=== PATIENT | male | born 1955 | race African-American/Black ===

== ENCOUNTER 2016-11-27 13:37 | Inpatient (IN) ==
[2016-11-27] MEDS ORDERED: KETOROLAC 30 MG/1 ML VIAL IV STA (14:07)
[2016-11-27] MEDS ORDERED: CLINDAMYCIN INJ 900 MG in PREMIX 1 EACH IV STA (14:07)
[2016-11-27] MEDS ORDERED: ONDANSETRON 4 MG/2 ML VIAL IV STA (14:07)
[2016-11-27] MEDS ORDERED: methylPREDNISolone SOD SUC 125 MG/2 ML VIAL IV STA (14:07)
--- NOTE | 2016-11-27 14:16 | EKG Report ---
Stationary ECG Study 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
--- NOTE | 2016-11-27 14:19 | Emergency Department Note ---
Arrival - Arrival Chief Complaint: Non-Specific Stated Complaint: SOB/CP ED Nursing Triage Note: Pt c/o SOB, mouth pain, difficulty swallowing, and weakness. Last Dialysis on Monday. Mode of Arrival: Wheelchair Time Seen by Provider: 11/27/16 14:07 - History of Present Illness HPI Narrative: This 61-year-old black male presents for the third time in 1 week for similar complaints. The patient reports a sore throat so severe he cannot talk and it hurts terribly to swallow. The patient initially a week ago was worked up in this regard as well as for associated chest pain. At that time it was thought his sore throat was somehow related to a recent dental extraction as well as aberration of his blood count with white blood cell count of only 2700. Both patient's white count and complaints of sore throat improved while on Levaquin and his chest pain workup revealed no significant pathology. He was seen soon after discharge in the ER again this time complaining of chest pain with subsequentl negative workup and was discharged. Today he presents primarily with complaints of sore throat. He denies chills, fever, sinus complaints, new dental pain, Heartburn, belching, or indigestion. He does however have problems with a white film on his tongue. It was not noted on the previous 2 visits if the patient did have any thrush on exam. Currently he appears anxious but in no acute medical distress. Onset (ago): week(s) (Patient presents 3 weeks post onset of symptoms) Allergies/Adverse Reactions: Allergies Allergy/AdvReac Type Severity Reaction Status Date / Time povidone-iodine Allergy Intermediate RASH Verified 11/08/16 08:59 [From Betadine] soap [From Betadine] Allergy Intermediate RASH Verified 11/08/16 08:59 Home Medications: Home Medications Medication Instructions Recorded Confirmed Type Insulin Glargine [Lantus] 35 unit SUBCUT BEDTIME 01/24/15 11/12/16 History Levothyroxine Tab [Synthroid Tab] 100 mcg PO DAILY 01/24/15 11/12/16 History Carvedilol 25 mg PO BID 11/12/16 11/12/16 History Digoxin 125 mcg PO DAILY 11/12/16 11/12/16 History NIFEdipine [Nifedipine ER] 30 mg PO DAILY 11/12/16 11/12/16 History Vitamin B Complex 1 each PO DAILY 11/12/16 11/12/16 History glipiZIDE [Glipizide] 5 mg PO DAILY 11/12/16 11/12/16 History Ondansetron Odt Tab [Zofran Odt] 4 mg PO Q6H #15 tablet 11/25/16 Rx Pantoprazole Tab [Protonix Tab] 40 mg PO DAILY #14 tablet 11/25/16 Rx Review of System - Review of System 12 point system: reviewed and no additional remarkable complaints except as stated - Review of System Constitutional: Present: as per HPI Head/Ears/Nose/Throat: Present: see HPI Respiratory: Present: as per HPI Cardiovascular: Present: as per HPI Gastrointestinal: Present: as per HPI Medical,Surgical,& Family Hx - Medical History Cardio: History of: Hypertension Neurology: History of: Peripheral Neuropathy (diabetic) No history of: Seizures Endocrine: History of: Diabetes Mellitus (IDDM), Thyroid Disorder Renal: History of: Dialysis (MWF), Renal Failure Musculoskeletal: History of: Back/Neck Problems No history of: Amputation - Surgical History Thoracic Surgeries: Patient denies;: Organ Transplant Neurologic Surgeries: Patient denies: Neurologic Surgery - Family History Family History: Reports;: Family Diabetes, Family Hypertension - Social History Smoking Status: Never smoker Exam Physical Examination: GENERAL: Well developed, well nourished black male in no acute distress. HEENT: Normocephalic. No trauma. Moist mucous membranes. EOMI. PERRLA. ENT evidence of poor dentition with oral thrush NECK: Supple. Submental adenopathy. CARDIAC: Regular. No murmurs. Heart rate 98 CHEST: Clear to auscultation. No respiratory distress. O2 sat 99% ABDOMEN: Soft. Nontender. Active bowel sounds. EXTREMITIES: No trauma. Normal ROM. No pedal edema. SKIN: No diaphoresis. No rash. NEURO: Alert. Neuro intact no focal deficits. Vital Signs: Vital Signs Temperature 99.2 F 11/27/16 13:57 Pulse Rate 98 H 11/27/16 13:57 Respiratory Rate 20 11/27/16 13:57 Blood Pressure 171/103 11/27/16 13:57 O2 Sat by Pulse Oximetry 99 11/27/16 13:57 Course - Reevaluation(s) Reevaluation #1: Discussed with patient and family the necessity for admission for further evaluation of his neck pain but most importantly his abnormalities of cardiac diagnostics. - Consultations Consultation #1: Discussed with hospitalist service who will admit for further evaluation and treatment. Results - Labs CBC & BMP: 11/27/16 14:52 11/27/16 14:52 Labs: I have reviewed the laboratory noted the expected abnormalities of renal function, elevated white blood cell count, and evidence of positive cardiac enzymes - Impressions EKG: Sinus rhythm with first-degree AV block with evidence of old septal infarct versus poor R-wave progression anteriorly. Diffuse nonspecific ST changes with no acute injury pattern noted. There was noted a change in lead III as compared to previous EKG although this may be related to lead placement - Diagnostic Findings Procedure: CT: image reviewed by me, report reviewed by me (CT of the soft tissues the neck: No significant pathology noted) Disposition Clinical Impression: Presumed NSTEMI NC, Chronic pharyngitis, Mild thrush Case discussed with: patient, patient's family Disposition: Still a Patient Condition: Stable Time of Disposition: 15:53
[2016-11-27] MEDS ORDERED: FLUCONAZOLE 100 MG TABLET PO STA (14:22)
[2016-11-27 15:03] LABS: Basophils # 0.1 10*3/uL (0.0-0.2); Basophils % 0.4 % (0.0-0.8); Eosinophils # 0.1 10*3/uL (0.0-0.87); Eosinophils % 0.9 % (0.00-10.9); Hematocrit 30.5 VOL% (42.0-52.0); Immature Granulocytes % 7.4 %; Lymphocytes # 1.7 10*3/uL (1.4-4.0); Lymphocytes % 13.9 % (21.2-54.2); Mean Corpuscular HGB Conc 32.8 GM/DL (32-36); Mean Corpuscular Hemoglobin 29 PG (27-34); Mean Corpuscular Volume 89.4 FL (87-102); Mean Platelet Volume 9.8 FL (9.6-12.0); Monocytes # 2.9 10*3/uL (0.11-0.8); Monocytes % 23.8 % (1.7-12.7); Neutrophils # 6.5 10*3/uL (1.4-7.4); Neutrophils % 53.6 % (38.7-73.9); Platelet Count 354 T/CUMM (130-400); Red Blood Count 3.41 MC/CUMM (3.8-5.5); Red Cell Distribution Width 16.3 % (9.3-17.3); White Blood Count 12.1 T/CUMM (4-12)
[2016-11-27 15:14] LABS: INR 1.1; PT Patient Result 11.4 SECS; Partial Thromboplastin Time 30.8 SECS (0-40)
--- NOTE | 2016-11-27 15:22 | CT Report ---
History: Neck pain. Difficulty swallowing Date: 11/27/2016 Study: CT soft tissue neck without IV contrast Comparison exam: November 12, [address] sections were obtained through the soft tissue neck without IV contrast. Multiplanar reconstruction images are also evaluated. This CT exam was performed using one or more the following dose reduction techniques: Automated exposure control, adjustment of the MA and/or KV according to patient size, or use of iterative reconstruction technique. There is no obvious soft tissue mass at the cervical level. There is no lymphadenopathy by short axis diameter criteria. There is no gross thyroid mass. There is no focal laryngeal abnormality. There is prominent anterior spondylosis and moderate to mild degenerative disc narrowing at C4-C5 through C6-C7 as before. There is moderate to severe spinal stenosis at C3-C4 through C6-C7 related to posterior diffuse bulging disc and osteophyte, unchanged from previous study. Impression: No significant interval change from the CT neck performed 15 days prior to this study. No obvious soft tissue mass or abscess at the cervical level. Prominent degenerative disease of the cervical spine as before. Moderate to severe multilevel spinal stenosis related to diffuse bulging disc and vertebral body osteophyte as before PROCEDURE INTERPRETED AT [facility] DEPARTMENT OF RADIOLOGY Final Report Signed by: Dr. Raven Kim
[2016-11-27 15:31] LABS: Anisocytosis 1+; Band Neutrophils 10 % (0-10); Eosinophils 2 % (0-10); Hypochromasia Slight; Lymphocytes 16 % (20-55); Metamyelocytes 2 %; Segmented Neutrophils 48 % (50-85); Total Cells Counted 100
[2016-11-27 15:32] LABS: Platelet Estimate Adequate
[2016-11-27 15:34] LABS: Troponin I Only 0.382 NG/ML (0.00-0.045)
[2016-11-27] MEDS ORDERED: ASPIRIN 325 MG TABLET PO STA (15:38)
[2016-11-27] MEDS ORDERED: NITROGLYCERIN 2% OINT 1 INCH/GM PACK TOP STA (15:38)
[2016-11-27] MEDS ORDERED: METOPROLOL TARTRATE 25 MG TABLET PO STA (15:38)
[2016-11-27 15:40] LABS: Albumin 2.8 G/DL (3.4-5.0); Bilirubin,Total 0.5 MG/DL (0.2-1.0); Calcium 9.2 MG/DL (8.5-10.1); Osmolality,Calculated 275.1 MOS/KG (273-304)
[2016-11-27] MEDS ORDERED: CLINDAMYCIN INJ 50 ML IV ONE (15:49)
[2016-11-27] MEDS ORDERED: ASPIRIN 325 MG TABLET ONE (15:50)
[2016-11-27] MEDS ORDERED: methylPREDNISolone SOD SUC 125 MG/2 ML VIAL ONE (15:50)
[2016-11-27] MEDS ORDERED: NITROGLYCERIN 2% OINT 1 INCH/GM PACK TOP ONE (15:50)
[2016-11-27] MEDS ORDERED: KETOROLAC 30 MG/1 ML VIAL ONE (15:50)
[2016-11-27] MEDS ORDERED: FLUCONAZOLE 100 MG TABLET ONE (15:50)
[2016-11-27] MEDS ORDERED: METOPROLOL TARTRATE 25 MG TABLET ONE (15:50)
[2016-11-27] MEDS ORDERED: ONDANSETRON 4 MG/2 ML VIAL ONE (15:50)
[2016-11-27] MEDS ORDERED: FLUCONAZOLE 200 MG TABLET PO STA (16:11)
--- NOTE | 2016-11-27 16:17 | Hospitalist History & Physical ---
Assessment and Plan (1) Atypical chest pain Status: Acute Current Visit: No (2) Chronic renal insufficiency Status: Acute Current Visit: No (3) Elevated troponin Status: Acute Current Visit: No (4) Anemia Status: Chronic Assessment and plan: Our plan for this patient will be admission to the hospital on a telemetry bed. Patient had this chest pain going on for a couple weeks now that, comes and goes and seems like it has increased over the past couple days. It sounds very atypical but he does have a mild bump in troponin. I do feel that prior to investigating from a GI standpoint a cardiology evaluation would be most appropriate this end-stage renal disease patient. We will draw serial cardiac enzymes and consult cardiology. Blood pressure seems like it has been a problem will have some as needed medicines available. CT scan of his neck was reviewed. EKGs were reviewed. Current Visit: No Qualifiers: Other causes of anemia: chronic disease, kidney History of Present Illness Chief complaint: Chest pain and throat pain History of present illness: Mr. Rosales is a 61 year old male with past medical history significant for end- stage renal disease diabetes hypertension and rheumatoid arthritis who has been having a 2 week history of some vague chest pain and throat pain. Prior to this he did have a dental extraction. Patient ultimately was hospitalized for a few days earlier this month. He had some hoarseness of his voice that resolved. He comes back today were increasing chest pain and throat pain this occurred over the past couple of days. He is able to swallow without any issue. His sister reports he has been hoarse. History is obtained from sister patient reluctant to talk. He does motion that he has a chest pain in the center of his chest. He does make him feel short of breath he denies diaphoresis and it radiates to the left side of his jaw. Patient had a mild bump in his troponin and I was consulted to admit him through the ER Home Medications Medication Instructions Recorded Confirmed Type Insulin Glargine [Lantus] 50 unit SUBCUT BEDTIME 01/24/15 11/27/16 History Levothyroxine Tab [Synthroid Tab] 100 mcg PO QAM 01/24/15 11/27/16 History Carvedilol 25 mg PO BID 11/12/16 11/27/16 History Digoxin 125 mcg PO QAM 11/12/16 11/27/16 History NIFEdipine [Nifedipine ER] 30 mg PO QAM 11/12/16 11/27/16 History Vitamin B Complex 1 each PO QAM 11/12/16 11/27/16 History glipiZIDE [Glipizide] 5 mg PO AC BREAKFAST 11/12/16 11/27/16 History Ondansetron Odt Tab [Zofran Odt] 4 mg PO Q6H #15 tablet 11/25/16 11/27/16 Rx Amoxicillin Cap/Tab 500 mg PO TID 11/27/16 11/27/16 History Azithromycin [Azithromycin] 250 mg PO QAM 11/27/16 11/27/16 History Gabapentin [Gabapentin] 300 mg PO TID 11/27/16 11/27/16 History Liothyronine Sodium 25 mcg PO QAM 11/27/16 11/27/16 History Naproxen Sodium [Aleve Cap] 220 mg PO Q12H PRN 11/27/16 11/27/16 History Pantoprazole Tab [Protonix Tab] 40 mg PO QAM 11/27/16 11/27/16 History predniSONE TAB [PredniSONE] 5 - 10 mg PO DAILY PRN 11/27/16 11/27/16 History Allergies Allergy/AdvReac Type Severity Reaction Status Date / Time povidone-iodine Allergy Intermediate RASH Verified 11/08/16 08:59 [From Betadine] soap [From Betadine] Allergy Intermediate RASH Verified 11/08/16 08:59 Medical,Surgical,& Family Hx - Medical History Cardio: History of: Hypertension Neurology: History of: Peripheral Neuropathy (diabetic) No history of: Seizures Endocrine: History of: Diabetes Mellitus (IDDM), Thyroid Disorder Renal: History of: Dialysis (MWF), Renal Failure Musculoskeletal: History of: Back/Neck Problems No history of: Amputation - Surgical History Thoracic Surgeries: Patient denies;: Organ Transplant Neurologic Surgeries: Patient denies: Neurologic Surgery - Family History Family History: Reports;: Family Diabetes, Family Hypertension - Social History Smoking Status: Never smoker Frequency of Alcohol Use: None Type of Drug Use: None ROS unobtainable: other (Secondary to his reluctance to talk) Exam - Constitutional Vitals: Period Temp Pulse Resp BP Sys/Diehl Pulse Ox Last 24 Hr 99.2 F 98 20 171/103 99 General appearance: over weight - Head Head exam: Present: normal inspection - Eye Eye exam: Present: EOMI Pupils: Present: [place]E - ENT ENT exam: Present: normal exam - Neck Neck exam: Present: normal inspection - Respiratory Respiratory exam: Present: clear to auscultation bilaterally - Cardiovascular Cardiovascular exam: Present: regular rate and rhythm - GI/Abdominal GI/Abdominal exam: Present: normal bowel sounds - Extremities Exam Extremities exam: Present: edema - Back Exam Back exam: Present: normal inspection - Neurological Exam Neurological exam: Present: alert - Psychiatric Psychiatric exam: Present: flat affect - Skin Skin exam: Present: normal color Results - Labs CBC & BMP: 11/27/16 14:52 11/27/16 14:52
[2016-11-27] MEDS ORDERED: ONDANSETRON 4 MG/2 ML VIAL IV PRN (16:20)
[2016-11-27] MEDS ORDERED: INSULIN REGULAR 100 UNIT/ML SUBCUT ONE (16:20)
[2016-11-27] MEDS ORDERED: METOPROLOL TARTRATE 5 MG/5 ML VIAL IV PRN (16:27)
[2016-11-27] MEDS ORDERED: PHENOL 1.4% THROAT SPRAY 177 ML BOTTLE PO PRN (16:32)
[2016-11-27 17:16] LABS: Risk Ratio 5.29; VLDL CHOLESTEROL 65.2 MG/DL
--- NOTE | 2016-11-27 17:24 | XRay Report ---
History: Pain Date: 11/27/2016 Study: Chest x-ray AP portable Comparison exam: November 25, 2016 chest x-ray There is cardiomegaly without change. The mediastinal contour is stable. The pulmonary vasculature is not engorged. The lungs and pleural spaces are clear. There is mild to moderate thoracic spondylosis. Impression: No acute cardiopulmonary process compared to the previous study. Stable cardiomegaly PROCEDURE INTERPRETED AT [facility] DEPARTMENT OF RADIOLOGY Final Report Signed by: Dr. Raven Kim
[2016-11-27] MEDS: NITROGLYCERIN 2% OINT 1 INCH/GM PACK TOP SCH (17:54)
[2016-11-27] MEDS: ENOXAPARIN 30 MG/0.3 ML SYRINGE SUBCUT SCH (17:54)
[2016-11-27] MEDS: AMOXICILLIN 500 MG CAPSULE PO SCH (21:31)
[2016-11-27] MEDS: GABAPENTIN 300 MG CAPSULE PO SCH (21:31)
[2016-11-27] MEDS: CARVEDILOL 25 MG TABLET PO SCH (21:31)
[2016-11-27 23:21] LABS: Troponin I Only 0.368 NG/ML (0.00-0.045)
--- NOTE | 2016-11-27 23:38 | EKG Report ---
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
[2016-11-28] MEDS: NITROGLYCERIN 2% OINT 1 INCH/GM PACK TOP SCH ×3 (00:06→12:11)
[2016-11-28 05:50] LABS: Troponin I Only 0.311 NG/ML (0.00-0.045)
--- NOTE | 2016-11-28 06:24 | EKG Report ---
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
[2016-11-28] MEDS: GABAPENTIN 300 MG CAPSULE PO SCH ×2 (08:51→08:57)
[2016-11-28] MEDS: DIGOXIN 0.125 MG TABLET PO SCH (08:51)
[2016-11-28] MEDS: AMOXICILLIN 500 MG CAPSULE PO SCH ×3 (08:51→21:18)
[2016-11-28] MEDS: LEVOTHYROXINE 100 MCG TABLET PO SCH (08:51)
[2016-11-28] MEDS: LIOTHYRONINE 25 MCG TABLET PO SCH (08:51)
[2016-11-28 08:52] LABS: Calcium 8.7 MG/DL (8.5-10.1); Magnesium 2.3 MG/DL (1.8-2.4); Osmolality,Calculated 286.1 MOS/KG (273-304); Potassium 4.7 MMOL/L (3.5-5.1)
[2016-11-28] MEDS: ASPIRIN 325 MG TABLET PO SCH (08:52)
[2016-11-28] MEDS: CARVEDILOL 25 MG TABLET PO SCH ×2 (08:52→21:19)
[2016-11-28] MEDS: AZITHROMYCIN 250 MG TABLET PO SCH (08:52)
[2016-11-28] MEDS: PANTOPRAZOLE 40 MG TABLET PO SCH (08:55)
[2016-11-28 09:17] LABS: Basophils % 0.2 % (0.0-0.8); Eosinophils % 0.1 % (0.00-10.9); Hematocrit 29.6 VOL% (42.0-52.0); Hemoglobin 9.8 GM/DL (14.0-18.0); Immature Granulocytes % 6.7 %; Immature Granulocytes Absolute 1.14 #; Lymphocytes # 1.7 10*3/uL (1.4-4.0); Lymphocytes % 9.8 % (21.2-54.2); Mean Corpuscular HGB Conc 33.1 GM/DL (32-36); Mean Corpuscular Hemoglobin 29 PG (27-34); Mean Corpuscular Volume 87.6 FL (87-102); Mean Platelet Volume 10.1 FL (9.6-12.0); Monocytes % 11.9 % (1.7-12.7); NRBC # 0.03 10*3/uL; Neutrophils # 12.1 10*3/uL (1.4-7.4); Neutrophils % 71.3 % (38.7-73.9); Platelet Count 366 T/CUMM (130-400); Red Blood Count 3.38 MC/CUMM (3.8-5.5); Red Cell Distribution Width 16.2 % (9.3-17.3)
--- NOTE | 2016-11-28 09:41 | Cardiology Consult Note ---
<Erma Ortiz - Last Filed: 11/28/16 13:16> Assessment and Plan - Time spent with patient Time spent with patient: Greater than 30 minutes (1) Atypical chest pain Status: Acute Assessment and plan: Patient's chest pain is very atypical. Troponin has been slightly elevated at 0.382, 0.368 and 0.311. However, this is in the setting of a creatinine of 11. EKG reveals poor R-wave progression without any acute ST changes. Patient is currently chest pain-free. Echocardiogram has been ordered. We will continue to cycle cardiac biomarkers. I will keep patient n.p.o. and plan for cardiac stress test this afternoon. Further plan and addendum to follow per Dr. Moran. Current Visit: No (2) Elevated troponin Status: Acute Current Visit: No (3) Hypothyroidism Status: Acute Assessment and plan: TSH has been ordered. Continue current plan of care with Synthroid. Current Visit: Yes (4) Anemia Status: Chronic Assessment and plan: Defer management to hospital medicine. Current Visit: No (5) Diabetes mellitus Status: Chronic Assessment and plan: Accu-Cheks before meals and at bedtime with sliding scale insulin. Current Visit: No Qualifiers: Diabetes mellitus type: type 2 Diabetes mellitus complication status: with kidney complications Diabetes mellitus complication detail: with chronic kidney disease Chronic kidney disease stage: on chronic dialysis (6) End stage renal disease Status: Chronic Assessment and plan: Management per nephrology. Current Visit: No (7) Hypertension Status: Chronic Assessment and plan: Patient's blood pressure has been suboptimally controlled. Procardia dose has been increased. We will further adjust medications as needed this hospitalization. Current Visit: No Qualifiers: Hypertension type: essential hypertension Qualified Code(s): I10 - Essential (primary) hypertension (8) Cardiomyopathy Status: Chronic Assessment and plan: Patient's most recent echo was obtained in and 15. This report an ejection fraction of 40%. I have ordered a repeat echocardiogram at this time to reevaluate patient's cardiomyopathy. Current Visit: Yes History of Present Illness - Data of Consult Patient: new to practice Consult date: 11/28/16 Requesting Physician: Coy Pavon Primary care physician: Rosales Bolton - Consult Narrative Reason for consult: Chest pain, elevated troponin History of present illness: Medical Collections Representative: None PCP: Dr. Rosales Bolton Jowl Trimmer: Dr. Ayers Cardiology consult note: Chest pain Mr. Rosales is a 61 year old male without known history of coronary artery disease, not routinely followed by cardiology. Patient presented to the ER yesterday evening with complaints of sore throat and trouble swallowing. Patient has cardiac risk factors significant for hypertension, diabetes, obesity and sedentary lifestyle. Patient has a past medical history of chronic renal failure (has been on hemodialysis for approximately 9-10 years, HD schedule Monday), hypothyroidism, rheumatoid arthritis and dental extraction approximately 2 weeks ago. Patient reports that he is a lifetime non-smoker and denies any significant family history of heart disease. In 2014 he had a normal cardiac stress test. His last echocardiogram was also 2014 which revealed an ejection fraction of approximately 40%. Cardiology has been consulted to further evaluate patient's 2 week history of intermittent chest pain. Patient was just discharged from [facility] November 21, 2016 after presenting with similar complaints. During the hospitalization, he was noted to have pancytopenia. Hematology was consulted at that time and it was felt that this was secondary to medication side effects. Gabapentin and Levaquin were discontinued. Patient underwent CT of head and neck, this was unremarkable. Cardiology was not consulted during that hospitalization. Patient was admitted to [facility] yesterday afternoon after presenting to the ER with complaints of sore throat and trouble swallowing. This has been going on for approximately 2 weeks ever since he had a dental extraction. He tells me that he did not present to the ER for chest discomfort. However, he does confirm that he experiences intermittent episodes. He describes this as a dull pain located to the left side of his chest. Nonradiating. Usually occurs while at rest. He believes that this is secondary to gas. His chest pain usually lasts approximately 3-4 seconds and is relieved with walking or after he belches or passes gas. He rates this pain a 3-4. He denies any chest discomfort with activity or exertion. He also denies easy fatigability and worsening dyspnea on exertion. Monday, while on dialysis patient confirms that he experienced severe neck and shoulder pain. He tells me that it felt like his muscles were tensing up. He has been experiencing neck and shoulder pain as well as weakness, nausea, sore throat, hoarseness and dysphagia for the last 2 weeks. He confirms that he first began to notice the symptoms after having his dental extraction. Patient was seen and examined on the telemetry unit. He was sitting up in bed in no acute distress. Currently requiring oxygen at 2 L via nasal cannula. He is currently chest pain-free. He tells me that he has not experienced any chest discomfort while being in the hospital. His troponin is mildly elevated ( 0.382, 0.368 and 0.311). EKG reveals poor R-wave progression without any acute ST changes. However, this is in the setting of an elevated creatinine of 11. White blood cell count is elevated at 17.0. Patient has had low-grade fevers. Currently receiving antibiotics. He is also mildly anemic at 9.8 and 29.6. Chest x-ray does not reveal any acute cardiopulmonary processes. CT neck does not reveal any obvious soft tissue mass or abscess. Upon exam, patient's left chest is tender to palpation. However, he confirms that this pain is slightly different than the chest pain he has been experiencing. I have ordered an echocardiogram to reevaluate patient's cardiomyopathy. I will keep patient n.p.o. and further discuss this case with Dr. Moran. Further plan an addendum to follow. CC: Kevin Clark MD - Home Medications and Allergies Home Medications: Home Medications Medication Instructions Recorded Confirmed Type Insulin Glargine [Lantus] 50 unit SUBCUT BEDTIME 01/24/15 11/27/16 History Levothyroxine Tab [Synthroid Tab] 100 mcg PO QAM 01/24/15 11/27/16 History Carvedilol 25 mg PO BID 11/12/16 11/27/16 History Digoxin 125 mcg PO QAM 11/12/16 11/27/16 History NIFEdipine [Nifedipine ER] 30 mg PO QAM 11/12/16 11/27/16 History Vitamin B Complex 1 each PO QAM 11/12/16 11/27/16 History glipiZIDE [Glipizide] 5 mg PO AC BREAKFAST 11/12/16 11/27/16 History Ondansetron Odt Tab [Zofran Odt] 4 mg PO Q6H #15 tablet 11/25/16 11/27/16 Rx Amoxicillin Cap/Tab 500 mg PO TID 11/27/16 11/27/16 History Azithromycin [Azithromycin] 250 mg PO QAM 11/27/16 11/27/16 History Gabapentin [Gabapentin] 300 mg PO TID 11/27/16 11/27/16 History Liothyronine Sodium 25 mcg PO QAM 11/27/16 11/27/16 History Naproxen Sodium [Aleve Cap] 220 mg PO Q12H PRN 11/27/16 11/27/16 History Pantoprazole Tab [Protonix Tab] 40 mg PO QAM 11/27/16 11/27/16 History predniSONE TAB [PredniSONE] 5 - 10 mg PO DAILY PRN 11/27/16 11/27/16 History Allergies/Adverse Reactions: Allergies Allergy/AdvReac Type Severity Reaction Status Date / Time povidone-iodine Allergy Intermediate RASH Verified 11/08/16 08:59 [From Betadine] soap [From Betadine] Allergy Intermediate RASH Verified 11/08/16 08:59 - Constitutional Constitutional: Present: fatigue, fever(s), lethargy, malaise, weakness, other ( Decreased appetite) - EENT Ears: Present: ear pain Nose, mouth and throat: Present: dysphagia, hoarseness, neck pain, sore throat, throat swelling - Cardiovascular Cardiovascular: Present: chest pain at rest. Absent: chest pain with activity, claudication, diaphoresis, dyspnea on exertion, edema, orthopnea, palpitations, PND - Respiratory Respiratory: Absent: cough, dyspnea, hemoptysis, dyspnea on exertion, wheezing, snoring, pain on inspiration, change in phlegm color - Gastrointestinal Gastrointestinal: Present: dysphagia, early satiety, heartburn, nausea, other ( Decreased appetite). Absent: abdominal pain, change in bowel habits, coffee ground emesis, constipation, cramping, diarrhea, vomiting - Musculoskeletal Musculoskeletal: Present: muscle cramps, muscle weakness, myalgias - Neurological Neurological: Absent: abnormal gait, abnormal speech, behavioral changes, headache(s), syncope - Hematologic/Lymphatic Hematologic/Lymphatic: Absent: easy bleeding, easy bruising Medical,Surgical,& Family Hx - Medical History Cardio: History of: Hypertension Neurology: History of: Peripheral Neuropathy (diabetic) No history of: Seizures Endocrine: History of: Diabetes Mellitus (NIDDM), Thyroid Disorder Rheumatology: History of;: Rheumatological Problems Renal: History of: Dialysis (MWF), Renal Failure Musculoskeletal: History of: Back/Neck Problems Hematology: History of: Anemia - Surgical History Cardiac Surgeries: Patient Denies: Cardiac Catheterization Neurologic Surgeries: Patient denies: Neurologic Surgery - Family History Family History: Reports;: Family Diabetes, Family Hypertension - Social History Smoking Status: Never smoker Frequency of Alcohol Use: None Type of Drug Use: None Physical Examination Vital Signs Temp Pulse Resp BP Pulse Ox 99.2 F 98 H 20 171/103 99 11/27/16 13:57 11/27/16 13:57 11/27/16 13:57 11/27/16 13:57 11/27/16 13:57 General: Present: Appears Well, No Apparent Distress Neck: Present: Supple Neck, Midline Trachea Cardiac: Present: Reg Rate and Rhythm, Regular Rate, Regular Rhythm, S1/S2, No Murmur Lungs: Present: Normal Exam, Clear Ascult./Percussion, Normal Breath Sounds, No Wheeze, Rales, Rhonchi Abdomen: Present: Soft, Active Bowel Sounds, No Masses, Non-Tender Gait: Present: Normal Gait Extremities: Present: Normal Gait, No Clubbing, No Cyanosis, No Edema, Normal Upper Extr. Pulses, Normal Lower Extr. Pulses Result/EKG - Labs CBC & BMP: 11/28/16 08:48 11/28/16 04:43 Lab Results: I have reviewed the past 24 hour labs Labs: Laboratory Results - last 24 hr 11/27/16 11/27/16 11/28/16 19:46 22:41 04:43 WBC RBC Hgb Hct MCV MCH MCHC RDW Plt Count MPV Neut % (Auto) Lymph % (Auto) [place] % (Auto) Eos % (Auto) Baso % (Auto) Neut # (Auto) Lymph # (Auto) [place] # (Auto) Eos # (Auto) Baso # (Auto) Immature Gran % Nucleated RBC % Immature Gran # Nucleated RBCs # Sodium Potassium Chloride Carbon Dioxide Anion Gap BUN Creatinine GFR Calculation BUN/Creatinine Ratio Glucose POC Glucose 206 H Calculated Osmolality Calcium Magnesium Total Creatine Kinase 810 H 741 H CK-MB (CK-2) 1.2 1.6 Troponin I 0.368 H 0.311 H 11/28/16 11/28/16 11/28/16 04:43 08:16 08:48 WBC 17.0 H D RBC 3.38 L Hgb 9.8 L Hct 29.6 L MCV 87.6 MCH 29 MCHC 33.1 RDW 16.2 Plt Count 366 MPV 10.1 Neut % (Auto) 71.3 Lymph % (Auto) 9.8 L [place] % (Auto) 11.9 Eos % (Auto) 0.1 Baso % (Auto) 0.2 Neut # (Auto) 12.1 H Lymph # (Auto) 1.7 [place] # (Auto) 2.0 H Eos # (Auto) 0.0 Baso # (Auto) 0.0 Immature Gran % 6.7 Nucleated RBC % 0.2 Immature Gran # 1.14 Nucleated RBCs # 0.03 Sodium 135 L Potassium 4.7 Chloride 93 L Carbon Dioxide 28 Anion Gap 18.7 H BUN 35 H D Creatinine 11.00 H GFR Calculation 7 BUN/Creatinine Ratio 3.00 L Glucose 268 H POC Glucose 263 H Calculated Osmolality 286.1 Calcium 8.7 Magnesium 2.3 Total Creatine Kinase CK-MB (CK-2) Troponin I <Arlene Moran - Last Filed: 11/28/16 15:13> History of Present Illness - Consult Narrative History of present illness: I personally interviewed and examined the patient, reviewed the chart and discussed medical decision-making with practitioner Angel. I have read this note and agree with the findings herein. In general, this is a high-risk patient with underlying end-stage renal disease with very atypical cardiac symptoms. His chief complaint appears to be related to his surgery and affects his voice and speech as well as his swallowing abilities which appears to be more of a mechanical issue than a referred discomfort. He has a chest discomfort on occasion that appears to be related to gas. Because of his high risk background we will proceed with further risk stratification with stress testing. CC: Kevin Clark MD Physical Examination Vital Signs Temp Pulse Resp BP Pulse Ox 99.2 F 98 H 20 171/103 99 11/27/16 13:57 11/27/16 13:57 11/27/16 13:57 11/27/16 13:57 11/27/16 13:57 Result/EKG - Labs CBC & BMP: 11/28/16 08:48 11/28/16 04:43 Labs: Laboratory Results - last 24 hr 11/27/16 11/27/16 11/28/16 19:46 22:41 04:43 WBC RBC Hgb Hct MCV MCH MCHC RDW Plt Count MPV Neut % (Auto) Lymph % (Auto) [place] % (Auto) Eos % (Auto) Baso % (Auto) Neut # (Auto) Lymph # (Auto) [place] # (Auto) Eos # (Auto) Baso # (Auto) Total Counted Immature Gran % Nucleated RBC % Immature Gran # Segmented Neutrophils Band Neutrophils Lymphocytes Monocytes Myelocytes Nucleated RBCs # Platelet Estimate Giant Platelets Hypochromasia Microcytosis Sodium Potassium Chloride Carbon Dioxide Anion Gap BUN Creatinine GFR Calculation BUN/Creatinine Ratio Glucose POC Glucose 206 H Calculated Osmolality Calcium Magnesium Total Creatine Kinase 810 H 741 H CK-MB (CK-2) 1.2 1.6 Troponin I 0.368 H 0.311 H TSH 3rd Generation 11/28/16 11/28/16 11/28/16 04:43 08:16 08:48 WBC 17.0 H D RBC 3.38 L Hgb 9.8 L Hct 29.6 L MCV 87.6 MCH 29 MCHC 33.1 RDW 16.2 Plt Count 366 MPV 10.1 Neut % (Auto) 71.3 Lymph % (Auto) 9.8 L [place] % (Auto) 11.9 Eos % (Auto) 0.1 Baso % (Auto) 0.2 Neut # (Auto) 12.1 H Lymph # (Auto) 1.7 [place] # (Auto) 2.0 H Eos # (Auto) 0.0 Baso # (Auto) 0.0 Total Counted 100 Immature Gran % 6.7 Nucleated RBC % 0.2 Immature Gran # 1.14 Segmented Neutrophils 81 Band Neutrophils 5 Lymphocytes 4 L Monocytes 9 Myelocytes 1 Nucleated RBCs # 0.03 Platelet Estimate Adequate Giant Platelets Few Hypochromasia 1+ Microcytosis Slight Sodium 135 L Potassium 4.7 Chloride 93 L Carbon Dioxide 28 Anion Gap 18.7 H BUN 35 H D Creatinine 11.00 H GFR Calculation 7 BUN/Creatinine Ratio 3.00 L Glucose 268 H POC Glucose 263 H Calculated Osmolality 286.1 Calcium 8.7 Magnesium 2.3 Total Creatine Kinase CK-MB (CK-2) Troponin I TSH 3rd Generation 11/28/16 11/28/16 11/28/16 10:49 12:00 Unknown WBC RBC Hgb Hct MCV MCH MCHC RDW Plt Count MPV Neut % (Auto) Lymph % (Auto) P[place] % (Auto) Eos % (Auto) Baso % (Auto) Neut # (Auto) Lymph # (Auto) P[place] # (Auto) Eos # (Auto) Baso # (Auto) Total Counted Immature Gran % Nucleated RBC % Immature Gran # Segmented Neutrophils Band Neutrophils Lymphocytes Monocytes Myelocytes Nucleated RBCs # Platelet Estimate Giant Platelets Hypochromasia Microcytosis Sodium Potassium Chloride Carbon Dioxide Anion Gap BUN Creatinine GFR Calculation BUN/Creatinine Ratio Glucose POC Glucose 264 H Calculated Osmolality Calcium Magnesium Total Creatine Kinase 636 H CK-MB (CK-2) Troponin I 0.252 H TSH 3rd Generation 0.796
[2016-11-28 10:10] LABS: Band Neutrophils 5 % (0-10); Giant Platelets Few; Hypochromasia 1+; Lymphocytes 4 % (20-55); Microcytosis Slight; Myelocytes 1 %; Platelet Estimate Adequate; Segmented Neutrophils 81 % (50-85); Total Cells Counted 100
--- NOTE | 2016-11-28 10:10 | Hospitalist Progress Note ---
Assessment and Plan - Time spent with patient Time spent with patient: Greater than 30 minutes (1) Dyslipidemia Status: Acute Assessment and plan: Continue home medications. His HDL cholesterol is rather low but in the long- term that may be consideration of niacin to rev up for his HDL cholesterol. He also will need triglyceride treatment. Preferably put him on atorvastatin is not already on. Current Visit: Yes (2) Chest pain Status: Acute Assessment and plan: Patient will have an echocardiogram. This in association with elevated troponin is water some despite the patient having end-stage renal disease. Patient will need to be seen by cardiology on this admission. Current Visit: No (3) Elevated troponin Status: Acute Assessment and plan: Continue serial troponins for 3 draws. Repeat EKG prior to be seen by cardiology. Current Visit: No (4) Diabetes mellitus Status: Chronic Assessment and plan: Continue home medications maintain blood sugars below 120 mg percent Accu-Cheks q. before meals and at bedtime. Put the patient on 1800 ADA diet cardiac diet Current Visit: No Qualifiers: Diabetes mellitus type: type 2 Diabetes mellitus complication status: with kidney complications Diabetes mellitus complication detail: with chronic kidney disease Chronic kidney disease stage: on chronic dialysis (5) End stage renal disease Status: Chronic Assessment and plan: Consult nephrology for management of dialysis while he is here. It appears the patient needs dialysis today. Current Visit: No (6) Hypertension Status: Chronic Current Visit: No Qualifiers: Hypertension type: essential hypertension Qualified Code(s): I10 - Essential (primary) hypertension Hospitalist: Subjective Interval history: Patient has been seen interviewed and examined and chart has been reviewed. Patient was admitted overnight with a chest pains that come and go. He did have a bump in his troponins thus sent to the telemetry. He states that this pain not provoked with this sometimes happen at rest. And he claims that the pain started after they had extracted his lower molar tooth about 3 weeks ago. He also gives a dramatic story of having developed pustular skin lesions soon after that tooth extraction. I am concerned about possibility of transient bacteremia at that time. There is no heart murmur no signs of heart failure at this point. His admission BNP will be low 500. His EKGs however do suggest possibility of anteroseptal infarct with lateral ischemia. I looked at the EKGs that goes back as 12 November of this year but also show at one point lateral ischemia. Gentleman has end-stage renal disease advancing age gentleman at age of 61 a diabetic with known history of hypertension.Therefore with a significant cardiac risk profile. I will coordinate cardiology see this gentleman. I am ordering an echocardiogram and a repeat EKG prior to him being seen. Exam - Constitutional Vitals: Period Temp Pulse Resp BP Sys/Diehl Pulse Ox Last 24 Hr 98.8 F-99.4 F 76-92 18-91 160-190/81-93 90-99 General appearance: over weight - Head Head exam: Present: normocephalic, atraumatic - Eye Eye exam: Present: EOMI, other (No conjunctival petechiae I could not do a full funduscopic evaluation due to lack of equipment) Pupils: Present: [place] - ENT ENT exam: Present: normal oropharynx, other (Extracted left lower molar no signs of cellulitis) - Neck Neck exam: Present: other (Supple midline trachea no adenopathy) - Respiratory Respiratory exam: Present: clear to auscultation bilaterally, other (No wheezing no rales) - Cardiovascular Cardiovascular exam: Present: regular rate and rhythm, other (No murmur no gallops no pericardial rub) - GI/Abdominal GI/Abdominal exam: Present: normal bowel sounds, soft - Extremities Exam Extremities exam: Present: full ROM, other (Diminished muscle bulk at the thenar compartments) - Back Exam Back exam: Present: normal inspection - Neurological Exam Neurological exam: Present: alert, oriented X3, CN II-XII intact - Psychiatric Psychiatric exam: Present: normal affect, normal mood - Skin Skin exam: Present: normal color, warm, dry Results - Labs CBC & BMP: 11/28/16 08:48 11/28/16 04:43 Lab Results: I have reviewed the past 24 hour labs (Noted leukocytosis of 17,000 ;71% neutrophils 10% lymphocyte. Troponin initially 0.368 and subsequently 0.311. Triglyceride 326 total cholesterol 180 HDL 34 LDL 98 says BUN and creatinine and other electrolytes within normal limits (patient has end-stage renal disease on dialysis))
--- NOTE | 2016-11-28 10:45 | EKG Report ---
Stationary ECG Study [facility] Test Date: 11/28/2016 10:46:11 AM Pat Name: NORA DONAHUE Department: Room: 284 Gender: M Hide Grader: KAREN : 1955 Requested by: Erma Ortiz Order Number: [id number] Reading MD: JOSI BOYLE Intervals [place] Rate: 75 P: 68 NC: 256 QRS: 99 QRSD: 93 T: 26 QT: 335 QTc: 365 Interpretive Statements SINUS RHYTHM WITH FIRST DEGREE AV BLOCK BORDERLINE RIGHT AXIS DEVIATION Electronically Signed On 12-01-16 10:14:25 CDT by JOSI BOYLE [email or web address]
[2016-11-28 11:50] LABS: Troponin I Only 0.252 NG/ML (0.00-0.045)
[2016-11-28] MEDS: INSULIN REGULAR 100 UNIT/ML SUBCUT SCH ×3 (12:11→21:21)
--- NOTE | 2016-11-28 12:34 | Nephrology Consult Note ---
History of Present Illness Chief complaint: Sore throat, mildly elevated TnI History of present illness: Mr. Rosales is a 61 year old male with ESRD 2' DM2 on chronic hemodialysis for 10 yrs. Recent complications s/p tooth extractions including pancytopenia due to suspect drug side effects. Presented yesterday with continue sore throat preventing po intake. Vague atypical pain c/o. Dynamic EKG changes. Mildly elevated cardiac enzyme panels. He routinely dialyzes on MWF, nocturnally with EDW 118kg via LFAF. Last HD Monday. He denies SOB/pain currently. He has no LBE edema, lungs clear and he is one kg below his EDW at 117kg. He states his sore throat is improved some since admission, on multiple antibiotics and diflucan for oral thrush. HIV neg. Home Medications Medication Instructions Recorded Confirmed Type Insulin Glargine [Lantus] 50 unit SUBCUT BEDTIME 01/24/15 11/27/16 History Levothyroxine Tab [Synthroid Tab] 100 mcg PO QAM 01/24/15 11/27/16 History Carvedilol 25 mg PO BID 11/12/16 11/27/16 History Digoxin 125 mcg PO QAM 11/12/16 11/27/16 History NIFEdipine [Nifedipine ER] 30 mg PO QAM 11/12/16 11/27/16 History Vitamin B Complex 1 each PO QAM 11/12/16 11/27/16 History glipiZIDE [Glipizide] 5 mg PO AC BREAKFAST 11/12/16 11/27/16 History Ondansetron Odt Tab [Zofran Odt] 4 mg PO Q6H #15 tablet 11/25/16 11/27/16 Rx Amoxicillin Cap/Tab 500 mg PO TID 11/27/16 11/27/16 History Azithromycin [Azithromycin] 250 mg PO QAM 11/27/16 11/27/16 History Gabapentin [Gabapentin] 300 mg PO TID 11/27/16 11/27/16 History Liothyronine Sodium 25 mcg PO QAM 11/27/16 11/27/16 History Naproxen Sodium [Aleve Cap] 220 mg PO Q12H PRN 11/27/16 11/27/16 History Pantoprazole Tab [Protonix Tab] 40 mg PO QAM 11/27/16 11/27/16 History predniSONE TAB [PredniSONE] 5 - 10 mg PO DAILY PRN 11/27/16 11/27/16 History Allergies Allergy/AdvReac Type Severity Reaction Status Date / Time povidone-iodine Allergy Intermediate RASH Verified 11/08/16 08:59 [From Betadine] soap [From Betadine] Allergy Intermediate RASH Verified 11/08/16 08:59 Medical,Surgical,& Family Hx - Medical History Cardio: History of: Hypertension Neurology: History of: Peripheral Neuropathy (diabetic) No history of: Seizures Endocrine: History of: Diabetes Mellitus (IDDM), Diabetes Mellitus (NIDDM), Thyroid Disorder Rheumatology: History of;: Rheumatological Problems Renal: History of: Dialysis (MWF), Renal Failure Musculoskeletal: History of: Back/Neck Problems No history of: Amputation Hematology: History of: Anemia - Surgical History Cardiac Surgeries: Patient Denies: Cardiac Catheterization Thoracic Surgeries: Patient denies;: Organ Transplant Neurologic Surgeries: Patient denies: Neurologic Surgery - Family History Family History: Reports;: Family Diabetes, Family Hypertension - Social History Smoking Status: Never smoker Frequency of Alcohol Use: None Type of Drug Use: None Exam - Vital Signs Vital signs: Period Temp Pulse Resp BP Sys/Diehl Pulse Ox Last 24 Hr 98.8 F-99.4 F 76-92 18-91 160-190/81-93 90-99 - General Appearance General appearance: well-developed, chronically ill EENT: ATNC, PERRL, mucous membranes dry, hearing intact, vision intact Neck: no JVD, no thyromegaly Respiratory: no kyphosis, clear Cardiology: no murmurs, no rub, no edema Gastrointestinal: normoactive bowel sounds, no tenderness Integumentary: no rash, warm and dry Neurologic: no focal deficit, no asterixis, alert and oriented x3 Musculoskeletal: no deformities, no erythema Psychiatric: depressed, cooperative Results - Labs CBC & BMP: 11/28/16 08:48 11/28/16 04:43 Assessment and Plan (1) ESRD on dialysis Problem details: NO acute indication for HD today. Status: Acute Assessment and plan: Plan for HD tomorrow. Current Visit: Yes (2) Chest pain Problem details: on dialysis for 10yrs, has the cardiac risk equivalent of known coronary disease. 75% of dialsyis patients of cardiovascular disease. Status: Acute Assessment and plan: In my opinion, he should go for coronary angiography today. Current Visit: No
[2016-11-28] MEDS ORDERED: REGADENOSON 0.4 MG/5 ML SYRINGE IV ONE (13:49)
--- NOTE | 2016-11-28 15:17 | Event Note ---
Underwent Lexiscan stress test without complaints of chest pain, heaviness or tightness. Blood pressure was stable. No EKG changes, no arrhythmia. Now, patient is transitioning to nuclear medicine for final scan. Dr. Moran to read, interpret and advise.
[2016-11-28] MEDS: ENOXAPARIN 30 MG/0.3 ML SYRINGE SUBCUT SCH (16:15)
[2016-11-28] MEDS ORDERED: DEXTROSE 50% 25 GM/50 ML VIAL IV PRN (17:25)
[2016-11-28] MEDS ORDERED: GLUCAGON 1 MG VIAL IM PRN (17:25)
[2016-11-28 17:37] LABS: Troponin I Only 0.204 NG/ML (0.00-0.045)
--- NOTE | 2016-11-28 21:12 | ECHO Report ---
Lawrence Rosales Exam Date: 11/28/2016 10:43 Referring Physician: Technologist: Andree Rodriguez RDCS Age: 61 Ht (in): 71 Wt (lb): 258 Gender: M Exam Location: [facility] Echo Indications: Chest pain, unspecified, Elevated troponin, Hypothyroidism, Anemia, NIDDM, Chronic fatigue, unspecified, End stage renal disease, Essential (primary) hypertension, Cardiomyopathy, unspecified BP: 174 / 88 HR: 78 Rhythm: Sinus Technical Quality: Poor IMPRESSIONS Moderately reduced LV systolic function with regional wall motion as described below. Grade 1/4 diastolic dysfunction. Mildly dilated left ventricle with mild concentric left ventricular hypertrophy. Mild mitral and tricuspid regurgitation. MEASUREMENTS (Male / Female) Normal Values 2D ECHO LV Diastolic Diameter PLAX 6.0 cm 4.2 - 5.9 / 3.9 - 5.3 cm LV Systolic Diameter PLAX 5.0 cm LV Fractional Shortening PLAX 16.0 % IVS Diastolic Thickness 1.3 cm 0.6 - 1.0 / 0.6 - 0.9 cm LVPW Diastolic Thickness 1.3 cm 0.6 - 1.0 / 0.6 - 0.9 cm RV Internal Dim ED PLAX 3.5 cm Aortic Root Diameter 3.0 cm LA Systolic Diameter LX 3.8 cm 3.0 - 4.0 / 2.7 - 3.8 cm DOPPLER TR Peak Velocity 285.0 cm/s TR Peak Gradient 32.5 mmHg FINDINGS Left Ventricle Mildly increased left ventricular cavity size. Mild left ventricular hypertrophy. Left ventricular ejection fraction is estimated at 40 %. There is poor endocardial resolution which hinders regional wall motion assessment. Overall, the inferior wall, inferoseptum and apex are suspected to be relatively more hypokinetic than the remainder of the myocardium. There is grade 1/4 diastolic dysfunction compatible with impaired relaxation. Right Ventricle The right ventricle is normal in size and function. Right Atrium The right atrium is normal in size. Left Atrium The left atrium is normal in size. Mitral Valve Morphologically normal mitral valve. Mild mitral annular calcification. Mild mitral valve regurgitation. Aortic Valve Morphologically normal aortic valve without significant sclerosis or stenosis. There is no aortic regurgitation. Tricuspid Valve Morphologically normal tricuspid valve. Mild tricuspid valve regurgitation. Tricuspid regurgitation velocities suggest a PAP of 42 mmHg. Pulmonic Valve Morphologically normal pulmonic valve without significant stenosis. There is no pulmonic regurgitation. Pericardium Normal pericardium without effusion. Aorta Normal ascending aorta dimension. Arlene Moran MD (Electronically Signed) Final Date: 28 November 2016 21:12
[2016-11-28] MEDS: INSULIN GLARGINE 100 UNIT/ML SUBCUT SCH (21:21)
[2016-11-28 21:26] LABS: Hepatitis B Core IgM Result Negative (Negative); Hepatitis B Surface Ag Quant < 0.10 Index; Hepatitis B Surface Ag Result Negative (Negative); Hepatitis C Virus Ab Quant 0.14 Index; Hepatitis C Virus Ab Result Negative (Negative)
--- NOTE | 2016-11-29 01:38 | Nuclear Medicine Report ---
LEXISCAN CARDIOLITE DATE: 11/28/2016 REFERRING: Arlene Moran MD INTERPRETING: Arlene Moran MD INDICATION: The patient with endstage renal disease, hypertension, and neck and arm pain. PROCEDURE: The patient underwent Lexiscan Cardiolite per protocol. A 10 mCi Technetium-99 were inj ected for rest imaging. Subsequently, the patient received Lexiscan 0.4 mg IV followed by 30 mCi Te chnetium-99 for stress imaging. EKG interpretation was provided by practitioner early and reviewed by me. The patient did not have any ST changes or arrhythmias. No chest pain was reported. SPECT images were obtained in the short axis, horizontal, and vertical long axis with gating. Eject ion fraction is 38%, end diastolic volume 193 mL, and systolic volume of 120 mL. Stroke volume is 7 3 mL. Overall, wall motion showed some global hypokinesis with severe hypokinesis of the inferior w all. At rest, there is a large extent, severe intensity perfusion defect noted in the inferior wall. Wit h stress imaging, there was matched stress to rest perfusion and no new radiotracer defects develop. IMPRESSION: 1. MODERATELY REDUCED LEFT VENTRICULAR SYSTOLIC FUNCTION. 2. MILDLY DILATED LEFT VENTRICLE. 3. LARGE EXTENT, SEVERE INTENSITY FIXED PERFUSION DEFECT IN THE INFERIOR WALL WITH ASSOCIATED WALL MOTION ABNORMALITY. THESE FINDINGS OVERALL ARE CONSISTENT WITH PRIOR MYOCARDIAL INFARCTION WITH SCA R FORMATION. 4. NO GROSS NUCLEAR EVIDENCE OF REVERSIBLE ISCHEMIA. Procedure performed and interpreted at [facility] Department of Radiology.
[2016-11-29 05:27] LABS: Basophils % 0.2 % (0.0-0.8); Hematocrit 27.1 VOL% (42.0-52.0); Hemoglobin 9.2 GM/DL (14.0-18.0); Immature Granulocytes % 7.3 %; Immature Granulocytes Absolute 1.26 #; Lymphocytes # 1.5 10*3/uL (1.4-4.0); Lymphocytes % 8.4 % (21.2-54.2); Mean Corpuscular HGB Conc 33.9 GM/DL (32-36); Mean Corpuscular Hemoglobin 29 PG (27-34); Mean Corpuscular Volume 85.8 FL (87-102); Mean Platelet Volume 10.2 FL (9.6-12.0); Monocytes # 2.6 10*3/uL (0.11-0.8); NRBC # 0.07 10*3/uL; Neutrophils % 69.1 % (38.7-73.9); Platelet Count 328 T/CUMM (130-400); Red Blood Count 3.16 MC/CUMM (3.8-5.5); Red Cell Distribution Width 15.9 % (9.3-17.3); White Blood Count 17.3 T/CUMM (4-12)
[2016-11-29 05:50] LABS: Band Neutrophils 3 % (0-10); Hypochromasia 1+; Lymphocytes 8 % (20-55); Metamyelocytes 4 %; Myelocytes 1 %; Nucleated Red Blood Cells 2 (0-5); Segmented Neutrophils 69 % (50-85); Total Cells Counted 100
[2016-11-29 05:51] LABS: Microcytosis Slight; Platelet Estimate Normal
[2016-11-29 05:53] LABS: Calcium 8.6 MG/DL (8.5-10.1); Magnesium 2.5 MG/DL (1.8-2.4); Osmolality,Calculated 289.4 MOS/KG (273-304); Potassium 4.5 MMOL/L (3.5-5.1)
--- NOTE | 2016-11-29 07:51 | Hospitalist Progress Note ---
Assessment and Plan (1) Chronic renal insufficiency Status: Chronic Assessment and plan: Chronic long-term renal replacement therapy Current Visit: No (2) Cardiomyopathy Status: Chronic Assessment and plan: Noninvasive evaluation consistent with ischemic etiology with evidence of inferior wall scar with estimated left ventricular ejection fraction 40%. Current Visit: Yes (3) Cervical spinal stenosis Status: Chronic Assessment and plan: Noted on CT imaging of his neck for evaluation of possible soft tissue infection. Current Visit: Yes Hospitalist: Subjective Interval history: 61-year-old male with long-standing renal failure on chronic renal replacement therapy had presented with complaints of atypical chest discomfort to the emergency room. He had some recent dental work performed and there was concern regarding potential infection at that site given the elevated white blood cell count with left shift which is actually progressed during the hospital stay. Bands were present and his AST and ALT were both elevated with an elevated total CPK with no significant MB fraction present. His troponins were elevated but not involving. The patient apparently had had fluid accumulation on CT scan done earlier in the month of his neck. He was hospitalized here from 12 November - 21 November to address this problem and repeat on this occasion demonstrated resolution with incidental noting of degenerative cervical spine disease associated with element of spinal stenosis. The patient has had an echocardiogram performed which showed 40% ejection fraction with inferior and inferior septal wall motion abnormality no pulmonary hypertension. His EKG demonstrates no inferior scar myocardial perfusion perfusion imaging however shows a fixed inferior defect and confirms decreased left ventricular performance. He has no evidence of inducible ischemia. He is been stable overnight and is scheduled for dialysis today. Exam - Constitutional Vitals: Period Temp Pulse Resp BP Sys/Diehl Pulse Ox Last 24 Hr 98.4 F-99.5 F 72-83 18-20 134-155/66-72 90-98 General appearance: normal weight - Respiratory Respiratory exam: Present: clear to auscultation bilaterally. Absent: rales, rhonchi, wheezes - Cardiovascular Cardiovascular exam: Present: regular rate and rhythm, systolic murmur (1/6 basilar systolic murmur) - GI/Abdominal GI/Abdominal exam: Present: normal bowel sounds. Absent: tenderness - Extremities Exam Extremities exam: Absent: edema - Neurological Exam Neurological exam: Present: alert, oriented X3 Results - Labs CBC & BMP: 11/29/16 05:12 11/29/16 05:12
[2016-11-29 08:17] LABS: Hepatitis A Ab IgM Quant 1.04 Index
[2016-11-29 08:19] LABS: Hepatitis A Ab IgM Result Equivocal (Negative)
[2016-11-29] MEDS: INSULIN REGULAR 100 UNIT/ML SUBCUT SCH ×4 (08:53→21:04)
[2016-11-29] MEDS: DIGOXIN 0.125 MG TABLET PO SCH (08:54)
[2016-11-29] MEDS: ASPIRIN 325 MG TABLET PO SCH (08:54)
[2016-11-29] MEDS: AMOXICILLIN 500 MG CAPSULE PO SCH ×3 (08:54→21:03)
[2016-11-29] MEDS: AZITHROMYCIN 250 MG TABLET PO SCH (08:54)
[2016-11-29] MEDS: LIOTHYRONINE 25 MCG TABLET PO SCH (08:54)
[2016-11-29] MEDS: LEVOTHYROXINE 100 MCG TABLET PO SCH (08:54)
[2016-11-29] MEDS: CARVEDILOL 25 MG TABLET PO SCH ×2 (08:54→21:03)
[2016-11-29] MEDS: PANTOPRAZOLE 40 MG TABLET PO SCH (08:55)
--- NOTE | 2016-11-29 09:33 | Dialysis Note ---
Dialysis Note - Dialysis Note S: PT seen on dialysis. He states his sore throat is gone. Denies SOB. O: VSS A: ESRD on CHD. Tolerating well without complications. P: Continue routine CHD prescription. Next scheduled CHD TBD depending on cath or not.
[2016-11-29] MEDS ORDERED: MAGNESIUM SULF RIDER 2 GM in PREMIX 1 EACH IV PRN ×2 (13:27→21:28)
[2016-11-29] MEDS ORDERED: POTASSIUM CHLORIDE RIDER 10 MEQ in PREMIX 1 EACH IV PRN ×2 (13:27→21:28)
--- NOTE | 2016-11-29 14:59 | Cardiology Progress Note ---
<Erma Ortiz - Last Filed: 11/29/16 14:56> Assessment and Plan (1) Atypical chest pain Status: Acute Assessment and plan: He underwent cardiac stress testing yesterday which revealed moderately reduced left ventricular systolic function, ejection fraction 38%. Fixed perfusion defect in the inferior wall with associated wall motion abnormality. Overall, these findings are consistent with prior myocardial infarction with scar formation. No gross nuclear evidence of reversible ischemia was noted. However , because of his high risk background with chronic renal failure and cardiomyopathy (EF 38%), I think it is reasonable to proceed with cardiac catheterization in order to properly diagnose nonischemic versus ischemic cardiomyopathy. Risk and benefits of heart catheterization have been reviewed with patient. He and his both verbalized understanding of this procedure and are agreeable to proceed tomorrow with Dr. Harmon. Patient will be n.p.o. after midnight. Further plan and addendum to follow per Dr. Moran. Current Visit: No (2) Elevated troponin Status: Acute Current Visit: No (3) Hypothyroidism Status: Acute Assessment and plan: Continue current plan of care with Synthroid. Current Visit: Yes (4) Anemia Status: Chronic Assessment and plan: Defer management to hospital medicine. Current Visit: No (5) Diabetes mellitus Status: Chronic Assessment and plan: Accu-Cheks before meals and at bedtime with sliding scale insulin. Current Visit: No Qualifiers: Diabetes mellitus type: type 2 Diabetes mellitus complication status: with kidney complications Diabetes mellitus complication detail: with chronic kidney disease Chronic kidney disease stage: on chronic dialysis (6) End stage renal disease Status: Chronic Assessment and plan: Patient underwent dialysis today without complications. Management per nephrology. Current Visit: No (7) Hypertension Status: Chronic Assessment and plan: Patient's blood pressure is now better controlled after adjustment of antihypertensives yesterday. Current Visit: No Qualifiers: Hypertension type: essential hypertension Qualified Code(s): I10 - Essential (primary) hypertension (8) Cardiomyopathy Status: Chronic Assessment and plan: Because of his high risk background with chronic renal failure and cardiomyopathy (EF 38%), I think it is reasonable to proceed with cardiac catheterization in order to properly diagnose nonischemic versus ischemic cardiomyopathy. Risk and benefits of heart catheterization have been reviewed with patient. He and his both verbalized understanding of this procedure and are agreeable to proceed tomorrow with Dr. Harmon. Patient will be n.p.o. after midnight. Further plan an addendum to follow per Dr. Moran. Current Visit: Yes Cardiology - PN: Subj Interval history: Disbursement Clerk: None PCP: Dr. Rosales Bolton Negative Turner Apprentice: Dr. Ayers Mr. Rosales is a 61 year old male without known history of coronary artery disease, not routinely followed by cardiology. Patient presented to the ER with complaints of sore throat and trouble swallowing. Patient has cardiac risk factors significant for hypertension, diabetes, obesity and sedentary lifestyle. Patient has a past medical history of chronic renal failure (has been on hemodialysis for approximately 9-10 years, HD schedule Monday), hypothyroidism, rheumatoid arthritis and dental extraction approximately 2 weeks ago. Patient reports that he is a lifetime non-smoker and denies any significant family history of heart disease. In 2014 he had a normal cardiac stress test. His last echocardiogram was also 2014 which revealed an ejection fraction of approximately 40%. Cardiology has been consulted to further evaluate patient's 2 week history of intermittent chest pain. Patient was seen and examined on the telemetry unit. He underwent cardiac stress testing yesterday which revealed moderately reduced left ventricular systolic function, ejection fraction 38%. Fixed perfusion defect in the inferior wall with associated wall motion abnormality. These findings overall, are consistent with prior myocardial infarction with scar formation. No gross nuclear evidence of reversible ischemia was noted. Patient did well overnight and is without complaints this morning. He denies chest pain, heaviness and tightness. He reports that his dysphagia and hoarseness has gotten slightly better. Patient had dialysis today without complications. Vital signs are stable. Troponin is now trending downward. Patient is currently normal sinus rhythm without any overt arrhythmias or ectopy noted. Because of his high risk background with chronic renal failure and cardiomyopathy (EF 38%), I think it is reasonable to proceed with cardiac catheterization in order to properly diagnose nonischemic versus ischemic cardiomyopathy. Further plan and addendum to follow per Dr. Moran. Exam (Progress Note) - Constitutional Vitals: Period Temp Pulse Resp BP Sys/Diehl Pulse Ox Last 24 Hr 98.3 F-99.5 F 68-83 18-20 134-155/66-72 90-98 Exam: General: Present: Appears Well, No Apparent Distress Neck: Present: Supple Neck, Midline Trachea Cardiac: Present: Reg Rate and Rhythm, Regular Rate, Regular Rhythm, S1/S2, No Murmur Lungs: Present: Normal Exam, Clear Ascult./Percussion, Normal Breath Sounds, No Wheeze, Rales, Rhonchi Abdomen: Present: Soft, Active Bowel Sounds, No Masses, Non-Tender Gait: Present: Normal Gait Extremities: Present: Normal Gait, No Clubbing, No Cyanosis, No Edema, Normal Upper Extr. Pulses, Normal Lower Extr. Pulses Result/EKG - Labs CBC & BMP: 11/29/16 05:12 11/29/16 05:12 Lab Results: I have reviewed the past 24 hour labs Labs: Laboratory Results - last 24 hr 11/28/16 11/28/16 11/28/16 16:25 16:59 20:34 WBC RBC Hgb Hct MCV MCH MCHC RDW Plt Count MPV Neut % (Auto) Lymph % (Auto) Arthur % (Auto) Eos % (Auto) Baso % (Auto) Neut # (Auto) Lymph # (Auto) Arthur # (Auto) Eos # (Auto) Baso # (Auto) Total Counted Immature Gran % Nucleated RBC % Immature Gran # Segmented Neutrophils Band Neutrophils Lymphocytes Monocytes Metamyelocytes Myelocytes Nucleated RBCs Nucleated RBCs # Platelet Estimate Hypochromasia Microcytosis Sodium Potassium Chloride Carbon Dioxide Anion Gap BUN Creatinine GFR Calculation BUN/Creatinine Ratio Glucose POC Glucose 341 H 405 H Calculated Osmolality Calcium Magnesium Total Creatine Kinase 580 H CK-MB (CK-2) 1.9 Troponin I 0.204 H 11/28/16 11/29/16 11/29/16 23:08 05:12 05:12 WBC 17.3 H RBC 3.16 L Hgb 9.2 L Hct 27.1 L MCV 85.8 L MCH 29 MCHC 33.9 RDW 15.9 Plt Count 328 MPV 10.2 Neut % (Auto) 69.1 Lymph % (Auto) 8.4 L Arthur % (Auto) 15.0 H Eos % (Auto) 0.0 Baso % (Auto) 0.2 Neut # (Auto) 12.0 H Lymph # (Auto) 1.5 Arthur # (Auto) 2.6 H Eos # (Auto) 0.0 Baso # (Auto) 0.0 Total Counted 100 Immature Gran % 7.3 Nucleated RBC % 0.4 Immature Gran # 1.26 Segmented Neutrophils 69 Band Neutrophils 3 Lymphocytes 8 L Monocytes 15 Metamyelocytes 4 Myelocytes 1 Nucleated RBCs 2 Nucleated RBCs # 0.07 Platelet Estimate Normal Hypochromasia 1+ Microcytosis Slight Sodium 133 L Potassium 4.5 Chloride 94 L Carbon Dioxide 29 Anion Gap 14.5 BUN 57 H Creatinine 13.90 H GFR Calculation 5 BUN/Creatinine Ratio 4.00 L Glucose 240 H POC Glucose 355 H Calculated Osmolality 289.4 Calcium 8.6 Magnesium 2.5 H Total Creatine Kinase CK-MB (CK-2) Troponin I 11/29/16 11/29/16 07:42 11:52 WBC RBC Hgb Hct MCV MCH MCHC RDW Plt Count MPV Neut % (Auto) Lymph % (Auto) Arthur % (Auto) Eos % (Auto) Baso % (Auto) Neut # (Auto) Lymph # (Auto) Arthur # (Auto) Eos # (Auto) Baso # (Auto) Total Counted Immature Gran % Nucleated RBC % Immature Gran # Segmented Neutrophils Band Neutrophils Lymphocytes Monocytes Metamyelocytes Myelocytes Nucleated RBCs Nucleated RBCs # Platelet Estimate Hypochromasia Microcytosis Sodium Potassium Chloride Carbon Dioxide Anion Gap BUN Creatinine GFR Calculation BUN/Creatinine Ratio Glucose POC Glucose 240 H 155 H Calculated Osmolality Calcium Magnesium Total Creatine Kinase CK-MB (CK-2) Troponin I <Arlene Moran - Last Filed: 11/29/16 17:08> Cardiology - PN: Subj Interval history: I personally interviewed and examined the patient, reviewed the chart and discussed medical decision-making with practitioner Angel. I have read this note and agree with the findings herein. We will need to rule out left main or multivessel disease. Exam (Progress Note) - Constitutional Vitals: Period Temp Pulse Resp BP Sys/Diehl Pulse Ox Last 24 Hr 98.3 F-99.5 F 68-83 18-20 134-142/66-69 90-98 Result/EKG - Labs CBC & BMP: 11/29/16 05:12 11/29/16 05:12 Labs: Laboratory Results - last 24 hr 11/28/16 11/28/16 11/28/16 16:25 20:34 23:08 WBC RBC Hgb Hct MCV MCH MCHC RDW Plt Count MPV Neut % (Auto) Lymph % (Auto) Arthur % (Auto) Eos % (Auto) Baso % (Auto) Neut # (Auto) Lymph # (Auto) Arthur # (Auto) Eos # (Auto) Baso # (Auto) Total Counted Immature Gran % Nucleated RBC % Immature Gran # Segmented Neutrophils Band Neutrophils Lymphocytes Monocytes Metamyelocytes Myelocytes Nucleated RBCs Nucleated RBCs # Platelet Estimate Hypochromasia Microcytosis Sodium Potassium Chloride Carbon Dioxide Anion Gap BUN Creatinine GFR Calculation BUN/Creatinine Ratio Glucose POC Glucose 405 H 355 H Calculated Osmolality Calcium Magnesium Total Creatine Kinase 580 H CK-MB (CK-2) 1.9 Troponin I 0.204 H 11/29/16 11/29/16 11/29/16 05:12 05:12 07:42 WBC 17.3 H RBC 3.16 L Hgb 9.2 L Hct 27.1 L MCV 85.8 L MCH 29 MCHC 33.9 RDW 15.9 Plt Count 328 MPV 10.2 Neut % (Auto) 69.1 Lymph % (Auto) 8.4 L Arthur % (Auto) 15.0 H Eos % (Auto) 0.0 Baso % (Auto) 0.2 Neut # (Auto) 12.0 H Lymph # (Auto) 1.5 Arthur # (Auto) 2.6 H Eos # (Auto) 0.0 Baso # (Auto) 0.0 Total Counted 100 Immature Gran % 7.3 Nucleated RBC % 0.4 Immature Gran # 1.26 Segmented Neutrophils 69 Band Neutrophils 3 Lymphocytes 8 L Monocytes 15 Metamyelocytes 4 Myelocytes 1 Nucleated RBCs 2 Nucleated RBCs # 0.07 Platelet Estimate Normal Hypochromasia 1+ Microcytosis Slight Sodium 133 L Potassium 4.5 Chloride 94 L Carbon Dioxide 29 Anion Gap 14.5 BUN 57 H Creatinine 13.90 H GFR Calculation 5 BUN/Creatinine Ratio 4.00 L Glucose 240 H POC Glucose 240 H Calculated Osmolality 289.4 Calcium 8.6 Magnesium 2.5 H Total Creatine Kinase CK-MB (CK-2) Troponin I 11/29/16 11/29/16 11:52 15:12 WBC RBC Hgb Hct MCV MCH MCHC RDW Plt Count MPV Neut % (Auto) Lymph % (Auto) Arthur % (Auto) Eos % (Auto) Baso % (Auto) Neut # (Auto) Lymph # (Auto) Arthur # (Auto) Eos # (Auto) Baso # (Auto) Total Counted Immature Gran % Nucleated RBC % Immature Gran # Segmented Neutrophils Band Neutrophils Lymphocytes Monocytes Metamyelocytes Myelocytes Nucleated RBCs Nucleated RBCs # Platelet Estimate Hypochromasia Microcytosis Sodium Potassium Chloride Carbon Dioxide Anion Gap BUN Creatinine GFR Calculation BUN/Creatinine Ratio Glucose POC Glucose 155 H 207 H Calculated Osmolality Calcium Magnesium Total Creatine Kinase CK-MB (CK-2) Troponin I
[2016-11-29] MEDS: ENOXAPARIN 30 MG/0.3 ML SYRINGE SUBCUT SCH (16:46)
[2016-11-29] MEDS: INSULIN GLARGINE 100 UNIT/ML SUBCUT SCH (21:03)
--- NOTE | 2016-11-29 21:33 | History and Physical Update ---
Sedation H&P Update - History and Physical H&P was reviewed, the patient examined and there: are no changes in the patients condition since last H&P was completed. (No bleeding in the pt's bowels , urine, or coughing up blood. No planned surgery for the next year. No contraindication to anticoagulation for a year.) - Dictation Physical: refer to H&P completed by admitting physician - Physical Exam Mental Status: alert and oriented Heart: regular rate and rhythm Lung: clear to auscultation Abdomen: within normal limits Vitals: within normal limits (Femoral pulses are 3-4+. Foot pulses are 2+.) - Sedation Plan for Sedation: minimal ( Bilateral) Patient Consent: Procedure disscussed with patient and patinet has consented., Risks and benefits were discussed with patient,including infection,, bleeding, injury to surrounding structures, seizure, temporary nerve, Patient understands and accepts potential risks/benefits and agrees to (Left heart cath and possible PTCA or stent were discussed with the patient. The risk of the procedure include but are not limited to a small risk of injury to the vessel, abnormal heart rhythm, stroke, heart attack, need for emergent surgery, contrast reaction, restenosis, or . The patient voices understanding, agrees with the plan, and desires to proceed with the heart catheterization.), proceed.
[2016-11-30 04:52] LABS: Basophils # 0.1 10*3/uL (0.0-0.2); Basophils % 0.5 % (0.0-0.8); Eosinophils % 0.1 % (0.00-10.9); Hematocrit 30.1 VOL% (42.0-52.0); Hemoglobin 9.9 GM/DL (14.0-18.0); Immature Granulocytes % 9.5 %; Immature Granulocytes Absolute 1.46 #; Lymphocytes # 2.1 10*3/uL (1.4-4.0); Lymphocytes % 13.6 % (21.2-54.2); Mean Corpuscular HGB Conc 32.9 GM/DL (32-36); Mean Corpuscular Hemoglobin 30 PG (27-34); Mean Corpuscular Volume 89.9 FL (87-102); Mean Platelet Volume 9.8 FL (9.6-12.0); Monocytes # 2.5 10*3/uL (0.11-0.8); Monocytes % 16.4 % (1.7-12.7); Neutrophils # 9.2 10*3/uL (1.4-7.4); Neutrophils % 59.9 % (38.7-73.9); Platelet Count 294 T/CUMM (130-400); Red Blood Count 3.35 MC/CUMM (3.8-5.5); Red Cell Distribution Width 15.9 % (9.3-17.3); White Blood Count 15.3 T/CUMM (4-12)
[2016-11-30 05:00] LABS: PT Patient Result 10.8 SECS
[2016-11-30 05:17] LABS: Band Neutrophils 4 % (0-10); Hypochromasia Slight; Lymphocytes 10 % (20-55); Microcytosis Slight; Nucleated Red Blood Cells 3 (0-5); Platelet Estimate Adequate; Segmented Neutrophils 72 % (50-85); Total Cells Counted 100
[2016-11-30 05:23] LABS: Calcium 8.1 MG/DL (8.5-10.1); Magnesium 2.4 MG/DL (1.8-2.4); Osmolality,Calculated 287.8 MOS/KG (273-304); Potassium 4.2 MMOL/L (3.5-5.1)
[2016-11-30] MEDS ORDERED: DIAZEPAM 5 MG TABLET PO ONE (06:00)
[2016-11-30] MEDS ORDERED: diphenhydrAMINE CAP 25 MG CAPSULE PO ONE (06:00)
--- NOTE | 2016-11-30 07:32 | EKG Report ---
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
[2016-11-30] MEDS: INSULIN REGULAR 100 UNIT/ML SUBCUT SCH ×4 (08:18→22:28)
--- NOTE | 2016-11-30 08:20 | Hospitalist Progress Note ---
Assessment and Plan (1) Chronic renal insufficiency Status: Chronic Assessment and plan: Chronic long-term renal replacement therapy Current Visit: No (2) Cardiomyopathy Status: Chronic Assessment and plan: Noninvasive evaluation consistent with ischemic etiology with evidence of inferior wall scar with estimated left ventricular ejection fraction 40%. Anticipated for coronary angiography 11/30/2016. Current Visit: Yes (3) Cervical spinal stenosis Status: Chronic Assessment and plan: Noted on CT imaging of his neck for evaluation of possible soft tissue infection. Current Visit: Yes Hospitalist: Subjective Interval history: 61-year-old male with long-standing renal failure on chronic renal dialysis had presented with complaints of atypical chest discomfort. His history was clouded somewhat by recent dental work which was complicated by some soft tissue changes in the neck. His white blood cell count was elevated with a left shift with immature forms however a repeat CT scan compared with earlier this month of the neck demonstrated good resolution of his original postoperative changes. Patient's workup consisted of an echocardiogram showing 40% ejection fraction with inferior and inferoseptal wall motion abnormalities without pulmonary hypertension EKG did not show any inferior wall scar. He had with myocardial perfusion imaging which showed a fixed defect corresponding to the echocardiographic findings with no inducible ischemia. The patient is scheduled today for angiographic evaluation. He was dialyzed yesterday without complication. He remains in sinus rhythm with stable vital signs he is afebrile repeat EKG this morning shows stable pattern with delayed R-wave progression. Exam - Constitutional Vitals: Period Temp Pulse Resp BP Sys/Diehl Pulse Ox Last 24 Hr 97.1 F-99.4 F 69-77 16-20 112-136/63-69 93-98 General appearance: normal weight - Respiratory Respiratory exam: Present: clear to auscultation bilaterally. Absent: rales, rhonchi, wheezes - Cardiovascular Cardiovascular exam: Present: gallop (Loud S4 gallop), regular rate and rhythm, systolic murmur (1/6 basilar systolic murmur) - GI/Abdominal GI/Abdominal exam: Present: normal bowel sounds - Extremities Exam Extremities exam: Absent: edema - Neurological Exam Neurological exam: Present: oriented X3 Results - Labs CBC & BMP: 11/30/16 04:31 11/30/16 04:31 - Impressions Sinus rhythm clockwise precordial rotation stable compared to previous
[2016-11-30] MEDS: DIGOXIN 0.125 MG TABLET PO SCH (08:30)
[2016-11-30] MEDS: ASPIRIN 325 MG TABLET PO SCH (08:30)
[2016-11-30] MEDS: SODIUM CHLORIDE 0.9% 1,000 ML IV SCH (08:31)
[2016-11-30] MEDS: CARVEDILOL 25 MG TABLET PO SCH ×2 (08:31→22:28)
[2016-11-30] MEDS: AMOXICILLIN 500 MG CAPSULE PO SCH ×3 (08:51→22:28)
[2016-11-30] MEDS ORDERED: MEPERIDINE 25 MG/1 ML VIAL ONE (10:46)
[2016-11-30] MEDS ORDERED: MIDAZOLAM 2 MG/2 ML VIAL ONE (10:46)
--- NOTE | 2016-11-30 11:16 | Nephrology Progress Note ---
Nephrology - PN: Subj Interval history: Pt denies SOB/pain. Sore throat resolved and voice improving daily. WBC declining. Going for cath this am. Tolerated routine CHD yesterday without complications. Exam (PN)-Nephrology - Vital Signs Vital signs: Period Temp Pulse Resp BP Sys/Diehl Pulse Ox Last 24 Hr 97.1 F-99.4 F 69-77 16-20 112-136/63-69 93-98 - General Appearance General appearance: well-developed, well-nourished EENT: ATNC, PERRL Neck: no JVD, no thyromegaly Respiratory: no kyphosis, clear Cardiology: no murmurs, no rub, no edema Gastrointestinal: normoactive bowel sounds, no tenderness Integumentary: no rash, warm and dry Neurologic: no focal deficit, no asterixis, alert and oriented x3 Musculoskeletal: no deformities, no erythema Psychiatric: mood/affect appropriate, cooperative - Lab 11/30/16 04:31 11/30/16 04:31 Most recent lab results Calcium 8.1 MG/DL (8.5-10.1) L 11/30/16 04:31 Magnesium 2.4 MG/DL (1.8-2.4) 11/30/16 04:31 Assessment and Plan (1) ESRD on dialysis Problem details: NO acute indication for HD today. Status: Acute Assessment and plan: Plan for HD tomorrow. Current Visit: Yes (2) Chest pain Problem details: on dialysis for 10yrs, has the cardiac risk equivalent of known coronary disease. Status: Acute Assessment and plan: Angiography today. Current Visit: No
--- NOTE | 2016-11-30 11:23 | Cardiology Operative Report ---
Date of Procedure:: 11/30/16 Post-op diagnosis: same (Progressive dyspnea on exertion, cardiomyopathy, noninvasive test suggests an inferior myocardial infarction. Evaluate for CAD as a cause of the cardiomyopathy.) Procedure: Date of procedure: 11/30/16 Procedure Preformed: Left heart cath Coronary angiography Left ventriculography Angiogram of the right femoral artery Angio-Seal of the right femoral artery-successful Surgeon / Physician: Juan Harmon [employer] Refueling Handler: Rebecca Cabrera Post-op diagnosis: same (Progressive dyspnea on exertion, cardiomyopathy, noninvasive test suggests an inferior myocardial infarction. Evaluate for CAD as a cause of the cardiomyopathy.) procedure: The patient was prepped and draped in usual manner. Entered the right femoral artery via the Seldinger technique. I used a sheath and then used a JL4 and engaged left coronary. Multiple views were taken. I then exchanged for a JR4. Multiple views of the right coronary were taken. I then exchanged for an angled pigtail. I crossed the valve. Left ventricular end-diastolic pressures measured. Left ventriculography was done. Left ventricle pullback was done. The catheters were then removed from the patient. Please see the cath data sheets for the details of catheters used. Complications: None Hemodynamic data: LVEDP was 16 mmHg. Angiographic data: The left main coronary was large and had minimal luminal irregularities. The left anterior descending artery was large, had a diagonal, septal tube carrier , and had minimal luminal irregularities The left circumflex system was moderate to large and had an obtuse marginal, post lateral branch, and minimal luminal irregularities The right coronary artery was large in size, dominant vessel with the PDA. there were minimal luminal irregularities. SAUCEDO left ventriculography revealed abnormal global/regional left ventricular systolic function. Overall ejection fraction was at least 30%. There is no significant mitral regurgitation. Angiogram of the right femoral artery revealed the puncture site to be in a large vessel, above the bifurcation. It was suitable for Angio-Seal. Impression: Mild luminal irregularities-no significant obstructive coronary disease Right dominant coronary arterial system Moderately severe global left systolic dysfunction, LVEF 30% Mild elevation of LVEDP, 16 mmHg Angiogram of the right femoral artery-via follow-through from the LV gram Angio-Seal of the right femoral artery-successful Plan/recommendations: The patient will have risk factors optimized. Based on this study, it is apparent patient's cardiomyopathy is not due to fixed, obstructive coronary disease. He will be treated for his cardiomyopathy. The patient will be on antiplatelet medications to include aspirin indefinitely. Follow-up will be scheduled. Addenda: I saw the patient post-cath. the groin puncture site and distal pulse are stable. vital signs are stable and the patient will be observed closely overnight. Specimens: none sent Estimated blood loss: minimal Condition: stable Anesthesia: local, conscious sedation Disposition: floor Anesthesia: local, minimal conscious sedation Surgeon / Physician: Juan Harmon [employer] Refueling Handler: other Estimated blood loss: minimal Specimens: none sent Condition: stable Disposition: floor
[2016-11-30] MEDS: LEVOTHYROXINE 100 MCG TABLET PO SCH (12:53)
[2016-11-30] MEDS: AZITHROMYCIN 250 MG TABLET PO SCH (12:53)
[2016-11-30] MEDS: LIOTHYRONINE 25 MCG TABLET PO SCH (12:53)
[2016-11-30] MEDS: PANTOPRAZOLE 40 MG TABLET PO SCH (12:53)
[2016-11-30] MEDS: INSULIN GLARGINE 100 UNIT/ML SUBCUT SCH (22:28)
[2016-11-30] MEDS: ALBUTEROL/IPRATROPIUM 3 ML NEB RESP TX PRN (23:02)
[2016-12-01 06:04] LABS: Calcium 7.8 MG/DL (8.5-10.1); Osmolality,Calculated 289.7 MOS/KG (273-304); Potassium 4.3 MMOL/L (3.5-5.1)
[2016-12-01] MEDS: ALBUTEROL/IPRATROPIUM 3 ML NEB RESP TX PRN ×2 (06:15→17:24)
[2016-12-01] MEDS: INSULIN REGULAR 100 UNIT/ML SUBCUT SCH ×4 (08:35→20:37)
[2016-12-01] MEDS: SODIUM CHLORIDE 0.9% 1,000 ML IV SCH (08:37)
[2016-12-01] MEDS: AZITHROMYCIN 250 MG TABLET PO SCH (08:56)
[2016-12-01] MEDS: LIOTHYRONINE 25 MCG TABLET PO SCH (08:56)
[2016-12-01] MEDS: ASPIRIN 325 MG TABLET PO SCH (08:56)
[2016-12-01] MEDS: CARVEDILOL 25 MG TABLET PO SCH ×2 (08:57→20:36)
[2016-12-01] MEDS: DIGOXIN 0.125 MG TABLET PO SCH (08:57)
[2016-12-01] MEDS: AMOXICILLIN 500 MG CAPSULE PO SCH ×3 (08:57→20:36)
[2016-12-01] MEDS: PANTOPRAZOLE 40 MG TABLET PO SCH (08:57)
[2016-12-01] MEDS: LEVOTHYROXINE 100 MCG TABLET PO SCH (08:57)
--- NOTE | 2016-12-01 09:04 | Hospitalist Progress Note ---
Assessment and Plan (1) Chronic renal insufficiency Status: Chronic Assessment and plan: Chronic long-term renal replacement therapy Current Visit: No (2) Cardiomyopathy Status: Chronic Assessment and plan: Noninvasive evaluation consistent with ischemic etiology with evidence of inferior wall scar with estimated left ventricular ejection fraction 40%. At coronary angiography 11/30/2016 no critical coronary lesions were identified reduced global LV systolic performance was confirmed. The patient would meet criteria for nonischemic cardiomyopathy. Current Visit: Yes (3) Cervical spinal stenosis Status: Chronic Assessment and plan: Noted on CT imaging of his neck for evaluation of possible soft tissue infection following a dental procedure. Current Visit: Yes Hospitalist: Subjective Interval history: 61-year-old male long-standing renal failure with chronic hemodialysis at presented with complaints of atypical chest discomfort. He underwent on the coronary artery evaluation. This demonstrated only endothelial disease. His LVEDP was 16 with an ejection fraction of 30%. Vital signs are stable overnight and he continues in sinus rhythm. Exam - Constitutional Vitals: Period Temp Pulse Resp BP Sys/Diehl Pulse Ox Last 24 Hr 96.8 F-98.8 F 68-79 16-20 129-145/64-79 90-100 General appearance: normal weight - Respiratory Respiratory exam: Present: clear to auscultation bilaterally. Absent: rales, rhonchi, wheezes - Cardiovascular Cardiovascular exam: Present: regular rate and rhythm - GI/Abdominal GI/Abdominal exam: Present: normal bowel sounds. Absent: distended, tenderness - Extremities Exam Extremities exam: Absent: edema - Neurological Exam Neurological exam: Present: alert, oriented X3 Results - Labs CBC & BMP: 11/30/16 04:31 12/01/16 04:22 Quality Measures - VTE Contraindication to Pharmacological VTE Prophylaxis: High Risk of Bleeding
--- NOTE | 2016-12-01 10:16 | Dialysis Note ---
Dialysis Note - Dialysis Note Patient seen on dialysis tolerated the procedure. No acute changes. Eager to go home. Blood pressure noted be 161/73.
--- NOTE | 2016-12-01 11:31 | Cardiology Progress Note ---
<Erma Ortiz - Last Filed: 12/01/16 11:24> Assessment and Plan (1) Atypical chest pain Status: Acute Assessment and plan: He underwent cardiac stress testing which revealed moderately reduced left ventricular systolic function, ejection fraction 38%. Fixed perfusion defect in the inferior wall with associated wall motion abnormality. Overall, these findings are consistent with prior myocardial infarction with scar formation. No gross nuclear evidence of reversible ischemia was noted. Subsequently, he underwent left heart catheterization yesterday with Dr. Harmon which did not reveal any significant obstructive coronary artery disease. Patient has done well post heart catheterization. Right groin is soft without bleeding, hematoma and bruit. Distal pulses 2+. At this time, cardiology will sign off. Will defer further evaluation of patient's typical chest pain to attending physician. Patient will be given a follow-up appointment with Dr. Moran in approximately 2 weeks for groin check, BMP, magnesium and EKG. Further plan and addendum to follow per Dr. Moran. Current Visit: No (2) Elevated troponin Status: Acute Current Visit: No (3) Hypothyroidism Status: Acute Assessment and plan: Continue current plan of care with Synthroid. Current Visit: Yes (4) Anemia Status: Chronic Assessment and plan: Defer management to hospital medicine. Current Visit: No (5) Diabetes mellitus Status: Chronic Assessment and plan: Accu-Cheks before meals and at bedtime with sliding scale insulin. Current Visit: No Qualifiers: Diabetes mellitus type: type 2 Diabetes mellitus complication status: with kidney complications Diabetes mellitus complication detail: with chronic kidney disease Chronic kidney disease stage: on chronic dialysis (6) End stage renal disease Status: Chronic Assessment and plan: Patient underwent dialysis today without complications. Management per nephrology. Current Visit: No (7) Hypertension Status: Chronic Assessment and plan: Patient's blood pressure is well controlled. Continue current plan of care. Current Visit: No Qualifiers: Hypertension type: essential hypertension Qualified Code(s): I10 - Essential (primary) hypertension (8) Cardiomyopathy Status: Chronic Assessment and plan: After heart cath yesterday, it is evident that patient's cardiomyopathy is nonischemic. Imdur and hydralazine combination will be added at this time. Will decrease patient's calcium channel beulah in order to avoid hypotension. Continue beta-beulah. Due to patient's end-stage renal disease we will avoid diuretics and JENS inhibitor/ARB. Further plan an addendum to follow per Dr. Moran. Current Visit: Yes Cardiology - PN: Subj Interval history: Channel Marketing Manager: None PCP: Dr. Rosales Bolton Flexible Nanny: Dr. Ayers Mr. Rosales is a 61 year old male without known history of coronary artery disease, not routinely followed by cardiology. Patient presented to the ER with complaints of sore throat and trouble swallowing. Patient has cardiac risk factors significant for hypertension, diabetes, obesity and sedentary lifestyle. Patient has a past medical history of chronic renal failure (has been on hemodialysis for approximately 9-10 years, HD schedule Monday), hypothyroidism, rheumatoid arthritis and dental extraction approximately 2 weeks ago. Patient reports that he is a lifetime non-smoker and denies any significant family history of heart disease. In 2014 he had a normal cardiac stress test. His last echocardiogram was also 2014 which revealed an ejection fraction of approximately 40%. Cardiology has been consulted to further evaluate patient's 2 week history of intermittent chest pain. He underwent cardiac stress testing yesterday which revealed moderately reduced left ventricular systolic function, ejection fraction 38%. Fixed perfusion defect in the inferior wall with associated wall motion abnormality. Overall, these findings are consistent with prior myocardial infarction with scar formation. No gross nuclear evidence of reversible ischemia was noted. Subsequently, he underwent left heart catheterization yesterday with Dr. Harmon with the following impressions noted: Impression: Mild luminal irregularities-no significant obstructive coronary disease Right dominant coronary arterial system Moderately severe global left systolic dysfunction, LVEF 30% Mild elevation of LVEDP, 16 mmHg Angiogram of the right femoral artery-via follow-through from the LV gram Angio-Seal of the right femoral artery-successful Plan/recommendations: The patient will have risk factors optimized. Based on this study, it is apparent patient's cardiomyopathy is not due to fixed, obstructive coronary disease. He will be treated for his nonischemic cardiomyopathy. The patient will be on antiplatelet medications to include aspirin indefinitely. Follow-up will be scheduled. Post heart catheterization patient was transferred back to the telemetry unit in stable condition. Patient was seen and examined in the dialysis unit. Right groin is soft without bleeding, hematoma and bruit. Distal pulses 2+. At this time, cardiology will sign off. Will defer further evaluation of patient's typical chest pain to attending physician. Feel free to reconsult as needed. Patient will be given a follow-up appointment with Dr. Moran in approximately 2 weeks for groin check, BMP, magnesium and EKG. Further plan and addendum to follow per Dr. Moran. Exam (Progress Note) - Constitutional Vitals: Period Temp Pulse Resp BP Sys/Diehl Pulse Ox Last 24 Hr 97.3 F-98.8 F 68-79 16-20 132-145/64-79 90-100 Exam: General: Present: Appears Well, No Apparent Distress Neck: Present: Supple Neck, Midline Trachea Cardiac: Present: Reg Rate and Rhythm, Regular Rate, Regular Rhythm, S1/S2, No Murmur Lungs: Present: Normal Exam, Clear Ascult./Percussion, Normal Breath Sounds, No Wheeze, Rales, Rhonchi Abdomen: Present: Soft, Active Bowel Sounds, No Masses, Non-Tender Gait: Present: Normal Gait Extremities: Present: Normal Gait, No Clubbing, No Cyanosis, No Edema, Normal Upper Extr. Pulses, Normal Lower Extr. Pulses. Right groin is soft and without bleeding, hematoma and bruit. Distal pulses 2+. Result/EKG - Labs CBC & BMP: 11/30/16 04:31 12/01/16 04:22 Lab Results: I have reviewed the past 24 hour labs Labs: Laboratory Results - last 24 hr 11/30/16 11/30/16 11/30/16 11:54 15:15 20:09 Sodium Potassium Chloride Carbon Dioxide Anion Gap BUN Creatinine GFR Calculation BUN/Creatinine Ratio Glucose POC Glucose 149 H 177 H 137 H Calculated Osmolality Calcium 12/01/16 12/01/16 04:22 08:01 Sodium 138 Potassium 4.3 Chloride 98 Carbon Dioxide 27 Anion Gap 17.3 H BUN 48 H Creatinine 12.40 H GFR Calculation 6 BUN/Creatinine Ratio 3.00 L Glucose 131 H POC Glucose 118 H Calculated Osmolality 289.7 Calcium 7.8 L Quality Measures - VTE Contraindication to Pharmacological VTE Prophylaxis: High Risk of Bleeding Specialty Discharge - Follow Up or Referrals Follow up with: Arlene Moran MD [Physician] - 2 Weeks (Dr. Moran in approximately 2 weeks for groin check, BMP, magnesium and EKG. ) <Arlene Moran - Last Filed: 12/01/16 15:35> Cardiology - PN: Subj Interval history: I personally interviewed and examined the patient, reviewed the chart and discussed medical decision-making with practitioner Angel. I have read this note and agree with the findings herein. He does not have coronary artery disease. We will follow-up with him in clinic. Exam (Progress Note) - Constitutional Vitals: Period Temp Pulse Resp BP Sys/Diehl Pulse Ox Last 24 Hr 97.3 F-98.8 F 70-79 16-20 132-145/64-79 90-100 Result/EKG - Labs CBC & BMP: 11/30/16 04:31 12/01/16 04:22 Labs: Laboratory Results - last 24 hr 11/30/16 11/30/16 11/30/16 11:54 15:15 20:09 Sodium Potassium Chloride Carbon Dioxide Anion Gap BUN Creatinine GFR Calculation BUN/Creatinine Ratio Glucose POC Glucose 149 H 177 H 137 H Calculated Osmolality Calcium 12/01/16 12/01/16 04:22 08:01 Sodium 138 Potassium 4.3 Chloride 98 Carbon Dioxide 27 Anion Gap 17.3 H BUN 48 H Creatinine 12.40 H GFR Calculation 6 BUN/Creatinine Ratio 3.00 L Glucose 131 H POC Glucose 118 H Calculated Osmolality 289.7 Calcium 7.8 L
[2016-12-01] MEDS: hydrALAZINE 25 MG TABLET PO SCH ×2 (15:53→20:36)
[2016-12-01] MEDS: ISOSORBIDE MONONITRATE 30 MG TABLET PO SCH (15:53)
[2016-12-01] MEDS: INSULIN GLARGINE 100 UNIT/ML SUBCUT SCH (20:36)
[2016-12-02] MEDS: INSULIN REGULAR 100 UNIT/ML SUBCUT SCH (08:46)
[2016-12-02] MEDS: LIOTHYRONINE 25 MCG TABLET PO SCH (08:47)
[2016-12-02] MEDS: CARVEDILOL 25 MG TABLET PO SCH (08:47)
[2016-12-02] MEDS: ASPIRIN 325 MG TABLET PO SCH (08:47)
[2016-12-02] MEDS: DIGOXIN 0.125 MG TABLET PO SCH (08:47)
[2016-12-02] MEDS: AZITHROMYCIN 250 MG TABLET PO SCH (08:47)
[2016-12-02] MEDS: AMOXICILLIN 500 MG CAPSULE PO SCH (08:47)
[2016-12-02] MEDS: hydrALAZINE 25 MG TABLET PO SCH (08:48)
[2016-12-02] MEDS: ISOSORBIDE MONONITRATE 30 MG TABLET PO SCH (08:48)
[2016-12-02] MEDS: LEVOTHYROXINE 100 MCG TABLET PO SCH (08:48)
[2016-12-02] MEDS: PANTOPRAZOLE 40 MG TABLET PO SCH (08:48)
[2016-12-02 09:08] VITALS: BP 126/66
--- NOTE | 2016-12-02 09:31 | Nephrology Progress Note ---
Nephrology - PN: Subj Interval history: PT sitting in bedside chair. Two sisters in room. Ready for discharge. Tolerated routine CHD yesterday without complications. Exam (PN)-Nephrology - Vital Signs Vital signs: Period Temp Pulse Resp BP Sys/Diehl Pulse Ox Last 24 Hr 97.4 F-98.6 F 76-86 18-20 108-133/55-82 93-100 - General Appearance General appearance: well-developed, well-nourished, chronically ill EENT: ATNC, PERRL, mucous membranes dry, hearing intact, vision intact Neck: no JVD, no thyromegaly Respiratory: no kyphosis, clear Cardiology: no murmurs, no rub, no edema Gastrointestinal: normoactive bowel sounds, no tenderness Integumentary: no rash, warm and dry Musculoskeletal: no deformities, no erythema Psychiatric: mood/affect appropriate, cooperative - Lab 11/30/16 04:31 12/01/16 04:22 Most recent lab results Calcium 7.8 MG/DL (8.5-10.1) L 12/01/16 04:22 Magnesium 2.4 MG/DL (1.8-2.4) 11/30/16 04:31 Assessment and Plan (1) ESRD on dialysis Problem details: NO acute indication for HD today. Status: Acute Assessment and plan: Pt to go to nocturnal HD at his regularly scheduled time tonight. Current Visit: Yes (2) Chest pain Problem details: on dialysis for 10yrs, has the cardiac risk equivalent of known coronary disease. Status: Acute Assessment and plan: Angiography revealed no hemodynamically significant lesions. Current Visit: No Specialty Discharge - Follow Up or Referrals Follow up with: Arlene Moran MD [Physician] - 2 Weeks (Dr. Moran in approximately 2 weeks for groin check, BMP, magnesium and EKG. )
--- NOTE | 2016-12-02 09:39 | Discharge Summary ---
Hospital Course - Hospital Course Hospital Course: Mr. Rosales is a 61 year old male with past medical history significant for end- stage renal disease diabetes hypertension hypothyroidism and rheumatoid arthritis who has been having a 2 week history of some vague chest pain and throat pain. He had elevated troponin in the setting of end-stage renal disease he had echocardiogram which reported left ventricular ejection fraction of 40% he had noninvasive cardiac testing showed inferior wall scarring. No nuclear evidence of reversible ischemia reported. He also underwent cardiac cath on 11/30/2016 and did not reveal any significant obstructive disease. During his hospitalization he was dialyzed. He is off schedule and was dialyzed yesterday due to cardiac cath. Cardiology has signed off. He was started on hydralazine and Imdur for left ventricular dysfunction. He has been asymptomatic and seems to have received maximum benefit from hospitalization. Patient was on gabapentin 300 mg 3 times daily but due to end-stage renal disease status I will cut down to 200 mg 3 times daily. Patient is on Monday dialysis schedule he was dialyzed yesterday but he will go to his outpatient clinic for dialysis today evening on his scheduled. Patient is going to be discharged and have follow-up by Dr. Moran 2 weeks as planned Diagnosis - Discharge Diagnosis (1) ESRD on dialysis Status: Acute (2) Cardiomyopathy Status: Chronic (3) Chest pain Status: Acute (4) Hypertension Status: Chronic Specialty Discharge - Follow Up or Referrals Follow up with: Arlene Moran MD [Physician] - 2 Weeks (Dr. Moran in approximately 2 weeks for groin check, BMP, magnesium and EKG. ) Discharge Plan - Discharge Data Disposition: Disch To Home/Self Care Discharge Diet: diabetic diet, other (Renal diet) Activity: resume usual activities as tolerated - Discharge Medications New Aspirin Tab 325 mg PO DAILY tablet Gabapentin Cap/Tab [Neurontin Cap/Tab] 200 mg PO TID #90 capsule Isosorbide Mononitrate [Imdur] 30 mg PO DAILY #30 tablet hydrALAZINE TAB [Apresoline Tab] 25 mg PO TID #90 tablet Continue Levothyroxine Tab [Synthroid Tab] 100 mcg PO QAM Insulin Glargine [Lantus] 50 unit SUBCUT BEDTIME Carvedilol 25 mg PO BID glipiZIDE [Glipizide] 5 mg PO AC BREAKFAST NIFEdipine [Nifedipine ER] 30 mg PO QAM Liothyronine Sodium 25 mcg PO QAM Azithromycin 250 mg PO QAM Digoxin 125 mcg PO QAM Vitamin B Complex 1 each PO QAM Ondansetron Odt Tab [Zofran Odt] 4 mg PO Q6H #15 tablet predniSONE TAB [PredniSONE] 5 - 10 mg PO DAILY PRN PRN Reason: INFLAMMATION Amoxicillin Cap/Tab 500 mg PO TID Pantoprazole Tab [Protonix Tab] 40 mg PO QAM Discontinued Naproxen Sodium [Aleve Cap] 220 mg PO Q12H PRN PRN Reason: Pain Gabapentin [Gabapentin] 300 mg PO TID - Follow Up or Referral Follow Up: Arlene Moran MD [Physician] - 2 Weeks (Dr. Moran in approximately 2 weeks for groin check, BMP, magnesium and EKG. ) - Forms/Instructions Exam - Constitutional Vitals: Period Temp Pulse Resp BP Sys/Diehl Pulse Ox Last 24 Hr 97.4 F-98.6 F 76-86 18-20 108-133/55-82 93-100 General appearance: no acute distress - Respiratory Respiratory exam: Present: clear to auscultation bilaterally. Absent: rales, rhonchi - Cardiovascular Cardiovascular exam: Present: regular rate and rhythm. Absent: tachycardia - GI/Abdominal GI/Abdominal exam: Present: normal bowel sounds, soft. Absent: distended, tenderness - Extremities Exam Extremities exam: Absent: edema - Neurological Exam Neurological exam: Present: alert, oriented X3 Discharge Results Labs on day of discharge: Labs from last 24 hours 12/02/16 12/01/16 12/01/16 07:21 20:12 15:25 POC Glucose 92 189 H 203 H DS: Provider Date of admission: 11/28/16 14:49 Primary care physician: Rosales Bolton MD Attending physician on admission: Kevin Clark MD Discharging clinician: Art Juarez MD
[2016-12-02] MEDS: ALBUTEROL/IPRATROPIUM 3 ML NEB RESP TX PRN (10:57)
== END 2016-12-02 12:11 | disposition home or self-care (01) | DRG 286 ==
LOC: N.ED 13:37 → N.EDINP 13:37 → N.TELEN 16:26 → SUATTDRO 11-28 14:49
PROVIDERS: ADMIT Internal Medicine Infectious Disease; ATTEND Internal Medicine
PROC: CLCCHCL (ICD-10-PCS; 2016-11-30 09:45)

== ENCOUNTER 2016-12-25 14:31 | Inpatient (IN) ==
--- NOTE | 2016-12-25 15:28 | Emergency Department Note ---
Arrival - Arrival Chief Complaint: Extremity Problem Stated Complaint: SOMETHING IN LEFT FOOT/SORE THROAT ED Nursing Triage Note: Pt c/o left foot pain since this am and thinks that he may have something in his foot and sore throat/mouth. Mode of Arrival: Wheelchair Source: Patient Time Seen by Provider: 12/25/16 15:09 - History of Present Illness HPI Narrative: 61 y/o black male presents to the ER complaining of painful ulcers to mouth and posterior pharynx. Reports symptoms started one month ago after having wisdom tooth pulled in [place]. He is now having difficulty eating and reports his blood sugars have been low at night. Denies fever or chills. Also complaining of a "Foreign body" to plantar aspect of left foot. States he noticed area to sole of foot today. He does not recall stepping on anything. Past medical history significant for HTN; Dialysis M,W,F; IDDM; and anemia. Instructional Technology Director: Dr. Ayers. Onset (ago): month(s) (1) Severity: moderate Allergies/Adverse Reactions: Allergies Allergy/AdvReac Type Severity Reaction Status Date / Time povidone-iodine Allergy Intermediate RASH Verified 12/03/16 02:55 [From Betadine] soap [From Betadine] Allergy Intermediate RASH Verified 12/03/16 02:55 Home Medications: Home Medications Medication Instructions Recorded Confirmed Type Insulin Glargine [Lantus] 50 unit SUBCUT BEDTIME 01/24/15 12/25/16 History Levothyroxine Tab [Synthroid Tab] 100 mcg PO QAM 01/24/15 12/25/16 History Carvedilol 25 mg PO BID 11/12/16 12/25/16 History Digoxin 125 mcg PO QAM 11/12/16 12/25/16 History NIFEdipine [Nifedipine ER] 30 mg PO QAM 11/12/16 12/25/16 History Vitamin B Complex 1 each PO QAM 11/12/16 12/25/16 History glipiZIDE [Glipizide] 5 mg PO AC BREAKFAST 11/12/16 12/25/16 History Ondansetron Odt Tab [Zofran Odt] 4 mg PO Q6H #15 tablet 11/25/16 12/25/16 Rx Liothyronine Sodium 25 mcg PO QAM 11/27/16 12/25/16 History Pantoprazole Tab [Protonix Tab] 40 mg PO QAM 11/27/16 12/25/16 History predniSONE TAB [PredniSONE] 5 - 10 mg PO DAILY PRN 11/27/16 12/25/16 History Aspirin Tab 325 mg PO DAILY tablet 12/02/16 12/25/16 Rx Gabapentin Cap/Tab [Neurontin 200 mg PO TID #90 capsule 12/02/16 12/25/16 Rx Cap/Tab] Isosorbide Mononitrate [Imdur] 30 mg PO DAILY #30 tablet 12/02/16 12/25/16 Rx hydrALAZINE TAB [Apresoline Tab] 25 mg PO TID #90 tablet 12/02/16 12/25/16 Rx Albuterol Inhaler [Proventil 2 puff INH Q4H PRN #1 inhaler 12/03/16 12/25/16 Rx Inhaler] Benzonatate [Tessalon] 200 mg PO TID PRN #30 capsule 12/03/16 12/25/16 Rx Review of System - Review of System 12 point system: reviewed and no additional remarkable complaints except as stated - Review of System Head/Ears/Nose/Throat: Present: sore throat, other (painful ulcers to mouth and posterior pharynx ) Musculoskeletal: Present: other (foreign body to sole of left foot ) Medical,Surgical,& Family Hx - Medical History Cardio: History of: Hypertension Neurology: History of: Peripheral Neuropathy (diabetic) No history of: Seizures Endocrine: History of: Diabetes Mellitus (IDDM), Diabetes Mellitus (NIDDM), Thyroid Disorder Rheumatology: History of;: Rheumatological Problems Renal: History of: Dialysis (MWF), Renal Failure Musculoskeletal: History of: Back/Neck Problems No history of: Amputation Hematology: History of: Anemia - Surgical History Cardiac Surgeries: Patient Denies: Cardiac Catheterization Thoracic Surgeries: Patient denies;: Organ Transplant Neurologic Surgeries: Patient denies: Neurologic Surgery - Family History Family History: Reports;: Family Diabetes, Family Hypertension - Social History Smoking Status: Never smoker Exam Vital Signs: Vital Signs Temperature 99.1 F 12/25/16 15:00 Pulse Rate 98 H 12/25/16 16:30 Respiratory Rate 18 12/25/16 16:30 Blood Pressure 152/85 12/25/16 16:30 O2 Sat by Pulse Oximetry 97 12/25/16 14:32 - General General appearance: alert, in no apparent distress - ENT ENT exam: Present: mucous membranes moist, other (multiple buccal ulcers; pharyngeal erythema ) - Neck Neck exam: Present: normal inspection - Chest Chest inspection: Present: normal inspection - Respiratory Respiratory exam: Present: normal lung sounds bilaterally - Cardiovascular Cardiovascular exam: Present: regular rate, normal rhythm, normal heart sounds - Abdominal Exam Abdominal exam: Present: soft, normal bowel sounds. Absent: tenderness - Extremities Exam Extremities exam: Present: normal inspection, full ROM - Back Exam Back exam: Present: normal inspection - Neurological Exam Neurological exam: Present: alert, oriented X3 - Psychiatric Psychiatric exam: Present: normal affect, normal mood - Skin Skin exam: Present: warm, dry, other (pinpoint size tender lesion to plantar aspect of left foot ) Course - Consultations Consultation #1: Hospitalist Time: 17:00 (Will admit to the Hospitalist ) Results - Labs CBC & BMP: 12/25/16 15:32 12/25/16 15:32 Lab Results: I have reviewed the patients labs - Diagnostic Findings Procedure: X-ray: image reviewed by me, report reviewed by me (left foot: no FB seen ) Disposition Clinical Impression: Stomatitis, Leukopenia Case discussed with: patient Disposition: Still a Patient
[2016-12-25 15:41] LABS: Eosinophils # 0.1 10*3/uL (0.0-0.87); Eosinophils % 4.1 % (0.00-10.9); Hematocrit 20.6 VOL% (42.0-52.0); Immature Granulocytes % 4.1 %; Immature Granulocytes Absolute 0.07 #; Lymphocytes # 0.6 10*3/uL (1.4-4.0); Lymphocytes % 32.9 % (21.2-54.2); Mean Corpuscular Hemoglobin 29 PG (27-34); Mean Corpuscular Volume 85.8 FL (87-102); Mean Platelet Volume 9.9 FL (9.6-12.0); Monocytes # 0.1 10*3/uL (0.11-0.8); Monocytes % 4.7 % (1.7-12.7); Neutrophils # 0.9 10*3/uL (1.4-7.4); Neutrophils % 54.2 % (38.7-73.9); Platelet Count 347 T/CUMM (130-400); Red Cell Distribution Width 14.6 % (9.3-17.3); White Blood Count 1.7 T/CUMM (4-12)
--- NOTE | 2016-12-25 15:57 | XRay Report ---
XR foot 3V LT Indication: Clinical concern for foreign body within the plantar soft tissues of the foot. Comparison: None. Technique: AP, lateral, and oblique views of the left foot were submitted. Findings: There is no evidence of significant bony or significant soft tissue abnormality affecting the left foot. Specifically, no radiopaque foreign bodies are demonstrated within the plantar soft tissues of the foot. Loss of joint space involving great toe metatarsophalangeal joint is present. Some erosive changes are noted suggesting possible gout. Remote fracture of the distal great toe is not excluded. Impression: 1. No radiopaque foreign body is demonstrated. 12/25/2016 3:52 PM PROCEDURE INTERPRETED AT [facility] DEPARTMENT OF RADIOLOGY Final Report Signed by: Dr. Ramiro Anderson
[2016-12-25 16:00] LABS: Calcium 8.7 MG/DL (8.5-10.1); Potassium 4.1 MMOL/L (3.5-5.1)
[2016-12-25 16:21] LABS: Eosinophils 1 % (0-10); Hypochromasia Slight; Lymphocytes 32 % (20-55); Platelet Estimate Adequate; Segmented Neutrophils 64 % (50-85); Total Cells Counted 100
[2016-12-25] MEDS ORDERED: DEXTROSE 50% 25 GM/50 ML VIAL IV PRN (16:58)
[2016-12-25] MEDS ORDERED: ONDANSETRON 4 MG/2 ML VIAL IV PRN (16:58)
[2016-12-25] MEDS ORDERED: GLUCAGON 1 MG VIAL IM PRN (16:58)
[2016-12-25] MEDS ORDERED: ENOXAPARIN 30 MG/0.3 ML SYRINGE SUBCUT SCH (17:00)
[2016-12-25] MEDS ORDERED: ALBUTEROL 2.5 MG/3 ML NEB RESP TX PRN (17:01)
[2016-12-25] MEDS ORDERED: BENZONATATE 100 MG CAPSULE PO PRN (17:01)
--- NOTE | 2016-12-25 17:07 | Hospitalist History & Physical ---
Assessment and Plan (1) Foot pain Status: Acute Current Visit: Yes (2) Leukopenia Status: Acute Current Visit: Yes (3) Stomatitis Status: Acute Current Visit: Yes (4) ESRD on dialysis Problem details: NO acute indication for HD today. Status: Acute Assessment and plan: Our plan for this patient will be admission to our service. Per my exam on his oropharynx it does not look like obvious oral candidiasis. Plan we will go ahead and start some Diflucan just in case. And treat empirically. We will get Dr. Ngo to see him while he is in the hospital. His white count was elevated in the past but now he is leukopenic. Patient denies have an HIV test but I heard previously that he had one in the past. This might of been done at Dr. Ngo's office. Will not repeat at this time. I will get wound care to examine his foot tomorrow. This might be a splinter in his foot in addition will monitor closely in case abscess formation. Will hold his scheduled doses of insulin since his been bottoming out at night treat only with sliding scale at this time. Get nephrology to see my is here to schedule his dialysis Current Visit: No History of Present Illness Chief complaint: Painful swallowing and foot pain History of present illness: Mr. Rosales is a 61 year old male with past medical history significant for end- stage renal disease diabetes and hypertension who reports having a tooth extracted approximately 1 month ago. Patient reports that time it seemed like he has had mouth problems since. Over the past 3 days this is been painful swallowing. He saw Dr. Ngo for a chronically elevated white count and he stopped the medication. He shows up today in the emergency room his white count is low. I was consulted to admit him. Home Medications Medication Instructions Recorded Confirmed Type Insulin Glargine [Lantus] 50 unit SUBCUT BEDTIME 01/24/15 12/25/16 History Levothyroxine Tab [Synthroid Tab] 100 mcg PO QAM 01/24/15 12/25/16 History Carvedilol 25 mg PO BID 11/12/16 12/25/16 History Digoxin 125 mcg PO QAM 11/12/16 12/25/16 History NIFEdipine [Nifedipine ER] 30 mg PO QAM 11/12/16 12/25/16 History Vitamin B Complex 1 each PO QAM 11/12/16 12/25/16 History glipiZIDE [Glipizide] 5 mg PO AC BREAKFAST 11/12/16 12/25/16 History Ondansetron Odt Tab [Zofran Odt] 4 mg PO Q6H #15 tablet 11/25/16 12/25/16 Rx Liothyronine Sodium 25 mcg PO QAM 11/27/16 12/25/16 History Pantoprazole Tab [Protonix Tab] 40 mg PO QAM 11/27/16 12/25/16 History predniSONE TAB [PredniSONE] 5 - 10 mg PO DAILY PRN 11/27/16 12/25/16 History Aspirin Tab 325 mg PO DAILY tablet 12/02/16 12/25/16 Rx Gabapentin Cap/Tab [Neurontin 200 mg PO TID #90 capsule 12/02/16 12/25/16 Rx Cap/Tab] Isosorbide Mononitrate [Imdur] 30 mg PO DAILY #30 tablet 12/02/16 12/25/16 Rx hydrALAZINE TAB [Apresoline Tab] 25 mg PO TID #90 tablet 12/02/16 12/25/16 Rx Albuterol Inhaler [Proventil 2 puff INH Q4H PRN #1 inhaler 12/03/16 12/25/16 Rx Inhaler] Benzonatate [Tessalon] 200 mg PO TID PRN #30 capsule 12/03/16 12/25/16 Rx Allergies Allergy/AdvReac Type Severity Reaction Status Date / Time povidone-iodine Allergy Intermediate RASH Verified 12/03/16 02:55 [From Betadine] soap [From Betadine] Allergy Intermediate RASH Verified 12/03/16 02:55 Medical,Surgical,& Family Hx - Medical History Cardio: History of: Hypertension Neurology: History of: Peripheral Neuropathy (diabetic) No history of: Seizures Endocrine: History of: Diabetes Mellitus (IDDM), Diabetes Mellitus (NIDDM), Thyroid Disorder Rheumatology: History of;: Rheumatological Problems Renal: History of: Dialysis (MWF), Renal Failure Musculoskeletal: History of: Back/Neck Problems No history of: Amputation Hematology: History of: Anemia - Surgical History Cardiac Surgeries: Patient Denies: Cardiac Catheterization Thoracic Surgeries: Patient denies;: Organ Transplant Neurologic Surgeries: Patient denies: Neurologic Surgery Additional Surgical History: Fistula placement - Family History Family History: Reports;: Family Diabetes, Family Hypertension - Social History Smoking Status: Never smoker Frequency of Alcohol Use: None Type of Drug Use: None 12 point system: reviewed and no additional remarkable complaints except as stated Exam - Constitutional Vitals: Period Temp Pulse Resp BP Sys/Diehl Pulse Ox Last 24 Hr 99.1 F-99.1 F 98-102 18-18 125-152/80-85 97 General appearance: over weight - Head Head exam: Present: normal inspection - Eye Eye exam: Present: EOMI Pupils: Present: MONROE - ENT ENT exam: Present: other (Patient does have some buccal ulcers and some erythema ) - Neck Neck exam: Present: normal inspection - Respiratory Respiratory exam: Present: clear to auscultation bilaterally - Cardiovascular Cardiovascular exam: Present: regular rate and rhythm - GI/Abdominal GI/Abdominal exam: Present: normal bowel sounds - Extremities Exam Extremities exam: Present: normal inspection - Back Exam Back exam: Present: normal inspection - Neurological Exam Neurological exam: Present: alert, oriented X3 - Psychiatric Psychiatric exam: Present: normal affect - Skin Skin exam: Present: other (Patient has a pinpoint size tender lesion on the plantar aspect of his left foot) Results - Labs CBC & BMP: 12/25/16 15:32 12/25/16 15:32
[2016-12-25] MEDS ORDERED: FLUCONAZOLE INJ 100 MG in IV BAG 1 EACH IV SCH (18:00)
[2016-12-25] MEDS ORDERED: SODIUM CHLORIDE 0.9% 250 ML IV PRN (18:31)
[2016-12-25] MEDS ORDERED: hydrALAZINE 25 MG TABLET PO SCH (21:00)
[2016-12-25] MEDS ORDERED: GABAPENTIN 100 MG CAPSULE PO SCH (21:00)
[2016-12-25] MEDS: INSULIN REGULAR 100 UNIT/ML SUBCUT SCH (21:56)
[2016-12-25] MEDS: CARVEDILOL 25 MG TABLET PO SCH (21:56)
--- NOTE | 2016-12-26 06:48 | Oncology Consult Note ---
History of Present Illness History of present illness: Mr. Rosales is a 61 year old male with low blood counts. I have seen him previously in the hospital. I tried to pull up information on him from my office but he has never been there. He tells me that he missed his appointment to see me. Lab work done on December 25 includes a white cell count of 1700 with a hemoglobin of 7.0 and a platelet count of 347,000. Back on November 19 of this year, the patient had a white cell count of 1900 with a platelet count of 70,000 and a hemoglobin of 8.9. At that time, I expressed concern about the fact that the patient was on gabapentin and also concern about whether or not the dose was the correct dose for someone on hemodialysis. I note that he is on gabapentin again and that he is also on Apresoline. There are recommended dose reductions for gabapentin and patient so hemodialysis. The dose is based on creatinine clearance plus sickle supplemental dose of 125-350 mg after hemodialysis. The patient's GFR is calculated to be 10 mL/min. On questioning the patient today, he tells me that he has not been taking the gabapentin. We need to stop it. I will discontinue it today. I am going to recheck folic acid and B12 levels. His creatinine clearance is less than 17.9. According to UpToDate, his dose of gabapentin should be approximately 200-700 mg once daily. Past Medical History He has a history of hypertension and diabetes mellitus. He is also had multiple blisters of his skin. Cardio: History of: Hypertension Neurology: History of: Peripheral Neuropathy (diabetic) No history of: Seizures Endocrine: History of: Diabetes Mellitus (IDDM), Thyroid Disorder Renal: History of: Dialysis (MWF), Renal Failure Musculoskeletal: History of: Back/Neck Problems No history of: Amputation - Surgical History Thoracic Surgeries: Patient denies;: Organ Transplant Neurologic Surgeries: Patient denies: Neurologic Surgery - Family History Family History: Reports;: Family Diabetes, Family Hypertension - Social History Smoking Status: Never smoker Frequency of Alcohol Use: None Type of Drug Use: None His current medications include: Lantus insulin Levothyroxine Amoxicillin Carvedilol Gabapentin Digoxin Liothyronine Nifedipine Glipizide ROS Gen.: He is on hemodialysis for end-stage renal disease. He has been chronically ill and weak and has had gradually increasing back pain and debilitation. Eyes: No history of chronic disease, infections or visual loss. ENT: His sense of taste is diminished. He has had some mild mouth irritation and scratchy throat. No history of chronic infections, epistaxis. Lungs: No history of asthma, emphysema, hemoptysis, chronic pleurisy or long- term or chronic infections Cardiovascular: History of chest pain, probably cardiac in nature as well orthopnea and dyspnea with exertion. GI: No history of upper or lower GI bleeding, melena, dysphagia, odynophagia, liver disease, gallbladder disease or pancreatic disease. : He is on chronic hemodialysis. Musculoskeletal: No history of chronic bone or joint pain or focal muscle atrophy or bone or joint deformity. Neurologic: He has chronic peripheral neuropathy from diabetes. No history of seizures, convulsions or paralysis. Psychiatric: No history of chronic psychiatric illness or psychiatric medications. Lymphatic: No history of significant or long-term lymphadenopathy Hematologic: No history of anemia prior to onset of this present illness, bleeding disorders or blood dyscrasias or long-term elevation or depression white cell count or petechiae. Skin: He has a history of long-term dry skin and more recently has begun to develop skin lesions and irritation as well as draining blisters. Physical examination: General: The patient is chronically ill-appearing. Eyes: Normal lids and conjunctivae. ENT: He has a whitish coating on his tongue. His voice is slightly hoarse. His hearing is normal. Pulmonary: Respirations are unlabored and his chest moves normally with respiration. Breath sounds are normal. Expiratory phase of respiration is normal. Cardiovascular: His heart rhythm is regular without murmur, gallop or rub. There is no jugular venous distention, clubbing, cyanosis or edema. Abdomen: I cannot palpate any abdominal masses, organomegaly, distention, tenderness or ascites. Musculoskeletal: There is no focal muscle atrophy or bone or joint deformity. Neurologic: Cranial nerves II through XII are intact. There are no focal neurologic deficits. Nodes: I palpate no submandibular, cervical, supraclavicular or axillary adenopathy. Psychiatric: The patient appears to be fully oriented to time, place, person and situation. Skin: Cursory examination is normal. Impression Blood work on this admission includes a white cell count of 1700 with an absolute neutrophil count of 900.. On November 30, the patient's white cell count was normal at 15,300. This suggests to me that some of the medication he is taking might be contributing. In addition, the patient has a hemoglobin of 7.0 as of December 25. His platelet count is normal at 347,000. Impression: Neutropenia of indefinite etiology with abrupt drop in white cell count, possibly medication related. It may be necessary to perform a bone marrow biopsy and aspirate on the patient which will involve interventional radiology. The patient is having progressive anemia which may also need to be evaluated by bone marrow biopsy and aspirate. In addition, the patient has monilial stomatitis and I am starting him on Diflucan for this. I will follow him with you. Thank you. I am ordering a serum iron and iron binding capacity, reticulocyte count, haptoglobin and folate and B12 level. Home Medications Medication Instructions Recorded Confirmed Type Insulin Glargine [Lantus] 50 unit SUBCUT BEDTIME 01/24/15 12/25/16 History Levothyroxine Tab [Synthroid Tab] 100 mcg PO QAM 01/24/15 12/25/16 History Carvedilol 25 mg PO BID 11/12/16 12/25/16 History Digoxin 125 mcg PO QAM 11/12/16 12/25/16 History NIFEdipine [Nifedipine ER] 30 mg PO QAM 11/12/16 12/25/16 History Vitamin B Complex 1 each PO QAM 11/12/16 12/25/16 History glipiZIDE [Glipizide] 5 mg PO AC BREAKFAST 11/12/16 12/25/16 History Ondansetron Odt Tab [Zofran Odt] 4 mg PO Q6H #15 tablet 11/25/16 12/25/16 Rx Liothyronine Sodium 25 mcg PO QAM 11/27/16 12/25/16 History Pantoprazole Tab [Protonix Tab] 40 mg PO QAM 11/27/16 12/25/16 History predniSONE TAB [PredniSONE] 5 - 10 mg PO DAILY PRN 11/27/16 12/25/16 History Aspirin Tab 325 mg PO DAILY tablet 12/02/16 12/25/16 Rx Gabapentin Cap/Tab [Neurontin 200 mg PO TID #90 capsule 12/02/16 12/25/16 Rx Cap/Tab] Isosorbide Mononitrate [Imdur] 30 mg PO DAILY #30 tablet 12/02/16 12/25/16 Rx hydrALAZINE TAB [Apresoline Tab] 25 mg PO TID #90 tablet 12/02/16 12/25/16 Rx Albuterol Inhaler [Proventil 2 puff INH Q4H PRN #1 inhaler 12/03/16 12/25/16 Rx Inhaler] Benzonatate [Tessalon] 200 mg PO TID PRN #30 capsule 12/03/16 12/25/16 Rx Allergies Allergy/AdvReac Type Severity Reaction Status Date / Time povidone-iodine Allergy Intermediate RASH Verified 12/03/16 02:55 [From Betadine] soap [From Betadine] Allergy Intermediate RASH Verified 12/03/16 02:55 Medical,Surgical,& Family Hx - Medical History Cardio: History of: Hypertension Neurology: History of: Peripheral Neuropathy (diabetic) No history of: Seizures Endocrine: History of: Diabetes Mellitus (IDDM), Diabetes Mellitus (NIDDM), Thyroid Disorder Rheumatology: History of;: Rheumatological Problems Renal: History of: Dialysis (MWF), Renal Failure Musculoskeletal: History of: Back/Neck Problems No history of: Amputation Hematology: History of: Anemia - Surgical History Cardiac Surgeries: Patient Denies: Cardiac Catheterization Thoracic Surgeries: Patient denies;: Organ Transplant Neurologic Surgeries: Patient denies: Neurologic Surgery - Family History Family History: Reports;: Family Diabetes, Family Hypertension - Social History Smoking Status: Never smoker Frequency of Alcohol Use: None Type of Drug Use: None Exam - Constitutional Vitals: Period Temp Pulse Resp BP Sys/Diehl Pulse Ox Last 24 Hr 99.2 F-99.6 F 93-100 18-20 135-168/70-91 93-97 Results - Labs CBC & BMP: 12/25/16 15:32 12/25/16 15:32
[2016-12-26] MEDS: INSULIN REGULAR 100 UNIT/ML SUBCUT SCH ×4 (07:59→21:25)
[2016-12-26] MEDS: glipiZIDE 5 MG TABLET PO SCH (08:08)
[2016-12-26] MEDS: MULTIVITAMIN (BEROCCA) TABLET PO SCH (08:27)
[2016-12-26] MEDS: DIGOXIN 0.125 MG TABLET PO SCH (08:27)
[2016-12-26] MEDS: ISOSORBIDE MONONITRATE 30 MG TABLET PO SCH (08:27)
[2016-12-26] MEDS: FLUCONAZOLE 100 MG TABLET PO SCH (08:27)
[2016-12-26] MEDS: ASPIRIN 325 MG TABLET PO SCH (08:27)
[2016-12-26] MEDS: CARVEDILOL 25 MG TABLET PO SCH ×2 (08:27→20:54)
[2016-12-26] MEDS: LIOTHYRONINE 25 MCG TABLET PO SCH (08:27)
[2016-12-26] MEDS: PANTOPRAZOLE 40 MG TABLET PO SCH (08:27)
[2016-12-26] MEDS: LEVOTHYROXINE 100 MCG TABLET PO SCH (08:28)
[2016-12-26 09:58] LABS: Eosinophils # 0.1 10*3/uL (0.0-0.87); Eosinophils % 4.3 % (0.00-10.9); Hematocrit 17.5 VOL% (42.0-52.0); Immature Granulocytes % 3.5 %; Immature Granulocytes Absolute 0.04 #; Lymphocytes # 0.5 10*3/uL (1.4-4.0); Lymphocytes % 46.1 % (21.2-54.2); Mean Corpuscular HGB Conc 33.7 GM/DL (32-36); Mean Corpuscular Hemoglobin 30 PG (27-34); Mean Corpuscular Volume 87.9 FL (87-102); Mean Platelet Volume 9.8 FL (9.6-12.0); Monocytes # 0.1 10*3/uL (0.11-0.8); Monocytes % 5.2 % (1.7-12.7); Neutrophils # 0.5 10*3/uL (1.4-7.4); Neutrophils % 40.9 % (38.7-73.9); Platelet Count 308 T/CUMM (130-400); Red Blood Count 1.99 MC/CUMM (3.8-5.5); Red Cell Distribution Width 14.9 % (9.3-17.3); White Blood Count 1.2 T/CUMM (4-12)
[2016-12-26 10:00] LABS: Hemoglobin 5.9 GM/DL (14.0-18.0)
[2016-12-26 10:26] LABS: Eosinophils 1 % (0-10); Lymphocytes 45 % (20-55); Platelet Estimate Adequate; Segmented Neutrophils 48 % (50-85); Total Cells Counted 100
[2016-12-26 10:27] LABS: Hypochromasia 1+; Microcytosis Slight; Ovalocytes Slight
[2016-12-26 10:31] LABS: Calcium 8.3 MG/DL (8.5-10.1); Osmolality,Calculated 283.1 MOS/KG (273-304); Potassium 4.3 MMOL/L (3.5-5.1)
[2016-12-26 10:37] LABS: % Iron Saturation 41.1 % (18-50)
[2016-12-26 10:44] LABS: Folate > 24.0 NG/ML (5.4-24.0); Vitamin B12 774 PG/ML (211-911)
--- NOTE | 2016-12-26 11:41 | Hospitalist Progress Note ---
Assessment and Plan (1) Anemia Status: Chronic Assessment and plan: Patient is profoundly low hematocrit of 17%. He does have chronic renal disease does not provide history of active bleeding. He will be transfused 2 units of packed red dialysis today. Take probable B19 antibodies both IgM and IgG on outside chance is a plastic anemia from this infection. Current Visit: No Qualifiers: Anemia type: other cause Other causes of anemia: chronic disease, kidney Qualified Code(s): N18.9 - Chronic kidney disease, unspecified; D63.1 - Anemia in chronic kidney disease (2) Leukopenia Status: Acute Assessment and plan: Reportedly discussion of with the patient this is been noted in the past. No history of the immunocompromising state of anesthesia disease. Denies any fever chills. However presents with associated mucositis. Differential diagnosis is cyclical neutropenia with mucositis. An a plastic process cannot be ruled out. Current Visit: No (3) ESRD on dialysis Problem details: NO acute indication for HD today. Status: Acute Assessment and plan: Patient is doing dialysis and has been consulted to nephrology already. Current Visit: No (4) Foot pain Status: Acute Current Visit: Yes (5) Mucositis Status: Acute Assessment and plan: Give patient symptomatic treatment with mouthwash. Switch gargle and spit 15- 20 minutes before meals. These soles are more than likely associated with his neutropenia. They do not look herpetic. He is not reporting odynophagia Current Visit: Yes Hospitalist: Subjective Interval history: Patient has been seen interviewed and examined and chart has been reviewed. Is my first encounter admitted by my colleagues overnight she is progressive anemia and neutropenia. He maintains a good platelet count. Mr. Murphy states that he has been told of these before he does have history of end-stage renal disease on dialysis for history of prior infections that he is aware of that presents this time with significant mucositis and he has not had what would be described as cyclical neutropenia with mucositis. The soles are painful in the mouth do look like aphthous ulcers. Exam - Constitutional Vitals: Period Temp Pulse Resp BP Sys/Diehl Pulse Ox Last 24 Hr 98.5 F-99.6 F 93-103 18-20 135-168/70-91 92-97 General appearance: normal weight - Head Head exam: Present: normal inspection, normocephalic, atraumatic - Eye Eye exam: Present: EOMI Pupils: Present: MONROE - ENT ENT exam: Present: normal exam - Neck Neck exam: Present: normal inspection - Respiratory Respiratory exam: Present: clear to auscultation bilaterally, other (No wheezing no rales) - Cardiovascular Cardiovascular exam: Present: regular rate and rhythm - GI/Abdominal GI/Abdominal exam: Present: ascites, soft - Extremities Exam Extremities exam: Present: full ROM, other (Gentleman has a foreign body in the plantar surface of her left foot. This was detected in the emergency room too. There is no associated cellulitis. Skin is all closed. This may have been there for a long time. Get general surgery or podiatry look at it.) - Back Exam Back exam: Present: normal inspection - Neurological Exam Neurological exam: Present: alert, oriented X3, CN II-XII intact - Psychiatric Psychiatric exam: Present: normal affect, normal mood - Skin Skin exam: Present: normal color, warm, dry Results - Labs CBC & BMP: 12/26/16 09:47 12/26/16 09:47 Lab Results: I have reviewed the past 24 hour labs (Noted profound anemia hematocrit of 17%, patient will be receiving 2 units of packed cells at dialysis. Repeat H&H in the morning)
[2016-12-26] MEDS ORDERED: MYLANTA/LIDO VISC/DIPH 300 ML BOTTLE SWISH/SPIT PRN (11:53)
[2016-12-26] MEDS ORDERED: HEPARIN 10,000 UNIT/10 ML VIAL IV ONE (13:00)
--- NOTE | 2016-12-26 15:07 | Nephrology Consult Note ---
History of Present Illness Chief complaint: ESRD in a patient admitted for foot pain and mouth pain History of present illness: Mr. Rosales is a 61 year old male who dialyzes on a Monday when he basis in [facility]. His last dialysis was this past Monday. The patient presented to the emergency room yesterday with complaints of foot pain and mouth pain. The patient states he felt like he had something lodged in his foot. X-ray of his left foot revealed no foreign body. The patient also complains of having ulcers and pain in his mouth since having his wisdom teeth removed a month or so ago. The patient apparently had some thrush identified at that time. The patient was also noted to have significant anemia with a hematocrit of around 17% on admission. The patient's hemoglobin as an outpatient has been dropping over the past several weeks from around 9-10 down to 8 a week or so ago. The patient was given Hemoccult cards to test his stool at home and these apparently were negative per the patient. ROS: Head - denies headaches ENT -positive sore throat Lymphatics - denies lymphadenopathy Hematology - denies bleeding problems Heart - denies chest pain Lungs - denies shortness of breath Abdomen - denies abdominal pain Musculoskeletal - denies arthritis Skin - denies rash Neurology - denies stroke General - denies fever PE: General: in no acute distress Eyes: Pupils are round and reactive, conjunctivae are clear ENT: Nose is clear, O/P I did not appreciate any white plaques, he has perhaps some increased redness about his tongue and posterior oropharynx Neck: Supple, no thyromegaly Lymphatics: No cervical, supraclavicular or axillary adenopathy Heart: Regular rate and rhythm, no edema Lungs: Clear to auscultation anteriorly, chest expansion symmetric Abdomen: Soft, normoactive bowel sounds, no hepatomegaly Musculoskeletal: No joint erythema or effusions or joint asymmetry Skin: Normal turgor, normal hydration, no rash, he does have a punctate pimple- like lesion on the bottom of his left foot with a very small brown dot in the middle of it there is no surrounding erythema this lesion is tender to palpation Neuro/Psych: Alert and cooperative with fair insight Home Medications Medication Instructions Recorded Confirmed Type Insulin Glargine [Lantus] 50 unit SUBCUT BEDTIME 01/24/15 12/25/16 History Levothyroxine Tab [Synthroid Tab] 100 mcg PO QAM 01/24/15 12/25/16 History Carvedilol 25 mg PO BID 11/12/16 12/25/16 History Digoxin 125 mcg PO QAM 11/12/16 12/25/16 History NIFEdipine [Nifedipine ER] 30 mg PO QAM 11/12/16 12/25/16 History Vitamin B Complex 1 each PO QAM 11/12/16 12/25/16 History glipiZIDE [Glipizide] 5 mg PO AC BREAKFAST 11/12/16 12/25/16 History Ondansetron Odt Tab [Zofran Odt] 4 mg PO Q6H #15 tablet 11/25/16 12/25/16 Rx Liothyronine Sodium 25 mcg PO QAM 11/27/16 12/25/16 History Pantoprazole Tab [Protonix Tab] 40 mg PO QAM 11/27/16 12/25/16 History predniSONE TAB [PredniSONE] 5 - 10 mg PO DAILY PRN 11/27/16 12/25/16 History Aspirin Tab 325 mg PO DAILY tablet 12/02/16 12/25/16 Rx Gabapentin Cap/Tab [Neurontin 200 mg PO TID #90 capsule 12/02/16 12/25/16 Rx Cap/Tab] Isosorbide Mononitrate [Imdur] 30 mg PO DAILY #30 tablet 12/02/16 12/25/16 Rx hydrALAZINE TAB [Apresoline Tab] 25 mg PO TID #90 tablet 12/02/16 12/25/16 Rx Albuterol Inhaler [Proventil 2 puff INH Q4H PRN #1 inhaler 12/03/16 12/25/16 Rx Inhaler] Benzonatate [Tessalon] 200 mg PO TID PRN #30 capsule 12/03/16 12/25/16 Rx Allergies Allergy/AdvReac Type Severity Reaction Status Date / Time povidone-iodine Allergy Intermediate RASH Verified 12/03/16 02:55 [From Betadine] soap [From Betadine] Allergy Intermediate RASH Verified 12/03/16 02:55 Medical,Surgical,& Family Hx - Medical History Cardio: History of: Hypertension Neurology: History of: Peripheral Neuropathy (diabetic) No history of: Seizures Endocrine: History of: Diabetes Mellitus (IDDM), Diabetes Mellitus (NIDDM), Thyroid Disorder Rheumatology: History of;: Rheumatological Problems Renal: History of: Dialysis (MWF), Renal Failure Musculoskeletal: History of: Back/Neck Problems No history of: Amputation Hematology: History of: Anemia - Surgical History Cardiac Surgeries: Patient Denies: Cardiac Catheterization Thoracic Surgeries: Patient denies;: Organ Transplant Neurologic Surgeries: Patient denies: Neurologic Surgery - Family History Family History: Reports;: Family Diabetes, Family Hypertension - Social History Smoking Status: Never smoker Frequency of Alcohol Use: None Type of Drug Use: None Exam - Vital Signs Vital signs: Period Temp Pulse Resp BP Sys/Diehl Pulse Ox Last 24 Hr 98.5 F-99.6 F 93-103 18-20 135-168/70-91 92-97 Results - Labs CBC & BMP: 12/26/16 09:47 12/26/16 09:47 Assessment and Plan (1) Foot pain Status: Acute Assessment and plan: Patient is to be seen by wound care today for his foot pain he may need pricking of the small punctate lesion on the bottom of his left foot Current Visit: Yes (2) Leukopenia Status: Acute Assessment and plan: Patient is being evaluated by hematology, Neurontin is being held along with hydralazine Current Visit: Yes (3) Mucositis Status: Acute Assessment and plan: Patient is being treated with Diflucan Current Visit: Yes (4) ESRD on dialysis Problem details: NO acute indication for HD today. Status: Acute Assessment and plan: We will continue hemodialysis support while here. Current Visit: No (5) History of dental surgery Status: Chronic Current Visit: No (6) Hypertension Status: Chronic Current Visit: No Qualifiers: Hypertension type: essential hypertension Qualified Code(s): I10 - Essential (primary) hypertension
[2016-12-26] MEDS ORDERED: PIPERACILLIN/TAZOBACTAM 3,375 MG in SODIUM CHLORIDE 0.9% 100 ML IV SCH (17:00)
[2016-12-26] MEDS: ACETAMINOPHEN 325 MG TABLET PO PRN ×2 (17:00→20:54)
[2016-12-26 19:22] LABS: Hematocrit 22.7 VOL% (42.0-52.0); Hemoglobin 7.9 GM/DL (14.0-18.0)
[2016-12-26] MEDS ORDERED: VANCOMYCIN INJ 1,000 MG in SODIUM CHLORIDE 0.9% 250 ML IV ONE (21:00)
[2016-12-26] MEDS ORDERED: IBUPROFEN 400 MG TABLET PO PRN (23:54)
--- NOTE | 2016-12-27 07:35 | Nephrology Progress Note ---
Nephrology - PN: Subj Interval history: Patient states his mouth pain is better. Review of systems GI he denies nausea or vomiting, musculoskeletal-patient states the wound care person has not seen him for his foot pain Physical exam general the patient's in no acute distress Assessment/plan 1. End-stage renal disease-we will continue hemodialysis support 2. mucositis-this is improved with Diflucan and swish and swallow 3. Neutropenia-I have asked the patient to bring his medicines from home so we can go over exactly what he has been taking and if there is anything new 4. Hypertension this is controled Exam (PN)-Nephrology - Vital Signs Vital signs: Period Temp Pulse Resp BP Sys/Diehl Pulse Ox Last 24 Hr 98.5 F-102.3 F 87-104 18-20 134-152/74-83 90-98 - Lab 12/26/16 19:02 12/26/16 09:47 Most recent lab results Calcium 8.3 MG/DL (8.5-10.1) L 12/26/16 09:47 Assessment and Plan (1) Foot pain Status: Acute Assessment and plan: Patient is to be seen by wound care today for his foot pain he may need pricking of the small punctate lesion on the bottom of his left foot Current Visit: Yes (2) Leukopenia Status: Acute Assessment and plan: Patient is being evaluated by hematology, Neurontin is being held along with hydralazine Current Visit: Yes (3) Mucositis Status: Acute Assessment and plan: Patient is being treated with Diflucan Current Visit: Yes (4) ESRD on dialysis Problem details: NO acute indication for HD today. Status: Acute Assessment and plan: We will continue hemodialysis support while here. Current Visit: No (5) History of dental surgery Status: Chronic Current Visit: No (6) Hypertension Status: Chronic Current Visit: No Qualifiers: Hypertension type: essential hypertension Qualified Code(s): I10 - Essential (primary) hypertension
--- NOTE | 2016-12-27 07:35 | Oncology Progress Note ---
Oncology Subjective PN Interval history: This patient has persistent fever. I do not see a chest x-ray done recently. I am ordering one. I am also consulting infectious disease to assist in evaluating him with us. Additional lab work done on the patient includes a low serum iron of 53 with a low iron binding capacity 129 suggesting a component of anemia of chronic disease which does not surprise me in this patient with renal failure on hemodialysis. His folic acid level is greater than 24 and his B12 level was 774. Lab work today includes white cell count of 1200 with a hemoglobin of 7.9 and his platelet count was normal at 295,000. The last time I was consulted on him he did not have leukopenia. I am going to review his medications again to see if anything else needs to be discontinued at least temporarily. I am also ordering serum protein electrophoresis and serum immunoelectrophoresis. In addition, we need a comprehensive metabolic profile, which he has not had. He is oriented and alert. His skin appears hyperpigmented. He has no focal neurologic deficits. His respirations are unlabored. His oral mucosa is normal. Exam - Constitutional Vitals: Period Temp Pulse Resp BP Sys/Diehl Pulse Ox Last 24 Hr 98.5 F-102.3 F 87-104 18-20 134-152/74-83 90-98 Results - Labs CBC & BMP: 12/30/16 02:57 12/28/16 06:26 Specialty Discharge - Follow Up or Referrals Follow up with: Rishi De La Rosa III., MD [Physician] - 01/12/17 1:45 pm
[2016-12-27 08:11] LABS: Eosinophils # 0.1 10*3/uL (0.0-0.87); Eosinophils % 4.2 % (0.00-10.9); Hematocrit 23.1 VOL% (42.0-52.0); Hemoglobin 7.9 GM/DL (14.0-18.0); Immature Granulocytes % 1.7 %; Immature Granulocytes Absolute 0.02 #; Lymphocytes # 0.4 10*3/uL (1.4-4.0); Mean Corpuscular HGB Conc 34.2 GM/DL (32-36); Mean Corpuscular Hemoglobin 29 PG (27-34); Mean Corpuscular Volume 84.9 FL (87-102); Mean Platelet Volume 9.7 FL (9.6-12.0); Monocytes # 0.1 10*3/uL (0.11-0.8); Neutrophils # 0.7 10*3/uL (1.4-7.4); Neutrophils % 54.1 % (38.7-73.9); Platelet Count 295 T/CUMM (130-400); Red Blood Count 2.72 MC/CUMM (3.8-5.5); Red Cell Distribution Width 14.4 % (9.3-17.3); White Blood Count 1.2 T/CUMM (4-12)
[2016-12-27 08:38] LABS: Band Neutrophils 1 % (0-10); Eosinophils 5 % (0-10); Hypochromasia 1+; Lymphocytes 36 % (20-55); Platelet Estimate Adequate; Segmented Neutrophils 55 % (50-85); Total Cells Counted 100
[2016-12-27 08:39] LABS: Microcytosis Slight; Ovalocytes Slight
[2016-12-27 08:53] LABS: Total Protein 5.8 G/DL (6.4-8.3)
[2016-12-27 08:54] LABS: Albumin 2.4 G/DL (3.4-5.0); Bilirubin,Total 0.8 MG/DL (0.2-1.0); Calcium 8.1 MG/DL (8.5-10.1); Osmolality,Calculated 275.1 MOS/KG (273-304); Potassium 4.1 MMOL/L (3.5-5.1); Total Protein 5.9 G/DL (6.4-8.3)
[2016-12-27] MEDS: glipiZIDE 5 MG TABLET PO SCH (09:11)
[2016-12-27] MEDS: INSULIN REGULAR 100 UNIT/ML SUBCUT SCH ×4 (09:11→20:56)
[2016-12-27] MEDS: PIPERACILLIN/TAZOBACTAM 3,375 MG in SODIUM CHLORIDE 0.9% 100 ML IV SCH ×2 (09:13→21:00)
[2016-12-27] MEDS: LIOTHYRONINE 25 MCG TABLET PO SCH (09:13)
[2016-12-27] MEDS: MULTIVITAMIN (BEROCCA) TABLET PO SCH (09:13)
[2016-12-27] MEDS: ASPIRIN 325 MG TABLET PO SCH (09:13)
[2016-12-27] MEDS: ISOSORBIDE MONONITRATE 30 MG TABLET PO SCH (09:13)
[2016-12-27] MEDS: PANTOPRAZOLE 40 MG TABLET PO SCH (09:14)
[2016-12-27] MEDS: CARVEDILOL 25 MG TABLET PO SCH ×2 (09:14→20:55)
[2016-12-27] MEDS: FLUCONAZOLE 100 MG TABLET PO SCH (09:14)
[2016-12-27] MEDS: DIGOXIN 0.125 MG TABLET PO SCH (09:14)
[2016-12-27] MEDS: LEVOTHYROXINE 100 MCG TABLET PO SCH (09:14)
--- NOTE | 2016-12-27 09:41 | XRay Report ---
XR chest 1V portable Indication: Persistent fever Comparison: Chest x-ray dated December 03, 2016 Technique: Single frontal view of the chest Findings: Borderline heart size. Elevation of the right hemidiaphragm with mild atelectasis/consolidation within the right lung base suspicious for pneumonia. Osseous and surrounding soft tissue structures appear grossly unchanged. IMPRESSION: As above. PROCEDURE INTERPRETED AT [facility] DEPARTMENT OF RADIOLOGY Final Report Signed by: Dr Gorge Burgess
--- NOTE | 2016-12-27 11:17 | Hospitalist Progress Note ---
Assessment and Plan (1) Anemia Status: Chronic Assessment and plan: Patient is profoundly low hematocrit of 17%. He does have chronic renal disease does not provide history of active bleeding. He will be transfused 2 units of packed red dialysis today. Take probable B19 antibodies both IgM and IgG on outside chance is a plastic anemia from this infection. Current Visit: No Qualifiers: Anemia type: other cause Other causes of anemia: chronic disease, kidney Qualified Code(s): N18.9 - Chronic kidney disease, unspecified; D63.1 - Anemia in chronic kidney disease (2) Leukopenia Status: Acute Assessment and plan: Reportedly discussion of with the patient this is been noted in the past. No history of the immunocompromising state of anesthesia disease. Denies any fever chills. However presents with associated mucositis. Differential diagnosis is cyclical neutropenia with mucositis. An a plastic process cannot be ruled out. Current Visit: No (3) ESRD on dialysis Problem details: NO acute indication for HD today. Status: Acute Assessment and plan: Patient is doing dialysis and has been consulted to nephrology already. Current Visit: No (4) Foot pain Status: Acute Current Visit: Yes (5) Mucositis Status: Acute Assessment and plan: Give patient symptomatic treatment with mouthwash. Switch gargle and spit 15- 20 minutes before meals. These soles are more than likely associated with his neutropenia. They do not look herpetic. He is not reporting odynophagia Current Visit: Yes (6) Foreign body in left foot Status: Acute Assessment and plan: We will get surgery to look at it. I do not know how long it has been there. Patient states there is pain when you palpate it. There is no broken skin in that area but this must have been there for a long time. Current Visit: Yes Hospitalist: Subjective Interval history: Patient has been seen interviewed and examined. He said the pain in the mouth is better. Still remains quite neutropenic. Noted to have some fevers yesterday 1 up posttransfusion and subsequent around midnight. 2 sets of blood cultures were obtained. Patient in the hospital with profound cytopenia low white count anemia. Center palpable B19 antibodies yesterday. Whether suspect this is a chronic thing. Pathology is consulted. We will heed their recommendations. Exam - Constitutional Vitals: Period Temp Pulse Resp BP Sys/Diehl Pulse Ox Last 24 Hr 98.8 F-102.3 F 87-104 16-20 134-152/74-83 90-98 General appearance: over weight - Head Head exam: Present: normocephalic, atraumatic - Eye Eye exam: Present: EOMI Pupils: Present: MONROE - ENT ENT exam: Present: normal exam - Neck Neck exam: Present: normal inspection - Respiratory Respiratory exam: Present: clear to auscultation bilaterally - Cardiovascular Cardiovascular exam: Present: regular rate and rhythm - GI/Abdominal GI/Abdominal exam: Present: normal bowel sounds, soft - Extremities Exam Extremities exam: Present: full ROM - Neurological Exam Neurological exam: Present: alert, oriented X3, CN II-XII intact - Psychiatric Psychiatric exam: Present: normal affect, normal mood Results - Labs CBC & BMP: 12/27/16 07:40 12/27/16 07:39 Lab Results: I have reviewed the past 24 hour labs
--- NOTE | 2016-12-27 14:29 | General Surgery Consult Note ---
Assessment and Plan - Time spent with patient Time spent with patient: Less than 30 minutes (1) Foreign body in left foot Status: Acute Assessment and plan: He certainly is at risk of having a foreign body that is not radiopaque. He does not appear to have active cellulitis. I have offered exploration of his left foot which she would like to have done since he is convinced that there is something in there. We discussed the risks including wound problems infections inability to locate a foreign body, etc. He understands these risks and wished to proceed. He just ate lunch so we will put him on the schedule for to Current Visit: Yes History of Present Illness Chief complaint: Something in my left foot History of present illness: Mr. Rosales is a 61 year old male Who 2 days ago began having pain over a "murmur" at the bottom of his left foot. He is unaware of stepping on anything but has had persistent pain he tries to ambulate over this focal area of his foot. He has not had any redness swelling or drainage he had an x-ray which did not show a foreign body. The pain is moderate in severity and worse if he puts weight on it. It is constant. Home Medications Medication Instructions Recorded Confirmed Type Insulin Glargine [Lantus] 50 unit SUBCUT BEDTIME 01/24/15 12/25/16 History Levothyroxine Tab [Synthroid Tab] 100 mcg PO QAM 01/24/15 12/25/16 History Carvedilol 25 mg PO BID 11/12/16 12/25/16 History Digoxin 125 mcg PO QAM 11/12/16 12/25/16 History NIFEdipine [Nifedipine ER] 30 mg PO QAM 11/12/16 12/25/16 History Vitamin B Complex 1 each PO QAM 11/12/16 12/25/16 History glipiZIDE [Glipizide] 5 mg PO AC BREAKFAST 11/12/16 12/25/16 History Ondansetron Odt Tab [Zofran Odt] 4 mg PO Q6H #15 tablet 11/25/16 12/25/16 Rx Liothyronine Sodium 25 mcg PO QAM 11/27/16 12/25/16 History Pantoprazole Tab [Protonix Tab] 40 mg PO QAM 11/27/16 12/25/16 History predniSONE TAB [PredniSONE] 5 - 10 mg PO DAILY PRN 11/27/16 12/25/16 History Aspirin Tab 325 mg PO DAILY tablet 12/02/16 12/25/16 Rx Gabapentin Cap/Tab [Neurontin 200 mg PO TID #90 capsule 12/02/16 12/25/16 Rx Cap/Tab] Isosorbide Mononitrate [Imdur] 30 mg PO DAILY #30 tablet 12/02/16 12/25/16 Rx hydrALAZINE TAB [Apresoline Tab] 25 mg PO TID #90 tablet 12/02/16 12/25/16 Rx Albuterol Inhaler [Proventil 2 puff INH Q4H PRN #1 inhaler 12/03/16 12/25/16 Rx Inhaler] Benzonatate [Tessalon] 200 mg PO TID PRN #30 capsule 12/03/16 12/25/16 Rx Allergies Allergy/AdvReac Type Severity Reaction Status Date / Time povidone-iodine Allergy Intermediate RASH Verified 12/03/16 02:55 [From Betadine] soap [From Betadine] Allergy Intermediate RASH Verified 12/03/16 02:55 Medical,Surgical,& Family Hx - Medical History Cardio: History of: Hypertension Neurology: History of: Peripheral Neuropathy (diabetic) No history of: Seizures Endocrine: History of: Diabetes Mellitus (IDDM), Diabetes Mellitus (NIDDM), Thyroid Disorder Rheumatology: History of;: Rheumatological Problems Renal: History of: Dialysis (MWF), Renal Failure Musculoskeletal: History of: Back/Neck Problems No history of: Amputation Hematology: History of: Anemia - Surgical History Cardiac Surgeries: Patient Denies: Cardiac Catheterization Thoracic Surgeries: Patient denies;: Organ Transplant Neurologic Surgeries: Patient denies: Neurologic Surgery - Family History Family History: Reports;: Family Diabetes, Family Hypertension - Social History Smoking Status: Never smoker Frequency of Alcohol Use: None Type of Drug Use: None - Constitutional Constitutional: Absent: chills, fever(s) - Cardiovascular Cardiovascular: Absent: chest pain at rest, syncope - Respiratory Respiratory: Absent: dyspnea, hemoptysis Exam - Constitutional Vitals: Period Temp Pulse Resp BP Sys/Diehl Pulse Ox Last 24 Hr 98.8 F-102.3 F 87-104 12-20 132-152/65-83 90-98 General appearance: no acute distress - Head Head exam: Present: normocephalic - ENT Mouth exam: Present: normal voice - Neck Neck exam: Present: trachea midline - Respiratory Respiratory exam: Absent: accessory muscle use - Extremities Exam Extremities exam: Present: other (There is a 1 cm area of firmness and induration over the instep plantar aspect of his left foot. There is a mass- effect but I cannot feel a discrete foreign body. There is a small opening which could be a puncture site.). Absent: edema Results - Labs CBC & BMP: 12/27/16 07:40 12/27/16 07:39 Lab Results: I have reviewed the past 24 hour labs
--- NOTE | 2016-12-27 16:34 | Infectious Disease Consult ---
Assessment and Plan (1) Leukopenia Status: Acute Assessment and plan: Not sure cause, could be medication induced versus infectious (eg viral). Medications have been adjusted and we can monitor this for now. The neutropenia is associated with fever so there is a chance of bacterial infection , especially in this man is relatively immunocompromised already because he is on dialysis. Recommendations: I agree with the empiric vancomycin and Zosyn. Will follow blood cultures and adjust antibiotics accordingly. Thank you very much for the consult. Will follow. Discussed with patient's at bedside. Current Visit: Yes (2) Stomatitis Status: Acute Assessment and plan: Probably related to the neutropenia. The ulcerations do not look herpetic and I did not quite appreciate candidiasis although maybe that is better because he has been on the consult. Patient feels much better state seems these ulcerations are improving. Will continue to monitor. Current Visit: Yes (3) ESRD on dialysis Problem details: NO acute indication for HD today. Status: Acute Current Visit: No History of Present Illness Chief complaint: Febrile neutropenia History of present illness: Mr. Rosales is a 61 year old male With end-stage renal disease on hemodialysis for almost 10 years was relatively well until about 5 days ago when he developed sores in his mouth and difficulty eating and swallowing. He did not notice fever at home. He came to the hospital was found to have extensive ulceration about his mouth. Additionally he was found to be quite neutropenic. Since coming and he has been spiking intermittent fever to over 102. He is empirically on vancomycin and Zosyn and I am asked to assist with management. Patient's other complaint is the feeling of less foreign body to the sole of the left foot in the region of a small papule. He was seen by surgeon is going to be taken to the operating room tomorrow for exploration. Home Medications Medication Instructions Recorded Confirmed Type Insulin Glargine [Lantus] 50 unit SUBCUT BEDTIME 01/24/15 12/25/16 History Levothyroxine Tab [Synthroid Tab] 100 mcg PO QAM 01/24/15 12/25/16 History Carvedilol 25 mg PO BID 11/12/16 12/25/16 History Digoxin 125 mcg PO QAM 11/12/16 12/25/16 History NIFEdipine [Nifedipine ER] 30 mg PO QAM 11/12/16 12/25/16 History Vitamin B Complex 1 each PO QAM 11/12/16 12/25/16 History glipiZIDE [Glipizide] 5 mg PO AC BREAKFAST 11/12/16 12/25/16 History Ondansetron Odt Tab [Zofran Odt] 4 mg PO Q6H #15 tablet 11/25/16 12/25/16 Rx Liothyronine Sodium 25 mcg PO QAM 11/27/16 12/25/16 History Pantoprazole Tab [Protonix Tab] 40 mg PO QAM 11/27/16 12/25/16 History predniSONE TAB [PredniSONE] 5 - 10 mg PO DAILY PRN 11/27/16 12/25/16 History Aspirin Tab 325 mg PO DAILY tablet 12/02/16 12/25/16 Rx Gabapentin Cap/Tab [Neurontin 200 mg PO TID #90 capsule 12/02/16 12/25/16 Rx Cap/Tab] Isosorbide Mononitrate [Imdur] 30 mg PO DAILY #30 tablet 12/02/16 12/25/16 Rx hydrALAZINE TAB [Apresoline Tab] 25 mg PO TID #90 tablet 12/02/16 12/25/16 Rx Albuterol Inhaler [Proventil 2 puff INH Q4H PRN #1 inhaler 12/03/16 12/25/16 Rx Inhaler] Benzonatate [Tessalon] 200 mg PO TID PRN #30 capsule 12/03/16 12/25/16 Rx Allergies Allergy/AdvReac Type Severity Reaction Status Date / Time povidone-iodine Allergy Intermediate RASH Verified 12/03/16 02:55 [From Betadine] soap [From Betadine] Allergy Intermediate RASH Verified 12/03/16 02:55 12 point system: reviewed and no additional remarkable complaints except as stated (Per HPI) Medical,Surgical,& Family Hx - Medical History Cardio: History of: Hypertension Neurology: History of: Peripheral Neuropathy (diabetic) No history of: Seizures Endocrine: History of: Diabetes Mellitus (IDDM), Diabetes Mellitus (NIDDM), Thyroid Disorder Rheumatology: History of;: Rheumatological Problems Renal: History of: Dialysis (MWF), Renal Failure Musculoskeletal: History of: Back/Neck Problems No history of: Amputation Hematology: History of: Anemia - Surgical History Cardiac Surgeries: Patient Denies: Cardiac Catheterization Thoracic Surgeries: Patient denies;: Organ Transplant Neurologic Surgeries: Patient denies: Neurologic Surgery - Family History Family History: Reports;: Family Diabetes, Family Hypertension - Social History Smoking Status: Never smoker Frequency of Alcohol Use: None Type of Drug Use: None Infectious Disease Exam H&P - Constitutional Vitals: Vital Signs Temp Pulse Resp BP Pulse Ox 99.9 F H 89 12 132/65 92 L 12/27/16 12:00 12/27/16 12:00 12/27/16 12:00 12/27/16 12:00 12/27/16 12:00 Intake and Output 12/27/16 12/27/16 12/27/16 07:59 15:59 23:59 Intake Total 250 / 250 Balance 250 / 250 Intake: IV 250 / 250 Vancomycin Inj 1,000 mg 250 / 250 In Ns 250 ml @ 250 mls/hr IV ONCE ONE Rx#: [id number] Other: Voiding Method Dialysis Patient # Voids 0 # Bowel Movements 0 Weight 109.996 kg Patient Weight 12/27/16 23:59 Weight 109.996 kg Exam: General: Patient relatively comfortable HEENT: Mucous membranes pink and moist, anicteric acyanotic, [place], he has large irregular shallow ulcerations on his buccal mucosa and also on the soft palate, few small ulcerations on tongue Neck: Supple, no thyroid gland enlargement, no lymphadenopathy Respiratory system: Breath sounds vesicular, no crepitations or wheezes Cardiovascular: Normal S1 and S2, no murmurs appreciated Abdomen: Normal bowel sounds, soft nontender throughout, no organomegaly or mass Genitourinary: No suprapubic pain or bladder distention Extremities: no edema, AV fistula to left forearm, small papule to sole of left foot without surrounding induration. It is smooth to touch. Skin: No rash Reports - Labs CBC & BMP: 12/27/16 07:40 12/27/16 07:39 Labs: Laboratory Results - last 24 hr 12/26/16 12/26/16 12/26/16 09:47 19:02 19:52 WBC RBC Hgb 7.9 L D Hct 22.7 L MCV MCH MCHC RDW Plt Count MPV Neut % (Auto) Lymph % (Auto) [place] % (Auto) Eos % (Auto) Baso % (Auto) Neut # (Auto) Lymph # (Auto) [place] # (Auto) Eos # (Auto) Baso # (Auto) Total Counted Immature Gran % Nucleated RBC % Immature Gran # Segmented Neutrophils Band Neutrophils Lymphocytes Monocytes Eosinophils Nucleated RBCs # Platelet Estimate Hypochromasia Microcytosis Ovalocytes Morphology Comment Sodium Potassium Chloride Carbon Dioxide Anion Gap BUN Creatinine GFR Calculation BUN/Creatinine Ratio Glucose POC Glucose 149 H Calculated Osmolality Calcium Total Bilirubin AST ALT Alkaline Phosphatase Lactate Dehydrogenase Total Protein Albumin Globulin Albumin/Globulin Ratio IgG IgA IgM Blood Type O POSITIVE Antibody Screen Negative Crossmatch See Detail 12/26/16 12/27/16 12/27/16 20:58 07:21 07:39 WBC RBC Hgb Hct MCV MCH MCHC RDW Plt Count MPV Neut % (Auto) Lymph % (Auto) [place] % (Auto) Eos % (Auto) Baso % (Auto) Neut # (Auto) Lymph # (Auto) [place] # (Auto) Eos # (Auto) Baso # (Auto) Total Counted Immature Gran % Nucleated RBC % Immature Gran # Segmented Neutrophils Band Neutrophils Lymphocytes Monocytes Eosinophils Nucleated RBCs # Platelet Estimate Hypochromasia Microcytosis Ovalocytes Morphology Comment Sodium Potassium Chloride Carbon Dioxide Anion Gap BUN Creatinine GFR Calculation BUN/Creatinine Ratio Glucose POC Glucose 139 H 106 Calculated Osmolality Calcium Total Bilirubin AST ALT Alkaline Phosphatase Lactate Dehydrogenase Total Protein 5.8 L Albumin Globulin Albumin/Globulin Ratio IgG 1040 IgA 172 IgM 92 Blood Type Antibody Screen Crossmatch 12/27/16 12/27/16 12/27/16 07:39 07:40 12:09 WBC 1.2 L RBC 2.72 L D Hgb 7.9 L Hct 23.1 L MCV 84.9 L MCH 29 MCHC 34.2 RDW 14.4 Plt Count 295 MPV 9.7 Neut % (Auto) 54.1 Lymph % (Auto) 35.0 [place] % (Auto) 5.0 Eos % (Auto) 4.2 Baso % (Auto) 0.0 Neut # (Auto) 0.7 L Lymph # (Auto) 0.4 L [place] # (Auto) 0.1 L Eos # (Auto) 0.1 Baso # (Auto) 0.0 Total Counted 100 Immature Gran % 1.7 Nucleated RBC % 0.0 Immature Gran # 0.02 Segmented Neutrophils 55 Band Neutrophils 1 Lymphocytes 36 Monocytes 3 Eosinophils 5 Nucleated RBCs # 0.00 Platelet Estimate Adequate Hypochromasia 1+ Microcytosis Slight Ovalocytes Slight Morphology Comment Sodium 135 L Potassium 4.1 Chloride 98 Carbon Dioxide 27 Anion Gap 14.1 BUN 30 H D Creatinine 7.10 H GFR Calculation 12 BUN/Creatinine Ratio 4.00 L Glucose 100 POC Glucose 180 H Calculated Osmolality 275.1 Calcium 8.1 L Total Bilirubin 0.80 AST 41 H ALT 111 H Alkaline Phosphatase 71 Lactate Dehydrogenase 229 Total Protein 5.9 L Albumin 2.4 L Globulin 3.5 Albumin/Globulin Ratio 0.6 L IgG IgA IgM Blood Type Antibody Screen Crossmatch - Reports Microbiology: Blood cultures pending - Diagnostic Findings Procedure: Chest x-ray: image reviewed by me, report reviewed by me (I did not appreciate consolidation)
[2016-12-27] MEDS: ACETAMINOPHEN 325 MG TABLET PO PRN (17:51)
[2016-12-28] MEDS ORDERED: FAMOTIDINE 20 MG TABLET PO ONE (05:46)
[2016-12-28] MEDS ORDERED: IPRATROPIUM 500 MCG/2.5 ML NEB RESP TX ONE (05:46)
[2016-12-28] MEDS ORDERED: LORazepam 0.5 MG TABLET PO ONE (05:46)
[2016-12-28] MEDS ORDERED: ALBUTEROL 2.5 MG/3 ML NEB RESP TX ONE (05:46)
[2016-12-28 05:48] LABS: Total Protein (Chem) 5.8 G/DL (6.4-8.2)
[2016-12-28 05:49] LABS: Immunoglobulin A (Chem) 172 MG/DL (70-400); Immunoglobulin G (Chem) 1040 MG/DL (700-1600); Immunoglobulin M (Chem) 92 MG/DL (40-230)
[2016-12-28 06:26] LABS: Basophils % 0.5 % (0.0-0.8); Eosinophils # 0.1 10*3/uL (0.0-0.87); Eosinophils % 3.3 % (0.00-10.9); Hematocrit 22.6 VOL% (42.0-52.0); Hemoglobin 7.8 GM/DL (14.0-18.0); Immature Granulocytes % 0.5 %; Immature Granulocytes Absolute 0.01 #; Lymphocytes # 0.5 10*3/uL (1.4-4.0); Lymphocytes % 27.9 % (21.2-54.2); Mean Corpuscular HGB Conc 34.5 GM/DL (32-36); Mean Corpuscular Hemoglobin 29 PG (27-34); Mean Corpuscular Volume 85.3 FL (87-102); Monocytes # 0.1 10*3/uL (0.11-0.8); Monocytes % 3.8 % (1.7-12.7); Neutrophils # 1.2 10*3/uL (1.4-7.4); Platelet Count 268 T/CUMM (130-400); Red Blood Count 2.65 MC/CUMM (3.8-5.5); Red Cell Distribution Width 14.2 % (9.3-17.3); White Blood Count 1.8 T/CUMM (4-12)
[2016-12-28 06:59] LABS: Albumin 2.3 G/DL (3.4-5.0); Bilirubin,Total 1.1 MG/DL (0.2-1.0); Calcium 7.7 MG/DL (8.5-10.1); Total Protein 5.8 G/DL (6.4-8.3)
[2016-12-28 07:00] LABS: Osmolality,Calculated 277.2 MOS/KG (273-304); Potassium 4.3 MMOL/L (3.5-5.1)
[2016-12-28 07:05] LABS: Eosinophils 1 % (0-10); Hypochromasia 1+; Lymphocytes 33 % (20-55); Microcytosis Slight; Segmented Neutrophils 65 % (50-85); Total Cells Counted 100
[2016-12-28 07:06] LABS: Platelet Estimate Normal
--- NOTE | 2016-12-28 07:06 | EKG Report ---
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
--- NOTE | 2016-12-28 08:12 | Oncology Progress Note ---
Oncology Subjective PN Interval history: Patient that I was asked to see before neutropenia and anemia. Blood work today includes a white cell count of 1800 with a hemoglobin of 7.8 and platelet count 268,000. The patient's absolute neutrophil count is up to 1200. His comprehensive metabolic profile includes a total bilirubin of 1.1 which is modestly elevated with an ALT of 88. His alkaline phosphatase and his AST are normal. Has a normal B12 level of 774 with an elevated folic acid level of 24.0 that I previously mentioned. Some of the serum protein electrophoretic studies are still pending. His immunoglobulin levels are normal however. Once again, his blood work does not improve, we may need to consider bone marrow biopsy and aspirate. A chest x-ray done December 27 demonstrates elevation of the right hemidiaphragm with atelectasis and consolidation in the right lung base suspicious for pneumonia. Exam - Constitutional Vitals: Period Temp Pulse Resp BP Sys/Diehl Pulse Ox Last 24 Hr 98.6 F-101.6 F 86-96 12-20 132-138/65-77 91-94 Results - Labs CBC & BMP: 12/28/16 04:53 12/28/16 06:26 Quality Measures - VTE Contraindication to Pharmacological VTE Prophylaxis: High Risk of Bleeding
[2016-12-28 08:40] LABS: Albumin (SPE) Rel % 52.4 %; Alpha 1 (SPE) 0.3 G/DL (0.1-0.4); Alpha 1 (SPE) Rel % 5.4 %; Alpha 2 (SPE) 0.8 G/DL (0.4-1.0); Alpha 2 (SPE) Rel % 13.3 %; Beta (SPE) 0.6 G/DL (0.5-1.1); Gamma (SPE) Rel % 17.9 %
[2016-12-28] MEDS: glipiZIDE 5 MG TABLET PO SCH (08:40)
[2016-12-28] MEDS: FLUCONAZOLE 100 MG TABLET PO SCH (08:40)
[2016-12-28] MEDS: MULTIVITAMIN (BEROCCA) TABLET PO SCH (08:40)
[2016-12-28] MEDS: ASPIRIN 325 MG TABLET PO SCH (08:40)
[2016-12-28] MEDS: INSULIN REGULAR 100 UNIT/ML SUBCUT SCH ×4 (08:40→20:59)
[2016-12-28] MEDS: LIOTHYRONINE 25 MCG TABLET PO SCH (08:40)
[2016-12-28] MEDS: LEVOTHYROXINE 100 MCG TABLET PO SCH (08:41)
[2016-12-28] MEDS: PANTOPRAZOLE 40 MG TABLET PO SCH (08:41)
[2016-12-28] MEDS: PIPERACILLIN/TAZOBACTAM 3,375 MG in SODIUM CHLORIDE 0.9% 100 ML IV SCH ×2 (09:00→20:48)
--- NOTE | 2016-12-28 11:24 | Infectious Disease Progress ---
Assessment and Plan (1) Leukopenia Status: Acute Assessment and plan: Not sure cause, could be medication induced versus infectious (eg viral). The neutropenia is associated with fever so there is a chance of bacterial infection , especially in this man is relatively immunocompromised already, being on dialysis. White blood cell count incrementally better today. Recommendations: Continue empiric vancomycin and Zosyn. Will follow blood cultures. Current Visit: Yes (2) Stomatitis Status: Acute Assessment and plan: Probably related to the neutropenia, improving. Will continue to monitor. Current Visit: Yes (3) ESRD on dialysis Problem details: NO acute indication for HD today. Status: Acute Current Visit: No Infectious Disease - PN: Subj Interval history: Still with intermittent fever, T-max 101.5 yesterday evening. Still some soreness in the mouth but overall improved. No other new complaints. Infectious Disease Exam (PN) - Constitutional Vitals: Temp Pulse Resp BP Pulse Ox 99.1 F 94 H 20 142/85 93 L 12/28/16 08:00 12/28/16 08:00 12/28/16 08:00 12/28/16 08:00 12/28/16 08:00 General appearance: no acute distress Exam: General appearance: no acute distress, getting dialysis - Eye Eye exam: Present: EOMI. no icterus Pupils: Present: [place] - ENT ENT exam: Shallow exudates noted in mouth improved since yesterday mainly and soft palates free on posterior aspects of buccal mucosa - Respiratory Respiratory exam: vesicular BS, no crepitations or wheezes - Cardiovascular Cardiovascular exam: regular rate and rhythm, no murmurs - GI/Abdominal GI/Abdominal exam: normal bowel sounds, soft, non-tender, no organomegaly or mass - Extremities Exam Extremities exam: no edema - Skin Skin exam: no rash Results - Labs CBC & BMP: 12/28/16 04:53 12/28/16 06:26 Lab Results: I have reviewed the past 24 hour labs Quality Measures - VTE Contraindication to Pharmacological VTE Prophylaxis: High Risk of Bleeding
--- NOTE | 2016-12-28 12:15 | Nephrology Progress Note ---
Nephrology - PN: Subj Interval history: Patient is seen on hemodialysis, he is tolerating this well will continue his treatment unchanged. The patient states his mouth soreness is improving slowly Assessment/plan 1. End-stage renal disease 2. Mucositis continue Diflucan and swish and swallows 3. Neutropenia patient's white counts up to 1.8 today 4. Hypertension-patient's systolic blood pressures 200 on dialysis today 5. Foot pain-patient's to have exploration of his foot today. Exam (PN)-Nephrology - Vital Signs Vital signs: Period Temp Pulse Resp BP Sys/Diehl Pulse Ox Last 24 Hr 98.6 F-101.6 F 86-96 18-20 132-142/66-85 91-94 - Lab 12/28/16 04:53 12/28/16 06:26 Most recent lab results Calcium 7.7 MG/DL (8.5-10.1) L 12/28/16 04:53 Assessment and Plan (1) Foot pain Status: Acute Assessment and plan: Patient is to be seen by wound care today for his foot pain he may need pricking of the small punctate lesion on the bottom of his left foot Current Visit: Yes (2) Leukopenia Status: Acute Assessment and plan: Patient is being evaluated by hematology, Neurontin is being held along with hydralazine Current Visit: Yes (3) Mucositis Status: Acute Assessment and plan: Patient is being treated with Diflucan Current Visit: Yes (4) ESRD on dialysis Problem details: NO acute indication for HD today. Status: Acute Assessment and plan: We will continue hemodialysis support while here. Current Visit: No (5) History of dental surgery Status: Chronic Current Visit: No (6) Hypertension Status: Chronic Current Visit: No Qualifiers: Hypertension type: essential hypertension Qualified Code(s): I10 - Essential (primary) hypertension
[2016-12-28] MEDS ORDERED: cloNIDine 0.1 MG TABLET PO PRN (12:18)
--- NOTE | 2016-12-28 14:56 | Hospitalist Progress Note ---
Assessment and Plan (1) Anemia Status: Chronic Assessment and plan: Patient is profoundly low hematocrit of 17%. He does have chronic renal disease does not provide history of active bleeding. He will be transfused 2 units of packed red dialysis; posttransfusion hemoglobin is stable. Drawn parvo B19 antibodies both IgM and IgG on outside chance is aplastic anemia from this infection. Current Visit: No Qualifiers: Anemia type: other cause Other causes of anemia: chronic disease, kidney Qualified Code(s): N18.9 - Chronic kidney disease, unspecified; D63.1 - Anemia in chronic kidney disease (2) Leukopenia Status: Acute Assessment and plan: Reportedly discussion of with the patient this is been noted in the past. No history of the immunocompromising state of anesthesia disease. Denies any fever chills. However presents with associated mucositis. Differential diagnosis is cyclical neutropenia with mucositis. An aplastic process cannot be ruled out. Current Visit: No (3) ESRD on dialysis Problem details: NO acute indication for HD today. Status: Acute Assessment and plan: Patient is doing dialysis and has been consulted to nephrology already. Current Visit: No (4) Foot pain Status: Acute Current Visit: Yes (5) Mucositis Status: Acute Assessment and plan: Give patient symptomatic treatment with mouthwash. Switch gargle and spit 15- 20 minutes before meals. These soles are more than likely associated with his neutropenia. They do not look herpetic. He is not reporting odynophagia Current Visit: Yes (6) Foreign body in left foot Status: Acute Assessment and plan: Surgeon has looked at his foreign body. They are planning to remove it this afternoon Current Visit: Yes Hospitalist: Subjective Interval history: Patient has been seen interviewed and examined and chart has been reviewed. Patient been seen after dialysis session. Admitted to the hospital with profound leukopenia white count of 1200. Is now 1800. Patient also has a foreign body at the plantar surface of the left foot this is planned for removal today. He also has mucositis most likely associated with leukopenia. He does not give me a history of having recurrent events like this is difficult to call this cyclical leukopenia with stomatitis. Is more than likely the stomatitis is related to the leukopenia. Patient also had a profound anemia. Probable B19 antibodies have been sent to evaluate for possibility of acute parvovirus infection that could cause aplastic process. Exam - Constitutional Vitals: Period Temp Pulse Resp BP Sys/Diehl Pulse Ox Last 24 Hr 98.6 F-101.6 F 86-96 18-20 132-142/66-85 91-94 General appearance: over weight - Head Head exam: Present: normocephalic, atraumatic - Eye Eye exam: Present: EOMI Pupils: Present: [place] - ENT ENT exam: Present: normal exam - Neck Neck exam: Present: normal inspection - Respiratory Respiratory exam: Present: clear to auscultation bilaterally - Cardiovascular Cardiovascular exam: Present: regular rate and rhythm - GI/Abdominal GI/Abdominal exam: Present: normal bowel sounds, soft - Extremities Exam Extremities exam: Present: normal inspection, full ROM - Back Exam Back exam: Present: normal inspection - Neurological Exam Neurological exam: Present: alert, oriented X3, CN II-XII intact - Psychiatric Psychiatric exam: Present: normal affect, normal mood - Skin Skin exam: Present: normal color, warm, dry Results - Labs CBC & BMP: 12/28/16 04:53 12/28/16 06:26 Lab Results: I have reviewed the past 24 hour labs Quality Measures - VTE Contraindication to Pharmacological VTE Prophylaxis: High Risk of Bleeding
[2016-12-28] MEDS: ISOSORBIDE MONONITRATE 30 MG TABLET PO SCH (14:58)
[2016-12-28] MEDS: DIGOXIN 0.125 MG TABLET PO SCH (14:58)
[2016-12-28] MEDS: CARVEDILOL 25 MG TABLET PO SCH ×2 (14:58→20:48)
[2016-12-28] MEDS ORDERED: hydrALAZINE 25 MG TABLET PO SCH (15:00)
[2016-12-28] MEDS ORDERED: PROPOFOL 200 MG/20 ML VIAL IV ONE (16:25)
[2016-12-28] MEDS ORDERED: LIDOCAINE 1% 5 ML VIAL ONE (16:25)
[2016-12-28] MEDS ORDERED: ONDANSETRON 4 MG/2 ML VIAL ONE (16:25)
[2016-12-28] MEDS ORDERED: KETOROLAC 30 MG/1 ML VIAL ONE (16:25)
--- NOTE | 2016-12-28 16:55 | Operative Note ---
Date of procedure: 12/28/16 Pre-op diagnosis: Soft tissue mass plantar aspect left foot possible foreign body Post-op diagnosis: same Procedure: Excision of 1 cm subcutaneous soft tissue mass plantar aspect left foot Findings and technique: After informed consent was obtained patient brought the operating room placed in supine position. After successful induction with general anesthesia the patient's left foot was prepped and draped in usual sterile fashion. Local anesthesia was infiltrated and an elliptical incision made around the keratotic skin nodular change on the plantar aspect of his foot. Dissection was carried down to the subcutaneous layer where there was a fibrous mass confined to the subcutaneous layer and the plantar fat pad. It was unclear if this was a foreign body reaction to a non-radiopaque foreign body or not. This entire nodule was excised along with the overlying skin. The defect was then closed with interrupted 4-0 nylon sutures. Anesthesia: GETA, local Surgeon / Physician: Rishi De La Rosa III. Estimated blood loss: minimal Specimens: other (Mass) Condition: stable Disposition: PACU Results - Labs CBC & BMP: 12/28/16 04:53 12/28/16 06:26 Discharge Plan - Discharge Medications No Action Levothyroxine Tab [Synthroid Tab] 100 mcg PO QAM Insulin Glargine [Lantus] 50 unit SUBCUT BEDTIME Carvedilol 25 mg PO BID glipiZIDE [Glipizide] 5 mg PO AC BREAKFAST NIFEdipine [Nifedipine ER] 30 mg PO QAM Liothyronine Sodium 25 mcg PO QAM Aspirin Tab 325 mg PO DAILY tablet Gabapentin Cap/Tab [Neurontin Cap/Tab] 200 mg PO TID #90 capsule Isosorbide Mononitrate [Imdur] 30 mg PO DAILY #30 tablet Albuterol Inhaler [Proventil Inhaler] 2 puff INH Q4H PRN #1 inhaler PRN Reason: Shortness Of Breath/Wheezing hydrOXYzine HCl [Hydroxyzine HCl] 25 mg PO QID PRN PRN Reason: Blood Pressure-Increased Folic Acid 1 mg PO DAILY Liothyronine [Cytomel] 25 mcg PO DAILY Methotrexate Tab 7.5 mg PO DAILY Digoxin 125 mcg PO QAM Vitamin B Complex 1 each PO QAM Ondansetron Odt Tab [Zofran Odt] 4 mg PO Q6H #15 tablet predniSONE TAB [PredniSONE] 5 - 10 mg PO DAILY PRN PRN Reason: INFLAMMATION Pantoprazole Tab [Protonix Tab] 40 mg PO QAM hydrALAZINE TAB [Apresoline Tab] 25 mg PO TID #90 tablet Benzonatate [Tessalon] 200 mg PO TID PRN #30 capsule PRN Reason: Cough Calcium Acetate [Phoslo] 667 mg PO DAILY - Follow Up or Referral - Forms/Instructions
--- NOTE | 2016-12-28 17:05 | Anesthesia Post-Op ---
Anesthesia Post OP - Post Ansesthetic Evaluation Patient seen in post op: Yes Resp: within normal limits CV: within normal limits Mental: within normal limits Temp: within normal limits [id number]: within normal limits Nausea and Vomiting: within normal limits Pain: within normal limits
[2016-12-28] MEDS ORDERED: MIDAZOLAM 2 MG/2 ML VIAL ONE (17:09)
[2016-12-28] MEDS ORDERED: fentaNYL 100 MCG/2 ML VIAL ONE (17:09)
[2016-12-28] MEDS ORDERED: SEVOFLURANE 1 UNIT/15 MINUTE INH ONE (17:09)
[2016-12-28] MEDS ORDERED: DEXTROSE 50% 25 GM/50 ML VIAL IV PRN (18:55)
[2016-12-29 06:47] LABS: Eosinophils # 0.1 10*3/uL (0.0-0.87); Eosinophils % 3.2 % (0.00-10.9); Hematocrit 22.6 VOL% (42.0-52.0); Hemoglobin 7.7 GM/DL (14.0-18.0); Immature Granulocytes % 0.9 %; Immature Granulocytes Absolute 0.02 #; Lymphocytes # 0.6 10*3/uL (1.4-4.0); Lymphocytes % 25.5 % (21.2-54.2); Mean Corpuscular HGB Conc 34.1 GM/DL (32-36); Mean Corpuscular Hemoglobin 29 PG (27-34); Mean Corpuscular Volume 86.3 FL (87-102); Mean Platelet Volume 9.7 FL (9.6-12.0); Monocytes # 0.1 10*3/uL (0.11-0.8); Monocytes % 4.2 % (1.7-12.7); Neutrophils # 1.4 10*3/uL (1.4-7.4); Neutrophils % 66.2 % (38.7-73.9); Platelet Count 255 T/CUMM (130-400); Red Blood Count 2.62 MC/CUMM (3.8-5.5); Red Cell Distribution Width 14.3 % (9.3-17.3); White Blood Count 2.2 T/CUMM (4-12)
[2016-12-29 07:20] LABS: Hypochromasia Slight; Microcytosis 1+
[2016-12-29] MEDS: ASPIRIN 325 MG TABLET PO SCH (09:22)
[2016-12-29] MEDS: PANTOPRAZOLE 40 MG TABLET PO SCH (09:22)
[2016-12-29] MEDS: CARVEDILOL 25 MG TABLET PO SCH ×2 (09:22→20:43)
[2016-12-29] MEDS: FLUCONAZOLE 100 MG TABLET PO SCH (09:22)
[2016-12-29] MEDS: DIGOXIN 0.125 MG TABLET PO SCH (09:22)
[2016-12-29] MEDS: ISOSORBIDE MONONITRATE 30 MG TABLET PO SCH (09:22)
[2016-12-29] MEDS: glipiZIDE 5 MG TABLET PO SCH (09:23)
[2016-12-29] MEDS: LIOTHYRONINE 25 MCG TABLET PO SCH (09:23)
[2016-12-29] MEDS: MULTIVITAMIN (BEROCCA) TABLET PO SCH (09:23)
[2016-12-29] MEDS: PIPERACILLIN/TAZOBACTAM 3,375 MG in SODIUM CHLORIDE 0.9% 100 ML IV SCH ×2 (09:24→20:46)
[2016-12-29] MEDS: INSULIN REGULAR 100 UNIT/ML SUBCUT SCH ×4 (09:24→21:01)
[2016-12-29] MEDS: LEVOTHYROXINE 100 MCG TABLET PO SCH (09:24)
[2016-12-29 11:43] LABS: Interpretation SEE COMMENTS
--- NOTE | 2016-12-29 12:16 | Oncology Progress Note ---
Oncology Subjective PN Interval history: Blood work today has improved a little more. The patient's white cell count is 2200 today and his absolute neutrophil count is up to 1400. He remains anemic with a hemoglobin of 7.7. His platelet count is 255,000. Dr. Guzman has suggested that the patient may be recovering from an infectious process and this certainly is suggestive of the way his blood work is improving. He has been afebrile since yesterday evening around 1700. Exam - Constitutional Vitals: Period Temp Pulse Resp BP Sys/Diehl Pulse Ox Last 24 Hr 98.3 F-101.4 F 83-95 16-20 98-142/50-85 92-100 Results - Labs CBC & BMP: 12/29/16 04:00 12/28/16 06:26 Quality Measures - VTE Contraindication to Pharmacological VTE Prophylaxis: High Risk of Bleeding Specialty Discharge - Follow Up or Referrals Follow up with: Rsihi De La Rosa III., MD [Physician] - 2 Weeks
--- NOTE | 2016-12-29 12:19 | Infectious Disease Progress ---
Assessment and Plan (1) Leukopenia Status: Acute Assessment and plan: Not sure cause, could be medication induced versus infectious (eg viral). The neutropenia is associated with fever so there is a chance of bacterial infection , especially in this man is relatively immunocompromised already, being on dialysis. White blood cell count slowly improving and overall patient looks significantly better. Recommendations: Continue empiric vancomycin and Zosyn. Will follow blood cultures. Current Visit: Yes (2) Stomatitis Status: Acute Assessment and plan: Probably related to the neutropenia, much improved. Will continue to monitor. Current Visit: Yes (3) ESRD on dialysis Problem details: NO acute indication for HD today. Status: Acute Current Visit: No Infectious Disease - PN: Subj Interval history: Patient's last fever was yesterday at 5 PM up to 101.4. Today he says he feels fine almost back to his baseline. The soreness in his mouth is almost completely resolve and is able to eat. He had excision of the lesion to the base of left foot yesterday. Infectious Disease Exam (PN) - Constitutional Vitals: Temp Pulse Resp BP Pulse Ox 98.4 F 83 20 121/61 96 12/29/16 04:05 12/29/16 04:05 12/29/16 04:05 12/29/16 04:05 12/29/16 04:05 General appearance: over weight Exam: General appearance: no acute distress, he looks significantly better today, at bedside - Eye Eye exam: Present: EOMI. no icterus Pupils: Present: [place] - ENT ENT exam: Shallow exudates noted in mouth almost completely resolved - Respiratory Respiratory exam: vesicular BS, no crepitations or wheezes - Cardiovascular Cardiovascular exam: regular rate and rhythm, no murmurs - GI/Abdominal GI/Abdominal exam: normal bowel sounds, soft, non-tender, no organomegaly or mass - Extremities Exam Extremities exam: no edema - Skin Skin exam: no rash Results - Labs CBC & BMP: 12/29/16 04:00 12/28/16 06:26 Lab Results: I have reviewed the past 24 hour labs (Cultures still negative) Quality Measures - VTE Contraindication to Pharmacological VTE Prophylaxis: High Risk of Bleeding Specialty Discharge - Follow Up or Referrals Follow up with: Rishi De La Rosa III., MD [Physician] - 2 Weeks
--- NOTE | 2016-12-29 12:21 | Nephrology Progress Note ---
Nephrology - PN: Subj Interval history: Patient is feeling well. He denies shortness of breath. Review of systems GI denies nausea or vomiting, rheumatology-patient sees Dr. Olivarez in [place] he had been taking methotrexate once weekly, the patient is also been taking gabapentin 100 mg daily, cardiology-patient was started on hydralazine and Imdur were a couple of weeks ago for cardiac optimization when he presented with some chest pain. Physical exam general the patient is in no acute distress Assessment/plan 1. End-stage renal disease-we will continue hemodialysis unchanged 2. Mucositis-this is improving 3. Neutropenia-I suspect methotrexate is the culprit here I have instructed him to stop taking this we will continue to hold his gabapentin as well and I think it is probably worthwhile to stop his hydralazine and will titrate up his Procardia as needed for blood pressure control we could probably also stop the indoor he did not have any significant coronary artery disease when he had his recent angiogram. 4. Cardiomyopathy-patient is on digoxin, the patient does not have atrial fibrillation he does have some reduced ejection fraction however I am not sure digoxin is adding much to his regimen I am inclined to discontinue this as well. Exam (PN)-Nephrology - Vital Signs Vital signs: Period Temp Pulse Resp BP Sys/Diehl Pulse Ox Last 24 Hr 98.3 F-101.4 F 83-95 16-20 98-140/50-74 92-100 - Lab 12/29/16 04:00 12/28/16 06:26 Most recent lab results Calcium 7.7 MG/DL (8.5-10.1) L 12/28/16 04:53 Assessment and Plan (1) Foot pain Status: Acute Assessment and plan: Patient is to be seen by wound care today for his foot pain he may need pricking of the small punctate lesion on the bottom of his left foot Current Visit: Yes (2) Leukopenia Status: Acute Assessment and plan: Patient is being evaluated by hematology, Neurontin is being held along with hydralazine Current Visit: Yes (3) Mucositis Status: Acute Assessment and plan: Patient is being treated with Diflucan Current Visit: Yes (4) ESRD on dialysis Problem details: NO acute indication for HD today. Status: Acute Assessment and plan: We will continue hemodialysis support while here. Current Visit: No (5) History of dental surgery Status: Chronic Current Visit: No (6) Hypertension Status: Chronic Current Visit: No Qualifiers: Hypertension type: essential hypertension Qualified Code(s): I10 - Essential (primary) hypertension Specialty Discharge - Follow Up or Referrals Follow up with: Rishi De La Rosa III., MD [Physician] - 2 Weeks
--- NOTE | 2016-12-29 13:52 | Hospitalist Progress Note ---
Assessment and Plan (1) Anemia Status: Chronic Assessment and plan: This may have resulted from use of methotrexate. Medications can be discontinued. Current Visit: No Qualifiers: Anemia type: other cause Other causes of anemia: chronic disease, kidney Qualified Code(s): N18.9 - Chronic kidney disease, unspecified; D63.1 - Anemia in chronic kidney disease (2) Leukopenia Status: Acute Assessment and plan: Resolving Current Visit: No (3) ESRD on dialysis Problem details: NO acute indication for HD today. Status: Acute Assessment and plan: Patient is doing dialysis and has been consulted to nephrology already. Current Visit: No (4) Foot pain Status: Acute Current Visit: Yes (5) Mucositis Status: Acute Assessment and plan: Resolving Current Visit: Yes (6) Foreign body in left foot Status: Acute Assessment and plan: This is been removed. He started that it was a radiopaque foreign body with a lot of fibrosis around it. Is doing well post removal Current Visit: Yes Hospitalist: Subjective Interval history: Patient has been seen interviewed and examined and chart has been reviewed his gentleman come to know he is on multiple medications at home some of them will be deleterious to him amongst them that he takes methotrexate at home under the cannot recall when the last checked his hemogram. He came to the hospital with neutropenia and anemia. He does abuse of arthritides chances that he was put on methotrexate because of that. Is also on digitalis with a history of cardiomyopathy. He is not in failure at this time. Last echocardiogram was not that shabby. I believe it can be taken of these digitalis and observe. Continue concern of these medication will be discussed with nephrology. Exam - Constitutional Vitals: Period Temp Pulse Resp BP Sys/Diehl Pulse Ox Last 24 Hr 98.3 F-101.4 F 83-95 16-20 98-140/50-74 92-100 General appearance: over weight - Head Head exam: Present: normal inspection, normocephalic - Eye Eye exam: Present: EOMI, other Pupils: Present: MONROE (Anicteric sclera no conjunctival petechia) - ENT ENT exam: Present: normal exam - Neck Neck exam: Present: normal inspection - Respiratory Respiratory exam: Present: clear to auscultation bilaterally - Cardiovascular Cardiovascular exam: Present: regular rate and rhythm, other (Does have history of SVT in the past no atrial fibrillation) - GI/Abdominal GI/Abdominal exam: Present: normal bowel sounds, soft - Extremities Exam Extremities exam: Present: full ROM, other (Foreign body was taken out of plantar surface of his left foot. No advancing cellulitis. From what, I understand, was unclear but described as a foreign body that was radiopaque with some fibrosis around it. The mass of what was being palpated was pretty much she is body reaction or fibrosis. This might as well have been a piece of glass.) - Back Exam Back exam: Present: normal inspection - Neurological Exam Neurological exam: Present: alert, oriented X3, CN II-XII intact - Psychiatric Psychiatric exam: Present: normal affect, normal mood - Skin Skin exam: Present: normal color, warm, dry Results - Labs CBC & BMP: 12/29/16 04:00 12/28/16 06:26 Lab Results: I have reviewed the past 24 hour labs Quality Measures - VTE Contraindication to Pharmacological VTE Prophylaxis: High Risk of Bleeding Specialty Discharge - Follow Up or Referrals Follow up with: Rishi De La Rosa III., MD [Physician] - 01/12/17 1:45 pm
--- NOTE | 2016-12-29 17:03 | Event Note ---
POD #1 status post excision of soft tissue mass from the plantar surface of the left foot. Patient reports his pain is well controlled. He has gone to the restroom but has not ambulated. Incentive spirometer is at bedside. Denies chest pain, shortness breath, wheeze, cough, fever, chills, rigors, abdominal pain, nausea, vomiting or diarrhea. Vital signs stable Heart regular rate and rhythm Lungs clear to auscultation bilaterally Abdomen soft and nontender. Bowel sounds present Left lower extremity: Dressing is clean, dry and intact. Toes are warm with brisk capillary refill. Extremities: Calves are soft and nontender without edema appreciated Labs: Leukopenia and anemia are stable Blood cultures no growth at 3 days Pathology from operative specimen pending Assessment plan The patient is stable postop day #1. I will change the dressing in the morning and make recommendations for wound care pending clinical progress. It is my understanding the patient plans to discharge tomorrow. Pathology is pending.
[2016-12-29] MEDS: ACETAMINOPHEN 325 MG TABLET PO PRN (20:46)
[2016-12-30 03:51] LABS: Basophils % 0.3 % (0.0-0.8); Eosinophils # 0.1 10*3/uL (0.0-0.87); Eosinophils % 4.3 % (0.00-10.9); Hematocrit 22.9 VOL% (42.0-52.0); Hemoglobin 7.8 GM/DL (14.0-18.0); Immature Granulocytes % 0.9 %; Immature Granulocytes Absolute 0.03 #; Lymphocytes # 0.9 10*3/uL (1.4-4.0); Lymphocytes % 27.3 % (21.2-54.2); Mean Corpuscular HGB Conc 34.1 GM/DL (32-36); Mean Corpuscular Hemoglobin 29 PG (27-34); Mean Corpuscular Volume 86.4 FL (87-102); Mean Platelet Volume 9.8 FL (9.6-12.0); Monocytes % 0.3 % (1.7-12.7); Neutrophils # 2.2 10*3/uL (1.4-7.4); Neutrophils % 66.9 % (38.7-73.9); Platelet Count 203 T/CUMM (130-400); Red Blood Count 2.65 MC/CUMM (3.8-5.5); Red Cell Distribution Width 14.2 % (9.3-17.3); White Blood Count 3.2 T/CUMM (4-12)
[2016-12-30 05:29] LABS: Band Neutrophils 1 % (0-10); Eosinophils 3 % (0-10); Lymphocytes 35 % (20-55); Platelet Estimate Normal; Segmented Neutrophils 55 % (50-85); Total Cells Counted 100
[2016-12-30] MEDS: ASPIRIN 325 MG TABLET PO SCH (08:14)
[2016-12-30] MEDS: CARVEDILOL 25 MG TABLET PO SCH (08:14)
[2016-12-30] MEDS: PANTOPRAZOLE 40 MG TABLET PO SCH (08:15)
[2016-12-30] MEDS ORDERED: FOLIC ACID 1 MG TABLET PO SCH (09:00)
[2016-12-30] MEDS ORDERED: CALCIUM ACETATE 667 MG CAPSULE PO SCH (09:00)
[2016-12-30] MEDS: FLUCONAZOLE 100 MG TABLET PO SCH (09:59)
[2016-12-30] MEDS: MULTIVITAMIN (BEROCCA) TABLET PO SCH (09:59)
[2016-12-30] MEDS: ISOSORBIDE MONONITRATE 30 MG TABLET PO SCH (09:59)
[2016-12-30] MEDS: LEVOTHYROXINE 100 MCG TABLET PO SCH (09:59)
[2016-12-30] MEDS: PIPERACILLIN/TAZOBACTAM 3,375 MG in SODIUM CHLORIDE 0.9% 100 ML IV SCH (10:00)
[2016-12-30] MEDS: INSULIN REGULAR 100 UNIT/ML SUBCUT SCH ×2 (10:01→12:22)
[2016-12-30] MEDS: glipiZIDE 5 MG TABLET PO SCH (10:01)
--- NOTE | 2016-12-30 10:44 | Event Note ---
Pathology is pending. I will see him back in the office in the next week or 2 for suture removal. Call if needed.
--- NOTE | 2016-12-30 11:04 | Infectious Disease Progress ---
Assessment and Plan (1) Leukopenia Status: Acute Assessment and plan: Not sure cause, could be medication induced versus infectious (eg viral). The neutropenia was associated with fever however blood cultures have been negative. White blood cell count slowly improving and overall patient looks and feels significantly better. Recommendations: We can stop antibiotics now since his blood cultures are negative Current Visit: Yes (2) Stomatitis Status: Acute Assessment and plan: Probably related to the neutropenia, almost resolved. Current Visit: Yes (3) ESRD on dialysis Problem details: NO acute indication for HD today. Status: Acute Current Visit: No Infectious Disease - PN: Subj Interval history: Patient doing much better, he says he feels great and he is actually ready to go home. He has not had fever for 2 days. No longer has soreness in the mouth and is able to eat anything. No vomiting or diarrhea, no cough shortness of breath. Infectious Disease Exam (PN) - Constitutional Vitals: Temp Pulse Resp BP Pulse Ox 99.3 F 83 20 133/61 91 L 12/30/16 08:00 12/30/16 08:00 12/30/16 08:00 12/30/16 08:00 12/30/16 08:00 General appearance: over weight Exam: General appearance: no acute distress, comfortable on dialysis - Eye Eye exam: Present: EOMI. no icterus Pupils: Present: MONROE - ENT ENT exam: buccal ulcerations almost resolved - Respiratory Respiratory exam: vesicular BS, no crepitations or wheezes - Cardiovascular Cardiovascular exam: regular rate and rhythm, no murmurs - GI/Abdominal GI/Abdominal exam: normal bowel sounds, soft, non-tender, no organomegaly or mass - Extremities Exam Extremities exam: no edema - Skin Skin exam: no rash Results - Labs CBC & BMP: 12/30/16 02:57 12/28/16 06:26 Lab Results: I have reviewed the past 24 hour labs (Blood cultures remain negative to date) Quality Measures - VTE Contraindication to Pharmacological VTE Prophylaxis: High Risk of Bleeding Specialty Discharge - Follow Up or Referrals Follow up with: Rishi De La Rosa III., MD [Physician] - 01/12/17 1:45 pm
--- NOTE | 2016-12-30 11:22 | Nephrology Progress Note ---
Nephrology - PN: Subj Interval history: Patient seen on hemodialysis, he is tolerating this well will continue his treatment unchanged. His mouth pain and soreness has improved greatly. Review of systems musculoskeletal-his foot feels better since having surgery for a lesion at the bottom of his left foot. Physical exam general the patient is in no acute distress Assessment/plan 1. End-stage renal disease-we will continue hemodialysis 2. Mucositis-this continues to improve 3. Neutropenia-this is improved I suspect the major culprit was methotrexate however we have stopped his hydralazine as well and are holding Neurontin. 4. Hypertension 5. Cardiomyopathy-patient recently had echo and angiograms done his ejection fraction is around 30-40% he did not have any significant coronary artery lesions. He was started on hydralazine and Ismo at that time however we have stopped these medications due to his problem with neutropenia and also to simplify his medical regimen. I have also stopped his digoxin as we were unable to determine exactly why he was on this. 6. Foot lesion-patient status post excision of a fibrous scar type tissue on the bottom of his left foot measuring about a couple centimeters in size Patient is requesting home health nursing visits I will ask social studies teacher to see if they can arrange this Exam (PN)-Nephrology - Vital Signs Vital signs: Period Temp Pulse Resp BP Sys/Diehl Pulse Ox Last 24 Hr 97.5 F-99.3 F 79-84 18-20 106-133/53-63 90-95 - Lab 12/30/16 02:57 12/28/16 06:26 Most recent lab results Calcium 7.7 MG/DL (8.5-10.1) L 12/28/16 04:53 Assessment and Plan (1) Foot pain Status: Acute Assessment and plan: Patient is to be seen by wound care today for his foot pain he may need pricking of the small punctate lesion on the bottom of his left foot Current Visit: Yes (2) Leukopenia Status: Acute Assessment and plan: Patient is being evaluated by hematology, Neurontin is being held along with hydralazine Current Visit: Yes (3) Mucositis Status: Acute Assessment and plan: Patient is being treated with Diflucan Current Visit: Yes (4) ESRD on dialysis Problem details: NO acute indication for HD today. Status: Acute Assessment and plan: We will continue hemodialysis support while here. Current Visit: No (5) History of dental surgery Status: Chronic Current Visit: No (6) Hypertension Status: Chronic Current Visit: No Qualifiers: Hypertension type: essential hypertension Qualified Code(s): I10 - Essential (primary) hypertension Specialty Discharge - Follow Up or Referrals Follow up with: Rishi De La Rosa III., MD [Physician] - 01/12/17 1:45 pm
--- NOTE | 2016-12-30 12:17 | Pathology Report from [facility] ---
[facility] ACCESSION # : [id number] PATIENT NAME : Lawrence Donahue ORDERING DR : SARAH JOEL III, MD CLINICAL HX: FB in left foot POST-OP DX: Same SPECIMEN INFO: Left foot subcutaneous mass GROSS DESCRIPTION: Received in formalin labeled LAWRENCE DONAHUE is a 0.9 x 0.5 x 0.9 cm jnoes skin fragment with attached subcutaneous tissue, sectioned and submitted in one cassette. DIAGNOSIS FOR LAWRENCE DONAHUE: SUBCUTANEOUS MASS LEFT FOOT: Benign hyperkeratotic squamous epithelium with acute inflammation and focal dermal fibrosis. No evidence of malignancy. COLLECTED DATE: 12/29/2016 [facility] REPORT DATE: 12/30/2016 ELECTRONICALLY SIGNED BY: Alexi Schneider III, M.D. 12/30/2016 - 10:25:41 [facility]
--- NOTE | 2016-12-30 15:02 | Discharge Summary ---
Diagnosis - Discharge Diagnosis (1) Anemia Status: Chronic (2) Leukopenia Status: Acute (3) ESRD on dialysis Status: Acute (4) Foot pain Status: Acute (5) Mucositis Status: Acute (6) Foreign body in left foot Status: Acute Specialty Discharge - Follow Up or Referrals Follow up with: Rishi De La Rosa III., MD [Physician] - 01/12/17 1:45 pm Discharge Plan - Discharge Data Disposition: Disch To Home/Self Care Condition at Discharge: Stable Discharge Diet: diabetic diet, heart healthy Activity: other (Offload the left foot as much as possible) Hygiene: may tub bathe Weight Bearing at Discharge: other (Fluid left lower extremity) Driving: not until seen by doctor Contact your physician if you experience:: fever over 101, Redness or swelling, Nausea/Vomiting, Shortness of breath, Bleeding, pain uncontrolled by pain medications - Discharge Medications Continue Levothyroxine Tab [Synthroid Tab] 100 mcg PO QAM Insulin Glargine [Lantus] 50 unit SUBCUT BEDTIME Carvedilol 25 mg PO BID glipiZIDE [Glipizide] 5 mg PO AC BREAKFAST NIFEdipine [Nifedipine ER] 30 mg PO QAM Aspirin Tab 325 mg PO DAILY tablet Gabapentin Cap/Tab [Neurontin Cap/Tab] 200 mg PO TID #90 capsule Isosorbide Mononitrate [Imdur] 30 mg PO DAILY #30 tablet Albuterol Inhaler [Proventil Inhaler] 2 puff INH Q4H PRN #1 inhaler PRN Reason: Shortness Of Breath/Wheezing hydrOXYzine HCl [Hydroxyzine HCl] 25 mg PO QID PRN PRN Reason: Blood Pressure-Increased Folic Acid 1 mg PO DAILY Digoxin 125 mcg PO QAM Vitamin B Complex 1 each PO QAM Ondansetron Odt Tab [Zofran Odt] 4 mg PO Q6H #15 tablet predniSONE TAB [PredniSONE] 5 - 10 mg PO DAILY PRN PRN Reason: INFLAMMATION Pantoprazole Tab [Protonix Tab] 40 mg PO QAM hydrALAZINE TAB [Apresoline Tab] 25 mg PO TID #90 tablet Benzonatate [Tessalon] 200 mg PO TID PRN #30 capsule PRN Reason: Cough Calcium Acetate [Phoslo] 667 mg PO DAILY Discontinued Liothyronine Sodium 25 mcg PO QAM Liothyronine [Cytomel] 25 mcg PO DAILY Methotrexate Tab 7.5 mg PO DAILY - Follow Up or Referral Follow Up: Rishi De La Rosa III., MD [Physician] - 01/12/17 1:45 pm - Forms/Instructions Instructions: Oral Mucositis (DC), End-Stage Kidney Disease (DC) Exam - Constitutional Vitals: Period Temp Pulse Resp BP Sys/Diehl Pulse Ox Last 24 Hr 97.5 F-99.3 F 79-84 18-20 106-133/53-63 90-93 General appearance: normal weight, no acute distress - Head Head exam: Present: normal inspection, normocephalic - Eye Eye exam: Present: EOMI Pupils: Present: MONROE - ENT ENT exam: Present: normal exam - Neck Neck exam: Present: normal inspection - Respiratory Respiratory exam: Present: clear to auscultation bilaterally - Cardiovascular Cardiovascular exam: Present: bradycardia - GI/Abdominal GI/Abdominal exam: Present: normal bowel sounds - Extremities Exam Extremities exam: Present: full ROM, other (Post expiration of the plantar surface of the left foot with removal of foreign body. Is doing well will need to remain vigilant of notes reinfecting the wound at the bottom of the left) - Back Exam Back exam: Present: normal inspection - Neurological Exam Neurological exam: Present: alert, oriented X3, CN II-XII intact - Psychiatric Psychiatric exam: Present: normal affect, normal mood - Skin Skin exam: Present: normal color, warm Discharge Results Procedures and tests throughout hospitalization: Pending Orders 12/26/16 16:39 Blood Culture Stat 12/31/16 04:00 Comp Blood Count Auto Diff IN AM 01/01/17 04:00 Comp Blood Count Auto Diff IN AM 01/02/17 04:00 Comp Blood Count Auto Diff IN AM Labs on day of discharge: Labs from last 24 hours 12/30/16 12/30/16 12/30/16 11:54 07:52 02:57 WBC 3.2 L D RBC 2.65 L Hgb 7.8 L Hct 22.9 L MCV 86.4 L MCH 29 MCHC 34.1 RDW 14.2 Plt Count 203 D MPV 9.8 Neut % (Auto) 66.9 Lymph % (Auto) 27.3 Amelia % (Auto) 0.3 L Eos % (Auto) 4.3 Baso % (Auto) 0.3 Neut # (Auto) 2.2 Lymph # (Auto) 0.9 L Amelia # (Auto) 0.0 L Eos # (Auto) 0.1 Baso # (Auto) 0.0 Total Counted 100 Immature Gran % 0.9 Nucleated RBC % 0.0 Immature Gran # 0.03 Segmented Neutrophils 55 Band Neutrophils 1 Lymphocytes 35 Monocytes 5 Eosinophils 3 Basophils 1.0 H Nucleated RBCs # 0.00 Platelet Estimate Normal Pappenheimer Bodies Machine Operator POC Glucose 113 H 90 12/29/16 12/29/16 20:01 15:20 WBC RBC Hgb Hct MCV MCH MCHC RDW Plt Count MPV Neut % (Auto) Lymph % (Auto) Amelia % (Auto) Eos % (Auto) Baso % (Auto) Neut # (Auto) Lymph # (Auto) Amelia # (Auto) Eos # (Auto) Baso # (Auto) Total Counted Immature Gran % Nucleated RBC % Immature Gran # Segmented Neutrophils Band Neutrophils Lymphocytes Monocytes Eosinophils Basophils Nucleated RBCs # Platelet Estimate Pappenheimer Bodies POC Glucose 180 H 110 H Preliminary micro results at discharge 12/26/16 16:39 Blood Culture - Preliminary Blood No growth at 3 days 12/26/16 16:39 Blood Culture - Preliminary Blood No growth at 3 days DS: Provider Date of admission: 12/25/16 16:41 Primary care physician: Rosales Bolton MD Attending physician on admission: Coy Pavon MD Consults: 12/25/16 16:58 Consult to Physician [CONS] Routine Comment: leukopenia, patient seen by you in clinic Consulting Provider: Coy Ngo Person Notified: MD SANDHU Date Notified: 12/26/16 Time Notified: 10:06 Consult to Physician [CONS] Routine Comment: [place] [facility] [place] Provider: Coy Sheldon Consult to Specialist Group: Nephrology When should Consulting Provider be notified: In am Person Notified: ABRIL Date Notified: 12/26/16 Time Notified: 09:35 12/25/16 17:02 Consult to Wound Care - [place] [CONS] Routine Reason for Wound Care: Wound Care Management Consult Comment: please evaluate painful sole of foot 12/25/16 18:51 Consult to Dietitian [CONS] Routine Reason for Dietitian: Other Consult Comment: sore mouth, needs soft foods 12/27/16 08:16 Consult to Physician [CONS] Routine Comment: Fever and neutropenia. Please assess Consulting Provider: Adelina Mock Consulting Provider Notified: No When should Consulting Provider be notified: Now Person Notified: JOSÉ Date Notified: 12/27/16 Time Notified: 09:55 12/27/16 12:33 Consult to Physician [CONS] Routine Comment: Consulting Provider: Rishi De La Rosa III. Person Notified: shara Date Notified: 12/27/16 Time Notified: 12:33 12/30/16 11:23 Consult to Case Mgmt/Social Srvs [CONS] Routine Reason for Case Mgmt/Social Srvs: Home Health Consult Comment: Pt. requesting nurse visits to help with wound care. Discharging clinician: Kevin Clark MD
[2017-01-05 14:44] VITALS: BP 133/61
== END 2016-12-30 16:05 | disposition home health service (06) | DRG 463 ==
LOC: N.ED 14:31 → N.EDINP 16:41 → SUATTDRO 16:41 → N.5E 17:49
PROVIDERS: ADMIT Internal Medicine; ATTEND Internal Medicine Infectious Disease

== ENCOUNTER 2017-06-24 11:30 | Observation (INO) ==
[2017-06-24] MEDS ORDERED: METOPROLOL TARTRATE 5 MG/5 ML VIAL IV STA (12:02)
[2017-06-24] MEDS ORDERED: ASPIRIN 325 MG TABLET PO STA (12:02)
[2017-06-24] MEDS ORDERED: METOPROLOL TARTRATE 5 MG/5 ML VIAL IV ONE (12:06)
[2017-06-24] MEDS ORDERED: ASPIRIN 325 MG TABLET ONE (12:06)
[2017-06-24 12:12] LABS: Basophils % 0.5 % (0.0-0.8); Eosinophils # 0.1 10*3/uL (0.0-0.87); Eosinophils % 0.9 % (0.00-10.9); Hematocrit 36.2 VOL% (42.0-52.0); Hemoglobin 12.2 GM/DL (14.0-18.0); Immature Granulocytes % 0.5 %; Immature Granulocytes Absolute 0.03 #; Lymphocytes # 1.3 10*3/uL (1.4-4.0); Lymphocytes % 22.7 % (21.2-54.2); Mean Corpuscular HGB Conc 33.7 GM/DL (32-36); Mean Corpuscular Hemoglobin 31 PG (27-34); Mean Corpuscular Volume 90.5 FL (87-102); Mean Platelet Volume 9.8 FL (9.6-12.0); Monocytes # 0.6 10*3/uL (0.11-0.8); Monocytes % 10.8 % (1.7-12.7); Neutrophils # 3.6 10*3/uL (1.4-7.4); Neutrophils % 64.6 % (38.7-73.9); Platelet Count 110 T/CUMM (130-400); Red Cell Distribution Width 13.3 % (9.3-17.3); White Blood Count 5.6 T/CUMM (4-12)
[2017-06-24] MEDS ORDERED: hydrALAZINE 20 MG/1 ML VIAL IV STA (12:12)
[2017-06-24] MEDS ORDERED: hydrALAZINE 20 MG/1 ML VIAL ONE (12:16)
[2017-06-24 12:25] LABS: Calcium 7.3 MG/DL (8.5-10.1); Potassium 4.8 MMOL/L (3.5-5.1)
[2017-06-24] MEDS ORDERED: DEXTROSE 50% 25 GM/50 ML VIAL IV PRN ×2 (14:35→16:35)
[2017-06-24] MEDS ORDERED: GLUCAGON 1 MG VIAL IM PRN ×2 (14:35→16:35)
[2017-06-24] MEDS ORDERED: hydrOXYzine HCL 25 MG TABLET PO PRN (16:32)
[2017-06-24] MEDS ORDERED: BENZONATATE 100 MG CAPSULE PO PRN (16:32)
[2017-06-24] MEDS: INSULIN REGULAR 100 UNIT/ML SUBCUT SCH ×2 (16:45→22:26)
[2017-06-24] MEDS: CARVEDILOL 25 MG TABLET PO SCH ×2 (16:47→21:43)
[2017-06-24 20:32] LABS: Troponin I Only 0.033 NG/ML (0.00-0.045)
[2017-06-24] MEDS: ACETAMINOPHEN 325 MG TABLET PO SCH ×2 (21:42→22:27)
[2017-06-24] MEDS: GABAPENTIN 100 MG CAPSULE PO SCH (21:42)
[2017-06-24] MEDS: traMADol 50 MG TABLET PO SCH ×2 (21:43→22:28)
[2017-06-24] MEDS: ONDANSETRON ODT 4 MG TABLET PO SCH (21:43)
[2017-06-25 03:09] LABS: Troponin I Only 0.035 NG/ML (0.00-0.045)
[2017-06-25] MEDS: ONDANSETRON ODT 4 MG TABLET PO SCH ×3 (04:03→13:53)
[2017-06-25] MEDS ORDERED: LEVOTHYROXINE 100 MCG TABLET PO SCH (06:30)
[2017-06-25] MEDS ORDERED: glipiZIDE 5 MG TABLET PO SCH (07:30)
[2017-06-25] MEDS ORDERED: CALCIUM ACETATE 667 MG CAPSULE PO SCH (08:00)
[2017-06-25 08:41] LABS: Troponin I Only 0.032 NG/ML (0.00-0.045)
[2017-06-25] MEDS ORDERED: ASPIRIN 325 MG TABLET PO SCH (09:00)
[2017-06-25] MEDS ORDERED: FOLIC ACID 1 MG TABLET PO SCH (09:00)
[2017-06-25] MEDS ORDERED: PANTOPRAZOLE 40 MG TABLET PO SCH (09:00)
[2017-06-25] MEDS ORDERED: MULTIVITAMIN (BEROCCA) TABLET PO SCH (09:00)
[2017-06-25] MEDS: GABAPENTIN 100 MG CAPSULE PO SCH ×2 (10:00→16:08)
[2017-06-25] MEDS: ACETAMINOPHEN 325 MG TABLET PO SCH (10:01)
[2017-06-25] MEDS: traMADol 50 MG TABLET PO SCH (10:01)
[2017-06-25] MEDS: CARVEDILOL 25 MG TABLET PO SCH (10:01)
[2017-06-25] MEDS: INSULIN REGULAR 100 UNIT/ML SUBCUT SCH ×2 (10:02→12:25)
[2017-06-25 12:25] VITALS: BP 156/62
[2017-06-25] MEDS ORDERED: DIGOXIN 0.125 MG TABLET PO SCH (13:00)
[2017-06-25 14:18] LABS: Troponin I Only 0.029 NG/ML (0.00-0.045)
== END 2017-06-25 16:15 | disposition home or self-care (01) ==
LOC: N.ED 11:30 → N.EDINP 13:56 → INTOOBSV 13:56 → N.TELEN 15:40
PROVIDERS: ADMIT Hospitalist; ATTEND Hospitalist

== ENCOUNTER 2018-03-26 11:11 | Observation (INO) ==
[2018-03-26 12:54] LABS: Basophils % 0.1 % (0.0-0.8); Eosinophils % 0.5 % (0.00-10.9); Hematocrit 29.5 VOL% (42.0-52.0); Hemoglobin 9.7 GM/DL (14.0-18.0); Immature Granulocytes % 0.4 %; Immature Granulocytes Absolute 0.03 #; Lymphocytes # 1.2 10*3/uL (1.4-4.0); Lymphocytes % 15.2 % (21.2-54.2); Mean Corpuscular HGB Conc 32.9 GM/DL (32-36); Mean Corpuscular Hemoglobin 25 PG (27-34); Mean Corpuscular Volume 75.8 FL (87-102); Mean Platelet Volume 9.3 FL (9.6-12.0); Monocytes # 0.7 10*3/uL (0.11-0.8); Monocytes % 8.6 % (1.7-12.7); Neutrophils # 5.9 10*3/uL (1.4-7.4); Neutrophils % 75.2 % (38.7-73.9); Platelet Count 229 T/CUMM (130-400); Red Blood Count 3.89 MC/CUMM (3.8-5.5); Red Cell Distribution Width 15.5 % (9.3-17.3); White Blood Count 7.8 T/CUMM (4-12)
[2018-03-26 13:13] LABS: Albumin 1.4 G/DL (3.4-5.0); Bilirubin,Total 0.8 MG/DL (0.2-1.0); Calcium 8.2 MG/DL (8.5-10.1); Osmolality,Calculated 267.7 MOS/KG (273-304); Potassium 3.6 MMOL/L (3.5-5.1); Total Protein 6.9 G/DL (6.4-8.3)
[2018-03-26] MEDS ORDERED: diphenhydrAMINE CAP 25 MG CAPSULE PO PRN (15:06)
[2018-03-26] MEDS ORDERED: GLUCAGON 1 MG VIAL IM PRN (15:06)
[2018-03-26] MEDS ORDERED: ACETAMINOPHEN 325 MG TABLET PO PRN (15:06)
[2018-03-26] MEDS ORDERED: DEXTROSE 50% 25 GM/50 ML VIAL IV PRN (15:06)
[2018-03-26] MEDS ORDERED: DOCUSATE SODIUM 100 MG CAPSULE PO PRN (15:06)
[2018-03-26] MEDS ORDERED: ONDANSETRON 4 MG/2 ML VIAL IV PRN (15:06)
[2018-03-26] MEDS ORDERED: VANCOMYCIN INJ 1,250 MG in SODIUM CHLORIDE 0.9% 250 ML IV PRN (15:38)
[2018-03-26] MEDS: PANTOPRAZOLE 40 MG TABLET PO SCH (17:09)
[2018-03-26] MEDS: ENOXAPARIN 30 MG/0.3 ML SYRINGE SUBCUT SCH (17:09)
[2018-03-27 05:54] LABS: Basophils % 0.2 % (0.0-0.8); Eosinophils % 0.5 % (0.00-10.9); Hemoglobin 7.9 GM/DL (14.0-18.0); Immature Granulocytes % 0.3 %; Immature Granulocytes Absolute 0.03 #; Lymphocytes # 1.3 10*3/uL (1.4-4.0); Lymphocytes % 14.3 % (21.2-54.2); Mean Corpuscular HGB Conc 32.9 GM/DL (32-36); Mean Corpuscular Hemoglobin 25 PG (27-34); Mean Corpuscular Volume 75.2 FL (87-102); Mean Platelet Volume 10.3 FL (9.6-12.0); Monocytes # 1.1 10*3/uL (0.11-0.8); Neutrophils # 6.4 10*3/uL (1.4-7.4); Neutrophils % 72.7 % (38.7-73.9); Platelet Count 228 T/CUMM (130-400); Red Blood Count 3.19 MC/CUMM (3.8-5.5); Red Cell Distribution Width 15.4 % (9.3-17.3); White Blood Count 8.9 T/CUMM (4-12)
[2018-03-27 06:19] LABS: Calcium 7.4 MG/DL (8.5-10.1); Osmolality,Calculated 272.5 MOS/KG (273-304); Potassium 3.6 MMOL/L (3.5-5.1); Risk Ratio 4.08; Thyroid Stimulating Hormone 6.95 uIU/ml (0.358-3.74); VLDL CHOLESTEROL 19.4 MG/DL
[2018-03-27 08:05] VITALS: BP 150/66
[2018-03-27] MEDS: PANTOPRAZOLE 40 MG TABLET PO SCH (10:39)
[2018-03-27] MEDS ORDERED: SKIN HEALING OINT (AQUAPHOR) 50 GM TUBE TOP SCH (15:30)
[2018-03-27] MEDS: ENOXAPARIN 30 MG/0.3 ML SYRINGE SUBCUT SCH (15:56)
[2018-03-27] MEDS ORDERED: VANCOMYCIN INJ 1,750 MG in SODIUM CHLORIDE 0.9% 500 ML IV ONE (16:00)
== END 2018-03-27 17:44 | disposition home health service (06) ==
LOC: EDUNIT# → EDBD → N.ED 11:11 → N.EDINP 14:09 → INTOOBSV 14:09 → N.3E 14:55
PROVIDERS: ADMIT Hospitalist; ATTEND Hospitalist

== ENCOUNTER 2018-06-05 09:22 | Inpatient (IN) ==
[2018-06-05] MEDS ORDERED: ONDANSETRON 4 MG/2 ML VIAL IV STA (09:56)
[2018-06-05 10:25] LABS: Basophils # 0.1 10*3/uL (0.0-0.2); Eosinophils # 0.1 10*3/uL (0.0-0.87); Eosinophils % 1.7 % (0.00-10.9); Hematocrit 26.4 VOL% (42.0-52.0); Hemoglobin 8.1 GM/DL (14.0-18.0); Immature Granulocytes % 0.3 %; Immature Granulocytes Absolute 0.02 #; Lymphocytes # 1.2 10*3/uL (1.4-4.0); Lymphocytes % 20.1 % (21.2-54.2); Mean Corpuscular HGB Conc 30.7 GM/DL (32-36); Mean Corpuscular Hemoglobin 25 PG (27-34); Mean Corpuscular Volume 81.7 FL (87-102); Mean Platelet Volume 10.9 FL (9.6-12.0); Monocytes # 0.9 10*3/uL (0.11-0.8); Monocytes % 14.5 % (1.7-12.7); Neutrophils # 3.7 10*3/uL (1.4-7.4); Neutrophils % 62.4 % (38.7-73.9); Platelet Count 202 T/CUMM (130-400); Red Blood Count 3.23 MC/CUMM (3.8-5.5); Red Cell Distribution Width 16.4 % (9.3-17.3); White Blood Count 5.9 T/CUMM (4-12)
[2018-06-05 10:41] LABS: Calcium 7.9 MG/DL (8.5-10.1); Osmolality,Calculated 271.7 MOS/KG (273-304); Potassium 3.2 MMOL/L (3.5-5.1)
[2018-06-05] MEDS ORDERED: GLUCAGON 1 MG VIAL IM PRN (12:57)
[2018-06-05] MEDS ORDERED: ONDANSETRON 4 MG/2 ML VIAL IV PRN (12:57)
[2018-06-05] MEDS ORDERED: ACETAMINOPHEN 325 MG TABLET PO PRN (12:57)
[2018-06-05] MEDS: ALBUTEROL 2.5 MG/3 ML NEB RESP TX SCH (19:18)
[2018-06-05] MEDS: GABAPENTIN 100 MG CAPSULE PO SCH ×2 (19:19→22:13)
[2018-06-05] MEDS: NYSTATIN 500,000 UNIT/5 ML UDCUP SWISH/SWAL SCH ×2 (19:20→22:14)
[2018-06-05] MEDS: CALCIUM ACETATE 667 MG CAPSULE PO SCH (19:20)
[2018-06-05] MEDS: INSULIN REGULAR 100 UNIT/ML SUBCUT SCH ×2 (19:20→21:27)
[2018-06-05] MEDS: DEXTROSE 50% 25 GM/50 ML VIAL IV PRN (20:40)
[2018-06-05] MEDS: guaiFENesin/DM ER 600-30 MG TABLET PO SCH (22:13)
[2018-06-05] MEDS: CARVEDILOL 25 MG TABLET PO SCH (22:14)
[2018-06-05] MEDS: ENOXAPARIN 30 MG/0.3 ML SYRINGE SUBCUT SCH (22:14)
[2018-06-05] MEDS: CYPROHEPTADINE 4 MG TABLET PO SCH (22:14)
[2018-06-06] MEDS: ALBUTEROL 2.5 MG/3 ML NEB RESP TX SCH ×4 (00:33→19:13)
[2018-06-06 01:27] LABS: Basophils % 0.5 % (0.0-0.8); Eosinophils # 0.1 10*3/uL (0.0-0.87); Eosinophils % 2.1 % (0.00-10.9); Hematocrit 22.2 VOL% (42.0-52.0); Hemoglobin 6.6 GM/DL (14.0-18.0); Immature Granulocytes % 0.2 %; Immature Granulocytes Absolute 0.01 #; Lymphocytes # 1.3 10*3/uL (1.4-4.0); Mean Corpuscular HGB Conc 29.7 GM/DL (32-36); Mean Corpuscular Hemoglobin 24 PG (27-34); Mean Corpuscular Volume 81.6 FL (87-102); Mean Platelet Volume 12.2 FL (9.6-12.0); Monocytes # 0.8 10*3/uL (0.11-0.8); Monocytes % 13.6 % (1.7-12.7); Neutrophils # 3.5 10*3/uL (1.4-7.4); Neutrophils % 61.6 % (38.7-73.9); Platelet Count 197 T/CUMM (130-400); Red Blood Count 2.72 MC/CUMM (3.8-5.5); Red Cell Distribution Width 16.4 % (9.3-17.3); White Blood Count 5.7 T/CUMM (4-12)
[2018-06-06 03:07] LABS: Hematocrit 21.9 VOL% (42.0-52.0); Hemoglobin 6.7 GM/DL (14.0-18.0)
[2018-06-06 03:27] LABS: Troponin I 0.078 NG/ML (0.00-0.045)
[2018-06-06 03:32] LABS: Risk Ratio 7.57; VLDL CHOLESTEROL 18.6 MG/DL
[2018-06-06 03:34] LABS: Calcium 7.7 MG/DL (8.5-10.1)
[2018-06-06 03:35] LABS: Calcium 7.6 MG/DL (8.5-10.1); Osmolality,Calculated 273.7 MOS/KG (273-304); Osmolality,Calculated 275.5 MOS/KG (273-304)
[2018-06-06] MEDS ORDERED: SODIUM CHLORIDE 0.9% 1,000 ML IV PRN (03:37)
[2018-06-06] MEDS: DEXTROSE 50% 25 GM/50 ML VIAL IV PRN (05:00)
[2018-06-06] MEDS: AZITHROMYCIN INJ 500 MG in SODIUM CHLORIDE 0.9% 250 ML IV SCH ×2 (05:10→16:28)
[2018-06-06] MEDS: LEVOTHYROXINE 75 MCG TABLET PO SCH (07:35)
[2018-06-06] MEDS ORDERED: POTASSIUM CHLORIDE 20 MEQ TABLET PO ONE (07:56)
[2018-06-06] MEDS ORDERED: EPOETIN ALFA 10,000 UNIT/1 ML VIAL IV PRN (08:27)
[2018-06-06] MEDS ORDERED: LIDOCAINE 1%/EPI INJ 20 ML VIAL ONE (09:31)
[2018-06-06] MEDS ORDERED: BUPIVACAINE MPF 0.25% /EPI 30 ML VIAL ONE (09:31)
[2018-06-06] MEDS ORDERED: DEXTROSE 50% 25 GM/50 ML VIAL IV ONE ×2 (09:53→10:03)
[2018-06-06] MEDS ORDERED: LIDOCAINE 1% 20 ML VIAL ONE (10:31)
[2018-06-06] MEDS ORDERED: MIDAZOLAM 2 MG/2 ML VIAL ONE (11:13)
[2018-06-06] MEDS ORDERED: fentaNYL 100 MCG/2 ML VIAL ONE (11:14)
[2018-06-06] MEDS: INSULIN REGULAR 100 UNIT/ML SUBCUT SCH ×4 (14:55→20:26)
[2018-06-06] MEDS: cefTRIAXone 1,000 MG in SYRINGE 1 EACH IV SCH ×2 (14:56→16:25)
[2018-06-06] MEDS: CYPROHEPTADINE 4 MG TABLET PO SCH ×2 (14:57→21:47)
[2018-06-06] MEDS: NYSTATIN 500,000 UNIT/5 ML UDCUP SWISH/SWAL SCH ×3 (14:57→21:53)
[2018-06-06] MEDS: CALCIUM ACETATE 667 MG CAPSULE PO SCH ×2 (14:58→16:26)
[2018-06-06] MEDS: guaiFENesin/DM ER 600-30 MG TABLET PO SCH ×2 (14:59→21:47)
[2018-06-06] MEDS: FOLIC ACID 1 MG TABLET PO SCH (16:26)
[2018-06-06] MEDS: ASPIRIN 325 MG TABLET PO SCH (16:27)
[2018-06-06] MEDS: ISOSORBIDE MONONITRATE 30 MG TABLET PO SCH (16:27)
[2018-06-06] MEDS: PANTOPRAZOLE 40 MG TABLET PO SCH (16:27)
[2018-06-06] MEDS: DIGOXIN 0.125 MG TABLET PO SCH (16:27)
[2018-06-06] MEDS: amLODIPine 10 MG TABLET PO SCH (16:27)
[2018-06-06] MEDS: HYDROXYCHLOROQUINE 200 MG TABLET PO SCH (16:28)
[2018-06-06] MEDS: CARVEDILOL 25 MG TABLET PO SCH ×2 (16:36→21:47)
[2018-06-06] MEDS: MULTIVITAMIN (BEROCCA) TABLET PO SCH (16:37)
[2018-06-06] MEDS: GABAPENTIN 300 MG CAPSULE PO SCH (21:47)
[2018-06-06] MEDS: ENOXAPARIN 30 MG/0.3 ML SYRINGE SUBCUT SCH (21:47)
[2018-06-06] MEDS: ROSUVASTATIN 20 MG TABLET PO SCH (21:49)
[2018-06-07] MEDS: ALBUTEROL 2.5 MG/3 ML NEB RESP TX SCH ×4 (00:49→19:45)
[2018-06-07 06:04] LABS: Calcium 7.8 MG/DL (8.5-10.1); Potassium 3.5 MMOL/L (3.5-5.1)
[2018-06-07 06:22] LABS: Basophils # 0.1 10*3/uL (0.0-0.2); Basophils % 1.2 % (0.0-0.8); Eosinophils # 0.2 10*3/uL (0.0-0.87); Eosinophils % 3.2 % (0.00-10.9); Hematocrit 27.2 VOL% (42.0-52.0); Immature Granulocytes % 0.3 %; Immature Granulocytes Absolute 0.02 #; Lymphocytes # 1.5 10*3/uL (1.4-4.0); Lymphocytes % 24.3 % (21.2-54.2); Mean Corpuscular HGB Conc 30.9 GM/DL (32-36); Mean Corpuscular Hemoglobin 26 PG (27-34); Mean Corpuscular Volume 83.7 FL (87-102); Mean Platelet Volume 11.6 FL (9.6-12.0); Monocytes # 0.8 10*3/uL (0.11-0.8); Monocytes % 13.5 % (1.7-12.7); Neutrophils # 3.5 10*3/uL (1.4-7.4); Neutrophils % 57.5 % (38.7-73.9); Platelet Count 169 T/CUMM (130-400); Red Blood Count 3.25 MC/CUMM (3.8-5.5); Red Cell Distribution Width 15.5 % (9.3-17.3)
[2018-06-07 06:23] LABS: Hemoglobin 8.4 GM/DL (14.0-18.0)
[2018-06-07] MEDS: LEVOTHYROXINE 75 MCG TABLET PO SCH (06:49)
[2018-06-07] MEDS: DEXTROSE 50% 25 GM/50 ML VIAL IV PRN (08:21)
[2018-06-07] MEDS: CALCIUM ACETATE 667 MG CAPSULE PO SCH ×3 (08:46→17:09)
[2018-06-07] MEDS: PANTOPRAZOLE 40 MG TABLET PO SCH (08:50)
[2018-06-07] MEDS: FOLIC ACID 1 MG TABLET PO SCH (08:50)
[2018-06-07] MEDS: MULTIVITAMIN (BEROCCA) TABLET PO SCH (08:50)
[2018-06-07] MEDS: AZITHROMYCIN 250 MG TABLET PO SCH (08:50)
[2018-06-07] MEDS: CYPROHEPTADINE 4 MG TABLET PO SCH ×2 (08:50→21:00)
[2018-06-07] MEDS: amLODIPine 10 MG TABLET PO SCH (08:50)
[2018-06-07] MEDS: guaiFENesin/DM ER 600-30 MG TABLET PO SCH ×2 (08:50→21:00)
[2018-06-07] MEDS: NYSTATIN 500,000 UNIT/5 ML UDCUP SWISH/SWAL SCH ×5 (08:50→21:09)
[2018-06-07] MEDS: ISOSORBIDE MONONITRATE 30 MG TABLET PO SCH (08:51)
[2018-06-07] MEDS: CARVEDILOL 25 MG TABLET PO SCH ×3 (08:51→21:06)
[2018-06-07] MEDS: ASPIRIN 325 MG TABLET PO SCH (08:51)
[2018-06-07] MEDS: HYDROXYCHLOROQUINE 200 MG TABLET PO SCH (08:51)
[2018-06-07] MEDS: INSULIN REGULAR 100 UNIT/ML SUBCUT SCH (10:32)
[2018-06-07] MEDS: DIGOXIN 0.125 MG TABLET PO SCH (13:31)
[2018-06-07] MEDS: SODIUM HYPOCHLORITE 0.25% IRRIG 473 ML BOTTLE TOP SCH (14:25)
[2018-06-07] MEDS: cefTRIAXone 1,000 MG in SYRINGE 1 EACH IV SCH (17:02)
[2018-06-07] MEDS ORDERED: VANCOMYCIN INJ 750 MG in SODIUM CHLORIDE 0.9% 250 ML IV PRN (18:08)
[2018-06-07] MEDS ORDERED: VANCOMYCIN INJ 1,750 MG in SODIUM CHLORIDE 0.9% 500 ML IV ONE (20:00)
[2018-06-07] MEDS: ENOXAPARIN 30 MG/0.3 ML SYRINGE SUBCUT SCH (21:00)
[2018-06-07] MEDS: ROSUVASTATIN 20 MG TABLET PO SCH (21:00)
[2018-06-07] MEDS: GABAPENTIN 300 MG CAPSULE PO SCH (21:00)
[2018-06-08] MEDS: ALBUTEROL 2.5 MG/3 ML NEB RESP TX SCH ×5 (00:10→19:33)
[2018-06-08 02:38] LABS: Basophils # 0.1 10*3/uL (0.0-0.2); Basophils % 0.8 % (0.0-0.8); Eosinophils # 0.1 10*3/uL (0.0-0.87); Eosinophils % 2.2 % (0.00-10.9); Hematocrit 25.3 VOL% (42.0-52.0); Hemoglobin 7.7 GM/DL (14.0-18.0); Immature Granulocytes % 0.3 %; Immature Granulocytes Absolute 0.02 #; Lymphocytes # 1.8 10*3/uL (1.4-4.0); Lymphocytes % 29.9 % (21.2-54.2); Mean Corpuscular HGB Conc 30.4 GM/DL (32-36); Mean Corpuscular Hemoglobin 26 PG (27-34); Mean Corpuscular Volume 84.3 FL (87-102); Mean Platelet Volume 12.6 FL (9.6-12.0); Monocytes # 0.7 10*3/uL (0.11-0.8); Monocytes % 10.8 % (1.7-12.7); Neutrophils # 3.4 10*3/uL (1.4-7.4); Platelet Count 171 T/CUMM (130-400); Red Cell Distribution Width 15.8 % (9.3-17.3)
[2018-06-08 03:20] LABS: Calcium 7.5 MG/DL (8.5-10.1); Osmolality,Calculated 269.1 MOS/KG (273-304); Potassium 3.9 MMOL/L (3.5-5.1)
[2018-06-08] MEDS: LEVOTHYROXINE 75 MCG TABLET PO SCH (06:13)
[2018-06-08] MEDS: HYDROXYCHLOROQUINE 200 MG TABLET PO SCH (08:56)
[2018-06-08] MEDS: FOLIC ACID 1 MG TABLET PO SCH (08:56)
[2018-06-08] MEDS: CALCIUM ACETATE 667 MG CAPSULE PO SCH ×3 (08:56→17:03)
[2018-06-08] MEDS: AZITHROMYCIN 250 MG TABLET PO SCH (08:56)
[2018-06-08] MEDS: guaiFENesin/DM ER 600-30 MG TABLET PO SCH ×2 (08:57→22:19)
[2018-06-08] MEDS: CARVEDILOL 25 MG TABLET PO SCH ×2 (08:57→22:19)
[2018-06-08] MEDS: CYPROHEPTADINE 4 MG TABLET PO SCH ×2 (08:57→22:19)
[2018-06-08] MEDS: PANTOPRAZOLE 40 MG TABLET PO SCH (08:57)
[2018-06-08] MEDS: ASPIRIN 325 MG TABLET PO SCH (08:57)
[2018-06-08] MEDS: NYSTATIN 500,000 UNIT/5 ML UDCUP SWISH/SWAL SCH ×4 (08:57→22:20)
[2018-06-08] MEDS: ISOSORBIDE MONONITRATE 30 MG TABLET PO SCH (09:00)
[2018-06-08] MEDS: amLODIPine 10 MG TABLET PO SCH (09:00)
[2018-06-08] MEDS: SODIUM HYPOCHLORITE 0.25% IRRIG 473 ML BOTTLE TOP SCH (09:06)
[2018-06-08] MEDS: MULTIVITAMIN (BEROCCA) TABLET PO SCH (14:15)
[2018-06-08] MEDS: DIGOXIN 0.125 MG TABLET PO SCH (15:00)
[2018-06-08] MEDS: cefTRIAXone 1,000 MG in SYRINGE 1 EACH IV SCH (16:58)
[2018-06-08] MEDS ORDERED: VANCOMYCIN INJ 750 MG in SODIUM CHLORIDE 0.9% 250 ML IV ONE (21:00)
[2018-06-08] MEDS: ENOXAPARIN 30 MG/0.3 ML SYRINGE SUBCUT SCH (22:19)
[2018-06-08] MEDS: DRONABINOL 2.5 MG CAPSULE PO SCH (22:19)
[2018-06-08] MEDS: GABAPENTIN 300 MG CAPSULE PO SCH (22:19)
[2018-06-08] MEDS: ROSUVASTATIN 20 MG TABLET PO SCH (22:19)
[2018-06-08] MEDS: DEXTROSE 50% 25 GM/50 ML VIAL IV PRN (23:30)
[2018-06-09] MEDS: ALBUTEROL 2.5 MG/3 ML NEB RESP TX SCH ×4 (00:03→20:26)
[2018-06-09 05:20] LABS: Basophils % 0.9 % (0.0-0.8); Eosinophils # 0.1 10*3/uL (0.0-0.87); Eosinophils % 1.8 % (0.00-10.9); Hematocrit 27.3 VOL% (42.0-52.0); Hemoglobin 8.6 GM/DL (14.0-18.0); Immature Granulocytes % 0.5 %; Immature Granulocytes Absolute 0.02 #; Lymphocytes # 1.2 10*3/uL (1.4-4.0); Lymphocytes % 27.4 % (21.2-54.2); Mean Corpuscular HGB Conc 31.5 GM/DL (32-36); Mean Corpuscular Hemoglobin 26 PG (27-34); Mean Corpuscular Volume 83.7 FL (87-102); Mean Platelet Volume 11.3 FL (9.6-12.0); Monocytes # 0.5 10*3/uL (0.11-0.8); Monocytes % 11.3 % (1.7-12.7); Neutrophils # 2.5 10*3/uL (1.4-7.4); Neutrophils % 58.1 % (38.7-73.9); Platelet Count 128 T/CUMM (130-400); Red Blood Count 3.26 MC/CUMM (3.8-5.5); Red Cell Distribution Width 15.7 % (9.3-17.3); White Blood Count 4.4 T/CUMM (4-12)
[2018-06-09 05:48] LABS: Calcium 7.7 MG/DL (8.5-10.1); Osmolality,Calculated 266.1 MOS/KG (273-304); Potassium 3.6 MMOL/L (3.5-5.1)
[2018-06-09] MEDS: LEVOTHYROXINE 75 MCG TABLET PO SCH (07:00)
[2018-06-09] MEDS: AZITHROMYCIN 250 MG TABLET PO SCH (10:35)
[2018-06-09] MEDS: CARVEDILOL 25 MG TABLET PO SCH ×2 (10:35→21:56)
[2018-06-09] MEDS: CALCIUM ACETATE 667 MG CAPSULE PO SCH ×3 (10:35→18:40)
[2018-06-09] MEDS: FOLIC ACID 1 MG TABLET PO SCH (10:36)
[2018-06-09] MEDS: PANTOPRAZOLE 40 MG TABLET PO SCH (10:36)
[2018-06-09] MEDS: guaiFENesin/DM ER 600-30 MG TABLET PO SCH ×2 (10:36→21:56)
[2018-06-09] MEDS: HYDROXYCHLOROQUINE 200 MG TABLET PO SCH (10:36)
[2018-06-09] MEDS: MULTIVITAMIN (BEROCCA) TABLET PO SCH (10:36)
[2018-06-09] MEDS: ASPIRIN 325 MG TABLET PO SCH (10:36)
[2018-06-09] MEDS: CYPROHEPTADINE 4 MG TABLET PO SCH ×3 (10:37→21:56)
[2018-06-09] MEDS: NYSTATIN 500,000 UNIT/5 ML UDCUP SWISH/SWAL SCH ×4 (10:41→21:57)
[2018-06-09] MEDS: DRONABINOL 2.5 MG CAPSULE PO SCH ×2 (11:13→21:56)
[2018-06-09] MEDS: SODIUM HYPOCHLORITE 0.25% IRRIG 473 ML BOTTLE TOP SCH (12:30)
[2018-06-09] MEDS: ISOSORBIDE MONONITRATE 30 MG TABLET PO SCH (13:38)
[2018-06-09] MEDS: DIGOXIN 0.125 MG TABLET PO SCH (16:49)
[2018-06-09] MEDS: cefTRIAXone 1,000 MG in SYRINGE 1 EACH IV SCH (16:51)
[2018-06-09] MEDS: ENOXAPARIN 30 MG/0.3 ML SYRINGE SUBCUT SCH (21:56)
[2018-06-09] MEDS: ROSUVASTATIN 20 MG TABLET PO SCH (21:56)
[2018-06-09] MEDS: GABAPENTIN 300 MG CAPSULE PO SCH (21:56)
[2018-06-10 04:15] LABS: Basophils % 0.9 % (0.0-0.8); Eosinophils # 0.1 10*3/uL (0.0-0.87); Eosinophils % 2.5 % (0.00-10.9); Hematocrit 26.3 VOL% (42.0-52.0); Hemoglobin 8.3 GM/DL (14.0-18.0); Immature Granulocytes % 0.2 %; Immature Granulocytes Absolute 0.01 #; Lymphocytes # 1.2 10*3/uL (1.4-4.0); Mean Corpuscular HGB Conc 31.6 GM/DL (32-36); Mean Corpuscular Hemoglobin 27 PG (27-34); Mean Corpuscular Volume 84.8 FL (87-102); Mean Platelet Volume 11.9 FL (9.6-12.0); Monocytes # 0.5 10*3/uL (0.11-0.8); Monocytes % 11.1 % (1.7-12.7); Neutrophils # 2.6 10*3/uL (1.4-7.4); Neutrophils % 58.3 % (38.7-73.9); Platelet Count 130 T/CUMM (130-400); Red Cell Distribution Width 15.7 % (9.3-17.3); White Blood Count 4.4 T/CUMM (4-12)
[2018-06-10 04:35] LABS: Osmolality,Calculated 267.2 MOS/KG (273-304)
[2018-06-10] MEDS: LEVOTHYROXINE 75 MCG TABLET PO SCH (07:00)
[2018-06-10] MEDS: ALBUTEROL 2.5 MG/3 ML NEB RESP TX SCH ×4 (07:27→19:45)
[2018-06-10] MEDS: HYDROXYCHLOROQUINE 200 MG TABLET PO SCH (11:07)
[2018-06-10] MEDS: CARVEDILOL 25 MG TABLET PO SCH ×2 (11:08→20:20)
[2018-06-10] MEDS: PANTOPRAZOLE 40 MG TABLET PO SCH (11:08)
[2018-06-10] MEDS: NYSTATIN 500,000 UNIT/5 ML UDCUP SWISH/SWAL SCH ×3 (11:08→17:49)
[2018-06-10] MEDS: CYPROHEPTADINE 4 MG TABLET PO SCH ×3 (11:08→20:20)
[2018-06-10] MEDS: CALCIUM ACETATE 667 MG CAPSULE PO SCH ×3 (11:08→17:47)
[2018-06-10] MEDS: ASPIRIN 325 MG TABLET PO SCH (11:08)
[2018-06-10] MEDS: guaiFENesin/DM ER 600-30 MG TABLET PO SCH ×2 (11:09→20:19)
[2018-06-10] MEDS: MULTIVITAMIN (BEROCCA) TABLET PO SCH (11:09)
[2018-06-10] MEDS: FOLIC ACID 1 MG TABLET PO SCH (11:09)
[2018-06-10] MEDS: DRONABINOL 2.5 MG CAPSULE PO SCH (11:09)
[2018-06-10] MEDS: DIGOXIN 0.125 MG TABLET PO SCH (12:09)
[2018-06-10] MEDS: ISOSORBIDE MONONITRATE 30 MG TABLET PO SCH (12:10)
[2018-06-10] MEDS: SODIUM HYPOCHLORITE 0.25% IRRIG 473 ML BOTTLE TOP SCH (12:30)
[2018-06-10] MEDS: amLODIPine 10 MG TABLET PO SCH (12:49)
[2018-06-10] MEDS: cefTRIAXone 1,000 MG in SYRINGE 1 EACH IV SCH (15:27)
[2018-06-10] MEDS ORDERED: ERGOCALCIFEROL 50,000 UNIT CAPSULE PO SCH (15:30)
[2018-06-10] MEDS: GABAPENTIN 300 MG CAPSULE PO SCH (20:19)
[2018-06-10] MEDS: ENOXAPARIN 30 MG/0.3 ML SYRINGE SUBCUT SCH (20:20)
[2018-06-11] MEDS: NYSTATIN 500,000 UNIT/5 ML UDCUP SWISH/SWAL SCH ×5 (00:59→22:40)
[2018-06-11] MEDS: DRONABINOL 2.5 MG CAPSULE PO SCH ×3 (00:59→22:39)
[2018-06-11] MEDS: ALBUTEROL 2.5 MG/3 ML NEB RESP TX SCH ×4 (01:02→19:00)
[2018-06-11] MEDS: LEVOTHYROXINE 75 MCG TABLET PO SCH (06:43)
[2018-06-11] MEDS: CALCIUM ACETATE 667 MG CAPSULE PO SCH ×3 (09:02→18:09)
[2018-06-11] MEDS: DIGOXIN 0.125 MG TABLET PO SCH (13:40)
[2018-06-11] MEDS: ASPIRIN 325 MG TABLET PO SCH (13:40)
[2018-06-11] MEDS: FOLIC ACID 1 MG TABLET PO SCH (13:41)
[2018-06-11] MEDS: guaiFENesin/DM ER 600-30 MG TABLET PO SCH ×2 (13:41→22:39)
[2018-06-11] MEDS: CARVEDILOL 25 MG TABLET PO SCH ×2 (13:41→22:39)
[2018-06-11] MEDS: HYDROXYCHLOROQUINE 200 MG TABLET PO SCH (13:41)
[2018-06-11] MEDS: ISOSORBIDE MONONITRATE 30 MG TABLET PO SCH (13:41)
[2018-06-11] MEDS: PANTOPRAZOLE 40 MG TABLET PO SCH (13:41)
[2018-06-11] MEDS: SODIUM HYPOCHLORITE 0.25% IRRIG 473 ML BOTTLE TOP SCH (13:42)
[2018-06-11] MEDS: MULTIVITAMIN (BEROCCA) TABLET PO SCH (13:42)
[2018-06-11] MEDS: CYPROHEPTADINE 4 MG TABLET PO SCH ×3 (13:43→22:39)
[2018-06-11] MEDS: cefTRIAXone 1,000 MG in SYRINGE 1 EACH IV SCH (16:26)
[2018-06-11] MEDS: ENOXAPARIN 30 MG/0.3 ML SYRINGE SUBCUT SCH (22:39)
[2018-06-11] MEDS: GABAPENTIN 300 MG CAPSULE PO SCH (22:39)
[2018-06-12] MEDS: ALBUTEROL 2.5 MG/3 ML NEB RESP TX SCH ×3 (00:46→13:30)
[2018-06-12] MEDS: LEVOTHYROXINE 75 MCG TABLET PO SCH (05:57)
[2018-06-12 06:08] LABS: Potassium 4.2 MMOL/L (3.5-5.1)
[2018-06-12 06:13] LABS: Basophils # 0.1 10*3/uL (0.0-0.2); Basophils % 0.9 % (0.0-0.8); Eosinophils # 0.2 10*3/uL (0.0-0.87); Eosinophils % 2.9 % (0.00-10.9); Hematocrit 25.5 VOL% (42.0-52.0); Hemoglobin 7.9 GM/DL (14.0-18.0); Immature Granulocytes % 0.7 %; Immature Granulocytes Absolute 0.04 #; Lymphocytes # 1.2 10*3/uL (1.4-4.0); Lymphocytes % 20.9 % (21.2-54.2); Mean Corpuscular Hemoglobin 26 PG (27-34); Mean Platelet Volume 11.8 FL (9.6-12.0); Monocytes # 0.6 10*3/uL (0.11-0.8); Monocytes % 9.9 % (1.7-12.7); Neutrophils # 3.8 10*3/uL (1.4-7.4); Neutrophils % 64.7 % (38.7-73.9); Platelet Count 145 T/CUMM (130-400); Red Cell Distribution Width 15.9 % (9.3-17.3)
[2018-06-12 06:15] LABS: White Blood Count 5.9 T/CUMM (4-12)
[2018-06-12] MEDS ORDERED: SODIUM CHLORIDE 0.9% 1,000 ML IV PRN (07:18)
[2018-06-12] MEDS: HYDROXYCHLOROQUINE 200 MG TABLET PO SCH (10:46)
[2018-06-12] MEDS: CALCIUM ACETATE 667 MG CAPSULE PO SCH ×2 (10:46→13:50)
[2018-06-12] MEDS: NYSTATIN 500,000 UNIT/5 ML UDCUP SWISH/SWAL SCH ×2 (10:46→13:13)
[2018-06-12] MEDS: guaiFENesin/DM ER 600-30 MG TABLET PO SCH (10:46)
[2018-06-12] MEDS: CYPROHEPTADINE 4 MG TABLET PO SCH ×2 (10:46→14:50)
[2018-06-12] MEDS: PANTOPRAZOLE 40 MG TABLET PO SCH (10:47)
[2018-06-12] MEDS: ASPIRIN 325 MG TABLET PO SCH (10:47)
[2018-06-12] MEDS: MULTIVITAMIN (BEROCCA) TABLET PO SCH (10:47)
[2018-06-12] MEDS: FOLIC ACID 1 MG TABLET PO SCH (10:47)
[2018-06-12] MEDS: ISOSORBIDE MONONITRATE 30 MG TABLET PO SCH (10:47)
[2018-06-12] MEDS: CARVEDILOL 25 MG TABLET PO SCH (10:48)
[2018-06-12] MEDS: DRONABINOL 2.5 MG CAPSULE PO SCH (11:18)
[2018-06-12] MEDS ORDERED: COLLAGENASE OINT 30 GM TUBE TOP SCH (12:00)
[2018-06-12] MEDS: SODIUM HYPOCHLORITE 0.25% IRRIG 473 ML BOTTLE TOP SCH (12:01)
[2018-06-12 12:46] VITALS: BP 143/73
[2018-06-12] MEDS: DIGOXIN 0.125 MG TABLET PO SCH (13:50)
[2018-06-12] MEDS: cefTRIAXone 1,000 MG in SYRINGE 1 EACH IV SCH (14:40)
[2018-06-12] MEDS ORDERED: hydrALAZINE 25 MG TABLET PO SCH (21:00)
== END 2018-06-12 16:25 | disposition swing bed (61) | DRG 166 ==
LOC: EDBD → EDUNIT# → N.ED 09:22 → N.EDINP 12:57 → SUATTDRO 12:57 → N.2W 14:26 → N.TELES 15:44 → N.3E 06-11 23:56
PROVIDERS: ADMIT Hospitalist; ATTEND Internal Medicine

== ENCOUNTER 2018-11-06 09:30 | Inpatient (IN) ==
[2018-11-06] MEDS ORDERED: hydrALAZINE 20 MG/1 ML VIAL IV STA (10:12)
[2018-11-06 10:59] LABS: Basophils % 0.3 % (0.0-0.8); Eosinophils # 0.1 10*3/uL (0.0-0.87); Eosinophils % 1.2 % (0.00-10.9); Hematocrit 40.1 VOL% (42.0-52.0); Hemoglobin 12.3 GM/DL (14.0-18.0); Immature Granulocytes % 0.6 %; Immature Granulocytes Absolute 0.07 #; Lymphocytes # 0.6 10*3/uL (1.4-4.0); Lymphocytes % 5.3 % (21.2-54.2); Mean Corpuscular HGB Conc 30.7 GM/DL (32-36); Mean Corpuscular Hemoglobin 27 PG (27-34); Mean Corpuscular Volume 88.9 FL (87-102); Monocytes # 0.7 10*3/uL (0.11-0.8); Monocytes % 5.4 % (1.7-12.7); Neutrophils # 10.5 10*3/uL (1.4-7.4); Neutrophils % 87.2 % (38.7-73.9); Platelet Count 176 T/CUMM (130-400); Red Blood Count 4.51 MC/CUMM (3.8-5.5); Red Cell Distribution Width 15.8 % (9.3-17.3)
[2018-11-06 11:12] LABS: INR 1.1; PT Patient Result 11.4 SECS; Partial Thromboplastin Time 28.5 SECS (0-40)
[2018-11-06 11:41] LABS: Albumin 2.6 G/DL (3.4-5.0); Bilirubin,Total 1.2 MG/DL (0.2-1.0); Calcium 8.6 MG/DL (8.5-10.1); Osmolality,Calculated 284.7 MOS/KG (273-304); Potassium 3.5 MMOL/L (3.5-5.1); Total Protein 7.4 G/DL (6.4-8.3)
[2018-11-06] MEDS ORDERED: DOCUSATE SODIUM 100 MG CAPSULE PO PRN (12:43)
[2018-11-06] MEDS ORDERED: GLUCAGON 1 MG VIAL IM PRN ×2 (12:43→13:45)
[2018-11-06] MEDS ORDERED: DEXTROSE 50% 25 GM/50 ML VIAL IV PRN (12:43)
[2018-11-06] MEDS ORDERED: ACETAMINOPHEN 325 MG TABLET PO PRN (12:43)
[2018-11-06] MEDS ORDERED: DEXTROSE 50% 25 GM/50 ML SYRINGE IV PRN (13:45)
[2018-11-06] MEDS: hydrALAZINE 25 MG TABLET PO SCH ×2 (15:23→21:06)
[2018-11-06] MEDS: CALCIUM ACETATE 667 MG CAPSULE PO SCH (17:57)
[2018-11-06] MEDS: INSULIN LISPRO 100 UNIT/ML SUBCUT SCH ×2 (17:57→21:06)
[2018-11-06] MEDS ORDERED: CALCIUM ACETATE 667 MG CAPSULE PO SCH (21:00)
[2018-11-06] MEDS ORDERED: SULFAMETHOX/TRIMETHOPRIM 400-80 MG TABLET PO SCH (21:00)
[2018-11-06] MEDS: GENTAMICIN 0.1% CREAM 15 GM TUBE TOP SCH (21:05)
[2018-11-06] MEDS: FAMOTIDINE 20 MG TABLET PO SCH (21:06)
[2018-11-06] MEDS: MEGESTROL 40 MG TABLET PO SCH (21:06)
[2018-11-06] MEDS: CARVEDILOL 25 MG TABLET PO SCH (21:06)
[2018-11-06] MEDS: HEPARIN 5,000 UNIT/1 ML VIAL SUBCUT SCH (22:34)
[2018-11-07 04:30] LABS: Basophils % 0.4 % (0.0-0.8); Eosinophils # 0.1 10*3/uL (0.0-0.87); Eosinophils % 2.5 % (0.00-10.9); Hematocrit 30.9 VOL% (42.0-52.0); Hemoglobin 9.5 GM/DL (14.0-18.0); Immature Granulocytes % 0.2 %; Immature Granulocytes Absolute 0.01 #; Lymphocytes # 0.9 10*3/uL (1.4-4.0); Lymphocytes % 17.6 % (21.2-54.2); Mean Corpuscular HGB Conc 30.7 GM/DL (32-36); Mean Corpuscular Hemoglobin 27 PG (27-34); Mean Corpuscular Volume 88.3 FL (87-102); Monocytes # 0.5 10*3/uL (0.11-0.8); Monocytes % 9.4 % (1.7-12.7); Neutrophils # 3.7 10*3/uL (1.4-7.4); Neutrophils % 69.9 % (38.7-73.9); Platelet Count 154 T/CUMM (130-400); Red Cell Distribution Width 15.9 % (9.3-17.3); White Blood Count 5.2 T/CUMM (4-12)
[2018-11-07 04:57] LABS: Osmolality,Calculated 289.4 MOS/KG (273-304); Potassium 3.5 MMOL/L (3.5-5.1)
[2018-11-07] MEDS: LEVOTHYROXINE 75 MCG TABLET PO SCH (05:56)
[2018-11-07] MEDS: HEPARIN 5,000 UNIT/1 ML VIAL SUBCUT SCH ×3 (05:56→21:51)
[2018-11-07] MEDS: INSULIN LISPRO 100 UNIT/ML SUBCUT SCH ×4 (08:42→21:15)
[2018-11-07] MEDS: CALCIUM ACETATE 667 MG CAPSULE PO SCH ×3 (11:20→17:42)
[2018-11-07] MEDS: GENTAMICIN 0.1% CREAM 15 GM TUBE TOP SCH ×3 (11:21→22:06)
[2018-11-07] MEDS: hydrALAZINE 25 MG TABLET PO SCH ×3 (11:21→21:13)
[2018-11-07] MEDS: DIGOXIN 0.125 MG TABLET PO SCH (15:10)
[2018-11-07] MEDS: FOLIC ACID 1 MG TABLET PO SCH (15:11)
[2018-11-07] MEDS: HYDROXYCHLOROQUINE 200 MG TABLET PO SCH (15:11)
[2018-11-07] MEDS: SERTRALINE 50 MG TABLET PO SCH (15:12)
[2018-11-07] MEDS: CARVEDILOL 25 MG TABLET PO SCH ×2 (15:12→21:13)
[2018-11-07] MEDS: HYDROCORTISONE 10 MG TABLET PO SCH (15:12)
[2018-11-07] MEDS: MULTIVITAMIN (BEROCCA) TABLET PO SCH (15:12)
[2018-11-07] MEDS: amLODIPine 10 MG TABLET PO SCH (15:13)
[2018-11-07] MEDS: ISOSORBIDE MONONITRATE 30 MG TABLET PO SCH (15:13)
[2018-11-07] MEDS: ASPIRIN 325 MG TABLET PO SCH (15:13)
[2018-11-07] MEDS: MEGESTROL 40 MG TABLET PO SCH ×2 (15:13→21:13)
[2018-11-07] MEDS: ATORVASTATIN 40 MG TABLET PO SCH (15:13)
[2018-11-07] MEDS: SKIN HEALING OINT (AQUAPHOR) 50 GM TUBE TOP SCH (16:14)
[2018-11-07] MEDS ORDERED: MINERAL OIL/PETROLATUM OPH OINT 3.5 GM TUBE BOTH EYES SCH (21:00)
[2018-11-07] MEDS: FAMOTIDINE 20 MG TABLET PO SCH (21:13)
[2018-11-07] MEDS: DICLOFENAC 1% GEL 100 GM TUBE TOP SCH (21:14)
[2018-11-08] MEDS: HEPARIN 5,000 UNIT/1 ML VIAL SUBCUT SCH ×2 (06:22→13:52)
[2018-11-08] MEDS: LEVOTHYROXINE 75 MCG TABLET PO SCH (06:22)
[2018-11-08] MEDS: INSULIN LISPRO 100 UNIT/ML SUBCUT SCH ×3 (08:03→16:49)
[2018-11-08] MEDS: SKIN HEALING OINT (AQUAPHOR) 50 GM TUBE TOP SCH (08:44)
[2018-11-08] MEDS: FOLIC ACID 1 MG TABLET PO SCH (08:45)
[2018-11-08] MEDS: ASPIRIN 325 MG TABLET PO SCH (08:45)
[2018-11-08] MEDS: HYDROCORTISONE 10 MG TABLET PO SCH (08:45)
[2018-11-08] MEDS: CALCIUM ACETATE 667 MG CAPSULE PO SCH ×2 (08:45→12:05)
[2018-11-08] MEDS: CARVEDILOL 25 MG TABLET PO SCH (08:46)
[2018-11-08] MEDS: hydrALAZINE 25 MG TABLET PO SCH ×2 (08:46→15:18)
[2018-11-08] MEDS: GENTAMICIN 0.1% CREAM 15 GM TUBE TOP SCH ×2 (08:46→15:30)
[2018-11-08] MEDS: ISOSORBIDE MONONITRATE 30 MG TABLET PO SCH (08:46)
[2018-11-08] MEDS: ATORVASTATIN 40 MG TABLET PO SCH (08:46)
[2018-11-08] MEDS: MULTIVITAMIN (BEROCCA) TABLET PO SCH (08:46)
[2018-11-08] MEDS: HYDROXYCHLOROQUINE 200 MG TABLET PO SCH (09:00)
[2018-11-08] MEDS: MEGESTROL 40 MG TABLET PO SCH (09:00)
[2018-11-08] MEDS: SERTRALINE 50 MG TABLET PO SCH (09:01)
[2018-11-08] MEDS: amLODIPine 10 MG TABLET PO SCH (09:01)
[2018-11-08] MEDS: DICLOFENAC 1% GEL 100 GM TUBE TOP SCH ×2 (10:30→15:30)
[2018-11-08] MEDS: DIGOXIN 0.125 MG TABLET PO SCH (12:08)
[2018-11-08 16:15] VITALS: BP 160/47
== END 2018-11-08 18:10 | disposition home health service (06) | DRG 291 ==
LOC: EDUNIT# → N.ED 09:30 → SUATTDRO 11:07 → N.EDINP 11:07 → N.2E 14:58
PROVIDERS: ADMIT Internal Medicine Cardiovascular Disease; ATTEND Hospitalist

== ENCOUNTER 2018-11-11 08:42 | Observation (INO) ==
[2018-11-11] MEDS ORDERED: ALBUTEROL/IPRATROPIUM 3 ML NEB RESP TX STA (09:08)
[2018-11-11 09:52] LABS: Basophils % 0.3 % (0.0-0.8); Eosinophils # 0.2 10*3/uL (0.0-0.87); Eosinophils % 2.5 % (0.00-10.9); Hematocrit 33.1 VOL% (42.0-52.0); Hemoglobin 10.1 GM/DL (14.0-18.0); Immature Granulocytes % 0.3 %; Immature Granulocytes Absolute 0.02 #; Lymphocytes % 14.4 % (21.2-54.2); Mean Corpuscular HGB Conc 30.5 GM/DL (32-36); Mean Corpuscular Hemoglobin 27 PG (27-34); Mean Corpuscular Volume 88.3 FL (87-102); Mean Platelet Volume 10.7 FL (9.6-12.0); Monocytes # 0.5 10*3/uL (0.11-0.8); Monocytes % 7.6 % (1.7-12.7); Neutrophils % 74.9 % (38.7-73.9); Platelet Count 163 T/CUMM (130-400); Red Blood Count 3.75 MC/CUMM (3.8-5.5); Red Cell Distribution Width 15.8 % (9.3-17.3); White Blood Count 6.7 T/CUMM (4-12)
[2018-11-11 10:07] LABS: PT Patient Result 11.3 SECS; Partial Thromboplastin Time 28.9 SECS (0-40)
[2018-11-11 10:27] LABS: Alanine Aminotransferase 22 U/L (16-61); Albumin 2.3 G/DL (3.4-5.0); Alkaline Phosphatase 125 U/L (45-117); Aspartate Amino Transferase 23 U/L (0-37); Blood Urea Nitrogen 40 MG/DL (7-18); Calcium 8.9 MG/DL (8.5-10.1); Glucose 76 MG/DL (74-106); Osmolality,Calculated 281.8 MOS/KG (273-304); Potassium 3.9 MMOL/L (3.5-5.1); Sodium 137 MMOL/L (136-145); Total Protein 7.1 G/DL (6.4-8.3); Troponin I 0.068 NG/ML (0.00-0.045)
[2018-11-11] MEDS ORDERED: ZALEPLON 5 MG CAPSULE PO PRN (11:41)
[2018-11-11] MEDS ORDERED: ONDANSETRON 4 MG/2 ML VIAL IV PRN (11:41)
[2018-11-11] MEDS ORDERED: DOCUSATE SODIUM 100 MG CAPSULE PO PRN (11:41)
[2018-11-11] MEDS ORDERED: ACETAMINOPHEN 325 MG TABLET PO PRN (11:41)
[2018-11-11] MEDS ORDERED: CALCIUM ACETATE 667 MG CAPSULE PO SCH (12:30)
[2018-11-11] MEDS: FAMOTIDINE 20 MG TABLET PO SCH (16:20)
[2018-11-11] MEDS: hydrALAZINE 25 MG TABLET PO SCH ×2 (16:20→20:28)
[2018-11-11] MEDS ORDERED: ALBUMIN 25% 12.5 GM in PREMIX 1 EACH IV PRN (16:27)
[2018-11-11] MEDS: CARVEDILOL 25 MG TABLET PO SCH (20:28)
[2018-11-11] MEDS: DOCUSATE SODIUM 100 MG CAPSULE PO SCH (20:28)
[2018-11-11] MEDS ORDERED: ATORVASTATIN 40 MG TABLET PO SCH (21:00)
[2018-11-12] MEDS ORDERED: CARBOXYMETHYLCELLULOSE 1% OPH SOLN BOTH EYES PRN (01:23)
[2018-11-12 04:57] LABS: Basophils % 0.4 % (0.0-0.8); Eosinophils # 0.2 10*3/uL (0.0-0.87); Eosinophils % 3.2 % (0.00-10.9); Hemoglobin 9.2 GM/DL (14.0-18.0); Immature Granulocytes % 0.6 %; Immature Granulocytes Absolute 0.03 #; Lymphocytes # 0.9 10*3/uL (1.4-4.0); Lymphocytes % 18.8 % (21.2-54.2); Mean Corpuscular HGB Conc 30.7 GM/DL (32-36); Mean Corpuscular Hemoglobin 27 PG (27-34); Mean Platelet Volume 11.2 FL (9.6-12.0); Monocytes # 0.4 10*3/uL (0.11-0.8); Monocytes % 9.1 % (1.7-12.7); Neutrophils # 3.1 10*3/uL (1.4-7.4); Neutrophils % 67.9 % (38.7-73.9); Platelet Count 142 T/CUMM (130-400); Red Blood Count 3.37 MC/CUMM (3.8-5.5); Red Cell Distribution Width 15.7 % (9.3-17.3); White Blood Count 4.6 T/CUMM (4-12)
[2018-11-12 05:08] LABS: Albumin 1.9 G/DL (3.4-5.0); Bilirubin,Total 0.7 MG/DL (0.2-1.0); Calcium 8.6 MG/DL (8.5-10.1); Osmolality,Calculated 290.5 MOS/KG (273-304); Potassium 4.4 MMOL/L (3.5-5.1); Total Protein 6.3 G/DL (6.4-8.3)
[2018-11-12] MEDS ORDERED: LEVOTHYROXINE 75 MCG TABLET PO SCH (06:30)
[2018-11-12] MEDS: DOCUSATE SODIUM 100 MG CAPSULE PO SCH (08:26)
[2018-11-12] MEDS: CARVEDILOL 25 MG TABLET PO SCH (08:27)
[2018-11-12] MEDS: FAMOTIDINE 20 MG TABLET PO SCH (08:27)
[2018-11-12] MEDS: hydrALAZINE 25 MG TABLET PO SCH ×2 (08:27→15:58)
[2018-11-12] MEDS ORDERED: amLODIPine 10 MG TABLET PO SCH (09:00)
[2018-11-12] MEDS ORDERED: ISOSORBIDE MONONITRATE 30 MG TABLET PO SCH (09:00)
[2018-11-12] MEDS ORDERED: ASPIRIN 325 MG TABLET PO SCH (09:00)
[2018-11-12] MEDS ORDERED: HYDROXYCHLOROQUINE 200 MG TABLET PO SCH (09:00)
[2018-11-12] MEDS ORDERED: FOLIC ACID 1 MG TABLET PO SCH (09:00)
[2018-11-12] MEDS ORDERED: POLYETHYLENE GLYCOL POWDER 17 GM PACK PO SCH (09:00)
[2018-11-12] MEDS ORDERED: PANTOPRAZOLE 40 MG TABLET PO SCH (09:00)
[2018-11-12] MEDS ORDERED: DIGOXIN 0.125 MG TABLET PO SCH (09:00)
[2018-11-12] MEDS ORDERED: TUBERCULIN SKIN TEST 0.1 ML SYRINGE INTRADERM ONE (10:08)
[2018-11-12 16:36] VITALS: BP 120/75
== END 2018-11-12 18:40 | disposition home or self-care (01) ==
LOC: EDBD → EDUNIT# → N.ED 08:42 → INTOOBSV 11:41 → SUATTDRO 11:41 → OBSVTOIN 11:41 → N.EDINP 11:41 → N.5E 12:50
PROVIDERS: ADMIT Internal Medicine; ATTEND Internal Medicine Geriatric Medicine

== ENCOUNTER 2018-11-21 21:32 | Inpatient (IN) ==
[2018-11-21] MEDS ORDERED: ONDANSETRON 4 MG/2 ML VIAL IV STA (21:52)
[2018-11-21 22:45] LABS: Basophils % 0.3 % (0.0-0.8); Eosinophils # 0.1 10*3/uL (0.0-0.87); Eosinophils % 0.7 % (0.00-10.9); Hematocrit 18.7 VOL% (42.0-52.0); Immature Granulocytes % 0.5 %; Immature Granulocytes Absolute 0.05 #; Lymphocytes # 1.6 10*3/uL (1.4-4.0); Lymphocytes % 16.8 % (21.2-54.2); Mean Corpuscular HGB Conc 29.4 GM/DL (32-36); Mean Corpuscular Hemoglobin 27 PG (27-34); Mean Corpuscular Volume 91.7 FL (87-102); Mean Platelet Volume 10.7 FL (9.6-12.0); Monocytes # 0.9 10*3/uL (0.11-0.8); Monocytes % 9.5 % (1.7-12.7); NRBC # 0.02 10*3/uL; Neutrophils # 6.8 10*3/uL (1.4-7.4); Neutrophils % 72.2 % (38.7-73.9); Platelet Count 241 T/CUMM (130-400); Red Blood Count 2.04 MC/CUMM (3.8-5.5); Red Cell Distribution Width 15.8 % (9.3-17.3); White Blood Count 9.5 T/CUMM (4-12)
[2018-11-21 22:50] LABS: INR 1.1; PT Patient Result 11.6 SECS
[2018-11-21 22:57] LABS: Hemoglobin 5.5 GM/DL (14.0-18.0)
[2018-11-21 23:11] LABS: Albumin 2.2 G/DL (3.4-5.0); Bilirubin,Total 0.5 MG/DL (0.2-1.0); Calcium 8.6 MG/DL (8.5-10.1); Potassium 3.3 MMOL/L (3.5-5.1); Thyroid Stimulating Hormone 6.08 uIU/ml (0.358-3.74); Total Protein 7.4 G/DL (6.4-8.3)
[2018-11-21] MEDS ORDERED: SODIUM CHLORIDE 0.9% 1,000 ML IV PRN (23:51)
[2018-11-21] MEDS ORDERED: NICOTINE 21 MG/24 HR PATCH TRANSDERM PRN (23:51)
[2018-11-21] MEDS ORDERED: ALBUTEROL 2.5 MG/3 ML NEB RESP TX PRN (23:51)
[2018-11-22] MEDS: PHENYLEPHRINE DRIP 40 MG/250 ML PREMIX IV SCH ×3 (00:10→23:46)
[2018-11-22] MEDS: PANTOPRAZOLE 40 MG VIAL IV SCH (01:45)
[2018-11-22 02:34] LABS: Basophils % 0.5 % (0.0-0.8); Eosinophils # 0.1 10*3/uL (0.0-0.87); Eosinophils % 0.8 % (0.00-10.9); Hematocrit 27.9 VOL% (42.0-52.0); Hemoglobin 8.1 GM/DL (14.0-18.0); Immature Granulocytes % 0.5 %; Immature Granulocytes Absolute 0.04 #; Lymphocytes # 1.3 10*3/uL (1.4-4.0); Lymphocytes % 15.9 % (21.2-54.2); Mean Corpuscular Hemoglobin 27 PG (27-34); Mean Corpuscular Volume 92.1 FL (87-102); Mean Platelet Volume 10.5 FL (9.6-12.0); Monocytes # 0.7 10*3/uL (0.11-0.8); NRBC # 0.03 10*3/uL; Neutrophils # 6.1 10*3/uL (1.4-7.4); Neutrophils % 73.3 % (38.7-73.9); Platelet Count 213 T/CUMM (130-400); Red Blood Count 3.03 MC/CUMM (3.8-5.5); Red Cell Distribution Width 16.1 % (9.3-17.3); White Blood Count 8.3 T/CUMM (4-12)
[2018-11-22] MEDS: LEVOFLOXACIN INJ 750 MG in PREMIX 1 EACH IV SCH (03:25)
[2018-11-22 03:44] LABS: Sedimentation Rate-Westergren 116 MM/HR (0-20)
[2018-11-22 04:05] LABS: Basophils % 0.3 % (0.0-0.8); Eosinophils # 0.1 10*3/uL (0.0-0.87); Eosinophils % 0.9 % (0.00-10.9); Hematocrit 26.5 VOL% (42.0-52.0); Hemoglobin 7.8 GM/DL (14.0-18.0); Immature Granulocytes % 0.7 %; Immature Granulocytes Absolute 0.06 #; Lymphocytes # 1.6 10*3/uL (1.4-4.0); Lymphocytes % 17.4 % (21.2-54.2); Mean Corpuscular HGB Conc 29.4 GM/DL (32-36); Mean Corpuscular Hemoglobin 27 PG (27-34); Mean Corpuscular Volume 91.4 FL (87-102); Monocytes # 0.8 10*3/uL (0.11-0.8); Monocytes % 9.1 % (1.7-12.7); NRBC # 0.03 10*3/uL; Neutrophils # 6.5 10*3/uL (1.4-7.4); Neutrophils % 71.6 % (38.7-73.9); Platelet Count 230 T/CUMM (130-400); Red Cell Distribution Width 16.1 % (9.3-17.3); White Blood Count 9.1 T/CUMM (4-12)
[2018-11-22 04:51] LABS: Albumin 2.2 G/DL (3.4-5.0); Bilirubin,Total 0.5 MG/DL (0.2-1.0); Calcium 7.7 MG/DL (8.5-10.1); Osmolality,Calculated 281.4 MOS/KG (273-304); Potassium 3.4 MMOL/L (3.5-5.1); Total Protein 6.9 G/DL (6.4-8.3)
[2018-11-22] MEDS ORDERED: VANCOMYCIN INJ 500 MG in SODIUM CHLORIDE 0.9% 100 ML IV PRN (05:22)
[2018-11-22] MEDS: ONDANSETRON 4 MG/2 ML VIAL IV PRN ×2 (05:32→15:13)
[2018-11-22] MEDS ORDERED: VANCOMYCIN INJ 1,500 MG in SODIUM CHLORIDE 0.9% 500 ML IV ONE (06:00)
[2018-11-22 08:34] LABS: Free T4 (Free Thyroxine) 1.32 NG/DL (0.76-1.46)
[2018-11-22 08:47] LABS: Hemoglobin A1 (Alkaline) 98.5 % (96.5-98.5); Hemoglobin A2 (Alkaline) 1.5 % (1.5-3.5)
[2018-11-22 09:39] LABS: Folate > 24.0 NG/ML (5.4-24.0); Vitamin B12 697 PG/ML (211-911)
[2018-11-22] MEDS ORDERED: POLYETHYLENE GLYCOL POWDER 17 GM PACK PO PRN (13:58)
[2018-11-22] MEDS ORDERED: ENOXAPARIN 80 MG/0.8 ML SYRINGE SUBCUT SCH (18:30)
[2018-11-22] MEDS: diphenhydrAMINE CAP 25 MG CAPSULE PO PRN (22:34)
[2018-11-22] MEDS: MORPHINE 4 MG/1 ML VIAL IV PRN (22:34)
[2018-11-23] MEDS: PANTOPRAZOLE 40 MG VIAL IV SCH (01:13)
[2018-11-23 04:29] LABS: Blood Urea Nitrogen 38 MG/DL (7-18); Glucose 118 MG/DL (74-106); Osmolality,Calculated 279.1 MOS/KG (273-304); Potassium 4.2 MMOL/L (3.5-5.1); Sodium 135 MMOL/L (136-145)
[2018-11-23 05:12] LABS: Basophils # 0.1 10*3/uL (0.0-0.2); Basophils % 0.5 % (0.0-0.8); Eosinophils % 0.3 % (0.00-10.9); Hematocrit 30.9 VOL% (42.0-52.0); Immature Granulocytes Absolute 0.12 #; Lymphocytes % 8.9 % (21.2-54.2); Mean Corpuscular HGB Conc 28.8 GM/DL (32-36); Mean Corpuscular Hemoglobin 27 PG (27-34); Mean Corpuscular Volume 93.4 FL (87-102); Monocytes % 8.5 % (1.7-12.7); Neutrophils # 9.4 10*3/uL (1.4-7.4); Neutrophils % 80.8 % (38.7-73.9); Platelet Count 245 T/CUMM (130-400); Red Blood Count 3.31 MC/CUMM (3.8-5.5); Red Cell Distribution Width 16.6 % (9.3-17.3); White Blood Count 11.6 T/CUMM (4-12)
[2018-11-23 05:13] LABS: Hemoglobin 8.9 GM/DL (14.0-18.0)
[2018-11-23] MEDS: PHENYLEPHRINE DRIP 40 MG/250 ML PREMIX IV SCH ×6 (05:48→23:12)
[2018-11-23] MEDS: LEVOTHYROXINE 75 MCG TABLET PO SCH (14:30)
[2018-11-23] MEDS: HYDROCORTISONE 10 MG TABLET PO SCH (14:30)
[2018-11-23] MEDS: DIGOXIN 0.125 MG TABLET PO SCH (14:30)
[2018-11-23] MEDS: HYDROCORTISONE 100 MG VIAL IV SCH ×2 (15:03→19:24)
[2018-11-23] MEDS ORDERED: NOREPINEPHRINE 8 MG in SODIUM CHLORIDE 0.9% 242 ML IV PRN (15:24)
[2018-11-23] MEDS: CALCIUM ACETATE 667 MG CAPSULE PO SCH (18:29)
[2018-11-23] MEDS: HEPARIN 5,000 UNIT/1 ML VIAL SUBCUT SCH (18:29)
[2018-11-23] MEDS ORDERED: VANCOMYCIN INJ 500 MG in SODIUM CHLORIDE 0.9% 100 ML IV ONE (21:00)
[2018-11-23] MEDS: MEGESTROL 40 MG TABLET PO SCH (21:07)
[2018-11-23] MEDS: MORPHINE 4 MG/1 ML VIAL IV PRN (21:07)
[2018-11-23] MEDS: diphenhydrAMINE CAP 25 MG CAPSULE PO PRN (21:10)
[2018-11-24] MEDS: PANTOPRAZOLE 40 MG VIAL IV SCH (01:35)
[2018-11-24] MEDS: HYDROCORTISONE 100 MG VIAL IV SCH ×4 (01:37→21:24)
[2018-11-24 02:23] LABS: Basophils % 0.1 % (0.0-0.8); Hematocrit 29.6 VOL% (42.0-52.0); Hemoglobin 8.7 GM/DL (14.0-18.0); Immature Granulocytes % 1.2 %; Immature Granulocytes Absolute 0.18 #; Lymphocytes # 0.8 10*3/uL (1.4-4.0); Lymphocytes % 4.9 % (21.2-54.2); Mean Corpuscular HGB Conc 29.4 GM/DL (32-36); Mean Corpuscular Hemoglobin 27 PG (27-34); Mean Corpuscular Volume 90.8 FL (87-102); Monocytes # 1.1 10*3/uL (0.11-0.8); NRBC # 0.28 10*3/uL; Neutrophils # 13.3 10*3/uL (1.4-7.4); Neutrophils % 86.8 % (38.7-73.9); Platelet Count 245 T/CUMM (130-400); Red Blood Count 3.26 MC/CUMM (3.8-5.5); Red Cell Distribution Width 16.7 % (9.3-17.3); White Blood Count 15.3 T/CUMM (4-12)
[2018-11-24] MEDS: LEVOFLOXACIN INJ 750 MG in PREMIX 1 EACH IV SCH (02:38)
[2018-11-24] MEDS: HEPARIN 5,000 UNIT/1 ML VIAL SUBCUT SCH ×4 (02:38→18:37)
[2018-11-24] MEDS: PHENYLEPHRINE DRIP 40 MG/250 ML PREMIX IV SCH ×3 (02:39→14:30)
[2018-11-24 02:54] LABS: Calcium 8.8 MG/DL (8.5-10.1); Osmolality,Calculated 278.2 MOS/KG (273-304); Potassium 4.5 MMOL/L (3.5-5.1)
[2018-11-24 02:56] LABS: Eosinophils 1 % (0-10); Lymphocytes 7 % (20-55); Nucleated Red Blood Cells 2 (0-5); Segmented Neutrophils 84 % (50-85)
[2018-11-24 02:57] LABS: Burr Cells 2+; Ovalocytes 1+; Platelet Estimate Normal
[2018-11-24 03:00] LABS: Total Cells Counted 100
[2018-11-24] MEDS: LEVOTHYROXINE 75 MCG TABLET PO SCH (07:35)
[2018-11-24] MEDS: MEGESTROL 40 MG TABLET PO SCH ×2 (08:12→21:23)
[2018-11-24] MEDS: FOLIC ACID 1 MG TABLET PO SCH (08:12)
[2018-11-24] MEDS: DIGOXIN 0.125 MG TABLET PO SCH (08:12)
[2018-11-24] MEDS: HYDROCORTISONE 10 MG TABLET PO SCH (08:18)
[2018-11-24] MEDS: POLYETHYLENE GLYCOL POWDER 17 GM PACK PO SCH (08:19)
[2018-11-24] MEDS: CALCIUM ACETATE 667 MG CAPSULE PO SCH ×3 (08:19→17:00)
[2018-11-24] MEDS ORDERED: SODIUM CHLORIDE 0.9% 500 ML IV ONE (08:28)
[2018-11-24] MEDS ORDERED: LIDOCAINE 1% 20 ML VIAL ONE (09:51)
[2018-11-24] MEDS: diphenhydrAMINE CAP 25 MG CAPSULE PO PRN (21:26)
[2018-11-24] MEDS: MORPHINE 4 MG/1 ML VIAL IV PRN (21:26)
[2018-11-25] MEDS: PANTOPRAZOLE 40 MG VIAL IV SCH (00:13)
[2018-11-25 02:28] LABS: Hematocrit 26.2 VOL% (42.0-52.0); Hemoglobin 7.8 GM/DL (14.0-18.0); Immature Granulocytes % 1.2 %; Immature Granulocytes Absolute 0.09 #; Lymphocytes # 0.4 10*3/uL (1.4-4.0); Lymphocytes % 5.7 % (21.2-54.2); Mean Corpuscular HGB Conc 29.8 GM/DL (32-36); Mean Corpuscular Hemoglobin 27 PG (27-34); Mean Corpuscular Volume 89.4 FL (87-102); Mean Platelet Volume 10.8 FL (9.6-12.0); Monocytes # 0.6 10*3/uL (0.11-0.8); Monocytes % 7.5 % (1.7-12.7); NRBC # 0.34 10*3/uL; Neutrophils # 6.7 10*3/uL (1.4-7.4); Neutrophils % 85.6 % (38.7-73.9); Platelet Count 152 T/CUMM (130-400); Red Blood Count 2.93 MC/CUMM (3.8-5.5); Red Cell Distribution Width 16.8 % (9.3-17.3); White Blood Count 7.8 T/CUMM (4-12)
[2018-11-25] MEDS: PHENYLEPHRINE DRIP 40 MG/250 ML PREMIX IV SCH (02:30)
[2018-11-25 02:42] LABS: Calcium 8.3 MG/DL (8.5-10.1); Osmolality,Calculated 290.4 MOS/KG (273-304); Potassium 4.5 MMOL/L (3.5-5.1)
[2018-11-25] MEDS: HEPARIN 5,000 UNIT/1 ML VIAL SUBCUT SCH ×3 (02:44→18:17)
[2018-11-25] MEDS: HYDROCORTISONE 100 MG VIAL IV SCH ×3 (02:44→20:42)
[2018-11-25] MEDS: LEVOTHYROXINE 100 MCG TABLET PO SCH (06:31)
[2018-11-25] MEDS: CALCIUM ACETATE 667 MG CAPSULE PO SCH ×4 (13:25→18:16)
[2018-11-25] MEDS: POLYETHYLENE GLYCOL POWDER 17 GM PACK PO SCH (13:30)
[2018-11-25] MEDS: HYDROCORTISONE 10 MG TABLET PO SCH (13:30)
[2018-11-25] MEDS: DIGOXIN 0.125 MG TABLET PO SCH (13:32)
[2018-11-25] MEDS: FOLIC ACID 1 MG TABLET PO SCH (13:32)
[2018-11-25] MEDS: MEGESTROL 40 MG TABLET PO SCH ×2 (13:32→20:42)
[2018-11-25] MEDS: PANTOPRAZOLE 40 MG TABLET PO SCH (13:33)
[2018-11-25] MEDS ORDERED: SIMETHICONE CHEW 80 MG TABLET PO PRN (16:40)
[2018-11-25] MEDS: MORPHINE 4 MG/1 ML VIAL IV PRN (22:07)
[2018-11-25] MEDS: diphenhydrAMINE CAP 25 MG CAPSULE PO PRN (22:11)
[2018-11-26] MEDS: LEVOFLOXACIN INJ 750 MG in PREMIX 1 EACH IV SCH (01:20)
[2018-11-26] MEDS: HEPARIN 5,000 UNIT/1 ML VIAL SUBCUT SCH ×3 (01:21→17:12)
[2018-11-26 02:52] LABS: Basophils % 0.2 % (0.0-0.8); Hematocrit 22.9 VOL% (42.0-52.0); Hemoglobin 6.7 GM/DL (14.0-18.0); Immature Granulocytes % 1.4 %; Immature Granulocytes Absolute 0.08 #; Lymphocytes # 0.2 10*3/uL (1.4-4.0); Lymphocytes % 3.6 % (21.2-54.2); Mean Corpuscular HGB Conc 29.3 GM/DL (32-36); Mean Corpuscular Hemoglobin 26 PG (27-34); Mean Corpuscular Volume 89.8 FL (87-102); Mean Platelet Volume 11.3 FL (9.6-12.0); Monocytes # 0.4 10*3/uL (0.11-0.8); Monocytes % 6.1 % (1.7-12.7); NRBC # 0.29 10*3/uL; Neutrophils # 5.3 10*3/uL (1.4-7.4); Neutrophils % 88.7 % (38.7-73.9); Platelet Count 129 T/CUMM (130-400); Red Blood Count 2.55 MC/CUMM (3.8-5.5); Red Cell Distribution Width 17.2 % (9.3-17.3); White Blood Count 5.9 T/CUMM (4-12)
[2018-11-26 03:08] LABS: Calcium 7.6 MG/DL (8.5-10.1); Osmolality,Calculated 295.5 MOS/KG (273-304); Potassium 4.5 MMOL/L (3.5-5.1)
[2018-11-26] MEDS ORDERED: SODIUM CHLORIDE 0.9% 1,000 ML IV PRN (03:20)
[2018-11-26] MEDS ORDERED: DEXTROSE 50% 25 GM/50 ML SYRINGE IV PRN (03:25)
[2018-11-26] MEDS ORDERED: GLUCAGON 1 MG VIAL IM PRN (03:25)
[2018-11-26 03:28] LABS: Platelet Estimate Decreased
[2018-11-26 03:29] LABS: Hypochromasia Slight; Ovalocytes Few; Polychromasia Few; Target Cells Few
[2018-11-26] MEDS: INSULIN REGULAR 100 UNIT/ML SUBCUT SCH ×5 (03:47→21:00)
[2018-11-26] MEDS: LEVOTHYROXINE 100 MCG TABLET PO SCH (05:42)
[2018-11-26] MEDS ORDERED: VANCOMYCIN INJ 750 MG in SODIUM CHLORIDE 0.9% 250 ML IV PRN (08:18)
[2018-11-26] MEDS: CALCIUM ACETATE 667 MG CAPSULE PO SCH ×3 (11:16→17:13)
[2018-11-26] MEDS: HYDROCORTISONE 10 MG TABLET PO SCH (11:16)
[2018-11-26] MEDS: FOLIC ACID 1 MG TABLET PO SCH (11:16)
[2018-11-26] MEDS: DIGOXIN 0.125 MG TABLET PO SCH (11:16)
[2018-11-26] MEDS: PANTOPRAZOLE 40 MG TABLET PO SCH (11:17)
[2018-11-26] MEDS: HYDROCORTISONE 100 MG VIAL IV SCH ×2 (11:18→21:00)
[2018-11-26 11:23] LABS: Hemoglobin 9.3 GM/DL (14.0-18.0)
[2018-11-26] MEDS: POLYETHYLENE GLYCOL POWDER 17 GM PACK PO SCH (11:29)
[2018-11-26] MEDS: MEGESTROL 40 MG TABLET PO SCH ×2 (11:51→20:57)
[2018-11-26] MEDS: MORPHINE 4 MG/1 ML VIAL IV PRN ×2 (16:00→20:58)
[2018-11-26] MEDS ORDERED: VANCOMYCIN INJ 750 MG in SODIUM CHLORIDE 0.9% 250 ML IV ONE (17:00)
[2018-11-27] MEDS: HEPARIN 5,000 UNIT/1 ML VIAL SUBCUT SCH ×3 (00:39→16:54)
[2018-11-27] MEDS: diphenhydrAMINE CAP 25 MG CAPSULE PO PRN (00:39)
[2018-11-27 04:18] LABS: Basophils % 0.1 % (0.0-0.8); Hematocrit 30.6 VOL% (42.0-52.0); Hemoglobin 9.7 GM/DL (14.0-18.0); Immature Granulocytes % 3.4 %; Immature Granulocytes Absolute 0.27 #; Lymphocytes # 0.5 10*3/uL (1.4-4.0); Mean Corpuscular HGB Conc 31.7 GM/DL (32-36); Mean Corpuscular Hemoglobin 28 PG (27-34); Mean Corpuscular Volume 87.4 FL (87-102); Mean Platelet Volume 11.4 FL (9.6-12.0); Monocytes # 0.5 10*3/uL (0.11-0.8); Monocytes % 6.5 % (1.7-12.7); NRBC # 0.19 10*3/uL; Neutrophils # 6.7 10*3/uL (1.4-7.4); Platelet Count 121 T/CUMM (130-400); Red Cell Distribution Width 16.6 % (9.3-17.3)
[2018-11-27 04:49] LABS: Calcium 8.1 MG/DL (8.5-10.1); Osmolality,Calculated 287.4 MOS/KG (273-304); Potassium 4.8 MMOL/L (3.5-5.1)
[2018-11-27] MEDS: LEVOTHYROXINE 100 MCG TABLET PO SCH (06:02)
[2018-11-27] MEDS: INSULIN REGULAR 100 UNIT/ML SUBCUT SCH ×4 (08:22→21:51)
[2018-11-27] MEDS: HYDROCORTISONE 10 MG TABLET PO SCH (08:23)
[2018-11-27] MEDS: FOLIC ACID 1 MG TABLET PO SCH (08:23)
[2018-11-27] MEDS: DIGOXIN 0.125 MG TABLET PO SCH (08:23)
[2018-11-27] MEDS: CALCIUM ACETATE 667 MG CAPSULE PO SCH ×4 (08:23→18:35)
[2018-11-27] MEDS: PANTOPRAZOLE 40 MG TABLET PO SCH (08:24)
[2018-11-27] MEDS: HYDROCORTISONE 100 MG VIAL IV SCH ×2 (08:24→21:47)
[2018-11-27] MEDS: MORPHINE 4 MG/1 ML VIAL IV PRN ×2 (08:24→15:30)
[2018-11-27] MEDS: POLYETHYLENE GLYCOL POWDER 17 GM PACK PO SCH (08:34)
[2018-11-27] MEDS: MEGESTROL 40 MG TABLET PO SCH ×2 (08:35→21:45)
[2018-11-27] MEDS: FAMOTIDINE 20 MG TABLET PO SCH (10:45)
[2018-11-27] MEDS: hydrALAZINE 25 MG TABLET PO SCH ×2 (15:30→21:45)
[2018-11-27] MEDS: CARVEDILOL 6.25 MG TABLET PO SCH (16:55)
[2018-11-27] MEDS ORDERED: ATORVASTATIN 40 MG TABLET PO SCH (21:00)
[2018-11-28] MEDS: HEPARIN 5,000 UNIT/1 ML VIAL SUBCUT SCH ×2 (01:23→12:30)
[2018-11-28] MEDS: LEVOFLOXACIN INJ 750 MG in PREMIX 1 EACH IV SCH (01:26)
[2018-11-28] MEDS: diphenhydrAMINE CAP 25 MG CAPSULE PO PRN (04:35)
[2018-11-28 05:28] LABS: Basophils % 0.3 % (0.0-0.8); Eosinophils % 0.1 % (0.00-10.9); Hematocrit 33.4 VOL% (42.0-52.0); Hemoglobin 10.4 GM/DL (14.0-18.0); Immature Granulocytes % 3.3 %; Immature Granulocytes Absolute 0.29 #; Lymphocytes # 0.7 10*3/uL (1.4-4.0); Lymphocytes % 7.6 % (21.2-54.2); Mean Corpuscular HGB Conc 31.1 GM/DL (32-36); Mean Corpuscular Hemoglobin 28 PG (27-34); Mean Corpuscular Volume 88.8 FL (87-102); Mean Platelet Volume 11.1 FL (9.6-12.0); Monocytes # 0.6 10*3/uL (0.11-0.8); Monocytes % 6.8 % (1.7-12.7); NRBC # 0.12 10*3/uL; Neutrophils # 7.1 10*3/uL (1.4-7.4); Neutrophils % 81.9 % (38.7-73.9); Platelet Count 100 T/CUMM (130-400); Red Blood Count 3.76 MC/CUMM (3.8-5.5); Red Cell Distribution Width 17.2 % (9.3-17.3); White Blood Count 8.7 T/CUMM (4-12)
[2018-11-28 05:29] LABS: Calcium 8.1 MG/DL (8.5-10.1); Osmolality,Calculated 299.1 MOS/KG (273-304); Potassium 4.8 MMOL/L (3.5-5.1)
[2018-11-28] MEDS: LEVOTHYROXINE 100 MCG TABLET PO SCH (06:09)
[2018-11-28 06:51] LABS: Anisocytosis Slight; Macrocytosis Slight; Ovalocytes Few; Platelet Estimate Decreased; Polychromasia Few
[2018-11-28] MEDS: INSULIN REGULAR 100 UNIT/ML SUBCUT SCH ×2 (08:00→12:40)
[2018-11-28] MEDS ORDERED: ISOSORBIDE MONONITRATE 30 MG TABLET PO SCH (09:00)
[2018-11-28] MEDS ORDERED: ASPIRIN 325 MG TABLET PO SCH (09:00)
[2018-11-28] MEDS ORDERED: CARVEDILOL 25 MG TABLET PO SCH (11:00)
[2018-11-28] MEDS ORDERED: VANCOMYCIN INJ 750 MG in SODIUM CHLORIDE 0.9% 250 ML IV ONE (12:00)
[2018-11-28] MEDS: CALCIUM ACETATE 667 MG CAPSULE PO SCH ×2 (12:28)
[2018-11-28] MEDS: DIGOXIN 0.125 MG TABLET PO SCH (12:28)
[2018-11-28] MEDS: HYDROCORTISONE 10 MG TABLET PO SCH (12:28)
[2018-11-28] MEDS: FAMOTIDINE 20 MG TABLET PO SCH (12:29)
[2018-11-28] MEDS: PANTOPRAZOLE 40 MG TABLET PO SCH (12:29)
[2018-11-28] MEDS: hydrALAZINE 25 MG TABLET PO SCH (12:29)
[2018-11-28] MEDS: MEGESTROL 40 MG TABLET PO SCH (12:29)
[2018-11-28] MEDS: POLYETHYLENE GLYCOL POWDER 17 GM PACK PO SCH (12:30)
[2018-11-28] MEDS: HYDROCORTISONE 100 MG VIAL IV SCH (12:41)
[2018-11-28] MEDS: FOLIC ACID 1 MG TABLET PO SCH (12:41)
[2018-11-28] MEDS: CARVEDILOL 6.25 MG TABLET PO SCH (12:53)
[2018-11-28 16:27] VITALS: BP 143/86
== END 2018-11-28 16:04 | disposition home or self-care (01) | DRG 981 ==
LOC: EDBD → EDUNIT# → N.ED 21:32 → N.EDINP 23:51 → SUATTDRO 23:51 → N.ICU 11-22 13:03 → N.2E 11-25 21:45
PROVIDERS: ADMIT Internal Medicine; ATTEND Internal Medicine

== ENCOUNTER 2018-12-03 07:05 | Inpatient (IN) ==
[2018-12-03 07:38] LABS: Hematocrit 35.2 VOL% (42.0-52.0); Hemoglobin 10.8 GM/DL (14.0-18.0)
[2018-12-03] MEDS ORDERED: SODIUM CHLORIDE 0.9% 250 ML IV SCH (08:00)
[2018-12-03] MEDS ORDERED: hydrALAZINE 25 MG TABLET PO STA (08:26)
[2018-12-03] MEDS ORDERED: CARVEDILOL 12.5 MG TABLET PO STA (08:26)
[2018-12-03] MEDS ORDERED: DIGOXIN 0.25 MG TABLET PO STA (08:26)
[2018-12-03] MEDS ORDERED: ISOSORBIDE MONONITRATE 30 MG TABLET PO STA (08:27)
[2018-12-03] MEDS ORDERED: CARVEDILOL 12.5 MG TABLET ONE (08:40)
[2018-12-03] MEDS ORDERED: PROPOFOL 200 MG/20 ML VIAL IV ONE (11:05)
[2018-12-03] MEDS ORDERED: SEVOFLURANE 1 UNIT/15 MINUTE INH ONE (11:05)
[2018-12-03] MEDS ORDERED: fentaNYL 100 MCG/2 ML VIAL ONE (11:06)
[2018-12-03] MEDS ORDERED: ETOMIDATE 40 MG/20 ML VIAL IV ONE (11:06)
[2018-12-03] MEDS ORDERED: PHENYLEPHRINE 1 MG/10 ML SYRINGE IV ONE (11:06)
[2018-12-03] MEDS ORDERED: ePHEDrine 50 MG/ML AMP ONE (11:06)
[2018-12-03] MEDS ORDERED: HYDROCORTISONE 100 MG VIAL ONE (11:06)
[2018-12-03] MEDS ORDERED: HYDROmorphone 2 MG/1 ML VIAL ONE (11:47)
[2018-12-03] MEDS ORDERED: HYDROmorphone 2 MG/1 ML VIAL IV PRN ×2 (11:50→17:50)
[2018-12-03] MEDS ORDERED: CALCIUM ACETATE 667 MG CAPSULE PO SCH (17:50)
[2018-12-03] MEDS ORDERED: PROMETHAZINE 25 MG/1 ML VIAL IM PRN (17:50)
[2018-12-03] MEDS ORDERED: KETOROLAC 15 MG/1 ML VIAL IV PRN (17:50)
[2018-12-03] MEDS ORDERED: GLUCAGON 1 MG VIAL IM PRN (17:50)
[2018-12-03] MEDS ORDERED: ONDANSETRON 4 MG/2 ML VIAL IV PRN (17:50)
[2018-12-03] MEDS ORDERED: DEXTROSE 50% 25 GM/50 ML SYRINGE IV PRN (17:50)
[2018-12-03] MEDS: INSULIN REGULAR 100 UNIT/ML SUBCUT SCH ×2 (18:26→21:38)
[2018-12-03] MEDS: GABAPENTIN 100 MG CAPSULE PO SCH ×2 (18:28→20:48)
[2018-12-03] MEDS: hydrALAZINE 25 MG TABLET PO SCH ×2 (18:28→20:48)
[2018-12-03] MEDS: CALCIUM ACETATE 667 MG CAPSULE PO SCH (18:30)
[2018-12-03 18:56] LABS: Basophils % 0.1 % (0.0-0.8); Hematocrit 37.5 VOL% (42.0-52.0); Hemoglobin 11.8 GM/DL (14.0-18.0); Immature Granulocytes % 0.9 %; Lymphocytes # 0.5 10*3/uL (1.4-4.0); Lymphocytes % 4.5 % (21.2-54.2); Mean Corpuscular HGB Conc 31.5 GM/DL (32-36); Mean Corpuscular Volume 89.3 FL (87-102); Mean Platelet Volume 11.7 FL (9.6-12.0); Monocytes % 5.6 % (1.7-12.7); NRBC # 0.02 10*3/uL; Neutrophils % 88.9 % (38.7-73.9); Platelet Count 88 T/CUMM (130-400); Red Cell Distribution Width 21.2 % (9.3-17.3); White Blood Count 10.8 T/CUMM (4-12)
[2018-12-03 19:05] LABS: Calcium 7.7 MG/DL (8.5-10.1); Osmolality,Calculated 294.7 MOS/KG (273-304)
[2018-12-03 19:23] LABS: Giant Platelets Few; Platelet Estimate Decreased; Polychromasia Few
[2018-12-03 19:24] LABS: Hypochromasia Slight
[2018-12-03] MEDS ORDERED: SIMETHICONE CHEW 80 MG TABLET PO ONE (20:14)
[2018-12-03] MEDS: ATORVASTATIN 40 MG TABLET PO SCH (20:47)
[2018-12-03] MEDS: MEGESTROL 40 MG TABLET PO SCH (20:48)
[2018-12-03] MEDS: FAMOTIDINE 20 MG TABLET PO SCH (20:48)
[2018-12-03] MEDS: GENTAMICIN 0.1% CREAM 15 GM TUBE TOP SCH (20:48)
[2018-12-03] MEDS: CARVEDILOL 25 MG TABLET PO SCH (20:48)
[2018-12-03] MEDS: DOCUSATE SODIUM 100 MG CAPSULE PO SCH (20:49)
[2018-12-04 05:21] LABS: Basophils % 0.2 % (0.0-0.8); Eosinophils % 0.4 % (0.00-10.9); Hematocrit 34.6 VOL% (42.0-52.0); Hemoglobin 10.4 GM/DL (14.0-18.0); Immature Granulocytes Absolute 0.11 #; Lymphocytes # 1.1 10*3/uL (1.4-4.0); Lymphocytes % 10.7 % (21.2-54.2); Mean Corpuscular HGB Conc 30.1 GM/DL (32-36); Mean Platelet Volume 12.2 FL (9.6-12.0); NRBC # 0.02 10*3/uL; Neutrophils % 73.7 % (38.7-73.9); Platelet Count 93 T/CUMM (130-400); Red Blood Count 3.76 MC/CUMM (3.8-5.5); Red Cell Distribution Width 21.2 % (9.3-17.3); White Blood Count 10.7 T/CUMM (4-12)
[2018-12-04] MEDS: LEVOTHYROXINE 75 MCG TABLET PO SCH (05:45)
[2018-12-04 05:46] LABS: Calcium 7.8 MG/DL (8.5-10.1); Osmolality,Calculated 294.4 MOS/KG (273-304)
[2018-12-04 06:42] LABS: Anisocytosis 1+; Microcytosis Slight
[2018-12-04 06:43] LABS: Ovalocytes Slight
[2018-12-04 06:44] LABS: Platelet Estimate Decreased
[2018-12-04] MEDS: INSULIN REGULAR 100 UNIT/ML SUBCUT SCH ×4 (08:00→21:30)
[2018-12-04] MEDS: CALCIUM ACETATE 667 MG CAPSULE PO SCH ×3 (09:37→16:49)
[2018-12-04] MEDS: hydrALAZINE 25 MG TABLET PO SCH ×3 (09:38→21:31)
[2018-12-04] MEDS: FOLIC ACID 1 MG TABLET PO SCH (09:38)
[2018-12-04] MEDS: MULTIVITAMIN (BEROCCA) TABLET PO SCH (09:38)
[2018-12-04] MEDS: GABAPENTIN 100 MG CAPSULE PO SCH ×3 (09:39→21:31)
[2018-12-04] MEDS: ASPIRIN 325 MG TABLET PO SCH (09:39)
[2018-12-04] MEDS: HYDROXYCHLOROQUINE 200 MG TABLET PO SCH (09:39)
[2018-12-04] MEDS: MEGESTROL 40 MG TABLET PO SCH ×2 (09:40→21:31)
[2018-12-04] MEDS: FAMOTIDINE 20 MG TABLET PO SCH ×2 (09:40→21:31)
[2018-12-04] MEDS: CARVEDILOL 25 MG TABLET PO SCH ×2 (09:40→21:30)
[2018-12-04] MEDS: HYDROCORTISONE 10 MG TABLET PO SCH (09:40)
[2018-12-04] MEDS: ISOSORBIDE MONONITRATE 30 MG TABLET PO SCH (09:40)
[2018-12-04] MEDS: POLYETHYLENE GLYCOL POWDER 17 GM PACK PO SCH (09:42)
[2018-12-04] MEDS: DOCUSATE SODIUM 100 MG CAPSULE PO SCH ×2 (09:45→21:30)
[2018-12-04] MEDS ORDERED: TUBERCULIN SKIN TEST 0.1 ML SYRINGE INTRADERM ONE (10:30)
[2018-12-04] MEDS: DIGOXIN 0.125 MG TABLET PO SCH (12:51)
[2018-12-04] MEDS: SKIN HEALING OINT (AQUAPHOR) 50 GM TUBE TOP SCH (17:03)
[2018-12-04] MEDS: ATORVASTATIN 40 MG TABLET PO SCH (21:31)
[2018-12-05] MEDS: GENTAMICIN 0.1% CREAM 15 GM TUBE TOP SCH ×2 (03:43→23:53)
[2018-12-05] MEDS: LEVOTHYROXINE 75 MCG TABLET PO SCH (06:50)
[2018-12-05] MEDS: INSULIN REGULAR 100 UNIT/ML SUBCUT SCH ×4 (08:00→22:09)
[2018-12-05] MEDS: CALCIUM ACETATE 667 MG CAPSULE PO SCH ×3 (13:00→18:00)
[2018-12-05] MEDS: ASPIRIN 325 MG TABLET PO SCH (13:19)
[2018-12-05] MEDS: SKIN HEALING OINT (AQUAPHOR) 50 GM TUBE TOP SCH (13:19)
[2018-12-05] MEDS: DOCUSATE SODIUM 100 MG CAPSULE PO SCH ×2 (13:19→22:09)
[2018-12-05] MEDS: hydrALAZINE 25 MG TABLET PO SCH ×3 (13:19→22:09)
[2018-12-05] MEDS: MULTIVITAMIN (BEROCCA) TABLET PO SCH (13:19)
[2018-12-05] MEDS: CARVEDILOL 25 MG TABLET PO SCH ×2 (13:20→22:09)
[2018-12-05] MEDS: HYDROCORTISONE 10 MG TABLET PO SCH (13:20)
[2018-12-05] MEDS: ISOSORBIDE MONONITRATE 30 MG TABLET PO SCH (13:21)
[2018-12-05] MEDS: FOLIC ACID 1 MG TABLET PO SCH (13:21)
[2018-12-05] MEDS: POLYETHYLENE GLYCOL POWDER 17 GM PACK PO SCH (13:21)
[2018-12-05] MEDS: GABAPENTIN 100 MG CAPSULE PO SCH ×3 (13:21→22:09)
[2018-12-05] MEDS: FAMOTIDINE 20 MG TABLET PO SCH ×2 (13:21→22:09)
[2018-12-05] MEDS: MEGESTROL 40 MG TABLET PO SCH ×2 (13:21→22:10)
[2018-12-05] MEDS: HYDROXYCHLOROQUINE 200 MG TABLET PO SCH (13:21)
[2018-12-05] MEDS: DIGOXIN 0.125 MG TABLET PO SCH (14:00)
[2018-12-05] MEDS: ATORVASTATIN 40 MG TABLET PO SCH (22:09)
[2018-12-06] MEDS: LEVOTHYROXINE 75 MCG TABLET PO SCH (06:20)
[2018-12-06] MEDS: INSULIN REGULAR 100 UNIT/ML SUBCUT SCH ×2 (08:30→12:30)
[2018-12-06] MEDS: CALCIUM ACETATE 667 MG CAPSULE PO SCH ×2 (09:00→13:00)
[2018-12-06] MEDS: FAMOTIDINE 20 MG TABLET PO SCH (09:17)
[2018-12-06] MEDS: MULTIVITAMIN (BEROCCA) TABLET PO SCH (09:17)
[2018-12-06] MEDS: FOLIC ACID 1 MG TABLET PO SCH (09:17)
[2018-12-06] MEDS: GABAPENTIN 100 MG CAPSULE PO SCH (09:17)
[2018-12-06] MEDS: HYDROCORTISONE 10 MG TABLET PO SCH (09:17)
[2018-12-06] MEDS: ISOSORBIDE MONONITRATE 30 MG TABLET PO SCH (09:17)
[2018-12-06] MEDS: HYDROXYCHLOROQUINE 200 MG TABLET PO SCH (09:17)
[2018-12-06] MEDS: MEGESTROL 40 MG TABLET PO SCH (09:17)
[2018-12-06] MEDS: ASPIRIN 325 MG TABLET PO SCH (09:17)
[2018-12-06] MEDS: DOCUSATE SODIUM 100 MG CAPSULE PO SCH (09:18)
[2018-12-06] MEDS: hydrALAZINE 25 MG TABLET PO SCH (09:18)
[2018-12-06] MEDS: CARVEDILOL 25 MG TABLET PO SCH (09:18)
[2018-12-06] MEDS: SKIN HEALING OINT (AQUAPHOR) 50 GM TUBE TOP SCH (09:18)
[2018-12-06] MEDS: POLYETHYLENE GLYCOL POWDER 17 GM PACK PO SCH (09:19)
[2018-12-06 12:04] VITALS: BP 147/87
[2018-12-06] MEDS: DIGOXIN 0.125 MG TABLET PO SCH (13:00)
== END 2018-12-06 14:00 | disposition home health service (06) | DRG 239 ==
LOC: N.SDSINP 07:05 → N.3E 16:27
PROVIDERS: ADMIT Surgery; ATTEND Surgery

== ENCOUNTER 2018-12-12 08:02 | Inpatient (IN) ==
[2018-12-12 09:23] LABS: Basophils % 0.4 % (0.0-0.8); Eosinophils # 0.2 10*3/uL (0.0-0.87); Eosinophils % 2.6 % (0.00-10.9); Hemoglobin 8.9 GM/DL (14.0-18.0); Immature Granulocytes % 0.3 %; Immature Granulocytes Absolute 0.03 #; Lymphocytes # 1.8 10*3/uL (1.4-4.0); Lymphocytes % 18.8 % (21.2-54.2); Mean Corpuscular HGB Conc 29.7 GM/DL (32-36); Mean Corpuscular Volume 92.9 FL (87-102); Mean Platelet Volume 11.3 FL (9.6-12.0); Monocytes % 9.5 % (1.7-12.7); Neutrophils % 68.4 % (38.7-73.9); Platelet Count 153 T/CUMM (130-400); Red Blood Count 3.23 MC/CUMM (3.8-5.5); White Blood Count 9.3 T/CUMM (4-12)
[2018-12-12 09:29] LABS: INR 1.1; PT Patient Result 11.4 SECS; Partial Thromboplastin Time 28.2 SECS (0-40)
[2018-12-12 09:34] LABS: Bilirubin,Total 0.5 MG/DL (0.2-1.0); Calcium 8.1 MG/DL (8.5-10.1); Osmolality,Calculated 293.8 MOS/KG (273-304); Total Protein 5.8 G/DL (6.4-8.3)
[2018-12-12] MEDS ORDERED: ONDANSETRON 4 MG/2 ML VIAL IV PRN (10:57)
[2018-12-12] MEDS ORDERED: PROMETHAZINE 25 MG/1 ML VIAL IM PRN (10:57)
[2018-12-12] MEDS ORDERED: PANTOPRAZOLE 40 MG TABLET PO SCH (11:00)
[2018-12-12] MEDS ORDERED: GLUCAGON 1 MG VIAL IM PRN (11:02)
[2018-12-12] MEDS: INSULIN LISPRO 100 UNIT/ML SUBCUT SCH ×3 (13:21→20:20)
[2018-12-12 13:38] LABS: Hematocrit 28.7 VOL% (42.0-52.0); Hemoglobin 8.4 GM/DL (14.0-18.0)
[2018-12-12] MEDS: PANTOPRAZOLE 40 MG VIAL IV SCH ×2 (13:48→21:05)
[2018-12-12] MEDS ORDERED: CALCIUM ACETATE 667 MG CAPSULE PO SCH (14:00)
[2018-12-12] MEDS ORDERED: VANCOMYCIN 1,000 MG VIAL IV SCH (14:00)
[2018-12-12] MEDS ORDERED: VANCOMYCIN INJ 750 MG in SODIUM CHLORIDE 0.9% 250 ML IV PRN (14:03)
[2018-12-12] MEDS: SKIN HEALING OINT (AQUAPHOR) 50 GM TUBE TOP SCH (14:51)
[2018-12-12] MEDS: MULTIVITAMIN (BEROCCA) TABLET PO SCH (14:51)
[2018-12-12] MEDS: FOLIC ACID 1 MG TABLET PO SCH (14:51)
[2018-12-12] MEDS: ISOSORBIDE MONONITRATE 30 MG TABLET PO SCH (16:01)
[2018-12-12] MEDS: GENTAMICIN 0.1% CREAM 15 GM TUBE TOP SCH ×2 (16:36→20:20)
[2018-12-12] MEDS ORDERED: SODIUM CHLORIDE 0.9% 1,000 ML IV PRN (16:41)
[2018-12-12 16:43] LABS: Hematocrit 26.8 VOL% (42.0-52.0); Hemoglobin 7.8 GM/DL (14.0-18.0)
[2018-12-12] MEDS: CALCIUM ACETATE 667 MG CAPSULE PO SCH (18:17)
[2018-12-12] MEDS ORDERED: DEXTROSE 50% 25 GM/50 ML SYRINGE IV ONE (20:05)
[2018-12-12] MEDS: DEXTROSE 50% 25 GM/50 ML VIAL IV PRN (20:08)
[2018-12-12] MEDS ORDERED: VANCOMYCIN INJ 750 MG in SODIUM CHLORIDE 0.9% 250 ML IV ONE (21:00)
[2018-12-12] MEDS: ATORVASTATIN 40 MG TABLET PO SCH (23:10)
[2018-12-13 02:42] LABS: Basophils % 0.5 % (0.0-0.8); Eosinophils # 0.3 10*3/uL (0.0-0.87); Eosinophils % 3.2 % (0.00-10.9); Hematocrit 34.1 VOL% (42.0-52.0); Hemoglobin 10.2 GM/DL (14.0-18.0); Immature Granulocytes % 0.3 %; Immature Granulocytes Absolute 0.02 #; Lymphocytes # 1.2 10*3/uL (1.4-4.0); Lymphocytes % 15.5 % (21.2-54.2); Mean Corpuscular HGB Conc 29.9 GM/DL (32-36); Mean Corpuscular Volume 90.7 FL (87-102); Mean Platelet Volume 11.1 FL (9.6-12.0); Monocytes % 10.4 % (1.7-12.7); Neutrophils % 70.1 % (38.7-73.9); Platelet Count 110 T/CUMM (130-400); Red Blood Count 3.76 MC/CUMM (3.8-5.5); Red Cell Distribution Width 17.2 % (9.3-17.3); White Blood Count 7.7 T/CUMM (4-12)
[2018-12-13 03:03] LABS: Calcium 8.1 MG/DL (8.5-10.1); Osmolality,Calculated 282.7 MOS/KG (273-304)
[2018-12-13] MEDS: LEVOTHYROXINE 75 MCG TABLET PO SCH (06:10)
[2018-12-13] MEDS: INSULIN LISPRO 100 UNIT/ML SUBCUT SCH ×4 (08:20→21:34)
[2018-12-13] MEDS: HYDROCORTISONE 10 MG TABLET PO SCH (09:19)
[2018-12-13] MEDS: GENTAMICIN 0.1% CREAM 15 GM TUBE TOP SCH (09:19)
[2018-12-13] MEDS: CALCIUM ACETATE 667 MG CAPSULE PO SCH ×3 (09:19→17:30)
[2018-12-13] MEDS: FOLIC ACID 1 MG TABLET PO SCH (09:19)
[2018-12-13] MEDS: SKIN HEALING OINT (AQUAPHOR) 50 GM TUBE TOP SCH (09:19)
[2018-12-13] MEDS: MULTIVITAMIN (BEROCCA) TABLET PO SCH (09:19)
[2018-12-13] MEDS: ISOSORBIDE MONONITRATE 30 MG TABLET PO SCH (09:20)
[2018-12-13] MEDS: PANTOPRAZOLE 40 MG VIAL IV SCH ×2 (09:20→21:35)
[2018-12-13 09:58] LABS: Hematocrit 32.1 VOL% (42.0-52.0); Hemoglobin 9.6 GM/DL (14.0-18.0)
[2018-12-13 18:36] LABS: Hematocrit 32.7 VOL% (42.0-52.0); Hemoglobin 9.8 GM/DL (14.0-18.0)
[2018-12-13] MEDS: DOCUSATE SODIUM 100 MG CAPSULE PO SCH (21:35)
[2018-12-13] MEDS: ATORVASTATIN 40 MG TABLET PO SCH (21:35)
[2018-12-14 02:53] LABS: Basophils % 0.3 % (0.0-0.8); Eosinophils % 0.3 % (0.00-10.9); Hematocrit 32.1 VOL% (42.0-52.0); Hemoglobin 9.5 GM/DL (14.0-18.0); Immature Granulocytes % 0.6 %; Immature Granulocytes Absolute 0.04 #; Lymphocytes # 0.9 10*3/uL (1.4-4.0); Lymphocytes % 13.9 % (21.2-54.2); Mean Corpuscular HGB Conc 29.6 GM/DL (32-36); Mean Corpuscular Volume 92.5 FL (87-102); Mean Platelet Volume 11.9 FL (9.6-12.0); Monocytes % 10.5 % (1.7-12.7); Neutrophils % 74.4 % (38.7-73.9); Platelet Count 108 T/CUMM (130-400); Red Blood Count 3.47 MC/CUMM (3.8-5.5); Red Cell Distribution Width 17.2 % (9.3-17.3); White Blood Count 6.7 T/CUMM (4-12)
[2018-12-14] MEDS: LEVOTHYROXINE 75 MCG TABLET PO SCH ×2 (07:17→07:45)
[2018-12-14] MEDS ORDERED: DEXTROSE 50% 25 GM/50 ML SYRINGE IV ONE (07:28)
[2018-12-14] MEDS: INSULIN LISPRO 100 UNIT/ML SUBCUT SCH ×4 (07:30→22:37)
[2018-12-14] MEDS: SKIN HEALING OINT (AQUAPHOR) 50 GM TUBE TOP SCH (08:00)
[2018-12-14] MEDS: CALCIUM ACETATE 667 MG CAPSULE PO SCH ×3 (08:00→18:00)
[2018-12-14 09:55] LABS: Hematocrit 30.6 VOL% (42.0-52.0); Hemoglobin 9.1 GM/DL (14.0-18.0)
[2018-12-14] MEDS ORDERED: VANCOMYCIN INJ 750 MG in SODIUM CHLORIDE 0.9% 250 ML IV ONE (14:00)
[2018-12-14] MEDS: MULTIVITAMIN (BEROCCA) TABLET PO SCH (14:18)
[2018-12-14] MEDS: HYDROCORTISONE 10 MG TABLET PO SCH (14:18)
[2018-12-14] MEDS: DOCUSATE SODIUM 100 MG CAPSULE PO SCH ×2 (14:18→22:36)
[2018-12-14] MEDS: PANTOPRAZOLE 40 MG VIAL IV SCH ×2 (14:18→22:37)
[2018-12-14] MEDS: ISOSORBIDE MONONITRATE 30 MG TABLET PO SCH (14:18)
[2018-12-14] MEDS: FOLIC ACID 1 MG TABLET PO SCH (14:18)
[2018-12-14] MEDS: ATORVASTATIN 40 MG TABLET PO SCH (22:36)
[2018-12-15] MEDS ORDERED: hydrALAZINE 20 MG/1 ML VIAL IV PRN (00:54)
[2018-12-15 05:13] LABS: Basophils % 0.3 % (0.0-0.8); Eosinophils # 0.1 10*3/uL (0.0-0.87); Eosinophils % 0.9 % (0.00-10.9); Hematocrit 31.4 VOL% (42.0-52.0); Hemoglobin 9.2 GM/DL (14.0-18.0); Immature Granulocytes % 0.4 %; Immature Granulocytes Absolute 0.03 #; Lymphocytes # 0.9 10*3/uL (1.4-4.0); Lymphocytes % 13.6 % (21.2-54.2); Mean Corpuscular HGB Conc 29.3 GM/DL (32-36); Mean Corpuscular Volume 93.2 FL (87-102); Mean Platelet Volume 11.3 FL (9.6-12.0); Monocytes % 9.8 % (1.7-12.7); Platelet Count 102 T/CUMM (130-400); Red Blood Count 3.37 MC/CUMM (3.8-5.5); Red Cell Distribution Width 16.8 % (9.3-17.3); White Blood Count 6.8 T/CUMM (4-12)
[2018-12-15 05:41] LABS: Calcium 8.3 MG/DL (8.5-10.1)
[2018-12-15] MEDS: LEVOTHYROXINE 75 MCG TABLET PO SCH (06:02)
[2018-12-15] MEDS: INSULIN LISPRO 100 UNIT/ML SUBCUT SCH ×4 (07:30→21:39)
[2018-12-15] MEDS: CALCIUM ACETATE 667 MG CAPSULE PO SCH ×3 (09:55→17:19)
[2018-12-15] MEDS: HYDROCORTISONE 10 MG TABLET PO SCH (10:01)
[2018-12-15] MEDS: FOLIC ACID 1 MG TABLET PO SCH (10:01)
[2018-12-15] MEDS: ISOSORBIDE MONONITRATE 30 MG TABLET PO SCH (10:02)
[2018-12-15] MEDS: DOCUSATE SODIUM 100 MG CAPSULE PO SCH ×2 (10:02→21:39)
[2018-12-15] MEDS: MULTIVITAMIN (BEROCCA) TABLET PO SCH (10:02)
[2018-12-15] MEDS: PANTOPRAZOLE 40 MG VIAL IV SCH ×2 (10:04→21:39)
[2018-12-15] MEDS: SKIN HEALING OINT (AQUAPHOR) 50 GM TUBE TOP SCH (10:08)
[2018-12-15 14:20] LABS: Hematocrit 27.5 VOL% (42.0-52.0); Hemoglobin 8.1 GM/DL (14.0-18.0)
[2018-12-15 20:18] LABS: Hematocrit 23.2 VOL% (42.0-52.0); Hemoglobin 6.9 GM/DL (14.0-18.0)
[2018-12-15] MEDS ORDERED: SODIUM CHLORIDE 0.9% 1,000 ML IV PRN (20:29)
[2018-12-15] MEDS: ATORVASTATIN 40 MG TABLET PO SCH (21:39)
[2018-12-16] MEDS ORDERED: FUROSEMIDE 40 MG/4 ML VIAL IV ONE ×2 (04:13→05:06)
[2018-12-16] MEDS ORDERED: FUROSEMIDE 40 MG/4 ML VIAL ONE (04:16)
[2018-12-16] MEDS ORDERED: ETOMIDATE 20 MG/10 ML VIAL IV ONE ×2 (04:22→04:28)
[2018-12-16] MEDS ORDERED: PROPOFOL 1,000 MG/100 ML BOTTLE IV ONE (04:22)
[2018-12-16] MEDS ORDERED: NALOXONE 0.4 MG/ML VIAL ONE (04:26)
[2018-12-16] MEDS ORDERED: PROPOFOL 200 MG/20 ML VIAL IV ONE (04:29)
[2018-12-16] MEDS: PROPOFOL 1,000 MG/100 ML BOTTLE IV SCH ×3 (05:01→22:57)
[2018-12-16 05:22] LABS: ABG Base Excess 1.5 MMOL/L (-2.5-2.5); ABG HCO3 25.7 MMOL/L (20-26); ABG PCO2 47.7 MM HG (35-48); ABG PH 7.364 (7.35-7.45); ABG TCO2 25.3 MMOL/L (23-27)
[2018-12-16 05:24] LABS: Allen Test Positive; Pt O2 Delivery Device Ventilator
[2018-12-16 05:26] LABS: Basophils % 0.3 % (0.0-0.8); Eosinophils # 0.1 10*3/uL (0.0-0.87); Eosinophils % 0.8 % (0.00-10.9); Hematocrit 29.3 VOL% (42.0-52.0); Hemoglobin 8.8 GM/DL (14.0-18.0); Immature Granulocytes % 0.6 %; Immature Granulocytes Absolute 0.05 #; Lymphocytes # 0.8 10*3/uL (1.4-4.0); Lymphocytes % 8.5 % (21.2-54.2); Mean Corpuscular Volume 93.3 FL (87-102); Mean Platelet Volume 11.4 FL (9.6-12.0); Monocytes % 5.4 % (1.7-12.7); Neutrophils % 84.4 % (38.7-73.9); Platelet Count 129 T/CUMM (130-400); Red Blood Count 3.14 MC/CUMM (3.8-5.5); Red Cell Distribution Width 15.8 % (9.3-17.3)
[2018-12-16 05:38] LABS: Amorphous Crystals,Urine Occasional /HPF (Few); Apearance,Urine CLOUDY (Clear); Bilirubin,Urine Negative (Negative); Blood, Urine Moderate mg/dL (Negative); Glucose,Urine (UA) 50 mg/dL (Negative); Ketones,Urine Negative (Negative); Mucus,Urine Occasional /LPF (Occasional); Nitrite,Urine Negative (Negative); Protein,Urine >=500 MG/DL; RBC,Urine 13 /HPF (0-4); Urine Color Amber (Yellow); Urine Specific Gravity 1.013 (1.001-1.035); Urine Urobilinogen < 2.0 EU/DL (0.2-1.0); WBC,Urine 1 /HPF (0-6)
[2018-12-16] MEDS: LEVOTHYROXINE 75 MCG TABLET PO SCH (05:42)
[2018-12-16 05:59] LABS: Bilirubin,Total 0.5 MG/DL (0.2-1.0); CKMB % 13.8 %; Calcium 8.4 MG/DL (8.5-10.1); Total Protein 5.4 G/DL (6.4-8.3); Troponin I 0.036 NG/ML (0.00-0.045)
[2018-12-16] MEDS ORDERED: DEXTROSE 50% 25 GM/50 ML SYRINGE IV ONE ×3 (07:35→16:09)
[2018-12-16] MEDS: DEXTROSE 50% 25 GM/50 ML VIAL IV PRN ×3 (07:39→16:12)
[2018-12-16] MEDS: INSULIN LISPRO 100 UNIT/ML SUBCUT SCH ×5 (07:41→23:41)
[2018-12-16] MEDS: PANTOPRAZOLE 40 MG VIAL IV SCH ×2 (08:54→20:12)
[2018-12-16] MEDS: FOLIC ACID 1 MG TABLET PO SCH (08:54)
[2018-12-16] MEDS: MULTIVITAMIN (BEROCCA) TABLET PO SCH (08:54)
[2018-12-16] MEDS: DOCUSATE SODIUM 100 MG CAPSULE PO SCH ×2 (08:54→20:04)
[2018-12-16] MEDS: CALCIUM ACETATE 667 MG CAPSULE PO SCH ×3 (08:55→16:37)
[2018-12-16] MEDS: ISOSORBIDE MONONITRATE 30 MG TABLET PO SCH (08:55)
[2018-12-16] MEDS: HYDROCORTISONE 10 MG TABLET PO SCH (08:57)
[2018-12-16] MEDS: SKIN HEALING OINT (AQUAPHOR) 50 GM TUBE TOP SCH (13:46)
[2018-12-16] MEDS: CARVEDILOL 25 MG TABLET PO SCH ×2 (15:44→16:37)
[2018-12-16] MEDS: ATORVASTATIN 40 MG TABLET PO SCH (20:12)
[2018-12-17] MEDS: INSULIN LISPRO 100 UNIT/ML SUBCUT SCH ×5 (03:20→20:31)
[2018-12-17 04:33] LABS: ABG Base Excess 3.4 MMOL/L (-2.5-2.5); ABG HCO3 27.5 MMOL/L (20-26); ABG Oxygen Saturation 99.7 % (95-100); ABG PCO2 33.8 MM HG (35-48); ABG PH 7.503 (7.35-7.45); ABG TCO2 24.7 MMOL/L (23-27); Pt O2 Delivery Device Ventilator
[2018-12-17 05:07] LABS: Basophils % 0.1 % (0.0-0.8); Eosinophils # 0.2 10*3/uL (0.0-0.87); Eosinophils % 2.4 % (0.00-10.9); Hematocrit 23.9 VOL% (42.0-52.0); Hemoglobin 7.8 GM/DL (14.0-18.0); Immature Granulocytes % 0.3 %; Immature Granulocytes Absolute 0.02 #; Lymphocytes % 12.3 % (21.2-54.2); Mean Corpuscular HGB Conc 32.6 GM/DL (32-36); Mean Corpuscular Volume 87.5 FL (87-102); Mean Platelet Volume 11.8 FL (9.6-12.0); Monocytes % 7.9 % (1.7-12.7); Platelet Count 117 T/CUMM (130-400); Red Blood Count 2.73 MC/CUMM (3.8-5.5); Red Cell Distribution Width 16.3 % (9.3-17.3)
[2018-12-17] MEDS: PROPOFOL 1,000 MG/100 ML BOTTLE IV SCH ×3 (05:10→16:40)
[2018-12-17] MEDS: LEVOTHYROXINE 75 MCG TABLET PO SCH (06:06)
[2018-12-17] MEDS: SKIN HEALING OINT (AQUAPHOR) 50 GM TUBE TOP SCH (08:26)
[2018-12-17] MEDS ORDERED: DEXTROSE 50% 25 GM/50 ML SYRINGE IV ONE (10:06)
[2018-12-17] MEDS: DEXTROSE 50% 25 GM/50 ML SYRINGE IV PRN (10:09)
[2018-12-17] MEDS: CARVEDILOL 25 MG TABLET PO SCH ×3 (12:39→21:11)
[2018-12-17] MEDS: MULTIVITAMIN (BEROCCA) TABLET PO SCH (12:43)
[2018-12-17] MEDS: FOLIC ACID 1 MG TABLET PO SCH (12:43)
[2018-12-17] MEDS: DOCUSATE SODIUM 100 MG CAPSULE PO SCH ×2 (12:43→21:10)
[2018-12-17] MEDS: HYDROCORTISONE 10 MG TABLET PO SCH (12:43)
[2018-12-17] MEDS: CALCIUM ACETATE 667 MG CAPSULE PO SCH ×3 (12:44→16:58)
[2018-12-17] MEDS: PANTOPRAZOLE 40 MG VIAL IV SCH ×2 (12:44→21:10)
[2018-12-17] MEDS ORDERED: VANCOMYCIN INJ 750 MG in SODIUM CHLORIDE 0.9% 250 ML IV ONE (17:00)
[2018-12-17] MEDS ORDERED: PHENYLEPHRINE DRIP 40 MG/250 ML PREMIX IV ONE (20:12)
[2018-12-17] MEDS: PHENYLEPHRINE DRIP 40 MG/250 ML PREMIX IV PRN (20:15)
[2018-12-17] MEDS: ATORVASTATIN 40 MG TABLET PO SCH (21:10)
[2018-12-18] MEDS: INSULIN LISPRO 100 UNIT/ML SUBCUT SCH ×7 (00:17→23:47)
[2018-12-18] MEDS: PROPOFOL 1,000 MG/100 ML BOTTLE IV SCH ×2 (02:47→05:07)
[2018-12-18 03:55] LABS: ABG Base Excess 1.5 MMOL/L (-2.5-2.5); ABG HCO3 25.7 MMOL/L (20-26); ABG Oxygen Saturation 97.2 % (95-100); ABG PH 7.444 (7.35-7.45); ABG PO2 83.7 MM HG (80-95); ABG TCO2 22.9 MMOL/L (23-27); Allen Test Positive; Pt O2 Delivery Device Ventilator
[2018-12-18] MEDS: PHENYLEPHRINE DRIP 40 MG/250 ML PREMIX IV PRN ×3 (04:10→10:50)
[2018-12-18 04:38] LABS: Basophils % 0.2 % (0.0-0.8); Eosinophils # 0.1 10*3/uL (0.0-0.87); Eosinophils % 2.1 % (0.00-10.9); Hematocrit 30.8 VOL% (42.0-52.0); Hemoglobin 9.8 GM/DL (14.0-18.0); Immature Granulocytes % 0.8 %; Immature Granulocytes Absolute 0.04 #; Lymphocytes # 0.4 10*3/uL (1.4-4.0); Lymphocytes % 7.9 % (21.2-54.2); Mean Corpuscular HGB Conc 31.8 GM/DL (32-36); Mean Corpuscular Volume 89.5 FL (87-102); Mean Platelet Volume 11.8 FL (9.6-12.0); Monocytes % 13.2 % (1.7-12.7); Neutrophils % 75.8 % (38.7-73.9); Platelet Count 111 T/CUMM (130-400); Red Blood Count 3.44 MC/CUMM (3.8-5.5); Red Cell Distribution Width 15.5 % (9.3-17.3); White Blood Count 4.7 T/CUMM (4-12)
[2018-12-18 04:39] LABS: Calcium 7.8 MG/DL (8.5-10.1); Osmolality,Calculated 286.5 MOS/KG (273-304)
[2018-12-18 05:03] LABS: Eosinophils 3 % (0-10); Lymphocytes 9 % (20-55); Segmented Neutrophils 75 % (50-85); Total Cells Counted 100
[2018-12-18 05:04] LABS: Anisocytosis 1+; Hypochromasia 1+; Ovalocytes 1+; Platelet Estimate Decreased
[2018-12-18 05:07] LABS: Prealbumin 9.7 MG/DL (20-40)
[2018-12-18] MEDS ORDERED: METOPROLOL TARTRATE 50 MG TABLET PO ONE (05:40)
[2018-12-18] MEDS: LEVOTHYROXINE 75 MCG TABLET PO SCH (06:01)
[2018-12-18] MEDS ORDERED: SODIUM CHLORIDE 0.9% 500 ML IV ONE (08:20)
[2018-12-18] MEDS ORDERED: HEPARIN/NACL 0.9% 2 UNITS/ML 500 ML IV ONE (09:02)
[2018-12-18] MEDS: HYDROCORTISONE 100 MG VIAL IV SCH ×2 (09:49→17:16)
[2018-12-18] MEDS: PANTOPRAZOLE 40 MG VIAL IV SCH ×2 (09:49→20:39)
[2018-12-18] MEDS: CARVEDILOL 25 MG TABLET PO SCH (09:50)
[2018-12-18] MEDS: DOCUSATE SODIUM 100 MG CAPSULE PO SCH ×2 (09:50→20:11)
[2018-12-18] MEDS: CALCIUM ACETATE 667 MG CAPSULE PO SCH ×3 (09:50→17:16)
[2018-12-18] MEDS: SKIN HEALING OINT (AQUAPHOR) 50 GM TUBE TOP SCH (09:50)
[2018-12-18] MEDS: FOLIC ACID 1 MG TABLET PO SCH (09:50)
[2018-12-18] MEDS ORDERED: NOREPINEPHRINE 4 MG/4 ML VIAL IV ONE ×2 (10:39→10:41)
[2018-12-18] MEDS: NOREPINEPHRINE 8 MG in SODIUM CHLORIDE 0.9% 242 ML IV PRN (11:07)
[2018-12-18] MEDS: DESITIN 4OZ/NYSTATIN 15 GRAM MIXTURE PASTE TOP SCH ×2 (12:54→20:47)
[2018-12-18] MEDS: PHENYLEPHRINE INJ 160 MG in SODIUM CHLORIDE 0.9% 234 ML IV PRN (13:00)
[2018-12-18] MEDS: PIPERACILLIN/TAZOBACTAM 3,375 MG in SODIUM CHLORIDE 0.9% 100 ML IV SCH ×2 (15:41→23:28)
[2018-12-18] MEDS: DEXTROSE 50% 25 GM/50 ML SYRINGE IV PRN (15:59)
[2018-12-18] MEDS: ATORVASTATIN 40 MG TABLET PO SCH (20:39)
[2018-12-19] MEDS: PHENYLEPHRINE INJ 160 MG in SODIUM CHLORIDE 0.9% 234 ML IV PRN ×2 (00:03→04:50)
[2018-12-19] MEDS: HYDROCORTISONE 100 MG VIAL IV SCH ×3 (00:29→17:01)
[2018-12-19 04:49] LABS: ABG Base Excess 0.7 MMOL/L (-2.5-2.5); ABG HCO3 25.1 MMOL/L (20-26); ABG Oxygen Saturation 99.3 % (95-100); ABG PCO2 32.1 MM HG (35-48); ABG PH 7.477 (7.35-7.45); ABG TCO2 21.4 MMOL/L (23-27)
[2018-12-19] MEDS: PROPOFOL 1,000 MG/100 ML BOTTLE IV SCH (04:50)
[2018-12-19] MEDS: INSULIN LISPRO 100 UNIT/ML SUBCUT SCH ×6 (04:50→23:58)
[2018-12-19 05:02] LABS: Basophils % 0.4 % (0.0-0.8); Hematocrit 31.5 VOL% (42.0-52.0); Hemoglobin 9.9 GM/DL (14.0-18.0); Immature Granulocytes Absolute 0.08 #; Lymphocytes # 0.3 10*3/uL (1.4-4.0); Lymphocytes % 3.7 % (21.2-54.2); Mean Corpuscular HGB Conc 31.4 GM/DL (32-36); Mean Corpuscular Volume 89.2 FL (87-102); Mean Platelet Volume 11.5 FL (9.6-12.0); Monocytes % 9.9 % (1.7-12.7); Platelet Count 126 T/CUMM (130-400); Red Blood Count 3.53 MC/CUMM (3.8-5.5); Red Cell Distribution Width 15.9 % (9.3-17.3); White Blood Count 7.9 T/CUMM (4-12)
[2018-12-19 05:10] LABS: Calcium 8.3 MG/DL (8.5-10.1); Osmolality,Calculated 288.8 MOS/KG (273-304)
[2018-12-19 05:57] LABS: Band Neutrophils 14 % (0-10); Lymphocytes 5 % (20-55); Segmented Neutrophils 73 % (50-85); Total Cells Counted 100
[2018-12-19 05:58] LABS: Acanthocytes 1+; Anisocytosis 1+; Hypochromasia Slight; Platelet Estimate Adequate
[2018-12-19] MEDS: LEVOTHYROXINE 75 MCG TABLET PO SCH (06:33)
[2018-12-19] MEDS: PIPERACILLIN/TAZOBACTAM 3,375 MG in SODIUM CHLORIDE 0.9% 100 ML IV SCH ×3 (08:03→22:46)
[2018-12-19] MEDS: MIDAZOLAM 100 MG in SODIUM CHLORIDE 0.9% 80 ML IV PRN (08:24)
[2018-12-19] MEDS: CALCIUM ACETATE 667 MG CAPSULE PO SCH ×3 (08:24→17:01)
[2018-12-19] MEDS: PANTOPRAZOLE 40 MG VIAL IV SCH ×2 (08:25→20:16)
[2018-12-19] MEDS: FOLIC ACID 1 MG TABLET PO SCH (08:25)
[2018-12-19] MEDS: DESITIN 4OZ/NYSTATIN 15 GRAM MIXTURE PASTE TOP SCH ×2 (08:25→20:17)
[2018-12-19] MEDS: SKIN HEALING OINT (AQUAPHOR) 50 GM TUBE TOP SCH (08:25)
[2018-12-19] MEDS: DOCUSATE SODIUM 100 MG CAPSULE PO SCH ×2 (08:25→20:16)
[2018-12-19] MEDS: ALBUMIN 5% 12.5 GM in PREMIX 1 EACH IV SCH ×2 (09:33→17:00)
[2018-12-19] MEDS: LEVOFLOXACIN INJ 500 MG in PREMIX 1 EACH IV SCH (13:08)
[2018-12-19] MEDS: NOREPINEPHRINE 8 MG in SODIUM CHLORIDE 0.9% 242 ML IV PRN (14:46)
[2018-12-19] MEDS ORDERED: VANCOMYCIN INJ 750 MG in SODIUM CHLORIDE 0.9% 250 ML IV ONE (17:00)
[2018-12-19] MEDS: ATORVASTATIN 40 MG TABLET PO SCH (20:16)
[2018-12-20] MEDS: HYDROCORTISONE 100 MG VIAL IV SCH ×3 (01:31→17:16)
[2018-12-20] MEDS: ALBUMIN 5% 12.5 GM in PREMIX 1 EACH IV SCH ×3 (01:32→17:17)
[2018-12-20 04:06] LABS: Basophils % 0.1 % (0.0-0.8); Hematocrit 25.9 VOL% (42.0-52.0); Hemoglobin 8.1 GM/DL (14.0-18.0); Immature Granulocytes % 0.4 %; Immature Granulocytes Absolute 0.03 #; Lymphocytes # 0.4 10*3/uL (1.4-4.0); Lymphocytes % 4.9 % (21.2-54.2); Mean Corpuscular HGB Conc 31.3 GM/DL (32-36); Mean Corpuscular Volume 89.6 FL (87-102); Mean Platelet Volume 10.7 FL (9.6-12.0); Monocytes % 10.2 % (1.7-12.7); Neutrophils % 84.4 % (38.7-73.9); Platelet Count 107 T/CUMM (130-400); Red Blood Count 2.89 MC/CUMM (3.8-5.5); Red Cell Distribution Width 15.9 % (9.3-17.3); White Blood Count 7.1 T/CUMM (4-12)
[2018-12-20 04:07] LABS: ABG HCO3 25.3 MMOL/L (20-26); ABG Oxygen Saturation 99.6 % (95-100); ABG PCO2 35.5 MM HG (35-48); ABG PH 7.451 (7.35-7.45); ABG TCO2 22.9 MMOL/L (23-27)
[2018-12-20] MEDS: INSULIN LISPRO 100 UNIT/ML SUBCUT SCH ×5 (04:09→20:34)
[2018-12-20] MEDS: PROPOFOL 1,000 MG/100 ML BOTTLE IV SCH (04:19)
[2018-12-20 04:21] LABS: Calcium 8.6 MG/DL (8.5-10.1); Osmolality,Calculated 294.8 MOS/KG (273-304)
[2018-12-20 05:19] LABS: Band Neutrophils 5 % (0-10); Lymphocytes 9 % (20-55); Myelocytes 1 %; Segmented Neutrophils 71 % (50-85); Total Cells Counted 100
[2018-12-20 05:20] LABS: Anisocytosis 1+; Hypochromasia 1+; Platelet Estimate Adequate
[2018-12-20] MEDS: LEVOTHYROXINE 75 MCG TABLET PO SCH (05:40)
[2018-12-20] MEDS: PIPERACILLIN/TAZOBACTAM 3,375 MG in SODIUM CHLORIDE 0.9% 100 ML IV SCH ×2 (07:45→21:44)
[2018-12-20] MEDS: FOLIC ACID 1 MG TABLET PO SCH (08:13)
[2018-12-20] MEDS: CALCIUM ACETATE 667 MG CAPSULE PO SCH ×3 (08:13→17:17)
[2018-12-20] MEDS: PANTOPRAZOLE 40 MG VIAL IV SCH ×2 (08:13→22:16)
[2018-12-20] MEDS: SKIN HEALING OINT (AQUAPHOR) 50 GM TUBE TOP SCH (08:26)
[2018-12-20] MEDS: DESITIN 4OZ/NYSTATIN 15 GRAM MIXTURE PASTE TOP SCH ×2 (08:26→22:16)
[2018-12-20] MEDS: DOCUSATE SODIUM 100 MG CAPSULE PO SCH ×2 (08:27→22:10)
[2018-12-20] MEDS: ATORVASTATIN 40 MG TABLET PO SCH (22:16)
[2018-12-21] MEDS: INSULIN LISPRO 100 UNIT/ML SUBCUT SCH ×6 (00:52→20:40)
[2018-12-21] MEDS: HYDROCORTISONE 100 MG VIAL IV SCH ×3 (01:59→17:15)
[2018-12-21] MEDS: ALBUMIN 5% 12.5 GM in PREMIX 1 EACH IV SCH ×3 (02:00→17:16)
[2018-12-21 05:03] LABS: ABG Base Excess -0.5 MMOL/L (-2.5-2.5); ABG HCO3 24.1 MMOL/L (20-26); ABG Oxygen Saturation 99.4 % (95-100); ABG PCO2 38.4 MM HG (35-48); ABG PH 7.405 (7.35-7.45); ABG TCO2 22.2 MMOL/L (23-27)
[2018-12-21 05:22] LABS: Osmolality,Calculated 299.8 MOS/KG (273-304)
[2018-12-21 05:26] LABS: Basophils % 0.1 % (0.0-0.8); Hematocrit 25.1 VOL% (42.0-52.0); Hemoglobin 7.7 GM/DL (14.0-18.0); Immature Granulocytes % 0.7 %; Immature Granulocytes Absolute 0.06 #; Lymphocytes # 0.4 10*3/uL (1.4-4.0); Lymphocytes % 4.2 % (21.2-54.2); Mean Corpuscular HGB Conc 30.7 GM/DL (32-36); Mean Corpuscular Volume 90.6 FL (87-102); Mean Platelet Volume 11.1 FL (9.6-12.0); Platelet Count 103 T/CUMM (130-400); Red Blood Count 2.77 MC/CUMM (3.8-5.5); Red Cell Distribution Width 16.1 % (9.3-17.3); White Blood Count 8.6 T/CUMM (4-12)
[2018-12-21] MEDS: PROPOFOL 1,000 MG/100 ML BOTTLE IV SCH (05:37)
[2018-12-21 05:46] LABS: Hypochromasia 1+; Lymphocytes 11 % (20-55); Ovalocytes Slight; Platelet Estimate Decreased; Segmented Neutrophils 85 % (50-85); Total Cells Counted 100
[2018-12-21] MEDS ORDERED: CLINDAMYCIN INJ 900 MG in PREMIX 1 EACH IV ONE (06:00)
[2018-12-21] MEDS: LEVOTHYROXINE 75 MCG TABLET PO SCH (07:11)
[2018-12-21] MEDS: CALCIUM ACETATE 667 MG CAPSULE PO SCH ×3 (08:10→17:25)
[2018-12-21] MEDS: PIPERACILLIN/TAZOBACTAM 3,375 MG in SODIUM CHLORIDE 0.9% 100 ML IV SCH ×2 (08:10→20:48)
[2018-12-21] MEDS: ACETAMINOPHEN 325 MG TABLET PO PRN (08:40)
[2018-12-21] MEDS: PANTOPRAZOLE 40 MG VIAL IV SCH ×2 (08:40→20:41)
[2018-12-21] MEDS: FOLIC ACID 1 MG TABLET PO SCH (08:40)
[2018-12-21] MEDS: DOCUSATE SODIUM 100 MG CAPSULE PO SCH ×2 (08:40→20:41)
[2018-12-21] MEDS: SKIN HEALING OINT (AQUAPHOR) 50 GM TUBE TOP SCH (09:00)
[2018-12-21] MEDS: DESITIN 4OZ/NYSTATIN 15 GRAM MIXTURE PASTE TOP SCH ×2 (09:00→20:48)
[2018-12-21] MEDS ORDERED: BUPIVACAINE MPF 0.25% 30 ML VIAL ONE (09:09)
[2018-12-21] MEDS ORDERED: HEPARIN 5,000 UNIT/1 ML VIAL ONE (09:09)
[2018-12-21] MEDS ORDERED: LIDOCAINE 1% 20 ML VIAL ONE (09:09)
[2018-12-21] MEDS ORDERED: THROMBIN TOPICAL (RECOMBINANT) 5,000 UNIT VIAL TOP ONE (09:09)
[2018-12-21] MEDS ORDERED: MIDAZOLAM 10 MG/2 ML VIAL ONE (10:11)
[2018-12-21] MEDS ORDERED: fentaNYL 100 MCG/2 ML VIAL ONE (10:11)
[2018-12-21] MEDS ORDERED: CLINDAMYCIN INJ 50 ML IV ONE (10:23)
[2018-12-21] MEDS ORDERED: TISSUE ADHESIVE 1 EACH APPLICATOR TOP ONE (10:43)
[2018-12-21] MEDS ORDERED: SEVOFLURANE 1 UNIT/15 MINUTE INH ONE (11:26)
[2018-12-21] MEDS ORDERED: SODIUM CHLORIDE 0.9% 500 ML IV ONE (11:26)
[2018-12-21] MEDS ORDERED: PHENYLEPHRINE 1 MG/10 ML SYRINGE IV ONE (11:26)
[2018-12-21] MEDS ORDERED: ONDANSETRON 4 MG/2 ML VIAL ONE (11:26)
[2018-12-21] MEDS ORDERED: PHENYLEPHRINE 10 MG/1 ML VIAL IV ONE (11:26)
[2018-12-21] MEDS: MIDAZOLAM 100 MG in SODIUM CHLORIDE 0.9% 80 ML IV PRN (11:30)
[2018-12-21] MEDS: LEVOFLOXACIN INJ 500 MG in PREMIX 1 EACH IV SCH (12:50)
[2018-12-21] MEDS: hydrALAZINE 20 MG/1 ML VIAL IV PRN (17:20)
[2018-12-21] MEDS: CARVEDILOL 6.25 MG TABLET PO SCH (20:40)
[2018-12-21] MEDS: ATORVASTATIN 40 MG TABLET PO SCH (20:40)
[2018-12-22] MEDS: INSULIN LISPRO 100 UNIT/ML SUBCUT SCH ×6 (01:24→21:26)
[2018-12-22] MEDS: HYDROCORTISONE 100 MG VIAL IV SCH ×2 (01:25→08:15)
[2018-12-22] MEDS: PROPOFOL 1,000 MG/100 ML BOTTLE IV SCH (04:55)
[2018-12-22 05:01] LABS: Basophils % 0.2 % (0.0-0.8); Hematocrit 25.4 VOL% (42.0-52.0); Hemoglobin 7.8 GM/DL (14.0-18.0); Lymphocytes # 0.4 10*3/uL (1.4-4.0); Lymphocytes % 4.4 % (21.2-54.2); Mean Corpuscular HGB Conc 30.7 GM/DL (32-36); Mean Corpuscular Volume 91.4 FL (87-102); Mean Platelet Volume 11.7 FL (9.6-12.0); Monocytes % 7.3 % (1.7-12.7); Neutrophils % 87.1 % (38.7-73.9); Platelet Count 101 T/CUMM (130-400); Red Blood Count 2.78 MC/CUMM (3.8-5.5); Red Cell Distribution Width 16.1 % (9.3-17.3); White Blood Count 9.6 T/CUMM (4-12)
[2018-12-22 05:32] LABS: Calcium 8.4 MG/DL (8.5-10.1); Osmolality,Calculated 290.8 MOS/KG (273-304)
[2018-12-22 05:50] LABS: Band Neutrophils 14 % (0-10); Lymphocytes 6 % (20-55); Segmented Neutrophils 74 % (50-85)
[2018-12-22 05:51] LABS: Hypochromasia 1+; Platelet Estimate Decreased
[2018-12-22 05:52] LABS: Ovalocytes 1+; Total Cells Counted 100
[2018-12-22] MEDS: LEVOTHYROXINE 75 MCG TABLET PO SCH (06:02)
[2018-12-22 06:21] LABS: ABG Base Excess 3.2 MMOL/L (-2.5-2.5); ABG HCO3 27.3 MMOL/L (20-26); ABG PCO2 41.4 MM HG (35-48); ABG PH 7.434 (7.35-7.45); ABG TCO2 25.7 MMOL/L (23-27)
[2018-12-22] MEDS: DESITIN 4OZ/NYSTATIN 15 GRAM MIXTURE PASTE TOP SCH ×2 (07:30→21:35)
[2018-12-22] MEDS: SKIN HEALING OINT (AQUAPHOR) 50 GM TUBE TOP SCH (07:30)
[2018-12-22] MEDS ORDERED: PIPERACILLIN/TAZOBACTAM 3,375 MG in SODIUM CHLORIDE 0.9% 100 ML IV SCH (08:00)
[2018-12-22] MEDS: PIPERACILLIN/TAZOBACTAM 3,375 MG in SODIUM CHLORIDE 0.9% 100 ML IV SCH ×3 (08:00→21:26)
[2018-12-22] MEDS: PANTOPRAZOLE 40 MG VIAL IV SCH ×2 (08:10→21:27)
[2018-12-22] MEDS: FOLIC ACID 1 MG TABLET PO SCH (08:20)
[2018-12-22] MEDS: CALCIUM ACETATE 667 MG CAPSULE PO SCH ×3 (08:20→17:45)
[2018-12-22] MEDS: DOCUSATE SODIUM 100 MG CAPSULE PO SCH ×2 (08:20→21:27)
[2018-12-22] MEDS: CARVEDILOL 6.25 MG TABLET PO SCH ×2 (08:20→21:27)
[2018-12-22] MEDS ORDERED: VANCOMYCIN INJ 750 MG in SODIUM CHLORIDE 0.9% 250 ML IV ONE (09:00)
[2018-12-22] MEDS: ACETAMINOPHEN 325 MG TABLET PO PRN (17:45)
[2018-12-22] MEDS: ATORVASTATIN 40 MG TABLET PO SCH (21:27)
[2018-12-23] MEDS: ACETAMINOPHEN 325 MG TABLET PO PRN ×3 (00:50→21:52)
[2018-12-23] MEDS: INSULIN LISPRO 100 UNIT/ML SUBCUT SCH ×6 (01:28→21:51)
[2018-12-23] MEDS: PROPOFOL 1,000 MG/100 ML BOTTLE IV SCH (05:08)
[2018-12-23 05:10] LABS: Calcium 8.1 MG/DL (8.5-10.1); Osmolality,Calculated 295.7 MOS/KG (273-304)
[2018-12-23 06:24] LABS: Eosinophils % 0.5 % (0.00-10.9); Hematocrit 23.2 VOL% (42.0-52.0); Hemoglobin 7.1 GM/DL (14.0-18.0); Immature Granulocytes % 0.9 %; Immature Granulocytes Absolute 0.07 #; Lymphocytes # 0.9 10*3/uL (1.4-4.0); Lymphocytes % 10.7 % (21.2-54.2); Mean Corpuscular HGB Conc 30.6 GM/DL (32-36); Mean Corpuscular Volume 90.6 FL (87-102); Mean Platelet Volume 11.8 FL (9.6-12.0); Monocytes % 10.8 % (1.7-12.7); Neutrophils % 77.1 % (38.7-73.9); Red Blood Count 2.56 MC/CUMM (3.8-5.5); Red Cell Distribution Width 15.6 % (9.3-17.3); White Blood Count 8.1 T/CUMM (4-12)
[2018-12-23] MEDS: LEVOTHYROXINE 75 MCG TABLET PO SCH (06:24)
[2018-12-23 06:26] LABS: ABG Base Excess 3.2 MMOL/L (-2.5-2.5); ABG HCO3 27.3 MMOL/L (20-26); ABG Oxygen Saturation 98.8 % (95-100); ABG PCO2 44.7 MM HG (35-48); ABG PH 7.408 (7.35-7.45); ABG TCO2 26.5 MMOL/L (23-27)
[2018-12-23 06:37] LABS: Platelet Count 89 T/CUMM (130-400)
[2018-12-23 06:58] LABS: Anisocytosis 1+; Hypochromasia 1+; Microcytosis 1+
[2018-12-23 06:59] LABS: Platelet Estimate Decreased
[2018-12-23] MEDS: DOCUSATE SODIUM 100 MG CAPSULE PO SCH ×2 (08:48→21:51)
[2018-12-23] MEDS: CALCIUM ACETATE 667 MG CAPSULE PO SCH ×3 (08:50→17:28)
[2018-12-23] MEDS: PIPERACILLIN/TAZOBACTAM 3,375 MG in SODIUM CHLORIDE 0.9% 100 ML IV SCH ×2 (08:55→21:55)
[2018-12-23] MEDS ORDERED: predniSONE 20 MG TABLET PO SCH (09:00)
[2018-12-23] MEDS: FOLIC ACID 1 MG TABLET PO SCH (09:06)
[2018-12-23] MEDS: CARVEDILOL 6.25 MG TABLET PO SCH ×2 (09:06→21:53)
[2018-12-23] MEDS: PANTOPRAZOLE 40 MG VIAL IV SCH ×2 (09:07→21:53)
[2018-12-23] MEDS: DESITIN 4OZ/NYSTATIN 15 GRAM MIXTURE PASTE TOP SCH ×2 (09:14→21:55)
[2018-12-23] MEDS: SKIN HEALING OINT (AQUAPHOR) 50 GM TUBE TOP SCH (09:16)
[2018-12-23] MEDS: LEVOFLOXACIN INJ 500 MG in PREMIX 1 EACH IV SCH (12:42)
[2018-12-23] MEDS: MIDAZOLAM 100 MG in SODIUM CHLORIDE 0.9% 80 ML IV PRN (18:19)
[2018-12-23] MEDS: ATORVASTATIN 40 MG TABLET PO SCH (21:53)
[2018-12-24] MEDS: INSULIN LISPRO 100 UNIT/ML SUBCUT SCH ×7 (01:04→23:52)
[2018-12-24 04:04] LABS: ABG Base Excess 3.9 MMOL/L (-2.5-2.5); ABG Oxygen Saturation 98.3 % (95-100); ABG PCO2 39.8 MM HG (35-48); ABG PH 7.465 (7.35-7.45); ABG PO2 119.2 MM HG (80-95); ABG TCO2 29.2 MMOL/L (23-27)
[2018-12-24 04:28] LABS: Basophils % 0.1 % (0.0-0.8); Eosinophils % 0.4 % (0.00-10.9); Hematocrit 23.3 VOL% (42.0-52.0); Hemoglobin 7.1 GM/DL (14.0-18.0); Immature Granulocytes % 0.9 %; Immature Granulocytes Absolute 0.08 #; Mean Corpuscular HGB Conc 30.5 GM/DL (32-36); Mean Corpuscular Volume 91.4 FL (87-102); Mean Platelet Volume 11.2 FL (9.6-12.0); Monocytes % 6.7 % (1.7-12.7); Neutrophils % 80.9 % (38.7-73.9); Red Blood Count 2.55 MC/CUMM (3.8-5.5); Red Cell Distribution Width 15.5 % (9.3-17.3)
[2018-12-24 04:30] LABS: Platelet Count 76 T/CUMM (130-400)
[2018-12-24 04:46] LABS: Osmolality,Calculated 297.8 MOS/KG (273-304)
[2018-12-24] MEDS: PROPOFOL 1,000 MG/100 ML BOTTLE IV SCH (04:54)
[2018-12-24] MEDS: LEVOTHYROXINE 75 MCG TABLET PO SCH (05:30)
[2018-12-24] MEDS: hydrALAZINE 20 MG/1 ML VIAL IV PRN ×2 (05:30→16:10)
[2018-12-24] MEDS: FOLIC ACID 1 MG TABLET PO SCH (08:26)
[2018-12-24] MEDS: DOCUSATE SODIUM 100 MG CAPSULE PO SCH ×2 (08:26→20:27)
[2018-12-24] MEDS: CALCIUM ACETATE 667 MG CAPSULE PO SCH ×3 (08:26→16:45)
[2018-12-24] MEDS: predniSONE 20 MG TABLET PO SCH (08:26)
[2018-12-24] MEDS: PIPERACILLIN/TAZOBACTAM 3,375 MG in SODIUM CHLORIDE 0.9% 100 ML IV SCH ×2 (08:27→20:26)
[2018-12-24] MEDS: CARVEDILOL 6.25 MG TABLET PO SCH (08:27)
[2018-12-24] MEDS: PANTOPRAZOLE 40 MG VIAL IV SCH ×2 (08:27→20:26)
[2018-12-24] MEDS: DESITIN 4OZ/NYSTATIN 15 GRAM MIXTURE PASTE TOP SCH ×2 (08:34→20:27)
[2018-12-24] MEDS: SKIN HEALING OINT (AQUAPHOR) 50 GM TUBE TOP SCH (08:35)
[2018-12-24] MEDS ORDERED: CARVEDILOL 12.5 MG TABLET PO SCH (08:59)
[2018-12-24] MEDS: DIGOXIN 0.125 MG TABLET PO SCH (12:22)
[2018-12-24] MEDS: ISOSORBIDE MONONITRATE 30 MG TABLET PO SCH (12:23)
[2018-12-24] MEDS: hydrALAZINE 25 MG TABLET PO SCH ×2 (12:23→20:27)
[2018-12-24] MEDS: CARVEDILOL 12.5 MG TABLET PO SCH (16:45)
[2018-12-24] MEDS: ATORVASTATIN 40 MG TABLET PO SCH (20:27)
[2018-12-25] MEDS: INSULIN LISPRO 100 UNIT/ML SUBCUT SCH ×5 (04:02→20:23)
[2018-12-25] MEDS: PROPOFOL 1,000 MG/100 ML BOTTLE IV SCH (04:08)
[2018-12-25 04:34] LABS: Calcium 7.7 MG/DL (8.5-10.1); Osmolality,Calculated 291.7 MOS/KG (273-304)
[2018-12-25 04:35] LABS: Basophils % 0.1 % (0.0-0.8); Eosinophils # 0.2 10*3/uL (0.0-0.87); Eosinophils % 1.5 % (0.00-10.9); Hematocrit 31.8 VOL% (42.0-52.0); Hemoglobin 9.9 GM/DL (14.0-18.0); Immature Granulocytes % 1.3 %; Immature Granulocytes Absolute 0.18 #; Lymphocytes # 1.1 10*3/uL (1.4-4.0); Lymphocytes % 7.9 % (21.2-54.2); Mean Corpuscular HGB Conc 31.1 GM/DL (32-36); Mean Corpuscular Volume 89.6 FL (87-102); Mean Platelet Volume 10.6 FL (9.6-12.0); Neutrophils % 83.2 % (38.7-73.9); Platelet Count 85 T/CUMM (130-400); Red Blood Count 3.55 MC/CUMM (3.8-5.5); Red Cell Distribution Width 16.1 % (9.3-17.3); White Blood Count 13.6 T/CUMM (4-12)
[2018-12-25] MEDS: hydrALAZINE 20 MG/1 ML VIAL IV PRN ×2 (05:12→17:26)
[2018-12-25] MEDS: LEVOTHYROXINE 75 MCG TABLET PO SCH (05:30)
[2018-12-25] MEDS: FOLIC ACID 1 MG TABLET PO SCH (08:25)
[2018-12-25] MEDS: hydrALAZINE 25 MG TABLET PO SCH ×4 (08:25→20:23)
[2018-12-25] MEDS: predniSONE 20 MG TABLET PO SCH (08:25)
[2018-12-25] MEDS: DIGOXIN 0.125 MG TABLET PO SCH (08:25)
[2018-12-25] MEDS: ISOSORBIDE MONONITRATE 30 MG TABLET PO SCH (08:25)
[2018-12-25] MEDS: CALCIUM ACETATE 667 MG CAPSULE PO SCH ×3 (08:25→16:25)
[2018-12-25] MEDS: CARVEDILOL 12.5 MG TABLET PO SCH ×3 (08:25→16:24)
[2018-12-25] MEDS: DESITIN 4OZ/NYSTATIN 15 GRAM MIXTURE PASTE TOP SCH ×2 (08:26→20:23)
[2018-12-25] MEDS: PANTOPRAZOLE 40 MG VIAL IV SCH ×2 (08:45→20:22)
[2018-12-25] MEDS: SKIN HEALING OINT (AQUAPHOR) 50 GM TUBE TOP SCH (08:50)
[2018-12-25] MEDS: PIPERACILLIN/TAZOBACTAM 3,375 MG in SODIUM CHLORIDE 0.9% 100 ML IV SCH ×2 (08:52→20:21)
[2018-12-25 09:17] LABS: ABG Base Excess 1.7 MMOL/L (-2.5-2.5); ABG HCO3 25.9 MMOL/L (20-26); ABG Oxygen Saturation 96.3 % (95-100); ABG PCO2 60.8 MM HG (35-48); ABG PH 7.296 (7.35-7.45); ABG PO2 84.2 MM HG (80-95); ABG TCO2 26.9 MMOL/L (23-27); Allen Test Positive
[2018-12-25] MEDS: DOCUSATE SODIUM 100 MG CAPSULE PO SCH ×2 (09:58→20:22)
[2018-12-25] MEDS: LEVOFLOXACIN INJ 500 MG in PREMIX 1 EACH IV SCH (12:18)
[2018-12-25 19:21] LABS: Total Protein,Body Fluid 2.5 G/DL
[2018-12-25] MEDS: ATORVASTATIN 40 MG TABLET PO SCH (20:22)
[2018-12-25 21:04] LABS: Eosinophils,Pleural Fluid 1 %; Lymphocytes,Pleural Fluid 22 %; Monocytes,Pleural Fluid 6 %; Neutrophils,Pleural Fluid 71 %; RBC,Pleural Fluid 2709 T/CUMM
[2018-12-26] MEDS: INSULIN LISPRO 100 UNIT/ML SUBCUT SCH ×4 (00:39→14:56)
[2018-12-26] MEDS: LEVOTHYROXINE 75 MCG TABLET PO SCH (06:25)
[2018-12-26 06:32] VITALS: BP 137/74
[2018-12-26 06:32] LABS: Allen Test Positive; Pt O2 Delivery Device BIPAP
[2018-12-26 06:33] LABS: ABG Base Excess 2.9 MMOL/L (-2.5-2.5); ABG Oxygen Saturation 98.5 % (95-100); ABG PCO2 42.8 MM HG (35-48); ABG PH 7.419 (7.35-7.45); ABG TCO2 25.2 MMOL/L (23-27)
[2018-12-26] MEDS: DIGOXIN 0.125 MG TABLET PO SCH (09:13)
[2018-12-26] MEDS: CALCIUM ACETATE 667 MG CAPSULE PO SCH ×2 (09:13→14:55)
[2018-12-26] MEDS: CARVEDILOL 12.5 MG TABLET PO SCH (09:14)
[2018-12-26] MEDS: DOCUSATE SODIUM 100 MG CAPSULE PO SCH (09:15)
[2018-12-26] MEDS: predniSONE 20 MG TABLET PO SCH (09:15)
[2018-12-26] MEDS: ISOSORBIDE MONONITRATE 30 MG TABLET PO SCH (09:15)
[2018-12-26] MEDS: PIPERACILLIN/TAZOBACTAM 3,375 MG in SODIUM CHLORIDE 0.9% 100 ML IV SCH (09:16)
[2018-12-26] MEDS: FOLIC ACID 1 MG TABLET PO SCH (09:16)
[2018-12-26] MEDS: hydrALAZINE 25 MG TABLET PO SCH ×2 (09:16→16:32)
[2018-12-26] MEDS: PANTOPRAZOLE 40 MG VIAL IV SCH (09:18)
[2018-12-26] MEDS ORDERED: HEPARIN 10,000 UNIT/10 ML VIAL IV PRN (12:16)
[2018-12-26] MEDS ORDERED: EPOETIN ALFA 10,000 UNIT/1 ML VIAL IV PRN (12:19)
[2018-12-26] MEDS: SKIN HEALING OINT (AQUAPHOR) 50 GM TUBE TOP SCH (14:56)
[2018-12-26] MEDS: DESITIN 4OZ/NYSTATIN 15 GRAM MIXTURE PASTE TOP SCH (14:56)
[2018-12-26] MEDS ORDERED: PANTOPRAZOLE 40 MG TABLET PO SCH (21:00)
== END 2018-12-26 15:12 | DRG 981 ==
LOC: EDBD → EDUNIT# → N.ED 08:02 → SUATTDRO 10:57 → N.EDINP 10:57 → N.ICU 12:26 → N.TELES 12-14 14:42 → N.ICU 12-14 14:43 → N.5E 12-14 19:59 → N.ICU 12-16 04:36
PROVIDERS: ADMIT Family Medicine; ATTEND Internal Medicine
PROC: VAVDCFI (2018-12-21 09:56)
PROC: IRTHORA (2018-12-25 15:15)

== ENCOUNTER 2019-02-09 00:51 | Observation (INO) ==
[2019-02-09 01:32] LABS: Basophils % 0.2 % (0.0-0.8); Eosinophils % 0.2 % (0.00-10.9); Hematocrit 36.2 VOL% (42.0-52.0); Hemoglobin 10.9 GM/DL (14.0-18.0); Immature Granulocytes % 0.2 %; Immature Granulocytes Absolute 0.01 #; Lymphocytes # 0.9 10*3/uL (1.4-4.0); Lymphocytes % 19.1 % (21.2-54.2); Mean Corpuscular HGB Conc 30.1 GM/DL (32-36); Mean Corpuscular Volume 93.3 FL (87-102); Mean Platelet Volume 11.7 FL (9.6-12.0); Monocytes % 10.4 % (1.7-12.7); Neutrophils % 69.9 % (38.7-73.9); Platelet Count 70 T/CUMM (130-400); Red Blood Count 3.88 MC/CUMM (3.8-5.5); Red Cell Distribution Width 16.8 % (9.3-17.3); White Blood Count 4.6 T/CUMM (4-12)
[2019-02-09 01:58] LABS: Albumin 2.3 G/DL (3.4-5.0); Bilirubin,Total 0.5 MG/DL (0.2-1.0); Calcium 8.2 MG/DL (8.5-10.1); Osmolality,Calculated 279.7 MOS/KG (273-304); Total Protein 5.7 G/DL (6.4-8.3)
[2019-02-09] MEDS ORDERED: NITROGLYCERIN SL 0.4 MG TABLET SL PRN (04:03)
[2019-02-09] MEDS ORDERED: DEXTROSE 50% 25 GM/50 ML VIAL IV PRN (04:03)
[2019-02-09] MEDS ORDERED: GLUCAGON 1 MG VIAL IM PRN (04:03)
[2019-02-09] MEDS ORDERED: ONDANSETRON 4 MG/2 ML VIAL IV PRN (04:03)
[2019-02-09] MEDS: hydrALAZINE 20 MG/1 ML VIAL IV PRN ×2 (04:54→17:15)
[2019-02-09] MEDS: HEPARIN 5,000 UNIT/1 ML VIAL SUBCUT SCH ×3 (06:09→22:06)
[2019-02-09] MEDS: INSULIN LISPRO 100 UNIT/ML SUBCUT SCH ×4 (08:38→22:06)
[2019-02-09] MEDS: CLOPIDOGREL 75 MG TABLET PO SCH (09:40)
[2019-02-09] MEDS: ISOSORBIDE MONONITRATE 30 MG TABLET PO SCH (11:58)
[2019-02-09] MEDS: PANTOPRAZOLE 40 MG TABLET PO SCH ×2 (11:59→22:06)
[2019-02-09] MEDS: CARVEDILOL 25 MG TABLET PO SCH ×2 (12:00→17:24)
[2019-02-09] MEDS: ACETAMINOPHEN 325 MG TABLET PO PRN (14:34)
[2019-02-09] MEDS: DICLOFENAC 1% GEL 100 GM TUBE TOP PRN ×2 (15:13→22:05)
[2019-02-09] MEDS: ZINC OXIDE PASTE 113 GM TUBE TOP PRN (17:24)
[2019-02-09] MEDS: ATORVASTATIN 40 MG TABLET PO SCH (22:06)
[2019-02-09] MEDS ORDERED: ZALEPLON 5 MG CAPSULE PO PRN (22:37)
[2019-02-10 04:57] LABS: Basophils % 0.2 % (0.0-0.8); Eosinophils # 0.1 10*3/uL (0.0-0.87); Eosinophils % 1.1 % (0.00-10.9); Hematocrit 35.7 VOL% (42.0-52.0); Immature Granulocytes % 0.7 %; Immature Granulocytes Absolute 0.03 #; Lymphocytes # 1.2 10*3/uL (1.4-4.0); Lymphocytes % 27.1 % (21.2-54.2); Mean Corpuscular HGB Conc 30.8 GM/DL (32-36); Mean Corpuscular Volume 93.2 FL (87-102); Mean Platelet Volume 13.4 FL (9.6-12.0); Monocytes % 11.8 % (1.7-12.7); Neutrophils % 59.1 % (38.7-73.9); Platelet Count 80 T/CUMM (130-400); Red Blood Count 3.83 MC/CUMM (3.8-5.5); Red Cell Distribution Width 16.4 % (9.3-17.3); White Blood Count 4.6 T/CUMM (4-12)
[2019-02-10 05:29] LABS: Calcium 7.9 MG/DL (8.5-10.1); Osmolality,Calculated 280.7 MOS/KG (273-304); Risk Ratio 2.36; Thyroid Stimulating Hormone 10.2 uIU/ml (0.358-3.74); VLDL CHOLESTEROL 25.2 MG/DL
[2019-02-10] MEDS: DICLOFENAC 1% GEL 100 GM TUBE TOP PRN ×2 (05:40→13:41)
[2019-02-10 05:44] LABS: Band Neutrophils 1 % (0-10); Lymphocytes 33 % (20-55); Segmented Neutrophils 60 % (50-85); Total Cells Counted 100
[2019-02-10 05:45] LABS: Acanthocytes 1+; Anisocytosis 1+; Hypochromasia 1+; Platelet Estimate Decreased
[2019-02-10] MEDS: HEPARIN 5,000 UNIT/1 ML VIAL SUBCUT SCH ×3 (05:47→22:00)
[2019-02-10] MEDS: INSULIN LISPRO 100 UNIT/ML SUBCUT SCH ×4 (07:29→20:39)
[2019-02-10] MEDS: hydrALAZINE 20 MG/1 ML VIAL IV PRN (08:15)
[2019-02-10] MEDS: ACETAMINOPHEN 325 MG TABLET PO PRN (08:21)
[2019-02-10] MEDS: ZINC OXIDE PASTE 113 GM TUBE TOP PRN (08:24)
[2019-02-10] MEDS: MORPHINE 4 MG/1 ML VIAL IV PRN ×2 (09:45→14:54)
[2019-02-10] MEDS: CLOPIDOGREL 75 MG TABLET PO SCH (10:09)
[2019-02-10] MEDS: PANTOPRAZOLE 40 MG TABLET PO SCH ×2 (10:09→20:35)
[2019-02-10] MEDS: ISOSORBIDE MONONITRATE 30 MG TABLET PO SCH (10:09)
[2019-02-10] MEDS: CARVEDILOL 25 MG TABLET PO SCH ×2 (10:10→17:04)
[2019-02-10] MEDS: amLODIPine 5 MG TABLET PO SCH (11:43)
[2019-02-10] MEDS: ATORVASTATIN 40 MG TABLET PO SCH (20:35)
[2019-02-10] MEDS ORDERED: QUEtiapine 25 MG TABLET PO SCH (21:00)
[2019-02-11 04:20] LABS: Basophils % 0.2 % (0.0-0.8); Eosinophils # 0.1 10*3/uL (0.0-0.87); Hematocrit 35.3 VOL% (42.0-52.0); Hemoglobin 10.7 GM/DL (14.0-18.0); Immature Granulocytes % 0.4 %; Immature Granulocytes Absolute 0.02 #; Lymphocytes # 1.1 10*3/uL (1.4-4.0); Mean Corpuscular HGB Conc 30.3 GM/DL (32-36); Mean Corpuscular Volume 92.7 FL (87-102); Mean Platelet Volume 11.5 FL (9.6-12.0); Monocytes % 12.8 % (1.7-12.7); Neutrophils % 63.6 % (38.7-73.9); Platelet Count 74 T/CUMM (130-400); Red Blood Count 3.81 MC/CUMM (3.8-5.5); Red Cell Distribution Width 16.3 % (9.3-17.3); White Blood Count 5.1 T/CUMM (4-12)
[2019-02-11 04:36] LABS: Calcium 7.7 MG/DL (8.5-10.1); Osmolality,Calculated 278.1 MOS/KG (273-304)
[2019-02-11 05:00] LABS: Hypochromasia 1+
[2019-02-11 05:01] LABS: Platelet Estimate Decreased
[2019-02-11] MEDS: HEPARIN 5,000 UNIT/1 ML VIAL SUBCUT SCH ×2 (05:38→13:02)
[2019-02-11] MEDS ORDERED: LEVOTHYROXINE 100 MCG TABLET PO SCH (06:30)
[2019-02-11] MEDS: INSULIN LISPRO 100 UNIT/ML SUBCUT SCH ×3 (08:36→17:40)
[2019-02-11] MEDS: ISOSORBIDE MONONITRATE 30 MG TABLET PO SCH (09:14)
[2019-02-11] MEDS: amLODIPine 5 MG TABLET PO SCH (09:14)
[2019-02-11] MEDS: PANTOPRAZOLE 40 MG TABLET PO SCH (09:15)
[2019-02-11] MEDS: CARVEDILOL 25 MG TABLET PO SCH ×2 (09:15→17:40)
[2019-02-11] MEDS: CLOPIDOGREL 75 MG TABLET PO SCH (09:15)
[2019-02-11] MEDS: MORPHINE 4 MG/1 ML VIAL IV PRN (09:23)
[2019-02-11 12:22] VITALS: BP 164/94
[2019-02-11] MEDS ORDERED: HEPARIN 10,000 UNIT/10 ML VIAL IV SCH (16:30)
== END 2019-02-11 18:00 | disposition home or self-care (01) ==
LOC: EDUNIT# → EDBD → N.EDINP 00:51 → N.ED 00:51 → SUATTDRO 03:05 → N.TELES 03:22
PROVIDERS: ADMIT Internal Medicine; ATTEND Family Medicine

== ENCOUNTER 2019-02-13 15:02 | Inpatient (IN) ==
[2019-02-13] MEDS ORDERED: ALBUTEROL/IPRATROPIUM 3 ML NEB RESP TX STA (15:13)
[2019-02-13 15:43] LABS: Basophils % 0.1 % (0.0-0.8); Eosinophils # 0.1 10*3/uL (0.0-0.87); Eosinophils % 0.6 % (0.00-10.9); Hematocrit 38.3 VOL% (42.0-52.0); Hemoglobin 11.9 GM/DL (14.0-18.0); Immature Granulocytes % 0.4 %; Immature Granulocytes Absolute 0.04 #; Lymphocytes # 0.7 10*3/uL (1.4-4.0); Mean Corpuscular HGB Conc 31.1 GM/DL (32-36); Mean Corpuscular Volume 93.4 FL (87-102); Mean Platelet Volume 13.2 FL (9.6-12.0); Monocytes % 10.6 % (1.7-12.7); Neutrophils % 81.3 % (38.7-73.9); Platelet Count 120 T/CUMM (130-400); White Blood Count 9.3 T/CUMM (4-12)
[2019-02-13 15:54] LABS: INR 1.1; PT Patient Result 12.4 SECS; Partial Thromboplastin Time 55.1 SECS (0-40)
[2019-02-13 17:59] LABS: Albumin 2.2 G/DL (3.4-5.0); Bilirubin,Total 0.6 MG/DL (0.2-1.0); Calcium 8.5 MG/DL (8.5-10.1); Osmolality,Calculated 269.1 MOS/KG (273-304); Total Protein 6.7 G/DL (6.4-8.3)
[2019-02-13] MEDS ORDERED: ENOXAPARIN 80 MG/0.8 ML SYRINGE SUBCUT ONE (20:13)
[2019-02-13] MEDS ORDERED: ONDANSETRON 4 MG/2 ML VIAL IV PRN (20:26)
[2019-02-13] MEDS ORDERED: MORPHINE 4 MG/1 ML VIAL IV PRN (20:26)
[2019-02-13] MEDS ORDERED: ACETAMINOPHEN 325 MG TABLET PO PRN (20:26)
[2019-02-13] MEDS ORDERED: ALBUTEROL/IPRATROPIUM 3 ML NEB RESP TX PRN (21:05)
[2019-02-13] MEDS ORDERED: DEXTROSE 50% 25 GM/50 ML VIAL IV PRN (21:05)
[2019-02-13] MEDS ORDERED: GLUCAGON 1 MG VIAL IM PRN (21:05)
[2019-02-13] MEDS ORDERED: ZINC OXIDE PASTE 113 GM TUBE TOP PRN (21:05)
[2019-02-13] MEDS ORDERED: CETIRIZINE 10 MG TABLET PO PRN (21:05)
[2019-02-13] MEDS ORDERED: QUEtiapine 25 MG TABLET PO SCH (21:05)
[2019-02-13 22:25] LABS: CKMB % 17.8 %
[2019-02-13 22:27] LABS: Troponin I 0.133 NG/ML (0.00-0.045)
[2019-02-13] MEDS: CARVEDILOL 25 MG TABLET PO SCH (22:35)
[2019-02-13] MEDS: ATORVASTATIN 40 MG TABLET PO SCH (22:35)
[2019-02-13] MEDS: DOCUSATE SODIUM 100 MG CAPSULE PO SCH (22:37)
[2019-02-14] MEDS: INSULIN REGULAR 100 UNIT/ML SUBCUT SCH ×5 (01:27→23:54)
[2019-02-14 06:09] LABS: Basophils % 0.2 % (0.0-0.8); Eosinophils % 0.3 % (0.00-10.9); Hematocrit 36.8 VOL% (42.0-52.0); Hemoglobin 11.1 GM/DL (14.0-18.0); Immature Granulocytes % 0.6 %; Immature Granulocytes Absolute 0.06 #; Lymphocytes % 10.3 % (21.2-54.2); Mean Corpuscular HGB Conc 30.2 GM/DL (32-36); Mean Corpuscular Volume 94.4 FL (87-102); Mean Platelet Volume 12.3 FL (9.6-12.0); Monocytes % 8.6 % (1.7-12.7); Platelet Count 116 T/CUMM (130-400); Red Cell Distribution Width 17.2 % (9.3-17.3); White Blood Count 9.9 T/CUMM (4-12)
[2019-02-14 06:22] LABS: Albumin 2.2 G/DL (3.4-5.0); Bilirubin,Total 0.7 MG/DL (0.2-1.0); Calcium 8.9 MG/DL (8.5-10.1); Osmolality,Calculated 268.4 MOS/KG (273-304); Risk Ratio 2.51; Total Protein 6.4 G/DL (6.4-8.3); VLDL CHOLESTEROL 21.6 MG/DL
[2019-02-14 06:25] LABS: CKMB % 19.2 %
[2019-02-14 06:26] LABS: Troponin I 0.125 NG/ML (0.00-0.045)
[2019-02-14] MEDS: LEVOTHYROXINE 100 MCG TABLET PO SCH (08:39)
[2019-02-14] MEDS ORDERED: ENOXAPARIN 80 MG/0.8 ML SYRINGE SUBCUT SCH (09:00)
[2019-02-14] MEDS ORDERED: LIDOCAINE 5% PATCH TRANSDERM SCH (09:00)
[2019-02-14] MEDS ORDERED: CLOPIDOGREL 75 MG TABLET PO SCH (09:00)
[2019-02-14 09:25] LABS: ABG Base Excess 3.7 MMOL/L (-2.5-2.5); ABG HCO3 27.5 MMOL/L (20-26); ABG Oxygen Saturation 87.6 % (95-100); ABG PCO2 56.5 MM HG (35-48); ABG PH 7.344 (7.35-7.45); ABG PO2 56.6 MM HG (80-95); ABG TCO2 27.7 MMOL/L (23-27)
[2019-02-14] MEDS: HEPARIN DRIP 25,000 UNITS/500 ML PREMIX IV SCH (10:00)
[2019-02-14] MEDS: MEGESTROL 400 MG/10 ML UDCUP PO SCH (10:08)
[2019-02-14] MEDS: CARVEDILOL 25 MG TABLET PO SCH ×2 (10:12→20:51)
[2019-02-14] MEDS: predniSONE 20 MG TABLET PO SCH (10:12)
[2019-02-14] MEDS: amLODIPine 5 MG TABLET PO SCH (10:14)
[2019-02-14] MEDS: ISOSORBIDE MONONITRATE 30 MG TABLET PO SCH (10:14)
[2019-02-14] MEDS: FOLIC ACID 1 MG TABLET PO SCH (10:15)
[2019-02-14] MEDS: DOCUSATE SODIUM 100 MG CAPSULE PO SCH ×2 (10:15→20:51)
[2019-02-14] MEDS: CALCIUM ACETATE 667 MG CAPSULE PO SCH ×3 (10:17→16:23)
[2019-02-14] MEDS ORDERED: DIGOXIN 0.125 MG TABLET PO SCH (13:00)
[2019-02-14] MEDS ORDERED: EPOETIN ALFA 10,000 UNIT/1 ML VIAL IV PRN (13:17)
[2019-02-14 15:27] LABS: ABG Base Excess 2.6 MMOL/L (-2.5-2.5); ABG HCO3 30.4 MMOL/L (20-26); ABG Oxygen Saturation 99.1 % (95-100); ABG PCO2 63.8 MM HG (35-48); ABG PH 7.296 (7.35-7.45); ABG PO2 206.8 MM HG (80-95); ABG TCO2 32.4 MMOL/L (23-27); Allen Test Positive; Pt O2 Delivery Device BIPAP
[2019-02-14 17:10] LABS: Calcium 8.3 MG/DL (8.5-10.1); Osmolality,Calculated 270.4 MOS/KG (273-304)
[2019-02-14] MEDS: ATORVASTATIN 40 MG TABLET PO SCH (20:51)
[2019-02-15 05:19] LABS: Basophils % 0.2 % (0.0-0.8); Hematocrit 34.9 VOL% (42.0-52.0); Hemoglobin 10.9 GM/DL (14.0-18.0); Immature Granulocytes % 0.2 %; Immature Granulocytes Absolute 0.01 #; Lymphocytes # 0.5 10*3/uL (1.4-4.0); Lymphocytes % 8.2 % (21.2-54.2); Mean Corpuscular HGB Conc 31.2 GM/DL (32-36); Mean Corpuscular Volume 91.8 FL (87-102); Mean Platelet Volume 12.5 FL (9.6-12.0); Monocytes % 6.8 % (1.7-12.7); Neutrophils % 84.6 % (38.7-73.9); Platelet Count 132 T/CUMM (130-400); Red Cell Distribution Width 16.9 % (9.3-17.3); White Blood Count 5.7 T/CUMM (4-12)
[2019-02-15 05:36] LABS: Calcium 8.6 MG/DL (8.5-10.1); Osmolality,Calculated 271.4 MOS/KG (273-304)
[2019-02-15] MEDS: LEVOTHYROXINE 100 MCG TABLET PO SCH (05:52)
[2019-02-15] MEDS: INSULIN REGULAR 100 UNIT/ML SUBCUT SCH ×4 (05:52→21:18)
[2019-02-15 06:19] LABS: ABG Base Excess 3.5 MMOL/L (-2.5-2.5); ABG HCO3 28.2 MMOL/L (20-26); ABG PCO2 42.8 MM HG (35-48); ABG PH 7.436 (7.35-7.45); ABG PO2 87.4 MM HG (80-95); ABG TCO2 29.5 MMOL/L (23-27)
[2019-02-15 06:20] LABS: ABG Oxygen Saturation 96.9 % (95-100)
[2019-02-15] MEDS: HEPARIN DRIP 25,000 UNITS/500 ML PREMIX IV SCH (07:45)
[2019-02-15] MEDS: amLODIPine 5 MG TABLET PO SCH (09:00)
[2019-02-15] MEDS: CARVEDILOL 25 MG TABLET PO SCH ×2 (09:00→21:17)
[2019-02-15] MEDS ORDERED: EPOETIN ALFA 10,000 UNIT/1 ML VIAL IV SCH (10:00)
[2019-02-15] MEDS ORDERED: HEPARIN 10,000 UNIT/10 ML VIAL IV SCH (10:00)
[2019-02-15] MEDS: predniSONE 20 MG TABLET PO SCH (10:25)
[2019-02-15] MEDS: FOLIC ACID 1 MG TABLET PO SCH (10:25)
[2019-02-15] MEDS: ISOSORBIDE MONONITRATE 30 MG TABLET PO SCH (10:25)
[2019-02-15] MEDS: DOCUSATE SODIUM 100 MG CAPSULE PO SCH ×2 (10:25→21:17)
[2019-02-15] MEDS: MEGESTROL 400 MG/10 ML UDCUP PO SCH (10:25)
[2019-02-15] MEDS: CALCIUM ACETATE 667 MG CAPSULE PO SCH ×3 (10:25→16:32)
[2019-02-15] MEDS: ATORVASTATIN 40 MG TABLET PO SCH (21:17)
[2019-02-16] MEDS: HEPARIN DRIP 25,000 UNITS/500 ML PREMIX IV SCH (04:11)
[2019-02-16] MEDS: LEVOTHYROXINE 100 MCG TABLET PO SCH (06:34)
[2019-02-16 06:49] LABS: Hematocrit 33.7 VOL% (42.0-52.0); Hemoglobin 10.3 GM/DL (14.0-18.0); Immature Granulocytes % 0.2 %; Immature Granulocytes Absolute 0.01 #; Lymphocytes # 0.7 10*3/uL (1.4-4.0); Lymphocytes % 13.5 % (21.2-54.2); Mean Corpuscular HGB Conc 30.6 GM/DL (32-36); Mean Corpuscular Volume 91.3 FL (87-102); Mean Platelet Volume 11.1 FL (9.6-12.0); Monocytes % 10.8 % (1.7-12.7); Neutrophils % 75.5 % (38.7-73.9); Platelet Count 130 T/CUMM (130-400); Red Blood Count 3.69 MC/CUMM (3.8-5.5); Red Cell Distribution Width 16.7 % (9.3-17.3); White Blood Count 5.2 T/CUMM (4-12)
[2019-02-16 07:04] LABS: Calcium 8.1 MG/DL (8.5-10.1); Osmolality,Calculated 269.4 MOS/KG (273-304)
[2019-02-16] MEDS: INSULIN REGULAR 100 UNIT/ML SUBCUT SCH ×3 (07:22→17:42)
[2019-02-16] MEDS: FOLIC ACID 1 MG TABLET PO SCH (08:24)
[2019-02-16] MEDS: DOCUSATE SODIUM 100 MG CAPSULE PO SCH (08:24)
[2019-02-16] MEDS: CALCIUM ACETATE 667 MG CAPSULE PO SCH ×3 (08:24→17:42)
[2019-02-16] MEDS: amLODIPine 5 MG TABLET PO SCH (08:25)
[2019-02-16] MEDS: ISOSORBIDE MONONITRATE 30 MG TABLET PO SCH (08:25)
[2019-02-16] MEDS: predniSONE 20 MG TABLET PO SCH (08:25)
[2019-02-16] MEDS: CARVEDILOL 25 MG TABLET PO SCH (08:25)
[2019-02-16] MEDS: MEGESTROL 400 MG/10 ML UDCUP PO SCH (08:25)
[2019-02-16] MEDS ORDERED: APIXABAN 2.5 MG TABLET PO SCH (09:00)
[2019-02-16 12:25] VITALS: BP 144/82
== END 2019-02-16 17:00 | disposition home health service (06) | DRG 291 ==
LOC: EDBD → EDUNIT# → N.TELEN 15:02 → N.ED 15:02 → N.TELEN 19:44 → SUATTDRO 20:25 → N.ICU 02-14 14:25 → N.5E 02-15 18:49
PROVIDERS: ADMIT Family Medicine; ATTEND Internal Medicine Cardiovascular Disease

== ENCOUNTER 2019-02-21 14:48 | Inpatient (IN) ==
[2019-02-21 16:11] LABS: Basophils % 0.3 % (0.0-0.8); Eosinophils # 0.1 10*3/uL (0.0-0.87); Eosinophils % 1.4 % (0.00-10.9); Hemoglobin 11.7 GM/DL (14.0-18.0); Immature Granulocytes % 0.6 %; Immature Granulocytes Absolute 0.04 #; Lymphocytes # 1.1 10*3/uL (1.4-4.0); Lymphocytes % 16.9 % (21.2-54.2); Mean Corpuscular HGB Conc 30.8 GM/DL (32-36); Mean Corpuscular Volume 92.2 FL (87-102); Mean Platelet Volume 11.2 FL (9.6-12.0); Monocytes % 6.5 % (1.7-12.7); Neutrophils % 74.3 % (38.7-73.9); Platelet Count 121 T/CUMM (130-400); Red Blood Count 4.12 MC/CUMM (3.8-5.5); Red Cell Distribution Width 16.7 % (9.3-17.3); White Blood Count 6.6 T/CUMM (4-12)
[2019-02-21 16:26] LABS: Albumin 2.1 G/DL (3.4-5.0); Bilirubin,Total 0.4 MG/DL (0.2-1.0); Calcium 8.8 MG/DL (8.5-10.1); Osmolality,Calculated 287.3 MOS/KG (273-304); Total Protein 6.2 G/DL (6.4-8.3)
[2019-02-21 16:27] LABS: Troponin I 0.062 NG/ML (0.00-0.045)
[2019-02-21] MEDS ORDERED: ONDANSETRON 4 MG/2 ML VIAL IV PRN (18:57)
[2019-02-21] MEDS ORDERED: CETIRIZINE 10 MG TABLET PO PRN (19:08)
[2019-02-21] MEDS ORDERED: INSULIN LISPRO 100 UNIT/ML SUBCUT SCH (19:30)
[2019-02-21] MEDS ORDERED: DEXTROSE 10% 250 ML BAG IV PRN (19:35)
[2019-02-21] MEDS ORDERED: GLUCAGON 1 MG VIAL IM PRN (19:35)
[2019-02-21] MEDS ORDERED: INSULIN GLARGINE 100 UNIT/ML SUBCUT SCH (21:00)
[2019-02-21] MEDS: INSULIN LISPRO 100 UNIT/ML SUBCUT SCH (21:05)
[2019-02-21] MEDS: CARVEDILOL 25 MG TABLET PO SCH (23:48)
[2019-02-21] MEDS: APIXABAN 2.5 MG TABLET PO SCH (23:48)
[2019-02-21] MEDS: DOCUSATE SODIUM 100 MG CAPSULE PO SCH (23:48)
[2019-02-21] MEDS: PIPERACILLIN/TAZOBACTAM 3,375 MG in SODIUM CHLORIDE 0.9% 100 ML IV SCH (23:48)
[2019-02-21] MEDS: ATORVASTATIN 40 MG TABLET PO SCH (23:49)
[2019-02-22 01:31] LABS: Basophils % 0.3 % (0.0-0.8); Eosinophils # 0.1 10*3/uL (0.0-0.87); Eosinophils % 1.1 % (0.00-10.9); Hematocrit 38.8 VOL% (42.0-52.0); Hemoglobin 11.4 GM/DL (14.0-18.0); Immature Granulocytes % 0.3 %; Immature Granulocytes Absolute 0.02 #; Lymphocytes % 16.5 % (21.2-54.2); Mean Corpuscular HGB Conc 29.4 GM/DL (32-36); Mean Corpuscular Volume 94.4 FL (87-102); Mean Platelet Volume 9.9 FL (9.6-12.0); Monocytes % 6.5 % (1.7-12.7); Neutrophils % 75.3 % (38.7-73.9); Platelet Count 116 T/CUMM (130-400); Red Blood Count 4.11 MC/CUMM (3.8-5.5); Red Cell Distribution Width 16.7 % (9.3-17.3); White Blood Count 6.2 T/CUMM (4-12)
[2019-02-22 01:37] LABS: Calcium 8.6 MG/DL (8.5-10.1); Osmolality,Calculated 293.1 MOS/KG (273-304)
[2019-02-22] MEDS: PIPERACILLIN/TAZOBACTAM 3,375 MG in SODIUM CHLORIDE 0.9% 100 ML IV SCH ×3 (05:50→21:41)
[2019-02-22] MEDS: LEVOTHYROXINE 100 MCG TABLET PO SCH (05:51)
[2019-02-22] MEDS: LIDOCAINE 5% PATCH TRANSDERM SCH (09:24)
[2019-02-22] MEDS: DICLOFENAC 1% GEL 100 GM TUBE TOP SCH (09:25)
[2019-02-22] MEDS: FOLIC ACID 1 MG TABLET PO SCH (09:25)
[2019-02-22] MEDS: DOCUSATE SODIUM 100 MG CAPSULE PO SCH ×2 (09:26→21:40)
[2019-02-22] MEDS: predniSONE 20 MG TABLET PO SCH (09:26)
[2019-02-22] MEDS: CALCIUM ACETATE 667 MG CAPSULE PO SCH ×3 (09:26→16:44)
[2019-02-22] MEDS: amLODIPine 5 MG TABLET PO SCH (09:26)
[2019-02-22] MEDS: CARVEDILOL 25 MG TABLET PO SCH ×2 (09:26→16:44)
[2019-02-22] MEDS: APIXABAN 2.5 MG TABLET PO SCH ×2 (09:26→21:40)
[2019-02-22] MEDS: PANTOPRAZOLE 40 MG TABLET PO SCH (09:26)
[2019-02-22] MEDS: ISOSORBIDE MONONITRATE 60 MG TABLET PO SCH (09:26)
[2019-02-22] MEDS: INSULIN LISPRO 100 UNIT/ML SUBCUT SCH ×4 (09:27→21:40)
[2019-02-22] MEDS ORDERED: HEPARIN 10,000 UNIT/10 ML VIAL IV PRN ×2 (12:00→12:23)
[2019-02-22] MEDS: DIGOXIN 0.125 MG TABLET PO SCH (13:44)
[2019-02-22] MEDS ORDERED: MENTHOL/ZINC OXIDE OINT 71 GM JAR TOP PRN (15:05)
[2019-02-22] MEDS: ATORVASTATIN 40 MG TABLET PO SCH (21:40)
[2019-02-23] MEDS: PIPERACILLIN/TAZOBACTAM 3,375 MG in SODIUM CHLORIDE 0.9% 100 ML IV SCH ×2 (05:26→13:12)
[2019-02-23] MEDS: LEVOTHYROXINE 100 MCG TABLET PO SCH (05:31)
[2019-02-23] MEDS: INSULIN LISPRO 100 UNIT/ML SUBCUT SCH ×2 (07:26→12:52)
[2019-02-23] MEDS: predniSONE 20 MG TABLET PO SCH (08:57)
[2019-02-23] MEDS: CALCIUM ACETATE 667 MG CAPSULE PO SCH ×2 (08:57→13:08)
[2019-02-23] MEDS: APIXABAN 2.5 MG TABLET PO SCH (08:57)
[2019-02-23] MEDS: FOLIC ACID 1 MG TABLET PO SCH (08:57)
[2019-02-23] MEDS: LIDOCAINE 5% PATCH TRANSDERM SCH (08:57)
[2019-02-23] MEDS: ISOSORBIDE MONONITRATE 60 MG TABLET PO SCH (08:57)
[2019-02-23] MEDS: CARVEDILOL 25 MG TABLET PO SCH (08:57)
[2019-02-23] MEDS: PANTOPRAZOLE 40 MG TABLET PO SCH (08:57)
[2019-02-23] MEDS: DOCUSATE SODIUM 100 MG CAPSULE PO SCH (08:57)
[2019-02-23] MEDS: DICLOFENAC 1% GEL 100 GM TUBE TOP SCH (08:58)
[2019-02-23] MEDS: amLODIPine 5 MG TABLET PO SCH (08:58)
[2019-02-23] MEDS: DIGOXIN 0.125 MG TABLET PO SCH (13:08)
[2019-02-23 13:48] VITALS: BP 143/78
== END 2019-02-23 15:30 | disposition home or self-care (01) | DRG 193 ==
LOC: N.ED 14:48 → N.5E 18:57 → SUATTDRO 19:05 → N.5E 21:52
PROVIDERS: ADMIT Internal Medicine; ATTEND Internal Medicine

== ENCOUNTER 2019-03-04 10:45 | Inpatient (IN) ==
[2019-03-04] MEDS ORDERED: ONDANSETRON 4 MG/2 ML VIAL IV STA (11:06)
[2019-03-04] MEDS ORDERED: ALBUTEROL/IPRATROPIUM 3 ML NEB RESP TX STA (11:06)
[2019-03-04] MEDS ORDERED: methylPREDNISolone SOD SUC 125 MG/2 ML VIAL IV STA (11:06)
[2019-03-04 12:19] LABS: Basophils % 0.4 % (0.0-0.8); Eosinophils # 0.1 10*3/uL (0.0-0.87); Eosinophils % 1.6 % (0.00-10.9); Hematocrit 35.5 VOL% (42.0-52.0); Hemoglobin 10.7 GM/DL (14.0-18.0); Immature Granulocytes % 0.4 %; Immature Granulocytes Absolute 0.03 #; Lymphocytes % 13.5 % (21.2-54.2); Mean Corpuscular HGB Conc 30.1 GM/DL (32-36); Mean Corpuscular Volume 93.9 FL (87-102); Mean Platelet Volume 11.7 FL (9.6-12.0); Monocytes % 12.8 % (1.7-12.7); Neutrophils % 71.3 % (38.7-73.9); Platelet Count 167 T/CUMM (130-400); Red Blood Count 3.78 MC/CUMM (3.8-5.5); Red Cell Distribution Width 15.5 % (9.3-17.3); White Blood Count 7.3 T/CUMM (4-12)
[2019-03-04 12:24] LABS: INR 1.1; PT Patient Result 11.4 SECS
[2019-03-04 12:43] LABS: Bilirubin,Total 0.4 MG/DL (0.2-1.0); Osmolality,Calculated 286.5 MOS/KG (273-304); Total Protein 6.4 G/DL (6.4-8.3)
[2019-03-04] MEDS ORDERED: HEPARIN 10,000 UNIT/10 ML VIAL IV PRN ×2 (16:33→16:43)
[2019-03-04] MEDS ORDERED: ONDANSETRON 4 MG/2 ML VIAL IV PRN (16:34)
[2019-03-04] MEDS ORDERED: ACETAMINOPHEN 325 MG TABLET PO PRN (16:34)
[2019-03-04] MEDS ORDERED: CETIRIZINE 10 MG TABLET PO PRN (16:40)
[2019-03-04] MEDS ORDERED: GLUCAGON 1 MG VIAL IM PRN (16:45)
[2019-03-04] MEDS ORDERED: DEXTROSE 10% 25 GM/250 ML BAG IV PRN (16:45)
[2019-03-04] MEDS ORDERED: ALBUTEROL/IPRATROPIUM 3 ML NEB RESP TX PRN (17:22)
[2019-03-04] MEDS: CALCIUM ACETATE 667 MG CAPSULE PO SCH (17:39)
[2019-03-04] MEDS: DOCUSATE SODIUM 100 MG CAPSULE PO SCH (21:11)
[2019-03-04] MEDS: [UNRECOGNIZED DRUG - OTHER] TOP SCH (21:11)
[2019-03-04] MEDS: APIXABAN 2.5 MG TABLET PO SCH (21:11)
[2019-03-04] MEDS: ATORVASTATIN 40 MG TABLET PO SCH (21:11)
[2019-03-04] MEDS: tiZANidine 4 MG TABLET PO PRN (21:11)
[2019-03-04] MEDS: CARVEDILOL 25 MG TABLET PO SCH (21:11)
[2019-03-04] MEDS: INSULIN LISPRO 100 UNIT/ML SUBCUT SCH (21:16)
[2019-03-05 05:54] LABS: Calcium 8.9 MG/DL (8.5-10.1); Osmolality,Calculated 281.8 MOS/KG (273-304); Risk Ratio 3.38; Thyroid Stimulating Hormone 5.77 uIU/ml (0.358-3.74); VLDL CHOLESTEROL 19.4 MG/DL
[2019-03-05] MEDS: LEVOTHYROXINE 100 MCG TABLET PO SCH (06:12)
[2019-03-05 06:14] LABS: Basophils % 0.2 % (0.0-0.8); Eosinophils % 0.2 % (0.00-10.9); Hematocrit 36.5 VOL% (42.0-52.0); Hemoglobin 10.8 GM/DL (14.0-18.0); Immature Granulocytes % 0.2 %; Immature Granulocytes Absolute 0.01 #; Lymphocytes # 0.3 10*3/uL (1.4-4.0); Lymphocytes % 7.2 % (21.2-54.2); Mean Corpuscular HGB Conc 29.6 GM/DL (32-36); Mean Corpuscular Volume 94.1 FL (87-102); Monocytes % 2.8 % (1.7-12.7); Neutrophils % 89.4 % (38.7-73.9); Platelet Count 191 T/CUMM (130-400); Red Blood Count 3.88 MC/CUMM (3.8-5.5); Red Cell Distribution Width 15.1 % (9.3-17.3); White Blood Count 4.6 T/CUMM (4-12)
[2019-03-05] MEDS: tiZANidine 4 MG TABLET PO PRN ×2 (08:09→16:55)
[2019-03-05] MEDS: CALCIUM ACETATE 667 MG CAPSULE PO SCH ×3 (08:12→16:55)
[2019-03-05] MEDS: amLODIPine 5 MG TABLET PO SCH (08:12)
[2019-03-05] MEDS: FOLIC ACID 1 MG TABLET PO SCH (08:12)
[2019-03-05] MEDS: ISOSORBIDE MONONITRATE 30 MG TABLET PO SCH (08:12)
[2019-03-05] MEDS: PANTOPRAZOLE 40 MG TABLET PO SCH (08:13)
[2019-03-05] MEDS: predniSONE 20 MG TABLET PO SCH (08:13)
[2019-03-05] MEDS: CARVEDILOL 25 MG TABLET PO SCH ×2 (08:13→20:31)
[2019-03-05] MEDS: APIXABAN 2.5 MG TABLET PO SCH ×2 (08:13→20:31)
[2019-03-05] MEDS: DOCUSATE SODIUM 100 MG CAPSULE PO SCH ×2 (08:13→20:31)
[2019-03-05] MEDS: LIDOCAINE 5% PATCH TRANSDERM SCH ×2 (08:21→12:11)
[2019-03-05] MEDS: ZINC OXIDE PASTE 113 GM TUBE TOP PRN (08:22)
[2019-03-05] MEDS: INSULIN LISPRO 100 UNIT/ML SUBCUT SCH ×4 (08:22→20:30)
[2019-03-05] MEDS: DICLOFENAC 1% GEL 100 GM TUBE TOP SCH (08:22)
[2019-03-05] MEDS: ENOXAPARIN 30 MG/0.3 ML SYRINGE SUBCUT SCH (08:23)
[2019-03-05] MEDS: [UNRECOGNIZED DRUG - OTHER] TOP SCH ×3 (08:23→20:31)
[2019-03-05] MEDS: DIGOXIN 0.125 MG TABLET PO SCH (12:09)
[2019-03-05] MEDS: ATORVASTATIN 40 MG TABLET PO SCH (20:31)
[2019-03-06] MEDS: LEVOTHYROXINE 100 MCG TABLET PO SCH (05:39)
[2019-03-06 05:51] LABS: Basophils % 0.2 % (0.0-0.8); Hematocrit 32.4 VOL% (42.0-52.0); Hemoglobin 9.7 GM/DL (14.0-18.0); Immature Granulocytes % 0.9 %; Immature Granulocytes Absolute 0.04 #; Lymphocytes # 0.6 10*3/uL (1.4-4.0); Lymphocytes % 13.2 % (21.2-54.2); Mean Corpuscular HGB Conc 29.9 GM/DL (32-36); Mean Corpuscular Volume 92.8 FL (87-102); Mean Platelet Volume 11.5 FL (9.6-12.0); Monocytes % 10.9 % (1.7-12.7); Neutrophils % 74.8 % (38.7-73.9); Platelet Count 179 T/CUMM (130-400); Red Blood Count 3.49 MC/CUMM (3.8-5.5); White Blood Count 4.3 T/CUMM (4-12)
[2019-03-06 06:26] LABS: Calcium 8.3 MG/DL (8.5-10.1); Osmolality,Calculated 281.2 MOS/KG (273-304)
[2019-03-06] MEDS: INSULIN LISPRO 100 UNIT/ML SUBCUT SCH ×4 (07:49→22:06)
[2019-03-06] MEDS: predniSONE 20 MG TABLET PO SCH ×2 (07:49→08:22)
[2019-03-06] MEDS: amLODIPine 5 MG TABLET PO SCH ×2 (07:50→08:22)
[2019-03-06] MEDS: ISOSORBIDE MONONITRATE 30 MG TABLET PO SCH ×2 (07:50→08:21)
[2019-03-06] MEDS: PANTOPRAZOLE 40 MG TABLET PO SCH ×2 (07:50→08:23)
[2019-03-06] MEDS: CALCIUM ACETATE 667 MG CAPSULE PO SCH ×3 (07:50→18:43)
[2019-03-06] MEDS: FOLIC ACID 1 MG TABLET PO SCH ×2 (07:50→08:20)
[2019-03-06] MEDS: CARVEDILOL 25 MG TABLET PO SCH ×3 (07:50→21:15)
[2019-03-06] MEDS: ENOXAPARIN 30 MG/0.3 ML SYRINGE SUBCUT SCH ×2 (07:51→08:21)
[2019-03-06] MEDS: DOCUSATE SODIUM 100 MG CAPSULE PO SCH ×3 (07:51→21:15)
[2019-03-06] MEDS: APIXABAN 2.5 MG TABLET PO SCH ×3 (07:51→21:15)
[2019-03-06] MEDS: DICLOFENAC 1% GEL 100 GM TUBE TOP SCH ×2 (07:52→10:41)
[2019-03-06] MEDS: LIDOCAINE 5% PATCH TRANSDERM SCH ×3 (11:53→17:00)
[2019-03-06] MEDS: DIGOXIN 0.125 MG TABLET PO SCH (12:00)
[2019-03-06] MEDS: [UNRECOGNIZED DRUG - OTHER] TOP SCH ×4 (15:50→22:07)
[2019-03-06] MEDS: ATORVASTATIN 40 MG TABLET PO SCH (21:16)
[2019-03-07] MEDS: LEVOTHYROXINE 100 MCG TABLET PO SCH (05:51)
[2019-03-07 05:52] LABS: Calcium 8.5 MG/DL (8.5-10.1)
[2019-03-07 06:16] LABS: Basophils % 0.2 % (0.0-0.8); Eosinophils % 0.4 % (0.00-10.9); Hematocrit 35.3 VOL% (42.0-52.0); Immature Granulocytes % 0.4 %; Immature Granulocytes Absolute 0.02 #; Lymphocytes # 0.9 10*3/uL (1.4-4.0); Mean Corpuscular HGB Conc 28.9 GM/DL (32-36); Mean Corpuscular Volume 95.4 FL (87-102); Mean Platelet Volume 10.9 FL (9.6-12.0); Monocytes % 11.1 % (1.7-12.7); Neutrophils % 67.9 % (38.7-73.9); Platelet Count 184 T/CUMM (130-400); Red Cell Distribution Width 14.8 % (9.3-17.3); White Blood Count 4.6 T/CUMM (4-12)
[2019-03-07 06:17] LABS: Hemoglobin 10.2 GM/DL (14.0-18.0)
[2019-03-07 06:47] LABS: Hypochromasia 2+; Platelet Estimate Normal
[2019-03-07] MEDS: INSULIN LISPRO 100 UNIT/ML SUBCUT SCH ×4 (08:55→21:47)
[2019-03-07] MEDS: CALCIUM ACETATE 667 MG CAPSULE PO SCH ×3 (09:21→17:05)
[2019-03-07] MEDS: DOCUSATE SODIUM 100 MG CAPSULE PO SCH ×2 (09:21→21:45)
[2019-03-07] MEDS: tiZANidine 4 MG TABLET PO PRN (09:21)
[2019-03-07] MEDS: CARVEDILOL 25 MG TABLET PO SCH ×2 (09:22→21:45)
[2019-03-07] MEDS: PANTOPRAZOLE 40 MG TABLET PO SCH (09:22)
[2019-03-07] MEDS: predniSONE 20 MG TABLET PO SCH (09:22)
[2019-03-07] MEDS: FOLIC ACID 1 MG TABLET PO SCH (09:22)
[2019-03-07] MEDS: ISOSORBIDE MONONITRATE 30 MG TABLET PO SCH (09:22)
[2019-03-07] MEDS: APIXABAN 2.5 MG TABLET PO SCH ×2 (09:22→21:45)
[2019-03-07] MEDS: ENOXAPARIN 30 MG/0.3 ML SYRINGE SUBCUT SCH (09:23)
[2019-03-07] MEDS: amLODIPine 5 MG TABLET PO SCH (09:23)
[2019-03-07] MEDS: LIDOCAINE 5% PATCH TRANSDERM SCH (09:23)
[2019-03-07] MEDS: [UNRECOGNIZED DRUG - OTHER] TOP SCH ×3 (09:31→21:50)
[2019-03-07] MEDS: ZINC OXIDE PASTE 113 GM TUBE TOP PRN (09:31)
[2019-03-07] MEDS: DICLOFENAC 1% GEL 100 GM TUBE TOP SCH (09:32)
[2019-03-07] MEDS: DIGOXIN 0.125 MG TABLET PO SCH (12:06)
[2019-03-07] MEDS ORDERED: POLYETHYLENE GLYCOL POWDER 17 GM PACK PO PRN (14:30)
[2019-03-07] MEDS: ATORVASTATIN 40 MG TABLET PO SCH (21:45)
[2019-03-08] MEDS: tiZANidine 4 MG TABLET PO PRN (05:59)
[2019-03-08] MEDS: LEVOTHYROXINE 100 MCG TABLET PO SCH (05:59)
[2019-03-08] MEDS: INSULIN LISPRO 100 UNIT/ML SUBCUT SCH ×3 (08:33→15:32)
[2019-03-08] MEDS: CALCIUM ACETATE 667 MG CAPSULE PO SCH ×3 (08:33→17:01)
[2019-03-08] MEDS: ENOXAPARIN 30 MG/0.3 ML SYRINGE SUBCUT SCH (14:05)
[2019-03-08] MEDS: FOLIC ACID 1 MG TABLET PO SCH (14:06)
[2019-03-08] MEDS: CARVEDILOL 25 MG TABLET PO SCH (14:07)
[2019-03-08] MEDS: ISOSORBIDE MONONITRATE 30 MG TABLET PO SCH (14:07)
[2019-03-08] MEDS: DOCUSATE SODIUM 100 MG CAPSULE PO SCH (14:07)
[2019-03-08] MEDS: amLODIPine 5 MG TABLET PO SCH (14:08)
[2019-03-08] MEDS: APIXABAN 2.5 MG TABLET PO SCH (14:08)
[2019-03-08] MEDS: predniSONE 20 MG TABLET PO SCH (14:12)
[2019-03-08] MEDS: PANTOPRAZOLE 40 MG TABLET PO SCH (14:12)
[2019-03-08] MEDS: DICLOFENAC 1% GEL 100 GM TUBE TOP SCH (14:13)
[2019-03-08] MEDS: [UNRECOGNIZED DRUG - OTHER] TOP SCH ×2 (14:13→17:00)
[2019-03-08] MEDS: DIGOXIN 0.125 MG TABLET PO SCH (14:16)
[2019-03-08] MEDS: LIDOCAINE 5% PATCH TRANSDERM SCH (15:19)
[2019-03-08 16:01] VITALS: BP 160/81
== END 2019-03-08 17:02 | disposition home or self-care (01) | DRG 291 ==
LOC: EDUNIT# → N.ED 10:45 → N.EDINP 14:05 → SUATTDRO 14:05 → N.2E 15:39
PROVIDERS: ADMIT Internal Medicine; ATTEND Internal Medicine

== ENCOUNTER 2019-03-17 15:49 | Observation (INO) ==
[2019-03-17 17:50] LABS: Albumin 2.1 G/DL (3.4-5.0); Bilirubin,Total 0.4 MG/DL (0.2-1.0); Calcium 8.9 MG/DL (8.5-10.1); Osmolality,Calculated 279.5 MOS/KG (273-304); Total Protein 5.6 G/DL (6.4-8.3)
[2019-03-17 17:53] LABS: Basophils % 0.5 % (0.0-0.8); Eosinophils # 0.3 10*3/uL (0.0-0.87); Eosinophils % 4.5 % (0.00-10.9); Hematocrit 35.8 VOL% (42.0-52.0); Hemoglobin 10.7 GM/DL (14.0-18.0); Immature Granulocytes % 0.5 %; Immature Granulocytes Absolute 0.03 #; Lymphocytes # 1.2 10*3/uL (1.4-4.0); Lymphocytes % 20.1 % (21.2-54.2); Mean Corpuscular HGB Conc 29.9 GM/DL (32-36); Mean Corpuscular Volume 90.6 FL (87-102); Mean Platelet Volume 10.4 FL (9.6-12.0); Monocytes % 10.3 % (1.7-12.7); Neutrophils % 64.1 % (38.7-73.9); Platelet Count 138 T/CUMM (130-400); Red Blood Count 3.95 MC/CUMM (3.8-5.5); Red Cell Distribution Width 14.7 % (9.3-17.3); White Blood Count 5.8 T/CUMM (4-12)
[2019-03-17] MEDS ORDERED: cloNIDine 0.1 MG TABLET PO STA (20:13)
[2019-03-17] MEDS ORDERED: cloNIDine 0.1 MG TABLET ONE (20:15)
[2019-03-17] MEDS ORDERED: ONDANSETRON 4 MG/2 ML VIAL IV PRN (21:31)
[2019-03-17] MEDS ORDERED: ZINC OXIDE PASTE 113 GM TUBE TOP PRN (21:31)
[2019-03-17] MEDS ORDERED: INSULIN LISPRO 100 UNIT/ML SUBCUT SCH (21:31)
[2019-03-17] MEDS ORDERED: cloNIDine 0.1 MG TABLET PO PRN (21:31)
[2019-03-17] MEDS ORDERED: ACETAMINOPHEN 325 MG TABLET PO PRN (21:31)
[2019-03-17] MEDS ORDERED: [UNRECOGNIZED DRUG - OTHER] TOP SCH (21:31)
[2019-03-17] MEDS ORDERED: CETIRIZINE 10 MG TABLET PO PRN (21:31)
[2019-03-17] MEDS ORDERED: tiZANidine 4 MG TABLET PO PRN (21:31)
[2019-03-17] MEDS ORDERED: GLUCAGON 1 MG VIAL IM PRN (22:17)
[2019-03-17] MEDS: INSULIN GLARGINE 100 UNIT/ML SUBCUT SCH (23:07)
[2019-03-17] MEDS: DOCUSATE SODIUM 100 MG CAPSULE PO SCH (23:08)
[2019-03-17] MEDS: ATORVASTATIN 40 MG TABLET PO SCH (23:08)
[2019-03-17] MEDS: APIXABAN 2.5 MG TABLET PO SCH (23:08)
[2019-03-17] MEDS: PANTOPRAZOLE 40 MG TABLET PO SCH (23:09)
[2019-03-17] MEDS: CARVEDILOL 25 MG TABLET PO SCH (23:09)
[2019-03-18 02:12] LABS: Basophils # 0.1 10*3/uL (0.0-0.2); Basophils % 0.9 % (0.0-0.8); Eosinophils # 0.3 10*3/uL (0.0-0.87); Eosinophils % 4.8 % (0.00-10.9); Hematocrit 35.6 VOL% (42.0-52.0); Hemoglobin 10.7 GM/DL (14.0-18.0); Immature Granulocytes % 0.3 %; Immature Granulocytes Absolute 0.02 #; Lymphocytes # 1.2 10*3/uL (1.4-4.0); Lymphocytes % 20.4 % (21.2-54.2); Mean Corpuscular HGB Conc 30.1 GM/DL (32-36); Mean Corpuscular Volume 90.8 FL (87-102); Mean Platelet Volume 9.4 FL (9.6-12.0); Neutrophils % 61.6 % (38.7-73.9); Platelet Count 115 T/CUMM (130-400); Red Blood Count 3.92 MC/CUMM (3.8-5.5); Red Cell Distribution Width 14.8 % (9.3-17.3); White Blood Count 5.8 T/CUMM (4-12)
[2019-03-18 02:41] LABS: Calcium 8.8 MG/DL (8.5-10.1); Osmolality,Calculated 287.3 MOS/KG (273-304)
[2019-03-18] MEDS ORDERED: LEVOTHYROXINE 100 MCG TABLET PO SCH (06:30)
[2019-03-18] MEDS: INSULIN LISPRO 100 UNIT/ML SUBCUT SCH ×4 (09:17→21:30)
[2019-03-18] MEDS: DICLOFENAC 1% GEL 100 GM TUBE TOP SCH (09:26)
[2019-03-18] MEDS: CALCIUM ACETATE 667 MG CAPSULE PO SCH ×3 (10:02→18:31)
[2019-03-18] MEDS: DOCUSATE SODIUM 100 MG CAPSULE PO SCH ×2 (12:26→21:29)
[2019-03-18] MEDS: PANTOPRAZOLE 40 MG TABLET PO SCH ×2 (12:26→21:29)
[2019-03-18] MEDS: ISOSORBIDE MONONITRATE 30 MG TABLET PO SCH (12:26)
[2019-03-18] MEDS: predniSONE 20 MG TABLET PO SCH (12:27)
[2019-03-18] MEDS: amLODIPine 5 MG TABLET PO SCH (12:27)
[2019-03-18] MEDS: CARVEDILOL 25 MG TABLET PO SCH ×2 (12:27→21:29)
[2019-03-18] MEDS: FOLIC ACID 1 MG TABLET PO SCH (12:27)
[2019-03-18] MEDS: FLUoxetine 20 MG CAPSULE PO SCH (12:27)
[2019-03-18] MEDS: APIXABAN 2.5 MG TABLET PO SCH ×2 (12:27→21:29)
[2019-03-18] MEDS ORDERED: HEPARIN 10,000 UNIT/10 ML VIAL IV PRN (16:43)
[2019-03-18] MEDS: LIDOCAINE 5% PATCH TRANSDERM SCH (18:21)
[2019-03-18] MEDS: DIGOXIN 0.125 MG TABLET PO SCH (18:27)
[2019-03-18] MEDS: ATORVASTATIN 40 MG TABLET PO SCH (21:29)
[2019-03-18] MEDS: INSULIN GLARGINE 100 UNIT/ML SUBCUT SCH (21:31)
[2019-03-19 04:49] LABS: Basophils % 0.2 % (0.0-0.8); Eosinophils % 0.2 % (0.00-10.9); Hematocrit 33.6 VOL% (42.0-52.0); Hemoglobin 9.9 GM/DL (14.0-18.0); Immature Granulocytes % 0.4 %; Immature Granulocytes Absolute 0.02 #; Lymphocytes # 0.7 10*3/uL (1.4-4.0); Lymphocytes % 12.3 % (21.2-54.2); Mean Corpuscular HGB Conc 29.5 GM/DL (32-36); Mean Corpuscular Volume 91.8 FL (87-102); Mean Platelet Volume 11.3 FL (9.6-12.0); Monocytes % 3.6 % (1.7-12.7); Neutrophils % 83.3 % (38.7-73.9); Platelet Count 138 T/CUMM (130-400); Red Blood Count 3.66 MC/CUMM (3.8-5.5); Red Cell Distribution Width 14.8 % (9.3-17.3); White Blood Count 5.6 T/CUMM (4-12)
[2019-03-19 05:11] LABS: Calcium 8.8 MG/DL (8.5-10.1); Osmolality,Calculated 277.5 MOS/KG (273-304)
[2019-03-19] MEDS: LEVOTHYROXINE 125 MCG TABLET PO SCH (06:50)
[2019-03-19] MEDS: INSULIN LISPRO 100 UNIT/ML SUBCUT SCH ×4 (07:50→21:34)
[2019-03-19] MEDS: CARVEDILOL 25 MG TABLET PO SCH ×2 (09:10→21:34)
[2019-03-19] MEDS: FOLIC ACID 1 MG TABLET PO SCH (09:10)
[2019-03-19] MEDS: amLODIPine 5 MG TABLET PO SCH (09:11)
[2019-03-19] MEDS: ISOSORBIDE MONONITRATE 30 MG TABLET PO SCH (09:11)
[2019-03-19] MEDS: PANTOPRAZOLE 40 MG TABLET PO SCH ×2 (09:12→21:34)
[2019-03-19] MEDS: DICLOFENAC 1% GEL 100 GM TUBE TOP SCH (09:12)
[2019-03-19] MEDS: APIXABAN 2.5 MG TABLET PO SCH ×2 (09:12→21:34)
[2019-03-19] MEDS: predniSONE 20 MG TABLET PO SCH (09:12)
[2019-03-19] MEDS: CALCIUM ACETATE 667 MG CAPSULE PO SCH ×3 (09:12→16:49)
[2019-03-19] MEDS: DOCUSATE SODIUM 100 MG CAPSULE PO SCH ×2 (09:12→21:34)
[2019-03-19] MEDS: FLUoxetine 20 MG CAPSULE PO SCH (09:16)
[2019-03-19] MEDS: LIDOCAINE 5% PATCH TRANSDERM SCH (09:24)
[2019-03-19] MEDS: DIGOXIN 0.125 MG TABLET PO SCH (14:38)
[2019-03-19] MEDS: ATORVASTATIN 40 MG TABLET PO SCH (21:34)
[2019-03-19] MEDS: INSULIN GLARGINE 100 UNIT/ML SUBCUT SCH (21:34)
[2019-03-20] MEDS: LEVOTHYROXINE 125 MCG TABLET PO SCH (06:17)
[2019-03-20] MEDS: DEXTROSE 10% 250 ML BAG IV PRN ×2 (07:25→13:10)
[2019-03-20] MEDS: INSULIN LISPRO 100 UNIT/ML SUBCUT SCH ×4 (07:25→22:46)
[2019-03-20] MEDS: CALCIUM ACETATE 667 MG CAPSULE PO SCH ×3 (13:29→16:57)
[2019-03-20] MEDS: APIXABAN 2.5 MG TABLET PO SCH ×2 (13:30→22:45)
[2019-03-20] MEDS: FOLIC ACID 1 MG TABLET PO SCH (13:30)
[2019-03-20] MEDS: DOCUSATE SODIUM 100 MG CAPSULE PO SCH ×2 (13:31→22:45)
[2019-03-20] MEDS: predniSONE 20 MG TABLET PO SCH (13:31)
[2019-03-20] MEDS: FLUoxetine 20 MG CAPSULE PO SCH (13:31)
[2019-03-20] MEDS: PANTOPRAZOLE 40 MG TABLET PO SCH ×2 (13:32→22:45)
[2019-03-20] MEDS: ISOSORBIDE MONONITRATE 30 MG TABLET PO SCH (13:32)
[2019-03-20] MEDS: CARVEDILOL 25 MG TABLET PO SCH ×2 (13:35→22:45)
[2019-03-20] MEDS: amLODIPine 5 MG TABLET PO SCH (13:35)
[2019-03-20] MEDS: LIDOCAINE 5% PATCH TRANSDERM SCH (13:36)
[2019-03-20] MEDS: DIGOXIN 0.125 MG TABLET PO SCH ×2 (13:48→13:49)
[2019-03-20] MEDS: DICLOFENAC 1% GEL 100 GM TUBE TOP SCH (17:00)
[2019-03-20] MEDS: ATORVASTATIN 40 MG TABLET PO SCH (22:46)
[2019-03-21] MEDS: LEVOTHYROXINE 125 MCG TABLET PO SCH (05:47)
[2019-03-21] MEDS: INSULIN LISPRO 100 UNIT/ML SUBCUT SCH ×2 (08:13→12:24)
[2019-03-21] MEDS: DICLOFENAC 1% GEL 100 GM TUBE TOP SCH (09:22)
[2019-03-21] MEDS: FOLIC ACID 1 MG TABLET PO SCH (09:22)
[2019-03-21] MEDS: LIDOCAINE 5% PATCH TRANSDERM SCH (09:22)
[2019-03-21] MEDS: CALCIUM ACETATE 667 MG CAPSULE PO SCH ×2 (09:23→12:30)
[2019-03-21] MEDS: amLODIPine 5 MG TABLET PO SCH (09:23)
[2019-03-21] MEDS: APIXABAN 2.5 MG TABLET PO SCH (09:23)
[2019-03-21] MEDS: CARVEDILOL 25 MG TABLET PO SCH (09:23)
[2019-03-21] MEDS: PANTOPRAZOLE 40 MG TABLET PO SCH (09:23)
[2019-03-21] MEDS: ISOSORBIDE MONONITRATE 30 MG TABLET PO SCH (09:23)
[2019-03-21] MEDS: predniSONE 20 MG TABLET PO SCH (09:23)
[2019-03-21] MEDS: FLUoxetine 20 MG CAPSULE PO SCH (09:23)
[2019-03-21] MEDS: DOCUSATE SODIUM 100 MG CAPSULE PO SCH (09:29)
[2019-03-21] MEDS: DIGOXIN 0.125 MG TABLET PO SCH (12:30)
[2019-03-21 13:48] VITALS: BP 143/75
== END 2019-03-21 13:45 | disposition home health service (06) ==
LOC: EDBD → EDUNIT# → N.EDINP 15:49 → N.ED 15:49 → SUATTDRO 20:11 → N.5E 20:56
PROVIDERS: ADMIT Family Medicine; ATTEND Internal Medicine

== ENCOUNTER 2019-03-26 22:00 | Observation (INO) ==
[2019-03-26] MEDS ORDERED: ASPIRIN 325 MG TABLET PO STA (23:17)
[2019-03-26] MEDS ORDERED: ONDANSETRON 4 MG/2 ML VIAL IV STA (23:17)
[2019-03-26] MEDS ORDERED: hydrALAZINE 20 MG/1 ML VIAL IV STA (23:17)
[2019-03-26 23:29] LABS: Basophils % 0.3 % (0.0-0.8); Eosinophils # 0.2 10*3/uL (0.0-0.87); Eosinophils % 3.2 % (0.00-10.9); Immature Granulocytes % 0.5 %; Immature Granulocytes Absolute 0.03 #; Lymphocytes # 1.1 10*3/uL (1.4-4.0); Lymphocytes % 16.7 % (21.2-54.2); Mean Corpuscular HGB Conc 29.4 GM/DL (32-36); Mean Corpuscular Volume 91.4 FL (87-102); Mean Platelet Volume 10.8 FL (9.6-12.0); Neutrophils % 67.3 % (38.7-73.9); Platelet Count 152 T/CUMM (130-400); Red Blood Count 3.72 MC/CUMM (3.8-5.5); Red Cell Distribution Width 15.2 % (9.3-17.3); White Blood Count 6.6 T/CUMM (4-12)
[2019-03-26 23:34] LABS: INR 1.1; PT Patient Result 11.4 SECS
[2019-03-26 23:43] LABS: Albumin 2.2 G/DL (3.4-5.0); Bilirubin,Total 0.4 MG/DL (0.2-1.0); Osmolality,Calculated 283.3 MOS/KG (273-304); Total Protein 5.7 G/DL (6.4-8.3)
[2019-03-27] MEDS ORDERED: BISACODYL 5 MG TABLET PO PRN (00:58)
[2019-03-27] MEDS ORDERED: ACETAMINOPHEN 325 MG TABLET PO PRN (00:58)
[2019-03-27] MEDS ORDERED: DEXTROSE 50% 25 GM/50 ML VIAL IV PRN (00:58)
[2019-03-27] MEDS ORDERED: MORPHINE 4 MG/1 ML VIAL IV PRN (00:58)
[2019-03-27] MEDS ORDERED: diphenhydrAMINE CAP 25 MG CAPSULE PO PRN (00:58)
[2019-03-27] MEDS ORDERED: GLUCAGON 1 MG VIAL IM PRN (00:58)
[2019-03-27] MEDS ORDERED: NICOTINE 21 MG/24 HR PATCH TRANSDERM PRN (00:58)
[2019-03-27] MEDS ORDERED: ONDANSETRON 4 MG/2 ML VIAL IV PRN (00:58)
[2019-03-27] MEDS ORDERED: hydrALAZINE 20 MG/1 ML VIAL IV PRN (00:58)
[2019-03-27 07:38] LABS: Albumin 2.1 G/DL (3.4-5.0); Bilirubin,Total 0.4 MG/DL (0.2-1.0); Calcium 8.7 MG/DL (8.5-10.1); Osmolality,Calculated 282.3 MOS/KG (273-304); Total Protein 5.8 G/DL (6.4-8.3)
[2019-03-27 07:50] LABS: Basophils % 0.3 % (0.0-0.8); Eosinophils # 0.2 10*3/uL (0.0-0.87); Eosinophils % 3.3 % (0.00-10.9); Hematocrit 35.7 VOL% (42.0-52.0); Hemoglobin 10.4 GM/DL (14.0-18.0); Immature Granulocytes % 0.3 %; Immature Granulocytes Absolute 0.02 #; Lymphocytes # 1.1 10*3/uL (1.4-4.0); Lymphocytes % 17.3 % (21.2-54.2); Mean Corpuscular HGB Conc 29.1 GM/DL (32-36); Mean Platelet Volume 11.4 FL (9.6-12.0); Monocytes % 11.9 % (1.7-12.7); Neutrophils % 66.9 % (38.7-73.9); Platelet Count 150 T/CUMM (130-400); Red Blood Count 3.88 MC/CUMM (3.8-5.5); Red Cell Distribution Width 15.7 % (9.3-17.3); White Blood Count 6.1 T/CUMM (4-12)
[2019-03-27] MEDS ORDERED: LABETALOL 20 MG/4 ML SYRINGE IV PRN (08:42)
[2019-03-27] MEDS ORDERED: tiZANidine 4 MG TABLET PO PRN (08:44)
[2019-03-27] MEDS ORDERED: amLODIPine 5 MG TABLET PO SCH (09:00)
[2019-03-27] MEDS ORDERED: PANTOPRAZOLE 40 MG TABLET PO SCH (09:00)
[2019-03-27] MEDS: CARVEDILOL 25 MG TABLET PO SCH ×2 (09:34→20:48)
[2019-03-27] MEDS: ISOSORBIDE MONONITRATE 30 MG TABLET PO SCH (09:34)
[2019-03-27] MEDS: PANTOPRAZOLE 40 MG TABLET PO SCH ×2 (09:35→20:50)
[2019-03-27] MEDS: DOCUSATE SODIUM 100 MG CAPSULE PO SCH ×2 (09:39→20:49)
[2019-03-27] MEDS: LIDOCAINE 5% PATCH TRANSDERM SCH (09:40)
[2019-03-27] MEDS: APIXABAN 2.5 MG TABLET PO SCH ×2 (09:40→20:50)
[2019-03-27] MEDS: predniSONE 20 MG TABLET PO SCH (09:44)
[2019-03-27] MEDS: FLUoxetine 20 MG CAPSULE PO SCH (09:44)
[2019-03-27] MEDS: INSULIN REGULAR 100 UNIT/ML SUBCUT SCH ×4 (09:50→22:48)
[2019-03-27] MEDS ORDERED: BISACODYL 10 MG SUPP RECTAL ONE (10:21)
[2019-03-27] MEDS: DIGOXIN 0.125 MG TABLET PO SCH (13:17)
[2019-03-27] MEDS ORDERED: amLODIPine 5 MG TABLET PO ONE (13:28)
[2019-03-27] MEDS ORDERED: HEPARIN 10,000 UNIT/10 ML VIAL IV SCH (15:00)
[2019-03-28 05:17] LABS: Osmolality,Calculated 281.4 MOS/KG (273-304)
[2019-03-28 05:21] LABS: Risk Ratio 2.74; VLDL CHOLESTEROL 26.8 MG/DL
[2019-03-28 05:26] LABS: Basophils % 0.4 % (0.0-0.8); Eosinophils % 0.4 % (0.00-10.9); Hematocrit 36.2 VOL% (42.0-52.0); Hemoglobin 10.4 GM/DL (14.0-18.0); Immature Granulocytes % 0.8 %; Immature Granulocytes Absolute 0.04 #; Lymphocytes # 0.8 10*3/uL (1.4-4.0); Lymphocytes % 14.5 % (21.2-54.2); Mean Corpuscular HGB Conc 28.7 GM/DL (32-36); Mean Corpuscular Volume 93.8 FL (87-102); Mean Platelet Volume 11.5 FL (9.6-12.0); Monocytes % 10.4 % (1.7-12.7); Neutrophils % 73.5 % (38.7-73.9); Platelet Count 154 T/CUMM (130-400); Red Blood Count 3.86 MC/CUMM (3.8-5.5); Red Cell Distribution Width 15.6 % (9.3-17.3); White Blood Count 5.2 T/CUMM (4-12)
[2019-03-28 05:35] LABS: Hypochromasia 1+; Ovalocytes Slight; Platelet Estimate Normal
[2019-03-28] MEDS ORDERED: LEVOTHYROXINE 125 MCG TABLET PO SCH (06:30)
[2019-03-28] MEDS ORDERED: amLODIPine 10 MG TABLET PO SCH (09:00)
[2019-03-28] MEDS: ISOSORBIDE MONONITRATE 30 MG TABLET PO SCH (09:14)
[2019-03-28] MEDS: DOCUSATE SODIUM 100 MG CAPSULE PO SCH (09:14)
[2019-03-28] MEDS: CARVEDILOL 25 MG TABLET PO SCH (09:14)
[2019-03-28] MEDS: APIXABAN 2.5 MG TABLET PO SCH (09:14)
[2019-03-28] MEDS: predniSONE 20 MG TABLET PO SCH (09:15)
[2019-03-28] MEDS: FLUoxetine 20 MG CAPSULE PO SCH (09:15)
[2019-03-28] MEDS: LIDOCAINE 5% PATCH TRANSDERM SCH (09:15)
[2019-03-28] MEDS: PANTOPRAZOLE 40 MG TABLET PO SCH (09:19)
[2019-03-28 12:47] VITALS: BP 110/59
[2019-03-28] MEDS: DIGOXIN 0.125 MG TABLET PO SCH (13:47)
[2019-03-28] MEDS: INSULIN REGULAR 100 UNIT/ML SUBCUT SCH (13:47)
== END 2019-03-28 12:45 | disposition home health service (06) ==
LOC: N.ED 22:00 → N.EDINP 22:00 → N.4E 03-27 02:25
PROVIDERS: ADMIT Hospitalist; ATTEND Hospitalist

== ENCOUNTER 2019-04-25 04:17 | Observation (INO) ==
[2019-04-25] MEDS ORDERED: NITROGLYCERIN 2% OINT 1 INCH/GM PACK TOP STA (04:37)
[2019-04-25] MEDS ORDERED: ASPIRIN 325 MG TABLET PO STA (04:37)
[2019-04-25] MEDS ORDERED: ONDANSETRON 4 MG/2 ML VIAL IV STA (04:37)
[2019-04-25] MEDS ORDERED: MORPHINE 4 MG/1 ML VIAL IV STA (04:37)
[2019-04-25 04:42] LABS: Basophils % 0.2 % (0.0-0.8); Eosinophils # 0.1 10*3/uL (0.0-0.87); Eosinophils % 1.4 % (0.00-10.9); Hematocrit 43.8 VOL% (42.0-52.0); Hemoglobin 13.4 GM/DL (14.0-18.0); Immature Granulocytes % 0.5 %; Immature Granulocytes Absolute 0.02 #; Lymphocytes # 0.8 10*3/uL (1.4-4.0); Lymphocytes % 19.4 % (21.2-54.2); Mean Corpuscular HGB Conc 30.6 GM/DL (32-36); Mean Corpuscular Volume 89.6 FL (87-102); Monocytes % 10.6 % (1.7-12.7); Neutrophils % 67.9 % (38.7-73.9); Platelet Count 74 T/CUMM (130-400); Red Blood Count 4.89 MC/CUMM (3.8-5.5); Red Cell Distribution Width 14.7 % (9.3-17.3); White Blood Count 4.2 T/CUMM (4-12)
[2019-04-25 04:59] LABS: INR 1.1; PT Patient Result 11.8 SECS (9.6-12.2)
[2019-04-25 05:10] LABS: Albumin 2.4 G/DL (3.4-5.0); Bilirubin,Total 0.9 MG/DL (0.2-1.0); Calcium 8.1 MG/DL (8.5-10.1); Osmolality,Calculated 282.1 MOS/KG (273-304); Total Protein 5.4 G/DL (6.4-8.3)
[2019-04-25 05:12] LABS: Hypochromasia Slight; Ovalocytes Slight; Platelet Estimate Decreased
[2019-04-25] MEDS ORDERED: DEXTROSE 50% 25 GM/50 ML VIAL IV PRN (05:49)
[2019-04-25] MEDS ORDERED: NICOTINE 21 MG/24 HR PATCH TRANSDERM PRN (05:49)
[2019-04-25] MEDS ORDERED: MORPHINE 4 MG/1 ML VIAL IV PRN (05:49)
[2019-04-25] MEDS ORDERED: GLUCAGON 1 MG VIAL IM PRN (05:49)
[2019-04-25] MEDS ORDERED: guaiFENesin/DM ER 600-30 MG TABLET PO PRN (05:49)
[2019-04-25] MEDS ORDERED: traZODone 50 MG TABLET PO PRN (05:49)
[2019-04-25] MEDS ORDERED: diphenhydrAMINE CAP 25 MG CAPSULE PO PRN (05:49)
[2019-04-25] MEDS ORDERED: BISACODYL 5 MG TABLET PO PRN (05:49)
[2019-04-25] MEDS ORDERED: ONDANSETRON 4 MG/2 ML VIAL IV PRN (05:49)
[2019-04-25] MEDS ORDERED: ACETAMINOPHEN 325 MG TABLET PO PRN (05:49)
[2019-04-25] MEDS ORDERED: DEXTROSE 50% 25 GM/50 ML SYRINGE IV ONE (06:06)
[2019-04-25 06:25] LABS: Risk Ratio 2.32; VLDL CHOLESTEROL 22.4 MG/DL
[2019-04-25] MEDS: INSULIN REGULAR 100 UNIT/ML SUBCUT SCH ×3 (07:46→17:10)
[2019-04-25] MEDS ORDERED: CETIRIZINE 10 MG TABLET PO PRN (08:32)
[2019-04-25] MEDS ORDERED: tiZANidine 4 MG TABLET PO PRN (08:32)
[2019-04-25] MEDS ORDERED: [UNRECOGNIZED DRUG - OTHER] TOP SCH (09:00)
[2019-04-25] MEDS ORDERED: ZINC OXIDE PASTE 113 GM TUBE TOP PRN (09:30)
[2019-04-25] MEDS: amLODIPine 10 MG TABLET PO SCH (10:17)
[2019-04-25] MEDS: FLUoxetine 20 MG CAPSULE PO SCH (10:17)
[2019-04-25] MEDS: ISOSORBIDE MONONITRATE 60 MG TABLET PO SCH (10:17)
[2019-04-25] MEDS: FOLIC ACID 1 MG TABLET PO SCH (10:17)
[2019-04-25] MEDS: CARVEDILOL 25 MG TABLET PO SCH ×2 (10:17→22:36)
[2019-04-25] MEDS: INSULIN LISPRO 100 UNIT/ML SUBCUT SCH ×4 (10:18→21:00)
[2019-04-25] MEDS: APIXABAN 2.5 MG TABLET PO SCH ×2 (10:18→22:36)
[2019-04-25] MEDS: PANTOPRAZOLE 40 MG TABLET PO SCH (10:18)
[2019-04-25] MEDS: DOCUSATE SODIUM 100 MG CAPSULE PO SCH ×2 (10:18→22:36)
[2019-04-25] MEDS: LEVOTHYROXINE 125 MCG TABLET PO SCH (10:18)
[2019-04-25] MEDS: predniSONE 20 MG TABLET PO SCH (10:18)
[2019-04-25] MEDS: LIDOCAINE 5% PATCH TRANSDERM SCH (10:31)
[2019-04-25] MEDS: DICLOFENAC 1% GEL 100 GM TUBE TOP SCH (12:20)
[2019-04-25] MEDS ORDERED: DIGOXIN 0.125 MG TABLET PO SCH (13:00)
[2019-04-25] MEDS: CALCIUM ACETATE 667 MG CAPSULE PO SCH ×2 (13:41→18:24)
[2019-04-25] MEDS ORDERED: HEPARIN 10,000 UNIT/10 ML VIAL IV SCH (16:00)
[2019-04-25] MEDS ORDERED: ATORVASTATIN 40 MG TABLET PO SCH (21:00)
[2019-04-26] MEDS: INSULIN LISPRO 100 UNIT/ML SUBCUT SCH ×5 (01:12→17:20)
[2019-04-26 04:59] LABS: Albumin 2.2 G/DL (3.4-5.0); Bilirubin,Total 0.7 MG/DL (0.2-1.0); Calcium 8.1 MG/DL (8.5-10.1); Osmolality,Calculated 275.8 MOS/KG (273-304); Total Protein 5.2 G/DL (6.4-8.3)
[2019-04-26] MEDS: LEVOTHYROXINE 125 MCG TABLET PO SCH (06:44)
[2019-04-26] MEDS: CALCIUM ACETATE 667 MG CAPSULE PO SCH ×3 (10:00→17:35)
[2019-04-26] MEDS: PANTOPRAZOLE 40 MG TABLET PO SCH (10:00)
[2019-04-26] MEDS: FOLIC ACID 1 MG TABLET PO SCH (10:00)
[2019-04-26] MEDS: predniSONE 20 MG TABLET PO SCH (10:01)
[2019-04-26] MEDS: DOCUSATE SODIUM 100 MG CAPSULE PO SCH (10:01)
[2019-04-26] MEDS: FLUoxetine 20 MG CAPSULE PO SCH (10:01)
[2019-04-26] MEDS: ISOSORBIDE MONONITRATE 60 MG TABLET PO SCH (13:14)
[2019-04-26] MEDS: amLODIPine 10 MG TABLET PO SCH (13:16)
[2019-04-26] MEDS: CARVEDILOL 25 MG TABLET PO SCH (13:16)
[2019-04-26] MEDS: APIXABAN 2.5 MG TABLET PO SCH (13:16)
[2019-04-26] MEDS: LIDOCAINE 5% PATCH TRANSDERM SCH (15:17)
[2019-04-26] MEDS: DICLOFENAC 1% GEL 100 GM TUBE TOP SCH (15:19)
[2019-04-26 16:25] VITALS: BP 144/77
== END 2019-04-26 19:30 | disposition home health service (06) ==
LOC: EDUNIT# → EDBD → N.EDINP 04:17 → N.ED 04:17 → SUATTDRO 05:49 → N.TELES 06:25
PROVIDERS: ADMIT Internal Medicine; ATTEND Internal Medicine

== ENCOUNTER 2019-06-08 02:40 | Inpatient (IN) ==
[2019-06-08] MEDS ORDERED: SODIUM CHLORIDE 0.9% 1,000 ML IV STA (03:20)
[2019-06-08 03:30] LABS: Basophils % 0.6 % (0.0-0.8); Eosinophils # 0.1 10*3/uL (0.0-0.87); Eosinophils % 3.7 % (0.00-10.9); Hematocrit 31.1 VOL% (42.0-52.0); Hemoglobin 9.2 GM/DL (14.0-18.0); Immature Granulocytes % 0.3 %; Immature Granulocytes Absolute 0.01 #; Lymphocytes # 0.7 10*3/uL (1.4-4.0); Lymphocytes % 19.9 % (21.2-54.2); Mean Corpuscular HGB Conc 29.6 GM/DL (32-36); Mean Corpuscular Volume 93.1 FL (87-102); Mean Platelet Volume 11.7 FL (9.6-12.0); Monocytes % 12.5 % (1.7-12.7); Platelet Count 116 T/CUMM (130-400); Red Blood Count 3.34 MC/CUMM (3.8-5.5); Red Cell Distribution Width 15.1 % (9.3-17.3); White Blood Count 3.5 T/CUMM (4-12)
[2019-06-08 03:32] LABS: PT Patient Result 10.9 SECS (9.6-12.2)
[2019-06-08 03:51] LABS: Albumin 2.3 G/DL (3.4-5.0); Bilirubin,Total 0.6 MG/DL (0.2-1.0); Calcium 8.7 MG/DL (8.5-10.1); Osmolality,Calculated 290.3 MOS/KG (273-304); Total Protein 6.4 G/DL (6.4-8.3)
[2019-06-08] MEDS ORDERED: NALOXONE 0.4 MG/ML VIAL IV STA (05:10)
[2019-06-08] MEDS ORDERED: ACETAMINOPHEN 325 MG TABLET PO PRN (05:18)
[2019-06-08] MEDS ORDERED: ONDANSETRON 4 MG/2 ML VIAL IV PRN (05:18)
[2019-06-08 06:04] LABS: ABG Base Excess 2.9 MMOL/L (-2.5-2.5); ABG Oxygen Saturation 95.4 % (95-100); ABG TCO2 32.9 MMOL/L (23-27); Allen Test Positive
[2019-06-08 06:08] LABS: ABG PCO2 97.8 MM HG (35-48); ABG PH 7.158 (7.35-7.45)
[2019-06-08] MEDS ORDERED: ETOMIDATE 20 MG/10 ML VIAL IV ONE (06:14)
[2019-06-08] MEDS ORDERED: ROCURONIUM 100 MG/10 ML VIAL IV ONE (06:15)
[2019-06-08] MEDS ORDERED: VANCOMYCIN INJ 1,000 MG in SODIUM CHLORIDE 0.9% 250 ML IV ONE (07:01)
[2019-06-08] MEDS ORDERED: PROPOFOL 1,000 MG/100 ML BOTTLE IV ONE (07:12)
[2019-06-08] MEDS ORDERED: hydrALAZINE 20 MG/1 ML VIAL IV PRN (07:25)
[2019-06-08] MEDS ORDERED: PROPOFOL 1,000 MG/100 ML BOTTLE IV SCH (07:30)
[2019-06-08 08:36] LABS: ABG Base Excess 4.8 MMOL/L (-2.5-2.5); ABG HCO3 28.8 MMOL/L (20-26); ABG PCO2 38.3 MM HG (35-48); ABG TCO2 25.7 MMOL/L (23-27)
[2019-06-08] MEDS ORDERED: fentaNYL INJ 1,250 MCG in SODIUM CHLORIDE 0.9% 225 ML IV PRN (08:42)
[2019-06-08 11:01] LABS: Lymphocytes,Pleural Fluid 30 %; Monocytes,Pleural Fluid 12 %; Neutrophils,Pleural Fluid 58 %; Total Protein,Body Fluid 2.6 G/DL
[2019-06-08 11:10] LABS: RBC,Pleural Fluid 1646 T/CUMM
[2019-06-08] MEDS: PIPERACILLIN/TAZOBACTAM 3,375 MG in SODIUM CHLORIDE 0.9% 100 ML IV SCH ×2 (11:29→16:56)
[2019-06-08] MEDS: PANTOPRAZOLE 40 MG VIAL IV SCH (11:35)
[2019-06-08 13:31] LABS: ABG Base Excess 3.7 MMOL/L (-2.5-2.5); ABG HCO3 27.7 MMOL/L (20-26); ABG Oxygen Saturation 97.1 % (95-100); ABG PCO2 68.5 MM HG (35-48); ABG PH 7.281 (7.35-7.45); ABG PO2 99.4 MM HG (80-95); ABG TCO2 29.7 MMOL/L (23-27)
[2019-06-08] MEDS ORDERED: NOREPINEPHRINE 4 MG/4 ML VIAL IV ONE (13:40)
[2019-06-08] MEDS ORDERED: NOREPINEPHRINE 8 MG in SODIUM CHLORIDE 0.9% 242 ML IV PRN (14:24)
[2019-06-08] MEDS ORDERED: DEXTROSE 10% 250 ML IV ONE (18:03)
[2019-06-08] MEDS: DEXTROSE 10% 250 ML BAG IV PRN (18:12)
[2019-06-08] MEDS: INSULIN REGULAR 100 UNIT/ML SUBCUT SCH ×2 (18:13→23:48)
[2019-06-09] MEDS: PIPERACILLIN/TAZOBACTAM 3,375 MG in SODIUM CHLORIDE 0.9% 100 ML IV SCH ×3 (01:57→17:24)
[2019-06-09 03:41] LABS: ABG Base Excess 6.1 MMOL/L (-2.5-2.5); ABG Oxygen Saturation 98.4 % (95-100); ABG PCO2 30.5 MM HG (35-48); ABG PH 7.571 (7.35-7.45); ABG TCO2 25.4 MMOL/L (23-27); Allen Test Positive; Pt O2 Delivery Device Ventilator
[2019-06-09 04:52] LABS: Basophils % 0.3 % (0.0-0.8); Eosinophils # 0.1 10*3/uL (0.0-0.87); Eosinophils % 2.4 % (0.00-10.9); Hematocrit 31.2 VOL% (42.0-52.0); Hemoglobin 9.7 GM/DL (14.0-18.0); Immature Granulocytes % 0.3 %; Immature Granulocytes Absolute 0.02 #; Lymphocytes # 1.2 10*3/uL (1.4-4.0); Lymphocytes % 20.8 % (21.2-54.2); Mean Corpuscular HGB Conc 31.1 GM/DL (32-36); Mean Corpuscular Volume 87.6 FL (87-102); Mean Platelet Volume 12.2 FL (9.6-12.0); Monocytes % 10.3 % (1.7-12.7); Neutrophils % 65.9 % (38.7-73.9); Platelet Count 124 T/CUMM (130-400); Red Blood Count 3.56 MC/CUMM (3.8-5.5); Red Cell Distribution Width 15.2 % (9.3-17.3); White Blood Count 5.7 T/CUMM (4-12)
[2019-06-09 05:40] LABS: Calcium 8.9 MG/DL (8.5-10.1); Osmolality,Calculated 288.4 MOS/KG (273-304)
[2019-06-09] MEDS: INSULIN REGULAR 100 UNIT/ML SUBCUT SCH ×3 (06:45→18:12)
[2019-06-09] MEDS: PANTOPRAZOLE 40 MG VIAL IV SCH (09:45)
[2019-06-09] MEDS ORDERED: CETIRIZINE 10 MG TABLET PO PRN (10:01)
[2019-06-09] MEDS ORDERED: tiZANidine 4 MG TABLET PO PRN (10:01)
[2019-06-09] MEDS ORDERED: DIGOXIN 0.125 MG TABLET PO SCH (10:30)
[2019-06-09] MEDS: FOLIC ACID 1 MG TABLET PO SCH (10:39)
[2019-06-09] MEDS: DOCUSATE SODIUM 100 MG CAPSULE PO SCH ×2 (10:41→21:13)
[2019-06-09] MEDS: APIXABAN 2.5 MG TABLET PO SCH ×2 (10:42→21:13)
[2019-06-09] MEDS: CLOPIDOGREL 75 MG TABLET PO SCH (10:42)
[2019-06-09] MEDS: FLUoxetine 20 MG CAPSULE PO SCH (10:42)
[2019-06-09] MEDS: DEXTROSE 10% 250 ML BAG IV PRN (12:12)
[2019-06-09] MEDS: CALCIUM ACETATE 667 MG CAPSULE PO SCH ×2 (12:26→17:24)
[2019-06-09] MEDS: LIDOCAINE 5% PATCH TRANSDERM SCH (15:22)
[2019-06-09] MEDS ORDERED: DEXTROSE 50% 25 GM/50 ML VIAL IV PRN (17:50)
[2019-06-09] MEDS ORDERED: GLUCAGON 1 MG VIAL IM PRN (17:50)
[2019-06-09] MEDS: ATORVASTATIN 40 MG TABLET PO SCH (21:13)
[2019-06-10] MEDS ORDERED: SODIUM CHLORIDE 0.9% 250 ML IV SCH (00:39)
[2019-06-10] MEDS: INSULIN REGULAR 100 UNIT/ML SUBCUT SCH ×4 (00:40→19:28)
[2019-06-10] MEDS ORDERED: SODIUM CHLORIDE 0.9% 250 ML IV ONE (01:00)
[2019-06-10] MEDS: PIPERACILLIN/TAZOBACTAM 3,375 MG in SODIUM CHLORIDE 0.9% 100 ML IV SCH ×3 (01:59→18:08)
[2019-06-10 05:17] LABS: Basophils % 0.4 % (0.0-0.8); Eosinophils # 0.1 10*3/uL (0.0-0.87); Eosinophils % 2.4 % (0.00-10.9); Hematocrit 30.9 VOL% (42.0-52.0); Hemoglobin 9.3 GM/DL (14.0-18.0); Immature Granulocytes % 0.6 %; Immature Granulocytes Absolute 0.03 #; Lymphocytes # 0.7 10*3/uL (1.4-4.0); Mean Corpuscular HGB Conc 30.1 GM/DL (32-36); Mean Corpuscular Volume 91.4 FL (87-102); Mean Platelet Volume 11.5 FL (9.6-12.0); Monocytes % 12.6 % (1.7-12.7); Platelet Count 103 T/CUMM (130-400); Red Blood Count 3.38 MC/CUMM (3.8-5.5); Red Cell Distribution Width 15.5 % (9.3-17.3); White Blood Count 5.4 T/CUMM (4-12)
[2019-06-10 05:35] LABS: Calcium 9.4 MG/DL (8.5-10.1)
[2019-06-10] MEDS: PANTOPRAZOLE 40 MG TABLET PO SCH (08:19)
[2019-06-10] MEDS: MEGESTROL 40 MG TABLET PO SCH (08:19)
[2019-06-10] MEDS: FLUoxetine 20 MG CAPSULE PO SCH (08:19)
[2019-06-10] MEDS: APIXABAN 2.5 MG TABLET PO SCH ×2 (08:19→21:51)
[2019-06-10] MEDS: FOLIC ACID 1 MG TABLET PO SCH (08:19)
[2019-06-10] MEDS: CLOPIDOGREL 75 MG TABLET PO SCH (08:19)
[2019-06-10] MEDS: LACTULOSE 20 GM/30 ML UDCUP PO SCH (08:19)
[2019-06-10] MEDS: DOCUSATE SODIUM 100 MG CAPSULE PO SCH ×2 (08:19→21:51)
[2019-06-10] MEDS: LEVOTHYROXINE 100 MCG TABLET PO SCH (08:19)
[2019-06-10] MEDS: LIDOCAINE 5% PATCH TRANSDERM SCH (08:19)
[2019-06-10] MEDS: CALCIUM ACETATE 667 MG CAPSULE PO SCH ×4 (08:19→18:10)
[2019-06-10] MEDS: DIGOXIN 0.125 MG TABLET PO SCH (13:10)
[2019-06-10] MEDS ORDERED: HEPARIN 10,000 UNIT/10 ML VIAL IV SCH (16:30)
[2019-06-10] MEDS: MIDODRINE 2.5 MG TABLET PO SCH ×2 (17:58→21:51)
[2019-06-10] MEDS: ATORVASTATIN 40 MG TABLET PO SCH (21:51)
[2019-06-11] MEDS: INSULIN REGULAR 100 UNIT/ML SUBCUT SCH ×4 (00:17→17:38)
[2019-06-11] MEDS: PIPERACILLIN/TAZOBACTAM 3,375 MG in SODIUM CHLORIDE 0.9% 100 ML IV SCH ×3 (00:34→16:15)
[2019-06-11] MEDS: LIDOCAINE 5% PATCH TRANSDERM SCH ×2 (08:58→09:15)
[2019-06-11] MEDS: LACTULOSE 20 GM/30 ML UDCUP PO SCH ×2 (08:59→09:14)
[2019-06-11] MEDS: MIDODRINE 2.5 MG TABLET PO SCH ×3 (09:00→21:44)
[2019-06-11] MEDS: PANTOPRAZOLE 40 MG TABLET PO SCH (09:00)
[2019-06-11] MEDS: FOLIC ACID 1 MG TABLET PO SCH (09:00)
[2019-06-11] MEDS: FLUoxetine 20 MG CAPSULE PO SCH (09:00)
[2019-06-11] MEDS: CLOPIDOGREL 75 MG TABLET PO SCH (09:00)
[2019-06-11] MEDS: MEGESTROL 40 MG TABLET PO SCH (09:01)
[2019-06-11] MEDS: LEVOTHYROXINE 100 MCG TABLET PO SCH (09:01)
[2019-06-11] MEDS: DOCUSATE SODIUM 100 MG CAPSULE PO SCH ×2 (09:01→21:44)
[2019-06-11] MEDS: APIXABAN 2.5 MG TABLET PO SCH ×2 (09:01→21:44)
[2019-06-11] MEDS: CALCIUM ACETATE 667 MG CAPSULE PO SCH ×3 (09:01→16:07)
[2019-06-11] MEDS: ATORVASTATIN 40 MG TABLET PO SCH (21:44)
[2019-06-12] MEDS: PIPERACILLIN/TAZOBACTAM 3,375 MG in SODIUM CHLORIDE 0.9% 100 ML IV SCH ×2 (01:29→21:49)
[2019-06-12] MEDS: INSULIN REGULAR 100 UNIT/ML SUBCUT SCH ×4 (01:29→19:00)
[2019-06-12 04:35] LABS: Basophils % 0.2 % (0.0-0.8); Eosinophils # 0.1 10*3/uL (0.0-0.87); Eosinophils % 2.2 % (0.00-10.9); Hematocrit 31.5 VOL% (42.0-52.0); Hemoglobin 9.3 GM/DL (14.0-18.0); Immature Granulocytes % 0.8 %; Immature Granulocytes Absolute 0.05 #; Lymphocytes # 0.6 10*3/uL (1.4-4.0); Lymphocytes % 10.4 % (21.2-54.2); Mean Corpuscular HGB Conc 29.5 GM/DL (32-36); Mean Corpuscular Volume 92.1 FL (87-102); Mean Platelet Volume 11.5 FL (9.6-12.0); Monocytes % 8.4 % (1.7-12.7); Platelet Count 108 T/CUMM (130-400); Red Blood Count 3.42 MC/CUMM (3.8-5.5); Red Cell Distribution Width 15.8 % (9.3-17.3)
[2019-06-12 04:55] LABS: Hypochromasia 1+; Ovalocytes Slight; Platelet Estimate Decreased
[2019-06-12] MEDS: PANTOPRAZOLE 40 MG TABLET PO SCH (08:01)
[2019-06-12] MEDS: CALCIUM ACETATE 667 MG CAPSULE PO SCH ×3 (08:01→17:21)
[2019-06-12] MEDS: DOCUSATE SODIUM 100 MG CAPSULE PO SCH ×2 (08:01→21:48)
[2019-06-12] MEDS: APIXABAN 2.5 MG TABLET PO SCH ×2 (08:02→21:47)
[2019-06-12] MEDS: MIDODRINE 2.5 MG TABLET PO SCH ×3 (08:02→21:47)
[2019-06-12] MEDS: MEGESTROL 40 MG TABLET PO SCH (08:02)
[2019-06-12] MEDS: FOLIC ACID 1 MG TABLET PO SCH (08:02)
[2019-06-12] MEDS: FLUoxetine 20 MG CAPSULE PO SCH (08:02)
[2019-06-12] MEDS: LACTULOSE 20 GM/30 ML UDCUP PO SCH ×3 (08:02→21:48)
[2019-06-12] MEDS: LIDOCAINE 5% PATCH TRANSDERM SCH (08:03)
[2019-06-12] MEDS: CLOPIDOGREL 75 MG TABLET PO SCH (08:04)
[2019-06-12 09:21] LABS: Calcium 9.3 MG/DL (8.5-10.1); Osmolality,Calculated 296.1 MOS/KG (273-304)
[2019-06-12] MEDS: DIGOXIN 0.125 MG TABLET PO SCH (18:34)
[2019-06-12] MEDS: ATORVASTATIN 40 MG TABLET PO SCH (21:47)
[2019-06-13] MEDS: INSULIN REGULAR 100 UNIT/ML SUBCUT SCH ×4 (00:28→18:41)
[2019-06-13] MEDS ORDERED: LIDOCAINE 1% 20 ML VIAL MISC INJ ONE (06:00)
[2019-06-13] MEDS: LEVOTHYROXINE 100 MCG TABLET PO SCH (06:08)
[2019-06-13] MEDS: LACTULOSE 20 GM/30 ML UDCUP PO SCH ×3 (08:48→23:03)
[2019-06-13] MEDS: APIXABAN 2.5 MG TABLET PO SCH ×2 (08:49→22:59)
[2019-06-13] MEDS: CLOPIDOGREL 75 MG TABLET PO SCH (08:49)
[2019-06-13] MEDS: FLUoxetine 20 MG CAPSULE PO SCH (08:49)
[2019-06-13] MEDS: MEGESTROL 40 MG TABLET PO SCH (08:49)
[2019-06-13] MEDS: FOLIC ACID 1 MG TABLET PO SCH (08:50)
[2019-06-13] MEDS: LIDOCAINE 5% PATCH TRANSDERM SCH (08:50)
[2019-06-13] MEDS: MIDODRINE 2.5 MG TABLET PO SCH ×3 (08:50→23:04)
[2019-06-13] MEDS: PANTOPRAZOLE 40 MG TABLET PO SCH (08:50)
[2019-06-13] MEDS: CALCIUM ACETATE 667 MG CAPSULE PO SCH ×4 (08:50→16:55)
[2019-06-13] MEDS: PIPERACILLIN/TAZOBACTAM 3,375 MG in SODIUM CHLORIDE 0.9% 100 ML IV SCH ×2 (09:03→23:05)
[2019-06-13] MEDS: DOCUSATE SODIUM 100 MG CAPSULE PO SCH ×2 (10:23→22:59)
[2019-06-13] MEDS ORDERED: LIDOCAINE 2% VISCOUS 100 ML BOTTLE SWISH/SPIT ONE (13:22)
[2019-06-13] MEDS: ATORVASTATIN 40 MG TABLET PO SCH (22:59)
[2019-06-14] MEDS: INSULIN REGULAR 100 UNIT/ML SUBCUT SCH ×4 (01:51→17:46)
[2019-06-14] MEDS ORDERED: PROMETHAZINE 25 MG/1 ML VIAL IM ONE (06:00)
[2019-06-14] MEDS ORDERED: LIDOCAINE 2% 20 ML VIAL RESP TX ONE (06:00)
[2019-06-14] MEDS ORDERED: MEPERIDINE 50 MG/1 ML VIAL IV ONE (06:00)
[2019-06-14] MEDS ORDERED: MIDAZOLAM 2 MG/2 ML VIAL IV ONE (06:00)
[2019-06-14] MEDS: LEVOTHYROXINE 100 MCG TABLET PO SCH (06:47)
[2019-06-14] MEDS ORDERED: MIDAZOLAM 10 MG/2 ML VIAL ONE (07:03)
[2019-06-14] MEDS: PIPERACILLIN/TAZOBACTAM 3,375 MG in SODIUM CHLORIDE 0.9% 100 ML IV SCH ×2 (08:55→21:22)
[2019-06-14] MEDS: LACTULOSE 20 GM/30 ML UDCUP PO SCH ×3 (11:37→21:24)
[2019-06-14] MEDS: APIXABAN 2.5 MG TABLET PO SCH ×2 (11:37→21:24)
[2019-06-14] MEDS: DOCUSATE SODIUM 100 MG CAPSULE PO SCH ×2 (11:37→21:24)
[2019-06-14] MEDS: CALCIUM ACETATE 667 MG CAPSULE PO SCH ×3 (11:37→17:45)
[2019-06-14] MEDS: FOLIC ACID 1 MG TABLET PO SCH (11:38)
[2019-06-14] MEDS: PANTOPRAZOLE 40 MG TABLET PO SCH (11:38)
[2019-06-14] MEDS: CLOPIDOGREL 75 MG TABLET PO SCH (11:38)
[2019-06-14] MEDS: MEGESTROL 40 MG TABLET PO SCH (11:38)
[2019-06-14] MEDS: MIDODRINE 2.5 MG TABLET PO SCH ×3 (11:38→21:24)
[2019-06-14] MEDS: LIDOCAINE 5% PATCH TRANSDERM SCH (11:38)
[2019-06-14] MEDS: FLUoxetine 20 MG CAPSULE PO SCH (11:39)
[2019-06-14] MEDS: DIGOXIN 0.125 MG TABLET PO SCH (13:38)
[2019-06-14] MEDS: ATORVASTATIN 40 MG TABLET PO SCH (21:24)
[2019-06-15] MEDS: INSULIN REGULAR 100 UNIT/ML SUBCUT SCH ×4 (00:51→18:11)
[2019-06-15 05:08] LABS: Basophils % 0.5 % (0.0-0.8); Eosinophils # 0.1 10*3/uL (0.0-0.87); Eosinophils % 2.3 % (0.00-10.9); Hematocrit 33.4 VOL% (42.0-52.0); Hemoglobin 9.8 GM/DL (14.0-18.0); Immature Granulocytes % 0.5 %; Immature Granulocytes Absolute 0.03 #; Lymphocytes # 1.1 10*3/uL (1.4-4.0); Lymphocytes % 19.6 % (21.2-54.2); Mean Corpuscular HGB Conc 29.3 GM/DL (32-36); Mean Corpuscular Volume 92.5 FL (87-102); Mean Platelet Volume 11.1 FL (9.6-12.0); Monocytes % 12.3 % (1.7-12.7); Neutrophils % 64.8 % (38.7-73.9); Platelet Count 119 T/CUMM (130-400); Red Blood Count 3.61 MC/CUMM (3.8-5.5); Red Cell Distribution Width 15.6 % (9.3-17.3); White Blood Count 5.7 T/CUMM (4-12)
[2019-06-15 05:43] LABS: Calcium 9.2 MG/DL (8.5-10.1); Osmolality,Calculated 269.4 MOS/KG (273-304)
[2019-06-15] MEDS: LEVOTHYROXINE 100 MCG TABLET PO SCH (06:40)
[2019-06-15] MEDS: PIPERACILLIN/TAZOBACTAM 3,375 MG in SODIUM CHLORIDE 0.9% 100 ML IV SCH ×2 (10:29→20:40)
[2019-06-15] MEDS: LIDOCAINE 5% PATCH TRANSDERM SCH (10:29)
[2019-06-15] MEDS: LACTULOSE 20 GM/30 ML UDCUP PO SCH ×3 (10:30→20:41)
[2019-06-15] MEDS: DOCUSATE SODIUM 100 MG CAPSULE PO SCH ×2 (10:30→20:41)
[2019-06-15] MEDS: APIXABAN 2.5 MG TABLET PO SCH ×2 (10:30→20:41)
[2019-06-15] MEDS: CLOPIDOGREL 75 MG TABLET PO SCH (10:30)
[2019-06-15] MEDS: FOLIC ACID 1 MG TABLET PO SCH (10:30)
[2019-06-15] MEDS: MIDODRINE 2.5 MG TABLET PO SCH ×3 (10:30→20:41)
[2019-06-15] MEDS: MEGESTROL 40 MG TABLET PO SCH (10:30)
[2019-06-15] MEDS: CALCIUM ACETATE 667 MG CAPSULE PO SCH ×3 (10:31→16:33)
[2019-06-15] MEDS: PANTOPRAZOLE 40 MG TABLET PO SCH (10:31)
[2019-06-15] MEDS: FLUoxetine 20 MG CAPSULE PO SCH (10:31)
[2019-06-15] MEDS: ATORVASTATIN 40 MG TABLET PO SCH (20:41)
[2019-06-16] MEDS: INSULIN REGULAR 100 UNIT/ML SUBCUT SCH ×5 (00:18→23:26)
[2019-06-16] MEDS: LEVOTHYROXINE 100 MCG TABLET PO SCH (06:35)
[2019-06-16] MEDS: FLUoxetine 20 MG CAPSULE PO SCH (09:20)
[2019-06-16] MEDS: MEGESTROL 40 MG TABLET PO SCH (09:20)
[2019-06-16] MEDS: DOCUSATE SODIUM 100 MG CAPSULE PO SCH ×2 (09:20→21:11)
[2019-06-16] MEDS: CALCIUM ACETATE 667 MG CAPSULE PO SCH ×3 (09:20→17:34)
[2019-06-16] MEDS: MIDODRINE 2.5 MG TABLET PO SCH ×3 (09:20→21:10)
[2019-06-16] MEDS: CLOPIDOGREL 75 MG TABLET PO SCH (09:20)
[2019-06-16] MEDS: FOLIC ACID 1 MG TABLET PO SCH (09:20)
[2019-06-16] MEDS: APIXABAN 2.5 MG TABLET PO SCH ×2 (09:31→21:11)
[2019-06-16] MEDS: PANTOPRAZOLE 40 MG TABLET PO SCH (09:32)
[2019-06-16] MEDS: LIDOCAINE 5% PATCH TRANSDERM SCH (09:32)
[2019-06-16] MEDS: PIPERACILLIN/TAZOBACTAM 3,375 MG in SODIUM CHLORIDE 0.9% 100 ML IV SCH ×2 (11:21→21:12)
[2019-06-16] MEDS: LACTULOSE 20 GM/30 ML UDCUP PO SCH ×3 (11:21→21:10)
[2019-06-16] MEDS: SODIUM CHLORIDE 3% 4 ML NEB RESP TX SCH (20:14)
[2019-06-16] MEDS: ATORVASTATIN 40 MG TABLET PO SCH (21:10)
[2019-06-17] MEDS: LEVOTHYROXINE 100 MCG TABLET PO SCH (06:12)
[2019-06-17] MEDS: INSULIN REGULAR 100 UNIT/ML SUBCUT SCH ×2 (06:14→12:46)
[2019-06-17] MEDS: SODIUM CHLORIDE 3% 4 ML NEB RESP TX SCH (07:31)
[2019-06-17] MEDS: PANTOPRAZOLE 40 MG TABLET PO SCH (09:09)
[2019-06-17] MEDS: LACTULOSE 20 GM/30 ML UDCUP PO SCH (09:09)
[2019-06-17] MEDS: LIDOCAINE 5% PATCH TRANSDERM SCH (09:09)
[2019-06-17] MEDS: CLOPIDOGREL 75 MG TABLET PO SCH (09:09)
[2019-06-17] MEDS: FOLIC ACID 1 MG TABLET PO SCH (09:09)
[2019-06-17] MEDS: MIDODRINE 2.5 MG TABLET PO SCH (09:10)
[2019-06-17] MEDS: FLUoxetine 20 MG CAPSULE PO SCH (09:10)
[2019-06-17] MEDS: DOCUSATE SODIUM 100 MG CAPSULE PO SCH (09:10)
[2019-06-17] MEDS: PIPERACILLIN/TAZOBACTAM 3,375 MG in SODIUM CHLORIDE 0.9% 100 ML IV SCH (09:10)
[2019-06-17] MEDS: APIXABAN 2.5 MG TABLET PO SCH (09:10)
[2019-06-17] MEDS: MEGESTROL 40 MG TABLET PO SCH (09:10)
[2019-06-17] MEDS: CALCIUM ACETATE 667 MG CAPSULE PO SCH ×2 (09:16→12:46)
[2019-06-17] MEDS: DIGOXIN 0.125 MG TABLET PO SCH (12:47)
[2019-06-17 15:55] VITALS: BP 114/71
== END 2019-06-17 17:37 | disposition hospice, home (50) | DRG 208 ==
LOC: N.ED 02:40 → N.EDINP 02:40 → EDBD 02:40 → EDUNIT# 02:40 → SUATTDRO 05:18 → N.5E 05:49 → N.ICU 06:23 → SUATTDRO 07:22 → N.5E 06-10 13:19
PROVIDERS: ADMIT Internal Medicine; ATTEND Internal Medicine